=== PATIENT | female | born 1960 | race African-American/Black ===

== ENCOUNTER → 2018-01-29 | Day surgery (SDC) | payer BC ==
[~2018-01-29] MED LIST: ATORVASTATIN CA40 MG PO; CELEBREX100 MG PO; CYCLOBENZAPRINE10 MG PO; FENTANYL CITRATE/PF 100MCG/2 ML INJ ONE; HYDROCHLOROTHIA25 MG PO; LIDOCAINE HCL 2% LOCAL INJ 5 ML SDV VIAL INJ ONE; LIDOCAINE TD; LORAZEPAM1 MG PO; MIDAZOLAM HCL 2 MG/2 ML VIAL ONE; NEXIUM40 MG PO; NORTRIPTYLINE H50 MG PO; PREMARIN0.625 MG PO; PROPOFOL IV EMULSION 10 MG/ML 50 ML VIAL ONE; SYNTHROID100 MCG PO; ULTRAM 50MG50 MG PO
== END | disposition home or self-care (01) ==
LOC: OR 12:26
PROVIDERS: ATTEND Internal Medicine Gastroenterology
DX: R93.3 Abnormal findings on diagnostic imaging of other parts of digestive tract (principal); K31.7 Polyp of stomach and duodenum; K29.70 Gastritis, unspecified, without bleeding; K31.9 Disease of stomach and duodenum, unspecified; K59.09 Other constipation; K60.2 Anal fissure, unspecified; K62.89 Other specified diseases of anus and rectum; K76.89 Other specified diseases of liver; E03.9 Hypothyroidism, unspecified; I10 Essential (primary) hypertension; E78.00 Pure hypercholesterolemia, unspecified; F41.9 Anxiety disorder, unspecified; Z01.810 Encounter for preprocedural cardiovascular examination
CPT/HCPCS: 43239; 43251; 93005; J2001; J2250

== ENCOUNTER 2018-04-15 06:48 | Inpatient (IN) | payer BC ==
[2018-04-12 10:38] LABS: BASOPHILS # (AUTO) 0.1 (0.0-0.1); BASOPHILS % 0.9 % (0.0-1.0); EOSINOPHILS # (AUTO) 0.1 (0.0-0.4); EOSINOPHILS % 1.4 % (0.0-6.0); HEMOGLOBIN 13.9 g/dL (12.0-16.0); LYMPHOCYTES # (AUTO) 2.2 (1.0-3.2); LYMPHOCYTES % 31.3 % (18.0-39.1); MEAN CORPUSCULAR HEMOGLOBIN 29.6 pg (28-32); MEAN CORPUSCULAR HGB CONC 33.9 g/dL (31-35); MEAN CORPUSCULAR VOLUME 87.2 fL (81-99); MONOCYTES # (AUTO) 0.5 (0.2-0.8); MONOCYTES % 6.4 % (4.4-11.3); NEUTROPHILS # (AUTO) 4.2 (2.1-6.9); NEUTROPHILS % 59.7 % (38.7-80.0); PLATELET COUNT 280 x10e3/uL (140-360)
[2018-04-12 10:53] LABS: ANION GAP 17.6 mmol/L (8-16); BLOOD UREA NITROGEN 11 mg/dL (7-26); BUN/CREATININE RATIO 13 (6-25); CALCIUM 9.9 mg/dL (8.4-10.2); CARBON DIOXIDE 26 mmol/L (22-29); CHLORIDE 103 mmol/L (98-107); CREATININE, SERUM 0.83 mg/dL (0.57-1.11); EST GLOMERULAR FILTRATION RATE > 60 ML/MIN (60-); GLUCOSE 116 mg/dL (74-118); POTASSIUM 3.6 mmol/L (3.5-5.1); SODIUM 143 mmol/L (136-145)
--- NOTE | 2018-04-12 11:34 | Diagnostic Imaging Report ---
EXAMINATION: PA and lateral views of the chest. COMPARISON: None CLINICAL HISTORY: Preoperative study for GI surgery DISCUSSION: Lung volumes are low with linear subsegmental atelectasis in the right lung base. No consolidation, pleural effusion, or pneumothorax. Cardiomediastinal contour and pulmonary vasculature are within normal limits when accounting for degree of inspiratory effort. No acute osseous abnormality. IMPRESSION: Low lung volumes without acute cardiopulmonary abnormality. Signed by: Dr. Shaka Majano M.D. on 04/12/2018 11:30 AM
[~2018-04-15] VITALS: Ht 154.2 cm; Wt 81.6 kg
[~2018-04-15 06:48] MED LIST changes: -FENTANYL CITRATE/PF 100MCG/2 ML INJ ONE; -LIDOCAINE HCL 2% LOCAL INJ 5 ML SDV VIAL INJ ONE; -MIDAZOLAM HCL 2 MG/2 ML VIAL ONE; -PROPOFOL IV EMULSION 10 MG/ML 50 ML VIAL ONE
--- OUTSIDE RECORDS SUMMARY | 2018-04-15 06:51 | XMS REPORT ---
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.49 Active Cecille Atkins MD Other specified disorders of rectum and anus levator spasm Chronic pain 338.29 Active Cecille Atkins MD Other chronic pain Hypertension 401.9 Active Cecille Atkins MD Unspecified essential hypertension Allergic rhinitis 477.9 Active Cecille Atkins MD Allergic rhinitis, cause unspecified Acute frontal sinusitis 461.1 Active Cecille Atkins MD Acute frontal sinusitis BMI 25.0-25.9 Active Jerel Dietrich MD Body Mass Index 25.0-25.9, adult Flu shot V04.8 Active Jerel Dietrich MD Need for prophylactic vaccination and inoculation against other viral diseases Overweight Active Jerel Dietrich MD Overweight Screening exam for breast cancer V76.10 Active Jerel Dietrich MD Breast screening, unspecified Screening for malignant neoplasm, colon V76.51 Active Jerel Dietrich MD Screening for malignant neoplasms of colon HEALTH MAINTENANCE EXAM V70.0 Active Jerel Dietrich MD Routine general medical examination at a health care facility OSTEOARTHRITIS 715.90 Active Jerel Dietrich MD Osteoarthrosis, unspecified whether generalized or localized, involving unspecified site CHEST PAIN 786.50 Active Elisabeth Bourne MD Unspecified chest pain HEADACHE 784.0 Active Elisabeth Bourne MD Headache HYPERLIPIDEMIA 272.4 Active Elisabeth Bourne MD Other and unspecified hyperlipidemia ANXIETY 300.00 Active Jerel Dietrich MD Anxiety state, unspecified ARTHRALGIA 719.40 Active Jerel Dietrich MD Pain in joint, site unspecified HYPOTHYROIDISM 244.9 Active Jerel Dietrich MD Unspecified hypothyroidism Medication List Medication Instructions Start Date Stop Date Generic Name NDC Status Provider Patient Instruction CYCLOBENZAPRINE HCL 10 MG ORAL TABLET 1 By Mouth three times a day as needed for muscle spasm CYCLOBENZAPRINE HCL 44367771438 Active Cecille Atkins MD Active HYDROCHLOROTHIAZIDE 25 MG ORAL TABLET 1 by mouth every day HYDROCHLOROTHIAZIDE 59048235742 Active Cecille Atkins MD Active ATORVASTATIN CALCIUM 40 MG ORAL TABLET 1 tab By Mouth qd ATORVASTATIN CALCIUM 34356424810 Active Ceclile Atkins MD Active LEVOTHYROXINE SODIUM 100 MCG ORAL TABLET 1 by mouth daily LEVOTHYROXINE SODIUM 68117607274 Active Cecille Atkins MD Active FLONASE ALLERGY RELIEF 50 MCG/ACT NASAL SUSPENSION 2 sprays each nostril every day FLUTICASONE PROPIONATE 17322331935 Active Angelita Callahan [employer]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 TRAMADOL HCL 50 MG ORAL TABLET 1-2 tablets by mouth 3 times a day as needed for pain TRAMADOL HCL 27910359559 Active Cecille Atkins MD Active NORTRIPTYLINE HCL 75 MG ORAL CAPSULE 1 tab By Mouth qd NORTRIPTYLINE HCL 45432281512 Active Cecille Atkins MD Active LIDODERM 5 % EXTERNAL PATCH LIDOCAINE 96234199902 Active Jerel Dietrich MD Active TRAMADOL-ACETAMINOPHEN 37.5-325 MG ORAL TABLET take two tabs every 4-6 hours as needed for pain TRAMADOL-ACETAMINOPHEN 45017913475 Active Jerel Dietrich MD Active ATORVASTATIN CALCIUM 20 MG ORAL TABLET take one daily for cholesterol control ATORVASTATIN CALCIUM 24947923662 Active Bing Ferreira LVN Active CELEBREX 100 MG ORAL CAPSULE 1 by mouth Twice a Day CELECOXIB 64689386465 Active Cecille Atkins MD Active CRESTOR 20 MG ORAL TABLET 1 tab by mouth daily ROSUVASTATIN CALCIUM 43704857591 Active Jerel Dietrich MD Active HYDROCODONE-ACETAMINOPHEN 10-325 MG ORAL TABLET takde one daily as needed for chronic hip pain HYDROCODONE-ACETAMINOPHEN 99654318086 Active Jerel Dietrich MD Active LORAZEPAM 2 MG ORAL TABLET take one tab daily as needed for anxiety LORAZEPAM 66346857946 Active Cecille Atkins MD Active HYOSCYAMINE SULFATE 0.125 MG SUBLINGUAL TABLET SUBLINGUAL Take 1 tablet under the tongue before meals. HYOSCYAMINE SULFATE 30445317449 Active Bing Ferreira LVN Active NEXIUM 40 MG ORAL CAPSULE DELAYED RELEASE 1 by mouth daily ESOMEPRAZOLE MAGNESIUM 50189318222 Active Angelita Callahan CPHT Active PREMARIN 0.9 MG ORAL TABLET 1 by mouth every other day ESTROGENS CONJUGATED 85939193482 Active Cecille Atkins MD Active HYDROCODONE-ACETAMINOPHEN 10-650 MG ORAL TABLET take one daily for pain HYDROCODONE-ACETAMINOPHEN 37193137834 Active Jerel Dietrich MD Active LORAZEPAM 2 MG ORAL TABLET take one daily LORAZEPAM 28638373193 Active Cecille Atkins MD Active LEVOTHYROXINE SODIUM 125 MCG ORAL TABLET take 1 tablet By Mouth Every Day LEVOTHYROXINE SODIUM 03737536041 Active Bing Ferreira LVN Active TRAMADOL HCL 50 MG ORAL TABLET Take 1 Tablet By Mouth Every 6 To 8 Hours As Needed For Pain TRAMADOL HCL 04504713920 Active Jerel Dietrich MD Active AUGMENTIN 875-125 MG ORAL TABLET 1 by mouth twice a day AUGMENTIN 875-125 MG ORAL TABLET 843897 AMOXICILLIN-POT CLAVULANATE Inactive NORTRIPTYLINE HCL 50 MG ORAL CAPSULE 2 tab By Mouth take at bedtime NORTRIPTYLINE HCL 50 MG ORAL CAPSULE 19790929 NORTRIPTYLINE HCL Inactive NORTRIPTYLINE HCL 50 MG ORAL CAPSULE take one every night NORTRIPTYLINE HCL 50 MG ORAL CAPSULE 19790929 NORTRIPTYLINE HCL Inactive LEVOTHYROXINE SODIUM 125 MCG ORAL TABLET One tab by mouth daily LEVOTHYROXINE SODIUM 125 MCG ORAL TABLET 006153 LEVOTHYROXINE SODIUM Inactive AMITRIPTYLINE HCL 50 MG ORAL TABLET take 1 tablet By Mouth Every Day at bedtime AMITRIPTYLINE HCL 50 MG ORAL TABLET 081033 AMITRIPTYLINE HCL Inactive AUGMENTIN 875-125 MG ORAL TABLET 1 by mouth twice a day AMOXICILLIN-POT CLAVULANATE 26565313198 No Longer Active Cecille Atkins MD Active NORTRIPTYLINE HCL 50 MG ORAL CAPSULE 2 tab By Mouth take at bedtime NORTRIPTYLINE HCL 23048981881 No Longer Active Cecille Atkins MD Active NORTRIPTYLINE HCL 50 MG ORAL CAPSULE take one every night NORTRIPTYLINE HCL 70481314767 No Longer Active Cecille Atkins MD Active LEVOTHYROXINE SODIUM 125 MCG ORAL TABLET One tab by mouth daily LEVOTHYROXINE SODIUM 37071362680 No Longer Active Bing Ferreira ROCK Active AMITRIPTYLINE HCL 50 MG ORAL TABLET take 1 tablet By Mouth Every Day at bedtime AMITRIPTYLINE HCL 01102322975 No Longer Active Cecille Atkins MD Active Immunizations Vaccine Administration Date Value Standard Description influenza immunization (Flu Vax) has been administered given influenza virus vaccine, unspecified formulation influenza immunization (Flu Vax) has been administered given influenza virus vaccine, unspecified formulation Vital Signs Date Name Value Unit Range Description blood pressure, diastolic 79 mm[Hg] BP mcdowell blood pressure, systolic 113 mm[Hg] BP sys height E&M 67 [in_us] Bdy height pulse rate E&M 92 /min Heart rate respiratory rate E&M 18 /min Resp rate temperature E&M 98.7 [degF] Body temperature weight E&M 168.60 [lb_av] Weight Measured blood pressure, diastolic 86 mm[Hg] BP mcdowell blood pressure, systolic 119 mm[Hg] BP sys height E&M 67 [in_us] Bdy height pulse rate E&M 90 /min Heart rate respiratory rate E&M 18 /min Resp rate temperature E&M 98.7 [degF] Body temperature weight E&M 171.80 [lb_av] Weight Measured blood pressure, diastolic 107 mm[Hg] BP mcdowell blood pressure, systolic 161 mm[Hg] BP sys height E&M 67 [in_us] Bdy height pulse rate E&M 85 /min Heart rate respiratory rate E&M 22 /min Resp rate temperature E&M 98.4 [degF] Body temperature weight E&M 173 [lb_av] Weight Measured blood pressure, diastolic 101 mm[Hg] BP mcdowell blood pressure, systolic 146 mm[Hg] BP sys height E&M 67 [in_us] Bdy height pulse rate E&M 89 /min Heart rate respiratory rate E&M 21 /min Resp rate temperature E&M 98.3 [degF] Body temperature weight E&M 165 [lb_av] Weight Measured blood pressure, diastolic 87 mm[Hg] BP mcdowell blood pressure, systolic 146 mm[Hg] BP sys height E&M 67 [in_us] Bdy height pulse rate E&M 93 /min Heart rate respiratory rate E&M 22 /min Resp rate temperature E&M 98.6 [degF] Body temperature weight E&M 169.80 [lb_av] Weight Measured blood pressure, diastolic 84 mm[Hg] BP mcdowell blood pressure, systolic 125 mm[Hg] BP sys height E&M 67 [in_us] Bdy height pulse rate E&M 98 /min Heart rate respiratory rate E&M 17 /min Resp rate temperature E&M 98.3 [degF] Body temperature weight E&M 168 [lb_av] Weight Measured blood pressure, diastolic, second observation 94 mm[Hg] BP mcdowell blood pressure, diastolic 93 mm[Hg] BP mcdowell blood pressure, systolic, second observation 149 mm[Hg] BP sys blood pressure, systolic 147 mm[Hg] BP sys height E&M 67 [in_us] Bdy height pulse rate E&M 92 /min Heart rate respiratory rate E&M 16 /min Resp rate temperature E&M 98.3 [degF] Body temperature weight E&M 166.40 [lb_av] Weight Measured blood pressure, diastolic, second observation 81 mm[Hg] BP mcdowell blood pressure, diastolic 81 mm[Hg] BP mcdowell blood pressure, systolic, second observation 145 mm[Hg] BP sys blood pressure, systolic 145 mm[Hg] BP sys height E&M 67 [in_us] Bdy height pulse rate E&M 95 /min Heart rate respiratory rate E&M 18 /min Resp rate temperature E&M 98.5 [degF] Body temperature weight E&M 163.40 [lb_av] Weight Measured Diagnostic Results Date Name Value Unit Range Description Lab Report: TSH+Free T4, CBC With Differential/Platelet, Comp. Metabolic ... - Hematology lymphocyte count, blood, automated 2.5 X10E3/UL 10*3/mm3 0.7-3.1 Lab Report: TSH+Free T4, CBC With Differential/Platelet, Comp. Metabolic ... - Chemistry urea nitrogen, blood 14 mg/dL 6-24 creatinine, serum 0.81 mg/dL 0.57-1.00 chloride, serum 103 mmol/L 96-106 Lab Report: TSH+Free T4, CBC With Differential/Platelet, Comp. Metabolic ... - Hematology mean corpuscular volume, RBC 88 fL 79-97 Lab Report: TSH+Free T4, CBC With Differential/Platelet, Comp. Metabolic ... - Chemistry triglyceride, serum, fasting 171 mg/dL 0-149 Lab Report: TSH+Free T4, CBC With Differential/Platelet, Comp. Metabolic ... - Hematology erythrocyte (RBC) count 4.98 X10E6/UL 10*6/mm3 3.77-5.28 Lab Report: TSH+Free T4, CBC With Differential/Platelet, Comp. Metabolic ... - Chemistry Estimated Glomerular Filtration Rate (calc) 80 mL/min/1.73m2 >59 Lab Report: TSH+Free T4, CBC With Differential/Platelet, Comp. Metabolic ... - Hematology platelet count 265 X10E3/UL 10*3/mm3 974-730 4735/05/10 red blood cell distribution width 14.0 % 12.3-15.4 Lab Report: TSH+Free T4, CBC With Differential/Platelet, Comp. Metabolic ... - Chemistry protein, total, serum 7.2 g/dL 6.0-8.5 HDL cholesterol, serum 64 mg/dL >39 albumin/globulin ratio, serum 2.0 1.2-2.2 Lab Report: TSH+Free T4, CBC With Differential/Platelet, Comp. Metabolic ... - Hematology eosinophils as percent of blood leukocytes 1 % Not Estab. Lab Report: TSH+Free T4, CBC With Differential/Platelet, Comp. Metabolic ... - Chemistry Absolute Neutrophils 2.9 X10E3/UL 10*3/uL 1.4-7.0 Lab Report: TSH+Free T4, CBC With Differential/Platelet, Comp. Metabolic ... - Hematology basophil count, absolute 0.0 x10E3/uL 0.0-0.2 Lab Report: TSH+Free T4, CBC With Differential/Platelet, Comp. Metabolic ... - Chemistry alanine aminotransferase (SGPT), serum 21 U/L 0-32 LDL cholesterol, serum 183 mg/dL 0-99 Lab Report: TSH+Free T4, CBC With Differential/Platelet, Comp. Metabolic ... - Hematology monocytes as percent of blood leukocytes 6 % Not Estab. Lab Report: TSH+Free T4, CBC With Differential/Platelet, Comp. Metabolic ... - Chemistry cholesterol, serum 281 mg/dL 100-199 Lab Report: TSH+Free T4, CBC With Differential/Platelet, Comp. Metabolic ... - Hematology mean corpuscular hemoglobin concentration, RBC 33.0 G/DL % 31.5-35.7 hemoglobin, blood 14.5 g/dL 11.1-15.9 leukocyte count, blood 5.9 X10E3/UL 10*3/mm3 3.4-10.8 hematocrit, blood 44.0 % 34.0-46.6 Lab Report: TSH+Free T4, CBC With Differential/Platelet, Comp. Metabolic ... - Chemistry globulin, serum 2.4 1.5-4.5 Lab Report: TSH+Free T4 - Chemistry thyroid stimulating hormone, serum 1.010 u[iU]/mL 0.450-4.500 Lab Report: TSH+Free T4, CBC With Differential/Platelet, Comp. Metabolic ... - Chemistry albumin, serum 4.8 g/dL 3.5-5.5 very low density lipoproteins 34 mg/dL 5-40 calcium, serum 9.9 mg/dL 8.7-10.2 Lab Report: TSH+Free T4, CBC With Differential/Platelet, Comp. Metabolic ... - Hematology basophils as percent of blood leukocytes 1 % Not Estab. Nurse Visit: Nurse Visit stool results - Chemistry occult blood stool sample #3 negative Lab Report: TSH+Free T4 - Chemistry thyroxine, serum, free 1.29 ng/dL 0.82-1.77 Lab Report: TSH+Free T4, CBC With Differential/Platelet, Comp. Metabolic ... - Hematology monocyte count, blood, automated 0.4 X10E3/UL 10*3/uL 0.1-0.9 Lab Report: TSH+Free T4, CBC With Differential/Platelet, Comp. Metabolic ... - Chemistry immature granulocytes, percentage of total cells, blood 0 % Not Estab. urea nitrogen/creatinine ratio, serum 17 9-23 Lab Report: TSH+Free T4, CBC With Differential/Platelet, Comp. Metabolic ... - Genetics/fertility eGFR if 92 mL/min/1.73m2 >59 Lab Report: TSH+Free T4, CBC With Differential/Platelet, Comp. Metabolic ... - Hematology lymphocytes as percent of blood leukocytes 42 % Not Estab. Lab Report: TSH+Free T4, CBC With Differential/Platelet, Comp. Metabolic ... - Chemistry carbon dioxide, venous blood 24 mmol/L 18-29 sodium, serum 145 mmol/L 114-782 3572/05/10 alkaline phosphatase, serum 68 U/L 39-117 Lab Report: TSH+Free T4, CBC With Differential/Platelet, Comp. Metabolic ... - Hematology Eosinophil Absolute Count 0.1 X10E3/UL 10*3/uL 0.0-0.4 Nurse Visit: Nurse Visit stool results - Chemistry occult blood stool sample #2 negative Lab Report: TSH+Free T4, CBC With Differential/Platelet, Comp. Metabolic ... - Hematology mean corpuscular hemoglobin, RBC 29.1 pg 26.6-33.0 Lab Report: TSH+Free T4, CBC With Differential/Platelet, Comp. Metabolic ... - Chemistry bilirubin, serum, total 0.4 mg/dL 0.0-1.2 Lab Report: TSH+Free T4, CBC With Differential/Platelet, Comp. Metabolic ... - Hematology neutrophils as percent of blood leukocytes 50 % Not Estab. Lab Report: TSH+Free T4, CBC With Differential/Platelet, Comp. Metabolic ... - Chemistry blood glucose, random 120 mg/dL 65-99 potassium, serum 4.5 mmol/L 3.5-5.2 Nurse Visit: Nurse Visit stool results - Chemistry occult blood, stool (E&M) negative Lab Report: TSH+Free T4, CBC With Differential/Platelet, Comp. Metabolic ... - Chemistry aspartate aminotransferase (SGOT), serum 21 U/L 0-40 Office Visit: Acute Visit Rm1 - Lab Microbial identification kit, rapid strep method negative Encounters Date Encounter Provider Code Facility 17:04:01 CDT Est Patient Detailed - [id number] Cecille Atkins MD CPT-55504 [facility] 11:55:13 CDT Est Patient Detailed - [id number] Cecille Atkins MD CPT-05230 [facility] 11:50:51 CDT Est Patient Detailed - 25805 Cecille Atkins MD CPT-73474 [facility] 22:02:22 CREDIT AND COLLECTIONS ANALYST Est Patient Exp Problem - 47570 Cecille Atkins MD CPT-20480 [facility] 14:48:02 CREDIT AND COLLECTIONS ANALYST Est Patient Detailed - 74328 Cecille Atkins MD CPT-25279 [facility] 17:04:59 CREDIT AND COLLECTIONS ANALYST Est Patient Exp Problem - 60818 Cecille Atkins MD CPT-83371 [facility] 17:57:53 CDT Est Patient Detailed - 19318 Cecille Atkins MD CPT-08293 [facility] 15:59:51 CDT Est Patient Exp Problem - 76237 Jerel Dietrich MD CPT-84304 [facility] 17:22:37 CDT Est Patient Exp Problem - 72085 Jerel Dietrich MD CPT-60877 [facility] 09:06:12 CDT Est Patient Detailed - 09978 Jerel Dietrich MD CPT-74703 [facility] 16:19:41 CDT Est Patient Exp Problem - 73959 Jerel Dietrich MD CPT-03070 [facility] 10:52:44 CDT Est Patient Exp Problem - 89877 Elisabeth Bourne MD CPT-18647 [facility] 16:40:30 CDT Est Patient Exp Problem - 19626 Jerel Dietrich MD CPT-88934 [facility] Procedures Code Procedure Name Date Entry Date Standard Description CPT-07024 IM or SQ Injection 22:02:22 CREDIT AND COLLECTIONS ANALYST CPT-J1100 Injection, dexamethasone sodium phosphate, 1mg 22:02:21 CREDIT AND COLLECTIONS ANALYST CPT-59302 INFLUENZA VACCINE QUADRIVALENT 3 YRS PLUS IM 17:57:53 CDT CPT-08266 Est Patient Well Exam (40 - 64 Yrs) - [id number] 12:18:23 CDT CPT-12293 INFLUENZA VACCINE QUADRIVALENT 3 YRS PLUS IM 15:59:52 CDT CPT-14641 Est Patient Well Exam (40 - 64 Yrs) - 89847 12:13:05 CDT CPT-57212 EKG - Tracing Only 15:38:38 CDT CPT-03099 EKG - Interpretation & Report Only 15:38:38 CDT CPT-32616 Est Patient Well Exam (40 - 64 Yrs) - 75801 10:06:13 CDT
--- OUTSIDE RECORDS SUMMARY | 2018-04-15 06:51 | XMS REPORT | Continuity of Care Document ---
Author Author [facility] Interface Address Unknown Phone Unavailable Problems Problem Status Onset Date Classification Date Reported Comments Source Trochanteric bursitis, right hip Active Diagnosis 11/26/2015 Shalini Najam Pain, joint, multiple sites Active Diagnosis 11/26/2015 Shalini Najam Pain in right hip Active Diagnosis 11/26/2015 Shalini Najam Counseling NOS Active Diagnosis 11/26/2015 Shalini Najam Medications Medication Details Route Status Patient Instructions Ordering Provider Order Date Source Arthrotec 1 tablet Orally Active 50-0.2 MG Orally bid prn with food Najam 11/08/2015 Shalini Najam Synthroid 1 tablet Orally Active 125 [facility]CG [facility] Lidocaine 1 application to affected area as needed Externally Active 5 % Externally Three times a day PRN Naja Shalini [facility] Esomeprazole Magnesium 1 capsule Orally Active 40 MG Orally [facility] Premarin 1 tablet Orally Active 0.9 MG Orally Once a [facility] Lorazepam 1 tablet at bedtime as needed Orally Active 2 MG Orally [facility] Tramadol HCl 1 tablet as needed Orally Active 50 MG [facility] Ator[facility] Calcium 1 tablet Orally Active 20 MG Orally [facility] Arthrotec 1 tablet Orally Active 50-0.2 MG Orally bid prn with food [facility] Nortriptyline HCl 1 capsule at bedtime Orally Active 50 MG Orally [facility] Lidocaine 1 application to affected area as needed Externally Active 5 % Externally Three [facility] a [facility] Celecoxib 1 capsule Orally No Longer Active 100 MG Orally Twice a [facility] Allergies, Adverse Reactions, Alerts Substance Category Reaction Severity Reaction type Status Date Reported Comments Source N.K.D.A. Adverse Reaction Info Not Available Adverse Reaction Active 11/25/2015 Shalini Guzman Immunizations Immunization Date Given Site Status Last Updated Comments Source Results Order Name Results Value Reference Range Date Interpretation Comments Source Vital Signs Vital Sign Value Date Comments Source Height 67 11/25/2015 Shalini Guzman Diastolic (mm Hg) 97 11/25/2015 Shalini Guzman Systolic (mm Hg) 136 11/25/2015 Shalini Guzman Weight 166.8 11/25/2015 Shalini Guzman Height 67 11/08/2015 Shalini Guzman Diastolic (mm Hg) 97 11/08/2015 Shalini Guzman Systolic (mm Hg) 138 11/08/2015 Shalini Guzman Weight 164.8 11/08/2015 Shalini Guzman Encounters Location Location Details Encounter Type Encounter Number Reason For Visit Attending Provider ADM Date DC Date Status Source [facility] Arthritis [id number] 11/08/2015 11/08/2015 Shalini Guzman [facility] Arthritis [id number] 11/08/2015 11/08/2015 Shalini Guzman [facility] Follow Up Lab & MRI Results [id number] 11/25/2015 11/25/2015 Shalini Guzman Procedures Procedure Code Date Perfomer Comments Source
--- OUTSIDE RECORDS SUMMARY | 2018-04-15 06:51 | XMS REPORT ---
Author Author Admin, [facility] [place] Address Unknown Phone Unavailable Allergies, Adverse Reactions, Alerts Allergy Name Reaction Description Start Date Severity Status Provider No Known Allergies Krystin Thomas CANDY VENDOR Conditions or Problems Problem Name Problem Code [...] as needed for muscle spasm CYCLOBENZAPRINE HCL 99121661046 Active Cecille Atkins MD Active HYDROCHLOROTHIAZIDE 25 MG ORAL TABLET 1 by mouth every day HYDROCHLOROTHIAZIDE 29107514942 Active Cecille Atkins MD Active ATORVASTATIN CALCIUM 40 MG ORAL TABLET 1 tab By Mouth qd ATORVASTATIN CALCIUM 10456395057 Active Cecille Atkins MD Active LEVOTHYROXINE SODIUM 100 MCG ORAL TABLET 1 by mouth daily LEVOTHYROXINE SODIUM 90083550083 Active Cecille Atkins MD Active FLONASE ALLERGY RELIEF 50 MCG/ACT NASAL SUSPENSION 2 sprays each nostril every day FLUTICASONE PROPIONATE 93167364595 Active Angelita Callahan COIL WINDER Active TRAMADOL HCL 50 MG ORAL TABLET 1-2 tablets by mouth 3 times a day as needed for pain TRAMADOL HCL 67389881258 Active Cecille Atkins MD Active NORTRIPTYLINE HCL 75 MG ORAL CAPSULE 1 tab By Mouth qd NORTRIPTYLINE HCL 64639283733 Active Cecille Atkins MD Active LIDODERM 5 % EXTERNAL PATCH LIDOCAINE 68882777728 Active Jerel Dietrich MD Active TRAMADOL-ACETAMINOPHEN 37.5-325 MG ORAL TABLET take two tabs every 4-6 hours as needed for pain TRAMADOL-ACETAMINOPHEN 85739455592 Active Jerel Dietrich MD Active ATORVASTATIN CALCIUM 20 MG ORAL TABLET take one daily for cholesterol control ATORVASTATIN CALCIUM 99213016500 Active Bing Ferreira LVN Active CELEBREX 100 MG ORAL CAPSULE 1 by mouth Twice a Day CELECOXIB 12673319981 Active Cecille Atkins MD Active CRESTOR 20 MG ORAL TABLET 1 tab by mouth daily ROSUVASTATIN CALCIUM 08815021701 Active Jerel Dietrich MD Active HYDROCODONE-ACETAMINOPHEN 10-325 MG ORAL TABLET takde one daily as needed for chronic hip pain HYDROCODONE-ACETAMINOPHEN 71799223250 Active Jerel Dietrich MD Active LORAZEPAM 2 MG ORAL TABLET take one tab daily as needed for anxiety LORAZEPAM 39624151457 Active Cecille Atkins MD Active HYOSCYAMINE SULFATE 0.125 MG SUBLINGUAL TABLET SUBLINGUAL Take 1 tablet under the tongue before meals. HYOSCYAMINE SULFATE 30405486665 Active Bing Ferreira LVN Active NEXIUM 40 MG ORAL CAPSULE DELAYED RELEASE 1 by mouth daily ESOMEPRAZOLE MAGNESIUM 49888915539 Active Angelita Callahan CPHT Active PREMARIN 0.9 MG ORAL TABLET 1 by mouth every other day ESTROGENS CONJUGATED 15267527641 Active Cecille Atkins MD Active HYDROCODONE-ACETAMINOPHEN 10-650 MG ORAL TABLET take one daily for pain HYDROCODONE-ACETAMINOPHEN 80644195713 Active Jerel Dietrich MD Active LORAZEPAM 2 MG ORAL TABLET take one daily LORAZEPAM 89187296806 Active Cecille Atkins MD Active LEVOTHYROXINE SODIUM 125 MCG ORAL TABLET take 1 tablet By Mouth Every Day LEVOTHYROXINE SODIUM 40235107182 Active Bing Ferreira LVN Active TRAMADOL HCL 50 MG ORAL TABLET Take 1 Tablet By Mouth Every 6 To 8 Hours As Needed For Pain TRAMADOL HCL 43252161544 Active Jerel Dietrich MD Active AUGMENTIN 875-125 MG ORAL TABLET 1 by mouth twice a day AUGMENTIN 875-125 MG ORAL TABLET 543325 AMOXICILLIN-POT CLAVULANATE Inactive NORTRIPTYLINE HCL 50 MG ORAL CAPSULE 2 tab By Mouth take at bedtime NORTRIPTYLINE HCL 50 MG ORAL CAPSULE 19790929 NORTRIPTYLINE HCL Inactive NORTRIPTYLINE HCL 50 MG ORAL CAPSULE take one every night NORTRIPTYLINE HCL 50 MG ORAL CAPSULE 19790929 NORTRIPTYLINE HCL Inactive LEVOTHYROXINE SODIUM 125 MCG ORAL TABLET One tab by mouth daily LEVOTHYROXINE SODIUM 125 MCG ORAL TABLET 165579 LEVOTHYROXINE SODIUM Inactive AMITRIPTYLINE HCL 50 MG ORAL TABLET take 1 tablet By Mouth Every Day at bedtime AMITRIPTYLINE HCL 50 MG ORAL TABLET 512991 AMITRIPTYLINE HCL Inactive AUGMENTIN 875-125 MG ORAL TABLET 1 by mouth twice a day AMOXICILLIN-POT CLAVULANATE 85428606951 No Longer Active Cecille Atkins MD Active NORTRIPTYLINE HCL 50 MG ORAL CAPSULE 2 tab By Mouth take at bedtime NORTRIPTYLINE HCL 07304069405 No Longer Active Cecille Atkins MD Active NORTRIPTYLINE HCL 50 MG ORAL CAPSULE take one every night NORTRIPTYLINE HCL 59095659559 No Longer Active Cecille Atkins MD Active LEVOTHYROXINE SODIUM 125 MCG ORAL TABLET One tab by mouth daily LEVOTHYROXINE SODIUM 62289464478 No Longer Active Bing Ferreira ROCK Active AMITRIPTYLINE HCL 50 MG ORAL TABLET take 1 tablet By Mouth Every Day at bedtime AMITRIPTYLINE HCL 41538723999 No Longer Active Cecille Atkins MD Active Immunizations Vaccine Administration Date Value Standard Description influenza immunization (Flu Vax) has been administered given influenza virus vaccine, unspecified formulation influenza immunization (Flu Vax) has been administered given influenza virus vaccine, unspecified formulation Vital Signs Date Name Value Unit Range Description blood pressure, diastolic 78 mm[Hg] BP mcdowell blood pressure, systolic 112 mm[Hg] BP sys height E&M 67 [in_us] Bdy height pulse rate E&M 99 /min Heart rate respiratory rate E&M 17 /min Resp rate temperature E&M 98.6 [degF] Body temperature weight E&M 170 [lb_av] Weight Measured blood pressure, diastolic 79 mm[Hg] BP mcdowell [...] Measured blood pressure, diastolic 101 mm[Hg] BP cmdowell blood pressure, systolic 146 mm[Hg] BP sys [...] - Hematology platelet count 265 X10E3/UL 10*3/mm3 939-520 2412/05/10 red blood cell distribution width 14.0 % [...] Differential/Platelet, Comp. Metabolic ... - Chemistry urea nitrogen/creatinine ratio, serum 17 9-23 immature granulocytes, percentage of total cells, blood 0 % Not Estab. Lab Report: TSH+Free T4, [...] 24 mmol/L 18-29 sodium, serum 145 mmol/L 377-134 7676/05/10 alkaline phosphatase, serum 68 U/L 39-117 Lab [...] With Differential/Platelet, Comp. Metabolic ... - Chemistry potassium, serum 4.5 mmol/L 3.5-5.2 blood glucose, random 120 mg/dL 65-99 Nurse Visit: Nurse Visit stool results - Chemistry occult blood, stool (E&M) negative Lab Report: TSH+Free T4, CBC With Differential/Platelet, Comp. Metabolic ... - Chemistry aspartate aminotransferase (SGOT), serum 21 U/L 0-40 Office Visit: Acute Visit Rm1 - Lab Microbial identification kit, rapid strep method negative Encounters Date Encounter Provider Code Facility 13:19:53 CDT Est Patient Detailed - 20465 Cecille Atkins MD CPT-59909 [facility] 17:04:01 CDT Est Patient Detailed - 60040 Cecille Atkins MD CPT-09587 [facility] 11:55:13 CDT Est Patient Detailed - 49873 Cecille Atkins MD CPT-51631 [facility] 11:50:51 CDT Est Patient Detailed - 06138 Cecille Atkins MD CPT-43422 [facility] 22:02:22 GEOSCIENCE SPECIALIST Est Patient Exp Problem - 28263 Cecille Atkins MD CPT-95052 [facility] 14:48:02 GEOSCIENCE SPECIALIST Est Patient Detailed - 76340 Cecille Atkins MD CPT-06421 [facility] 17:04:59 GEOSCIENCE SPECIALIST Est Patient Exp Problem - 46255 Cecille Atkins MD CPT-29389 [facility] 17:57:53 CDT Est Patient Detailed - 83708 Cecille Atkins MD CPT-95224 [facility] 15:59:51 CDT Est Patient Exp Problem - 47412 Jerel Dietrich MD CPT-19758 [facility] 17:22:37 CDT Est Patient Exp Problem - 71440 Jerel Dietrich MD CPT-88233 [facility] 09:06:12 CDT Est Patient Detailed - 84557 Jerel Dietrich MD CPT-96432 [facility] 16:19:41 CDT Est Patient Exp Problem - 24198 Jerel Dietrich MD CPT-48865 [facility] 10:52:44 CDT Est Patient Exp Problem - 11629 Elisabeth Bourne MD CPT-52607 [facility] 16:40:30 CDT Est Patient Exp Problem - 00623 Jerel Dietrich MD CPT-43401 [facility] Procedures Code Procedure Name Date Entry Date Standard Description CPT-57387 IM or SQ Injection 22:02:22 GEOSCIENCE SPECIALIST CPT-J1100 Injection, dexamethasone sodium phosphate, 1mg 22:02:21 GEOSCIENCE SPECIALIST CPT-61296 INFLUENZA VACCINE QUADRIVALENT 3 YRS PLUS IM 17:57:53 CDT CPT-95992 Est Patient Well Exam (40 - 64 Yrs) - 81608 12:18:23 CDT CPT-06828 INFLUENZA VACCINE QUADRIVALENT 3 YRS PLUS IM 15:59:52 CDT CPT-18809 Est Patient Well Exam (40 - 64 Yrs) - 63734 12:13:05 CDT CPT-84723 EKG - Tracing Only 15:38:38 CDT CPT-32037 EKG - Interpretation & Report Only 15:38:38 CDT CPT-99116 Est Patient Well Exam (40 - 64 Yrs) - 02684 10:06:13 CDT
--- OUTSIDE RECORDS SUMMARY | 2018-04-15 06:51 | XMS REPORT ---
Author Author [facility] Address Unknown Phone Unavailable Care Team Providers Care Reamer Hand Name Role Phone Yfn REILLY Unavailable Unavailable Problems This patient has no known problems. Allergies, Adverse Reactions, Alerts This patient has no known allergies or adverse reactions. Medications This patient has no known medications. Results Test Description Test Time Test Comments Text Results Atomic Results Result Comments CHEST 2 VIEWS 2018-04-12 11:29:00 [place] [address] Patient Name: DARRYL PIZARRO MR #: [id number] : 1960 Age/Sex: 58/F Req #: [id number] Adm Physician: Ordered by: LAWRENCE REILLY MD Report #: [id number] Location: OR Room/Bed: Procedure: [id number] DX/CHEST 2 VIEWS Exam Date: Exam Time: REPORT STATUS: Signed EXAMINATION: PA and lateral views of the chest. COMPARISON: None CLINICAL HISTORY: Preoperative study for GI surgery DISCUSSION: Lung volumes are low with linear subsegmental atelectasis in the right lung base. No consolidation, pleural effusion, or pneumothorax. Cardiomediastinal contour and pulmonary vasculature are within normal limits when accounting for degree of inspiratory effort. No acute osseous abnormality. IMPR ESSION: Low lung volumes without acute cardiopulmonary abnormality. Signed by: Dr. Cuco Lucas M.D. on 04/12/2018 11:30 AM Dictated By: CUCO LUCAS MD 1130 Transcribed By: ABRAHAM on 04/12/18 1130 COPY TO: LAWRENCE REILLY MD
--- OUTSIDE RECORDS SUMMARY | 2018-04-15 06:51 | XMS REPORT | Clinical Summary ---
Author Author [facility] Address Unknown Phone Unavailable Care Team Providers Care Product Mgmt Dev Manager Name Role Phone Cecille Atkins MD PCP Allergies No Known Allergies Current Medications Prescription Sig. Disp. Refills Start End Date Status Date rosuvastatin (CRESTOR) 20 Take 20 mg by mouth Active MG tablet daily. levothyroxine (SYNTHROID, Take 125 mcg by mouth Active LEVOXYL) 125 mcg tablet every morning. esomeprazole (NexIUM) 40 Take 40 mg by mouth daily Active MG capsule before breakfast. celecoxib (CeleBREX) 100 Take 100 mg by mouth 2 Active MG capsule (two) times a day. LORAZepam (ATIVAN) 2 MG TAKE 1 T PO DAILY 5 01/31/20 Active tablet 17 lidocaine (LIDODERM) 5 % GUMARO 1 PA LEAVE ON 12 H 3 03/21/20 Active THEN REMOVE LEAVE OFF 12 17 H traMADol-acetaminophen TAKE 2 TS PO EVERY 4 TO 6 3 03/21/20 Active (ULTRACET) 37.5-325 mg HOURS NEEDED FOR PAIN 17 per tablet nortriptyline (PAMELOR) 1 tab By Mouth qd 04/16/20 Active 75 MG capsule 17 hyoscyamine (LEVSIN) Take 1 tablet under the 05/30/20 Active 0.125 mg SL tablet tongue before meals. 13 calcium carbonate-vitamin Take 1 tablet by mouth Active D3 500 mg-200 unit per daily. tablet multivitamin with Take 1 tablet by mouth Active minerals tablet daily. cyanocobalamin (VITAMIN Take 1,000 mcg by mouth Active B-12) 1000 MCG tablet daily. nortriptyline (PAMELOR) TK ONE C PO QHS 3 02/01/20 09/11/19 Discontin 50 MG capsule 17 18 ued methocarbamol Take 1 tablet (750 mg 120 tablet 0 04/12/20 05/12/20 (ROBAXIN-750) 750 MG total) by mouth 4 (four) 17 17 tablet times a day for 30 days. methocarbamol (ROBAXIN) Take 1 tablet (750 mg 120 tablet 0 06/13/20 07/13/19 750 MG tabletIndications: total) by mouth 4 (four) 17 18 Impingement syndrome of times a day for 30 days. left shoulder sodium,potassium,mag Used As directed 2 Bottle 0 09/11/19 09/21/19 Discontin sulfates (SUPREP BOWEL 18 18 ued PREP KIT) 17.5-3.13-1.6 gram recon soln hydrocortisone Insert 1 suppository (25 12 0 09/29/19 10/11/19 (ANUSOL-HC) 25 mg mg total) into the rectum suppository 18 18 suppository nightly as needed for hemorrhoids for up to 12 days. Active Problems Problem Noted Date Hx of adenomatous colonic polyps 09/10/2017 FH: colonic polyps 09/10/2017 Encounters Date Type Specialty Care Team Description 11/06/2017 Office Visit General Surgery Emilia Lynne MD Levator spasm (Primary Dx) 11/02/2017 [facility] Radiology Cecille Atkins MD Screening breast Encounter examination 11/01/2017 Transcribe Access Cecille Atkins MD Screening breast Orders examination (Primary Dx) 10/29/2017 Orders Only Gastroenterology Karis Wilder LPN Grade I internal hemorrhoids (Primary Dx) 10/29/2017 Telephone GastroenterKaris Kam LPN 10/12/2017 Refill Orthopedic Surgery Eladia Verma MD Impingement syndrome of left shoulder 09/28/2017 Telephone GastroenterKaris Kam LPN 09/20/2017 Hospital Gastroenterology Alejandro Yepez MD Encounter 09/20/2017 Telephone Gastroenterology Rosaura Rojas MD 09/20/2017 Anesthesia Gastroenterology Marsha Montilla Event MD 09/20/2017 Procedure Pass Gastroenterology 09/20/2017 Surgery Gastroenterology Alejandro Yepez MD COLONOSCOPY 09/10/2017 Office Visit Gastroenterology Rosaura Rojas MD Hx of adenomatous colonic polyps (Primary Dx); FH: colonic polyps; Gastroesophageal reflux disease without esophagitis 08/29/2017 Telephone GastroenterKaris Kam LPN 06/13/2017 Refill Orthopedic Surgery Carlee Wilder, [place] Impingement syndrome of left shoulder (Primary Dx) 05/07/2017 Orders Only Orthopedic Surgery Eladia Verma MD Impingement syndrome of left shoulder (Primary Dx); Cervical radicular pain after 04/14/2017 Family History Medical History Relation Name Comments Heart disease Father Arthritis Mother Breast cancer Mother Relation Name Status Comments Father Mother Alive Social History Tobacco Use Types Packs/Day Years Used Date Never Smoker Smokeless Tobacco: Never Used Alcohol Use Drinks/Week oz/Week Comments Yes occasional Sex Assigned at Date Recorded Not on file Last Filed Vital Signs Vital Sign Reading Time Taken Blood Pressure 118/89 11/06/2017 2:47 PM CDT Pulse 106 11/06/2017 2:47 PM CDT Temperature 36.7 C (98 F) 09/20/2017 7:51 AM CDT Respiratory Rate 17 09/20/2017 8:21 AM CDT Oxygen Saturation 100% 09/20/2017 8:21 AM CDT Inhaled Oxygen - - Concentration Weight 73.9 kg (163 lb) 09/20/2017 6:49 AM CDT Height 170.2 cm (5' 7") 09/20/2017 6:49 AM CDT Body Mass Index 25.53 09/20/2017 6:49 AM CDT Plan of Treatment Health Maintenance Due Date Last Done Comments CERVICAL CANCER SCREENING 1979 COLON CANCER SCREENING 01/22/2008 SHINGRIX VACCINE (#1) 01/22/2008 ZOSTER VACCINE 2018 INFLUENZA VACCINE 01/23/2018 BREAST CANCER SCREENING 11/03/2019 11/02/2017, 11/15/2015, 11/05/2015, Additional history exists Procedures Procedure Name Priority Date/Time Associated Diagnosis Comments MAMMO BREAST SCREEN Routine 11/02/2017 Screening breast Results for this TOMOSYNTHESIS BILATERAL 9:39 AM CDT examination procedure are in the results section. COLONOSCOPY 09/20/2017 Encounter for colonoscopy 7:30 AM CDT due to history of adenomatous colonic polyps after 04/14/2017 Results * Mammo Breast Screen Tomosynthesis Bilateral (11/02/2017 9:39 AM) Narrative Performed At PROCEDURE:MAMMO BREAST SCREEN TOMOSYNTHESIS BILATERAL11/02/2017 9:21 AM [facility]ANT This patient's mammogram was interpreted with the assistance of computer-aided detection (CAD). Digital breast tomosynthesis (3D) imaging was performed. CLINICAL HISTORY:57-year-old female referred for screening mammogram.She reports no new or current breast complaints. FAMILY HISTORY:Family history of breast carcinoma diagnosed in patient's mother at age 78 and 2 aunts, both diagnosed in her 70s. COMPARISON:11/15/2015, 11/05/2015, 12/16/2014, 10/23/2014, 10/17/2013. BREAST DENSITY:The breasts are heterogeneously dense, which may obscure small masses. DIGITAL SCREENING MAMMOGRAPHY FINDINGS: There are no dominant masses, suspicious microcalcifications or unexplained architectural distortion to suggest malignancy. No interval suspicious mammographic change. IMPRESSION: BI-RADS Category 1-Negative. RECOMMENDATION: Annual mammography. This facility is accredited by The [employer] for Mammography. A negative x-ray report should not delay biopsy if a dominant or clinically suspicious mass is present. Not all cancers are identified by x-ray. [id number] The results of this exam have been sent to the patient. Performing Organization Address City[facility]State[facility] [address] [place] [address] after 04/14/2017 Insurance Payer Benefit Subscriber ID Type Phone Address Plan / Group BCBS BCBS xxxxxxxxxxxx PPO CHOICE PPO/FEDERICA VALDEZ Work: [facility] [address] [facility] [place] [address] Home:
[2018-04-15] MEDS ORDERED: MINERAL OIL STERILE 10ML VIAL ONE (11:08)
[2018-04-15] MEDS ORDERED: BUPIVACAINE 0.25%/EPI 30ML SDV INJ ONE (11:08)
[2018-04-15] MEDS ORDERED: ACETAMINOPHEN 1000 MG/100 ML 100 ML IV ONE (12:18)
[2018-04-15] MEDS: DEXTROSE 5%/LACTATED RINGERS 1,000 ML IV SCH ×2 (12:55→21:13)
[2018-04-15] MEDS: SODIUM CHLORIDE 0.9% 250ML IRRIG IR SCH ×3 (13:00→20:31)
[2018-04-15] MEDS ORDERED: ACETAMINOPHEN 1000 MG/100 ML IV PRN (13:00)
[2018-04-15] MEDS ORDERED: HYDROMORPHONE 1MG/1ML INJ IV PRN (13:00)
--- OUTSIDE RECORDS SUMMARY | 2018-04-15 13:40 | XMS REPORT | Clinical Summary ---
Author Author [facility] Address Unknown Phone Unavailable Care Team Providers Care Billing Department Supervisor Name Role Phone Cecille Atkins MD PCP [...] Lynne MD Levator spasm (Primary Dx) 11/02/2017 [facility] Radiology Cecille Atkins MD Screening breast [...] mammography. This facility is accredited by The [employer] for Mammography. A negative x-ray report should not delay biopsy if a dominant or clinically suspicious mass is present. Not all cancers are identified by x-ray. [id number] The results of this exam have been sent to the patient. Performing Organization Address City/State/[facility] Phone Number [facility] [address] [place] [address] after 04/14/2017 Insurance Payer Benefit Subscriber ID Type Phone Address Plan / Group BCBS BCBS xxxxxxxxxxxx PPO CHOICE PPO/FEDERICA VALDEZ Work: [facility] [id number] [facility] [place] [address] Home:
[2018-04-15] MEDS ORDERED: FENTANYL CITRATE/PF 100MCG/2 ML INJ ONE ×2 (13:58→18:39)
[2018-04-15 17:00] VITALS: BP 136/83
[2018-04-15 17:04] VITALS: BP 136/83
--- NOTE | 2018-04-15 17:21 | Operative Report ---
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 POSTOPERATIVE DIAGNOSIS: Gastrointestinal stromal tumor of the stomach. OPERATION PERFORMED: Laparoscopic partial gastrectomy. WHOLESALE REPRESENTATIVE: Dr. Fidel Bowles. ANESTHESIA: General endotracheal. COMPLICATIONS: None. ESTIMATED BLOOD LOSS: Minimal. DESCRIPTION OF PROCEDURE: With the patient lying in bed in the supine position under good general endotracheal anesthesia, the abdomen was prepped with Betadine solution and draped in the usual manner. A Veress needle was introduced into the left upper abdomen and pneumoperitoneum was established without any difficulty. An 11 mm trocar was placed in the left upper abdomen and a 10 mm video laparoscope was placed into the intraabdominal cavity. Under direct vision, two 5 mm trocars were placed in the epigastric area. A 12 mm trocar was placed in the left anterior axillary line. Video laparoscopy at this point revealed that the GIST tumor was not visible. The rest of the abdominal exploration was otherwise within normal limits. The short gastric vessels were then divided with the harmonic scalpel, and the greater curvature of the stomach was mobilized. Upon doing so, in the posterior aspect of the greater curvature of the stomach a mass could be seen protruding from the gastric wall consistent with GIST tumor which appeared to be The lesion was probably about 2 to 3 cm in size. Using the [place] stapler, the stomach was stapled above and below the lesion totally removing the lesion and the lesion was then placed in a pouch and removed through the 12 mm trocar and sent for pathological examination. Video laparoscopy was then again carried out. The left staple lines were perfectly intact. Hemostasis was ascertained. The nasogastric tube was then placed in the proper position and he pneumoperitoneum was evacuated and all the trocars were removed under direct vision. The fascia over the 11 and 12 mm trocars was closed with [id number] 00 Vicryl. All layers were infiltrated on the way out with solution of 1/4 percent Marcaine. Subcutaneous tissue was approximated with 3-0 Vicryl and the skin was closed with subcuticular 5 -0Vicryl. Benzoin, Steri-Strips and Band-Aids were applied. The sponge, lap and needle count was correct. The patient tolerated the procedure well and returned to the recovery room in stable condition. Job#: [id number] CHUY
[2018-04-15] MEDS: PANTOPRAZOLE 40 MG 10ML VIAL IV SCH (17:24)
[2018-04-15] MEDS: ONDANSETRON HCL INJ 2 MG/ML VIAL IV PRN (17:26)
[2018-04-15] MEDS: HYDROMORPHONE 2MG/ML 2 MG/ML ML IV PRN ×2 (17:26→20:37)
[2018-04-15] MEDS ORDERED: CEFOXITIN 1GM/ NS 50ML 50 ML IV SCH (18:00)
[2018-04-15] MEDS ORDERED: MIDAZOLAM HCL 2 MG/2 ML VIAL ONE (18:39)
[2018-04-15] MEDS ORDERED: GLYCOPYRROLATE INJ 1MG/ 5 ML SYR ONE (19:07)
[2018-04-15] MEDS ORDERED: EPHEDRINE SULFATE INJ 50 MG/10 ML SYR ONE (19:07)
[2018-04-15] MEDS ORDERED: SEVOFLURANE INHAL SOLN 250 ML PEN BTL ONE (19:07)
[2018-04-15] MEDS ORDERED: PROPOFOL IV EMULSION 10 MG/ML 20 ML VIAL ONE (19:07)
[2018-04-15] MEDS ORDERED: DEXAMETHASONE SOD PHOS INJ 4 MG/ML VIAL ONE (19:07)
[2018-04-15] MEDS ORDERED: LIDOCAINE HCL 2% LOCAL INJ 5 ML SDV VIAL INJ ONE (19:07)
[2018-04-15] MEDS ORDERED: ONDANSETRON HCL INJ 2 MG/ML VIAL ONE (19:07)
[2018-04-15] MEDS ORDERED: ROCURONIUM BROMIDE 10 MG/ML 5ML VIAL ONE (19:07)
[2018-04-15] MEDS ORDERED: CEFOXITIN SOD 1 GM VIAL ONE (19:07)
[2018-04-15] MEDS ORDERED: NEOSTIGMINE 5 MG/5ML SYR ONE (19:07)
[2018-04-15] MEDS: CEFOXITIN SOD 1 GM VIAL IV SCH (19:12)
[2018-04-15 19:29] VITALS: BP 123/78
[2018-04-15 21:55] VITALS: BP 123/78
[2018-04-16] MEDS: CEFOXITIN SOD 1 GM VIAL IV SCH (00:04)
[2018-04-16] MEDS: SODIUM CHLORIDE 0.9% 250ML IRRIG IR SCH ×4 (00:59→13:00)
[2018-04-16] MEDS: HYDROMORPHONE 2MG/ML 2 MG/ML ML IV PRN ×6 (00:59→21:29)
[2018-04-16 01:04] VITALS: BP 108/69
[2018-04-16 04:21] VITALS: BP 117/73
[2018-04-16 05:07] LABS: BASOPHILS % 0.3 % (0.0-1.0); EOSINOPHILS % 0.1 % (0.0-6.0); HEMATOCRIT 33.2 % (34.2-44.1); HEMOGLOBIN 11.5 g/dL (12.0-16.0); LYMPHOCYTES # (AUTO) 1.2 (1.0-3.2); LYMPHOCYTES % 16.1 % (18.0-39.1); MEAN CORPUSCULAR HEMOGLOBIN 30.2 pg (28-32); MEAN CORPUSCULAR HGB CONC 34.6 g/dL (31-35); MEAN CORPUSCULAR VOLUME 87.1 fL (81-99); MONOCYTES # (AUTO) 0.6 (0.2-0.8); MONOCYTES % 8.1 % (4.4-11.3); NEUTROPHILS # (AUTO) 5.4 (2.1-6.9); PLATELET COUNT 237 x10e3/uL (140-360); RED BLOOD COUNT 3.81 x10e6/uL (3.6-5.1); RED CELL DISTRIBUTION WIDTH 12.9 % (11.7-14.4)
[2018-04-16 05:21] LABS: ANION GAP 12.7 mmol/L (8-16); BLOOD UREA NITROGEN 9 mg/dL (7-26); BUN/CREATININE RATIO 12 (6-25); CALCIUM 8.9 mg/dL (8.4-10.2); CARBON DIOXIDE 26 mmol/L (22-29); CHLORIDE 103 mmol/L (98-107); CREATININE, SERUM 0.78 mg/dL (0.57-1.11); EST GLOMERULAR FILTRATION RATE > 60 ML/MIN (60-); GLUCOSE 153 mg/dL (74-118); POTASSIUM 3.7 mmol/L (3.5-5.1); SODIUM 138 mmol/L (136-145)
[2018-04-16 07:54] VITALS: BP 125/75
[2018-04-16] MEDS: DEXTROSE 5%/LACTATED RINGERS 1,000 ML IV SCH ×2 (08:55→18:46)
[2018-04-16 13:45] VITALS: BP 117/69
[2018-04-16] MEDS: PANTOPRAZOLE 40 MG 10ML VIAL IV SCH (14:33)
[2018-04-16] MEDS ORDERED: INFLUENZA VIRUS VAC SPLIT INJ 0.5 ML SYR IM NR ×2 (16:00→20:00)
[2018-04-16 16:37] VITALS: BP 121/62
[2018-04-16 20:00] VITALS: BP 126/68
[2018-04-17] VITALS (8 sets, daily range): BP systolic 105–130; BP diastolic 58–74
[2018-04-17] MEDS: HYDROMORPHONE 2MG/ML 2 MG/ML ML IV PRN ×6 (01:18→20:32)
[2018-04-17] MEDS: DEXTROSE 5%/LACTATED RINGERS 1,000 ML IV SCH ×2 (01:49→13:05)
[2018-04-17 06:21] LABS: BASOPHILS # (AUTO) 0.1 (0.0-0.1); BASOPHILS % 0.8 % (0.0-1.0); EOSINOPHILS # (AUTO) 0.1 (0.0-0.4); EOSINOPHILS % 1.2 % (0.0-6.0); HEMATOCRIT 33.2 % (34.2-44.1); HEMOGLOBIN 11.1 g/dL (12.0-16.0); LYMPHOCYTES # (AUTO) 2.8 (1.0-3.2); LYMPHOCYTES % 38.8 % (18.0-39.1); MEAN CORPUSCULAR HEMOGLOBIN 29.5 pg (28-32); MEAN CORPUSCULAR HGB CONC 33.4 g/dL (31-35); MEAN CORPUSCULAR VOLUME 88.3 fL (81-99); MONOCYTES # (AUTO) 0.6 (0.2-0.8); MONOCYTES % 8.8 % (4.4-11.3); NEUTROPHILS # (AUTO) 3.7 (2.1-6.9); NEUTROPHILS % 50.1 % (38.7-80.0); PLATELET COUNT 211 x10e3/uL (140-360); RED BLOOD COUNT 3.76 x10e6/uL (3.6-5.1); RED CELL DISTRIBUTION WIDTH 13.1 % (11.7-14.4)
[2018-04-17 06:48] LABS: ANION GAP 10.2 mmol/L (8-16); BLOOD UREA NITROGEN 6 mg/dL (7-26); BUN/CREATININE RATIO 9 (6-25); CALCIUM 8.5 mg/dL (8.4-10.2); CARBON DIOXIDE 28 mmol/L (22-29); CHLORIDE 105 mmol/L (98-107); CREATININE, SERUM 0.69 mg/dL (0.57-1.11); EST GLOMERULAR FILTRATION RATE > 60 ML/MIN (60-); GLUCOSE 131 mg/dL (74-118); POTASSIUM 3.2 mmol/L (3.5-5.1); SODIUM 140 mmol/L (136-145)
[2018-04-17] MEDS: POTASSIUM CHLORIDE 20 MEQ TAB CR PO SCH (10:01)
[2018-04-17] MEDS: PANTOPRAZOLE 40 MG 10ML VIAL IV SCH (13:57)
[2018-04-17] MEDS: ONDANSETRON HCL INJ 2 MG/ML VIAL IV PRN ×2 (15:44→20:23)
[2018-04-18] VITALS (7 sets, daily range): BP systolic 128–137; BP diastolic 72–82
[2018-04-18] MEDS: ONDANSETRON HCL INJ 2 MG/ML VIAL IV PRN ×2 (00:33→04:53)
[2018-04-18] MEDS: DEXTROSE 5%/LACTATED RINGERS 1,000 ML IV SCH ×2 (00:38→11:11)
[2018-04-18] MEDS: HYDROMORPHONE 2MG/ML 2 MG/ML ML IV PRN ×5 (00:38→18:29)
[2018-04-18 05:46] LABS: BASOPHILS # (AUTO) 0.1 (0.0-0.1); BASOPHILS % 0.9 % (0.0-1.0); EOSINOPHILS # (AUTO) 0.2 (0.0-0.4); EOSINOPHILS % 2.8 % (0.0-6.0); HEMATOCRIT 34.2 % (34.2-44.1); HEMOGLOBIN 11.5 g/dL (12.0-16.0); LYMPHOCYTES # (AUTO) 2.9 (1.0-3.2); LYMPHOCYTES % 42.5 % (18.0-39.1); MEAN CORPUSCULAR HGB CONC 33.6 g/dL (31-35); MEAN CORPUSCULAR VOLUME 89.3 fL (81-99); MONOCYTES # (AUTO) 0.6 (0.2-0.8); MONOCYTES % 8.4 % (4.4-11.3); PLATELET COUNT 231 x10e3/uL (140-360); RED BLOOD COUNT 3.83 x10e6/uL (3.6-5.1); RED CELL DISTRIBUTION WIDTH 12.6 % (11.7-14.4)
[2018-04-18 06:11] LABS: ANION GAP 10.1 mmol/L (8-16); BLOOD UREA NITROGEN < 5 mg/dL (7-26); CALCIUM 8.9 mg/dL (8.4-10.2); CARBON DIOXIDE 29 mmol/L (22-29); CHLORIDE 103 mmol/L (98-107); CREATININE, SERUM 0.74 mg/dL (0.57-1.11); EST GLOMERULAR FILTRATION RATE > 60 ML/MIN (60-); GLUCOSE 116 mg/dL (74-118); POTASSIUM 3.1 mmol/L (3.5-5.1); SODIUM 139 mmol/L (136-145)
[2018-04-18 06:12] LABS: BUN/CREATININE RATIO 7 (6-25)
[2018-04-18] MEDS: POTASSIUM CHLORIDE 20 MEQ TAB CR PO SCH (08:30)
[2018-04-18] MEDS ORDERED: POTASSIUM CHLORIDE 20 MEQ TAB CR PO STA (12:04)
[2018-04-18] MEDS: HYDROCODONE/APAP 7.5MG-325MG 1 EA TAB PO PRN (12:32)
[2018-04-18] MEDS: PANTOPRAZOLE 40 MG 10ML VIAL IV SCH (14:33)
[2018-04-18] MEDS: BISACODYL 10 MG SUPP PR SCH (21:00)
[2018-04-19] MEDS: HYDROCODONE/APAP 7.5MG-325MG 1 EA TAB PO PRN ×2 (00:25→11:04)
[2018-04-19 00:48] VITALS: BP 129/71
[2018-04-19] MEDS: ONDANSETRON HCL INJ 2 MG/ML VIAL IV PRN (04:51)
[2018-04-19] MEDS: HYDROMORPHONE 2MG/ML 2 MG/ML ML IV PRN (04:51)
[2018-04-19 05:23] VITALS: BP 130/78
[2018-04-19 09:00] VITALS: BP 137/86
[2018-04-19] MEDS: DEXTROSE 5%/LACTATED RINGERS 1,000 ML IV SCH (09:40)
[2018-04-19] MEDS: POTASSIUM CHLORIDE 20 MEQ TAB CR PO SCH (10:00)
[2018-04-19 10:27] VITALS: BP 137/86
[2018-04-19] MEDS: BISACODYL 10 MG SUPP PR SCH (11:07)
[2018-04-19] MEDS ORDERED: BISACODYL 10 MG SUPP PR ONE (11:08)
[2018-04-19] MEDS ORDERED: PROMETHAZINE HC25 M1 PO (13:26)
[2018-04-19] MEDS ORDERED: TYLENOL WITH C1 EACH PO (13:26)
[2018-04-19] MEDS: PANTOPRAZOLE 40 MG 10ML VIAL IV SCH (14:00)
--- NOTE | 2018-06-11 19:07 | Discharge Summary ---
ADMITTING DIAGNOSIS: Gastrointestinal stromal tumor of the stomach. DISCHARGE DIAGNOSIS: Gastrointestinal stromal tumor of the stomach. SECONDARY DIAGNOSES: Hypertension and hypothyroidism. OPERATIONS PERFORMED: Laparoscopic partial gastrectomy. COMPLICATIONS: None. HISTORY OF PRESENT ILLNESS: This 58-year-old female was admitted to the hospital with a history having had a mass of the stomach identified by ultrasound endoscopically and esophagogastroduodenoscopy and also by CT scan, suspicious of a GIST tumor and she was electively admitted to the hospital for resection of the gastric fundus tumor. Physical examination at time of admission was essentially negative. The laboratory data at time of admission was within normal limits. The patient was taken to surgery on the day of admission where she underwent an uneventful laparoscopic partial gastrectomy with resection of a GIST tumor of the fundus of the stomach. Postoperatively she did very well. Her NG tube was removed on the 2nd postoperative day and she was started on a clear liquid diet which was slowly and carefully advanced that she tolerated well and finally on with the patient being afebrile and vital signs being stable, tolerating her diet well and having normal bowel movements, she was discharged to go home to be followed at the office at a later date. LAWRENCE REILLY MD Job#: [id number]
== END 2018-04-19 14:03 | disposition home or self-care (01) | DRG 544 ==
LOC: OR 06:48 → PACU V 12:58 → IMCU 16:13 → MED/SURG 04-16 14:48
PROVIDERS: ADMIT Surgery; ATTEND Surgery
PROC: 0DB64ZZ Excision of Stomach, Percutaneous Endoscopic Approach (ICD-10-PCS; principal; 2018-04-15 11:30)
PROC: 3E02340 Introduction of Influenza Vaccine into Muscle, Percutaneous Approach (ICD-10-PCS; 2018-04-16)
DX: C49.A2 Gastrointestinal stromal tumor of stomach (principal); I10 Essential (primary) hypertension; E03.9 Hypothyroidism, unspecified; E78.00 Pure hypercholesterolemia, unspecified; K21.9 Gastro-esophageal reflux disease without esophagitis; F41.9 Anxiety disorder, unspecified; Z23 Encounter for immunization
CPT/HCPCS: 36415; 71046; 80048; 85025; 86850; 86900; 88304; 88307; 88342; 93005; 96361; C1766; J0694; J1100; J2001; J2250; J2405

== ENCOUNTER → 2019-08-12 | Day surgery (SDC) | payer BC ==
[~2019-08-12] MED LIST changes: +AMITIZA24 MCG PO; +BELBUCA300 MCG PO; +DICYCLOMINE HCL20 MG PO; +GABAPENTIN100 MG PO; +GLEEVEC400 MG PO; +LANSOPRAZOLE30 MG PO; +METOCLOPRAMIDE10 MG PO; +MIDAZOLAM HCL 2 MG/2 ML VIAL ONE; +PROMETHAZINE HC25 M1 PO; +PROPOFOL IV EMULSION 10 MG/ML 50 ML VIAL ONE; +SPIRONOLACTONE25 MG PO; +TIZANIDINE HCL4 M1 PO; +TYLENOL WITH C1 EACH PO
--- OUTSIDE RECORDS SUMMARY | 2019-08-12 11:39 | XMS REPORT ---
Author Author Admin, [place] Organization Unknown Address Unknown Phone Unavailable PROBLEMS Condition Status Date Provider Notes Impaired physical mobility active Cecille Wilbert Rash, nonspecific active Cecille Wilbert HYPOKALEMIA active Cecille Wilbert Multiple joint pain active Cecille Wilbert Ankle swelling active Cecille Wilbert Gastric benign tumor active Cecille Wilbert Pharyngitis, acute active Cecille Wilbert Anorectal disorder active Cecille Wilbert levator spasm Hypertension active Cecille Wilbert Chronic pain active Cecille Wilbert Allergic rhinitis active Cecille Wilbert Acute frontal sinusitis active Cecille Wilbert Flu shot active Jerel Dietrich BMI 25.0-25.9 active Jerel Dietrich Overweight active Jerel Dietrich Screening exam for breast cancer active Jerel Dietrich Screening for malignant neoplasm, colon active Jerel Dietrich HEALTH MAINTENANCE EXAM active Jerel Dietrich OSTEOARTHRITIS active Jerel Dietrich HYPERLIPIDEMIA active Elisabeth Bourne CHEST PAIN active Tram Mann HEADACHE active Tram Mann HYPOTHYROIDISM active Jerel Dietrich ARTHRALGIA active Jerel Dietrich ANXIETY active Jerel Dietrich ENCOUNTERS Date Type Provider Location Encounter Diagnosis - Ambulatory Encounter Cecille Atkins LinkLogic [facility] UNK - Ambulatory Encounter Cecille Callahan MedAdherence [facility] UNK - Ambulatory Encounter Cecille Atkins [facility] UNK - Ambulatory Encounter Cecille Mcclelland Thomas [facility] UNK - Ambulatory Encounter Cecille Wilbert Atkins [facility]Log[facility] UNK - Ambulatory Encounter Cecille Wilbert Atkins [facility] UNK - Ambulatory Encounter Cecille Wilbert Atkins [facility]Log[facility] UNK - Ambulatory Encounter Cecille Wilbert Atkins [facility] UNK - Ambulatory Encounter Cecille Wilbert Mcclelland Thomasrenea Martinezeca Encarnacion [facility] Impaired physical mobility - Ambulatory Encounter Cecille Wilbert Atkins LinkLogic [facility] UNK - Ambulatory Encounter Cecille Atkins Bing Ferreira MedAdherence [facility] UNK - Ambulatory Encounter Cecille Wilbert Callahan MedAdherence [facility] UNK - Ambulatory Encounter Cecille Callahan MedAdherence [facility] [place] UNK - Ambulatory Encounter Cecille Atkins LinkLogic [facility] UNK - Ambulatory Encounter Cecille Wilbert Atkins Bing Ferreira MedAdherence [facility] UNK - Ambulatory Encounter Cecille Wilbert Atkins LinkLogic [facility] UNK - Ambulatory Encounter Cecille Wilbert Atkins [facility] UNK - Ambulatory Encounter Cecille Wilbert Atkins [facility]Log[facility] UNK - Ambulatory Encounter Cecille Wilbert Atkins [facility] UNK - Ambulatory Encounter Cecille Wilbert Cecille Song [facility] Rash, nonspecific - Ambulatory Encounter Cecille Wilbert Sidhu Hiren Ramirez UNK - Ambulatory Encounter Cecille Wilbert Cecille Atkins LinkLogic [facility] UNK - Ambulatory Encounter Cecille Wilbert Cecille Schreiberrera [facility] UNK - Ambulatory Encounter Cecille Wilbert Cecille Atkins LinkLogic [facility] UNK - Ambulatory Encounter Cecille Wilbert Cecille Atkins Christianelisa Hendricks [facility] HYPOKALEMIA - Ambulatory Encounter Cecille Wilbert Atikns [facility] UNK - Ambulatory Encounter Cecille Wilbert Cecille Smart Hanna MedAdherence [facility] UNK - Ambulatory Encounter Cecille Wilbert Cecille Atkins LinkLogic [facility] UNK - Ambulatory Encounter Cecille Wilbert Cecille Atkins [facility] UNK - Ambulatory Encounter Cecille Wilbert Cecille Smart Hanna MedAdherence Krystin Dey [facility] Multiple joint pain - Ambulatory Encounter Cecille Wilbert Cecille Callahan MedAdherence [facility] UNK - Ambulatory Encounter Cecille Wilbert Cecille Callahan MedAdherence [facility] UNK - Ambulatory Encounter Cecille Wilbert Cecille Atkins LinkLogic [facility] UNK - Ambulatory Encounter Cecille Wilbert Cecille Atkins LinkLogic [facility] UNK - Ambulatory Encounter Cecille Wilbert Cecille Atkins [facility] UNK - Ambulatory Encounter Cecille Wilbert Atkins Suma Encarnacion [facility] UNK - Ambulatory Encounter Cecille Wilbert Callahan MedAdherence Perri Percy [facility] Contact Center UNK - Ambulatory Encounter Cecille Wilbert Atkins [facility] UNK - Ambulatory Encounter Cecille Wilbert Riojasnanci Cordonvincent Mehta [facility] Contact Center UNK - Ambulatory Encounter Cecille Wilbert Atkins LinkLogic [facility] UNK - Ambulatory Encounter Cecille Wilbert Atkins LinkLogic [facility] UNK - Ambulatory Encounter Cecille Wilbert Atkins LinkLogic [facility] UNK - Ambulatory Encounter Fax Status LinkLogic [facility] UNK - Ambulatory Encounter [facility] - [facility]ulatory Encounter Fax Status [facility] - Ambulatory Encounter Fax Status [facility] - Ambulatory Encounter Fax Status [facility] - Ambulatory Encounter Fax Status [facility] - Ambulatory Encounter Bing Ferreira MedAdherence [facility] UNK - Ambulatory Encounter Cecille Wilbert Atkins LinkLogic [facility] UNK - Ambulatory Encounter Cecille Wilbert Atkins [facility] UNK - Ambulatory Encounter Cecille Wilbert Oden Wilbert LinkLogic [facility] UNK - Ambulatory Encounter Cecille Oden Wilbert [facility] UNK - Ambulatory Encounter Cecille Coe [facility] Ankle swelling - Ambulatory Encounter Cecille Callahan MedAdherence [facility] UNK - Ambulatory Encounter Cecille Wilbert Kahn [facility] Contact Center UNK - Ambulatory Encounter Cecille Wilbert Atkins LinkLogic [facility] UNK - Ambulatory Encounter Bing Ferreira MedAdherence [facility] UNK - Ambulatory Encounter Cecille Atkins [facility] UNK - Ambulatory Encounter Cecille Headleyina Bharat [facility] UNK - Ambulatory Encounter Cecille Wilbert Atkins Alice Hennessy [facility] UNK - Ambulatory Encounter Cecille Atkins Bing Ferreira MedAdherence [facility] UNK - Ambulatory Encounter Bing Ferreira MedAdherence [facility] UNK - Ambulatory Encounter Angelita Becerra [facility] Contact Center UNK - Ambulatory Encounter Cecille Wilbert Atkins LinkLogic [facility] UNK - Ambulatory Encounter Cecille Wilbert Atkins [facility] UNK - Ambulatory Encounter Cecille Wilbert Atkins [facility]Log[facility] UNK - Ambulatory Encounter Cecille Wilbert Atkins [facility] UNK - Ambulatory Encounter Cecille Wilbert Cecille Wilbert Chavez [facility] benign tumor - Ambulatory Encounter Cecille Wilbert Cecille Wilbert Callahan [facility] UNK - Ambulatory Encounter Cecille Wilbertdaria Atkins LinkLogic [facility] UNK - Ambulatory Encounter Angelita Callahan [facility] UNK - Ambulatory Encounter Cecille Wilbert Cecille Wilbert [facility] UNK - Ambulatory Encounter Cecille Wilbert [facility] - Ambulatory Encounter Angelita Callahan [facility] UNK - Ambulatory Encounter Cecille Wilbert Cecille Wilbert [facility] UNK - Ambulatory Encounter Cecille Wilbert Cecille Wilbert [facility] Pharyngitis, acute - Ambulatory Encounter Cecille Wilbert Oden Wilbert LinkLogic [facility] UNK - Ambulatory Encounter Cecille Wilbert Oden Wilbert LinkLogic [facility] UNK - Ambulatory Encounter Cecille Wilbert Cecille Wilbert [facility] UNK - Ambulatory Encounter Cecille Wilbert Oden Wilbert Schreiberrera [facility] UNK - Ambulatory Encounter Cecille iWlbert Oden Wilbert LinkLogic [facility] UNK - Ambulatory Encounter Cecille Wilbert Cecille Wilbert LinkLogic [facility] UNK - Ambulatory Encounter Cecille Wilbert Oden Wilbert LinkLogic [facility] UNK - Ambulatory Encounter Cecille Wilbert Atkins LinkLog[facility] UNK - Ambulatory Encounter Cecille Wilbert Oden Wilbert LinkLogic [facility] UNK - Ambulatory Encounter Cecille Wilbert Atkins [facility]Logic [place] UNK - Ambulatory Encounter Cecille Wilbert Atkins [facility]Log[facility] [place] UNK - Ambulatory Encounter Cecille Wilbert Atkins [facility] UNK - Ambulatory Encounter Cecille Wilbert Mcnairgail Castillo [facility] UNK - Ambulatory Encounter Cecille Wilbert [facility] UNK - Ambulatory Encounter Cecille Wilbert Atkins LinkLogic [place] [facility] UNK - Ambulatory Encounter Cecille Wilbert Atkins [facility]Log[facility] [place] [facility] UNK - Ambulatory Encounter Angelita Callahan MedAdherence [place] [facility] UNK - Ambulatory Encounter Angelita Callahan MedAdherence [facility] UNK - Ambulatory Encounter Angelita Callahan MedAdherence [place] [facility] UNK - Ambulatory Encounter Angelita Callahan MedAdherence [facility] UNK - Ambulatory Encounter Angelita Callahan MedAdherence [facility] UNK - Ambulatory Encounter Angelita Callahan MedAdherence [facility] [place] [facility] UNK - Ambulatory Encounter Cecille Wilbert Atkins [place] [facility] UNK - Ambulatory Encounter Cecille Wilbert Atkins Claribel Castillo [facility] UNK - Ambulatory Encounter Fax Status LinkLogic [facility] UNK - Ambulatory Encounter Fax Status [facility] - Ambulatory Encounter Fax Status [facility] UNK - Ambulatory Encounter Cecille Wilbert Oden Wilbert [facility] UNK - Ambulatory Encounter Cecille Wilbert Brewster Hebert Jahaira Pool [facility] Chronic painHypertensionAnorectal disorder - Ambulatory Encounter [facility] - [facility]ulatory Encounter Cecille Wilbert Atkins LinkLogic [facility] UNK - Ambulatory Encounter Cecille Wilbert Oden Wilbert [place] UNK - Ambulatory Encounter Cecille Atkins LinkLogic [facility] UNK - Ambulatory Encounter Fax Status [facility] - Ambulatory Encounter Cecille Wilbert Oden Wilbert [facility] UNK - Ambulatory Encounter Cecille Wilbert Zunigamary Mccarty Jahaira Pool [facility] UNK - Ambulatory Encounter Cecille Wilbert Oden Wilbert LinkLogic [facility] UNK - Ambulatory Encounter Angelita Callhaan MedAdherence [facility] UNK - Ambulatory Encounter Angelita Callahan MedAdherence [facility] UNK - Ambulatory Encounter Bing Ferreira MedAdherence [facility] UNK - Ambulatory Encounter Angelita Callahan MedAdherence [facility] UNK - Ambulatory Encounter Angelita Callahan MedAdherence [facility] UNK - Ambulatory Encounter Cecille Wilbert Atkins [place] [facility] UNK - Ambulatory Encounter Cecille Atkins [place] [facility] UNK - Ambulatory Encounter Cecille Wilbert Atkins Perriashely Mccarty Cordeliadanuta Olea [facility] Allergic rhinitis - Ambulatory Encounter Cecille Wilbert Atkins [place] [facility] UNK - Ambulatory Encounter Cecille Wilbert Atkins Krystin Thomas [facility] Acute frontal sinusitis - Ambulatory En[facility] - [facility] Angelita Callahan MedAdherence [facility] UNK - Ambulatory Encounter Cecille Wilbert Atkins [facility] UNK - Ambulatory Encounter Cecille Wilbert Atkins [facility] UNK - Ambulatory Encounter Cecille Wilbert Atkins Yojana Ramírez [facility] UNK - Ambulatory Encounter Lizzette Szymanski [facility] UNK - Ambulatory Encounter Cecille Wilbert Cecille Wilbert Lizzette Szymanski [facility] UNK - Ambulatory Encounter Cecille Bensonome Cecille Wilbert [place] [facility] UNK - Ambulatory Encounter Cecille Bensondaria Atkins [place] [facility] UNK - Ambulatory Encounter Cecille Wilbert Cecille Wilbert Lizzette Wood [facility] UNK - Ambulatory Encounter Asmita Singh [facility] UNK - Ambulatory Encounter Asmita Garcia [facility] UNK - Ambulatory Encounter Elisabeth Bourne [facility] - Ambulatory Encounter Angelita Callahan MedAdherence Alice Singh [facility] Contact Center UNK - Ambulatory Encounter Jerel Dietrich [facility] UNK - Ambulatory Encounter Jerel Dietrich LinkLogic [facility] UNK - Ambulatory Encounter Jerel Dietrich [facility] UNK - Ambulatory Encounter Angelita Callahan MedAdherence [facility] UNK - Ambulatory Encounter Angelita Callahan MedAdherence [facility] UNK - Ambulatory Encounter Jerel Dietrich [facility] UNK - Ambulatory Encounter Jerel Dietrich [facility] - Ambulatory Encounter Bing Ferreira MedAdherence [facility] UNK - Ambulatory Encounter Jerel Dietrich [facility]K - Ambulatory Encounter Bing Ferreira MedAdherence Doreen Callahan MedAdherence [facility] Center UNK - Ambulatory Encounter Jerel Dietrich [facility] UNK - Ambulatory Encounter Jerel Thomas [facility] UNK - Ambulatory Encounter Bing Waldrono MedAdherence [facility] UNK - Ambulatory Encounter Bing Ferreira MedAdherence [facility] UNK - Ambulatory Encounter Jerel Dietrich [facility] UNK - Ambulatory Encounter Bing Ferreira MedAdherence [facility] UNK - Ambulatory Encounter Bing Ferreira MedAdherence [facility] UNK - Ambulatory Encounter Jerel Dietrich LinkLogic [facility] UNK - Ambulatory Encounter Bing Ferreira MedAdherence [facility] UNK - Ambulatory Encounter Bing Ferreira MedAdherence [facility] UNK - Ambulatory Encounter Angelita Callahan MedAdherence [facility] UNK - Ambulatory Encounter Angelita Callahan MedAdherence [facility] UNK - Ambulatory Encounter Bing Ferreira MedAdherence [facility] UNK - Ambulatory Encounter [facility]rich [facility] - Ambulatory Encounter Jerel Dietrich [facility] UNK - Ambulatory Encounter Jerel Dietrich [facility] UNK - Ambulatory Encounter [facility] OverweightBMI 25.0-25.9Flu shot - Ambulatory Encounter Carla Francisco [facility] UNK - Ambulatory Encounter Jerel Dietrich [facility] UNK - Ambulatory Encounter Jerel Dietrich [facility] UNK - Ambulatory Encounter Bing Ferreira MedAdherence [facility] UNK - Ambulatory Encounter Bing Ferreira MedAdherence [facility] UNK - Ambulatory Encounter Bing Ferreira MedAdherence [facility] UNK - Ambulatory Encounter Bing Ferreira MedAdherence [facility] UNK - Ambulatory Encounter Bing Ferreira MedAdherence [facility] UNK - Ambulatory Encounter Bing Ferreira MedAdherence [facility] UNK - Ambulatory Encounter Angelita Callahan MedAdherence [facility] UNK - Ambulatory Encounter Angelita London MedAdherence [facility] UNK - Ambulatory Encounter Jerel Dietrich LinkLog[facility] UNK - Ambulatory Encounter Jerel KahnLogic [facility] UNK - Ambulatory Encounter Jerel KahnLogic [facility] UNK - Ambulatory Encounter Jerel Dietrich [facility] UNK - Ambulatory Encounter Jerel KahnLogic [facility] UNK - Ambulatory Encounter Jerel Dietrich LinkLog[facility] UNK - Ambulatory Encounter Jerel Dietrich [facility] UNK - Ambulatory Encounter Jerel Dietrich LinkLog[facility] UNK - Ambulatory Encounter Jerel Dietrich [facility] UNK - Ambulatory Encounter Jerel Dietrich [facility]Log[facility] UNK - Ambulatory Encounter Bing Ferreira MedAdherence [place] [facility] UNK - Ambulatory Encounter Katie Chavez [facility] UNK - Ambulatory Encounter Bing Ferreira MedAdherence [place] [facility] UNK - Ambulatory Encounter Jerel Dietrich [place] [facility] UNK - Ambulatory Encounter [facility]rel [facility] - Ambulatory Encounter Jerel Dietrich [facility] UNK - Ambulatory Encounter Jerel Rubalcava [facility] Screening for malignant neoplasm, colonScreening exam for breast cancer - Ambulatory Encounter Bing Ferreira MedAdherence [place] [facility] UNK - Ambulatory Encounter Bing Ferreira MedAdherence [place] [facility] UNK - Ambulatory Encounter Bing Ferreira MedAdherence [facility] [place] [facility] UNK - Ambulatory Encounter Bing Ferreira MedAdherence [place] [facility] UNK - Ambulatory Encounter Bing Ferreira MedAdherence [facility] [place] [facility] UNK - Ambulatory Encounter Bing Ferreira MedAdherence [place] [facility] UNK - Ambulatory Encounter Bing Ferreira MedAdherence [facility] [place] [facility] UNK - Ambulatory Encounter Gisselle Wilder [facility] UNK - Ambulatory Encounter Gissellejude [facility] - [facility]ulatory Encounter Jerel Dietrich Bing Ferreira MedAdherence [place] [facility] UNK - Ambulatory Encounter Jerel Karlo Dietrich [facility] UNK - Ambulatory Encounter Jerel Dietrich Perri Mccarty [facility] UNK - Ambulatory Encounter Jerel Dietrich [facility]Log[facility] UNK - Ambulatory Encounter Jerel Dietrich Jerel Karlo LinkLogic [facility] UNK - Ambulatory Encounter Jerel Dietrich [facility] UNK - Ambulatory Encounter Jerel Dietrich Jerel Karlo [facility] UNK - Ambulatory Encounter Fax [facility] - Ambulatory Encounter Fax Status [facility] UNK - Ambulatory Encounter Jerel Moses [facility] UNK - Ambulatory Encounter Jerel Dietrich Jerel RamsayFormerly [facility] Services Contact Center UNK - Ambulatory Encounter Bing Waldrono MedAdherence [facility] UNK - Ambulatory Encounter Bing Ferreira MedAdherence [facility] UNK - Ambulatory Encounter Jerel Dietrich Jerel Karlo [facility] UNK - Ambulatory Encounter Jerel Karlo Jerel Dietrich [facility]Log[facility] UNK - Ambulatory Encounter Bing Ferreira MedAdherence [facility] UNK - Ambulatory Encounter Bing Ferreira MedAdherence [facility] UNK - Ambulatory Encounter Fax Status [facility] UNK - Ambulatory Encounter Bing Ferreira MedAdherence [facility] UNK - Ambulatory Encounter Bing Ferreira MedAdherence [facility] UNK - Ambulatory Encounter Jerel Mccarty [facility] HEALTH MAINTENANCE EXAM - Ambulatory Encounter Jerel Dietrich [facility] UNK - Ambulatory Encounter Jerel Dietrich LinkLogic [facility] UNK - Ambulatory Encounter Jerel Dietrich [facility]Log[facility] UNK - Ambulatory Encounter Bing Hanna MedAdherence [facility] UNK - Ambulatory Encounter Bing Ferreira MedAdherence [facility] UNK - Ambulatory Encounter Bing Ferreira MedAdherence [facility] UNK - Ambulatory Encounter Bing Ferreira MedAdherence [facility] UNK - Ambulatory Encounter Bing Hanna MedAdherence [facility] UNK - Ambulatory Encounter Bing Ferreira MedAdherence [facility] UNK - Ambulatory Encounter Bing Ferreira MedAdherence [facility] UNK - Ambulatory Encounter Bing Ferreira MedAdherence [facility] UNK - Ambulatory Encounter Bing Ferreira MedAdherence [facility] UNK - Ambulatory Encounter Bing Ferreira MedAdherence [facility] UNK - Ambulatory Encounter Bing Ferreira MedAdherence [facility] UNK - Ambulatory Encounter Bing Ferreira MedAdherence [facility] UNK - Ambulatory Encounter Bing Ferreira MedAdherence [place] [facility] UNK - Ambulatory Encounter Bing Ferreira MedAdherence LinkLog[facility] UNK - Ambulatory Encounter Jerel Dietrich [facility] UNK - Ambulatory Encounter Jerel Dietrich [facility] UNK - Ambulatory Encounter Bing Ferreira MedAdherence [facility] UNK - Ambulatory Encounter Bing Ferreira MedAdherence [facility] [place] [facility] UNK - Ambulatory Encounter Jerel Dietrich [facility] UNK - Ambulatory Encounter Lyla Sanchez [facility] UNK - [facility] Ambulatory Encounter Bing Thurstonence [facility] Contact Center UNK - Ambulatory Encounter Tram Mann Tram Mann [facility] UNK - Ambulatory Encounter Tram Mann Tram Mann [facility] UNK - Ambulatory Encounter Elisabeth Bourne Tram Mann Tram Mann Thea Moses [facility] HEADACHECHEST PAINHYPERLIPIDEMIA - Ambulatory Encounter [facility] - [facility] Jerel Dietrich [facility] UNK - Ambulatory Encounter Jerel Dietrich [facility] UNK - Ambulatory Encounter Jerel Chavez [facility] UNK - Ambulatory Encounter Jerel Dietrich [facility] Practice UNK - Ambulatory Encounter Fax Status LinkLogic [facility] UNK - Ambulatory Encounter Arlen Nicholson [facility] UNK - Ambulatory Encounter Fax Status [facility] UNK - Ambulatory Encounter Jerel Dietrich Yojana [facility] Practice UNK - Ambulatory Encounter Bing Ferreira MedAdherence [facility] UNK - Ambulatory Encounter Jerel Smith Bing Ferreira MedAdherence [facility]K - Ambulatory Encounter [facility] UNK - Ambulatory Encounter Yazdanism Preload [facility] UNK - Ambulatory Encounter Yazdanism Preload [facility] UNK - Ambulatory Encounter Yazdanism Preload [facility] UNK - Ambulatory Encounter Yazdanism Preload [facility] UNK - Ambulatory Encounter Yazdanism Preload [facility] UNK - Ambulatory Encounter Yazdanism Preload [facility] Practice UNK - Ambulatory Encounter Yazdanism Preload [facility] UNK - Ambulatory Encounter Yazdanism Preload [facility] UNK - Ambulatory Encounter Yazdanism Preload [facility] UNK - Ambulatory Encounter Yazdanism Preload [facility] UNK - Ambulatory Encounter Yazdanism Preload [facility] Practice UNK - Ambulatory Encounter Yazdanism Preload [facility] UNK - Ambulatory Encounter Yazdanism Preload [facility] UNK - Ambulatory Encounter Yazdanism Preload [facility] UNK - Ambulatory Encounter Yazdanism Preload [facility] UNK - Ambulatory Encounter Yazdanism Preload [facility] UNK - Ambulatory Encounter Yazdanism Preload [facility] UNK - Ambulatory Encounter Yazdanism Preload [facility] [place] [facility] UNK - Ambulatory Encounter Yazdanism Preload [facility] UNK - Ambulatory Encounter Yazdanism Preload [facility] UNK - Ambulatory Encounter Yazdanism Preload [facility] UNK - Ambulatory Encounter Yazdanism Preload [facility] UNK - Ambulatory Encounter Yazdanism Preload [facility] UNK - Ambulatory Encounter Yazdanism Preload [facility] UNK - Ambulatory Encounter Yazdanism Preload [facility] UNK - Ambulatory Encounter Yazdanism Preload [facility] UNK - Ambulatory Encounter Yazdanism Preload [facility] UNK - Ambulatory Encounter Yazdanism Preload [facility] UNK - Ambulatory Encounter Yazdanism Preload [facility] UNK - Ambulatory Encounter Yazdanism Preload [facility] UNK - Ambulatory Encounter Yazdanism Preload [facility] UNK - Ambulatory Encounter Yazdanism Preload [facility] UNK - Ambulatory Encounter Yazdanism Preload [facility] UNK - Ambulatory Encounter Jerel Dietrich [facility] UNK - Ambulatory Encounter Yazdanism Preload [facility] UNK - Ambulatory Encounter Yazdanism Preload [facility] UNK - Ambulatory Encounter Yazdanism Preload [facility] UNK - Ambulatory Encounter Yazdanism Preload [facility] UNK - Ambulatory Encounter Yazdanism Preload [facility] UNK - Ambulatory Encounter Yazdanism Preload [facility] UNK - Ambulatory Encounter Yazdanism Preload [facility] UNK - Ambulatory Encounter Yazdanism Preload [facility] UNK - Ambulatory Encounter Yazdanism Preload [facility] UNK - Ambulatory Encounter Yazdanism Preload [facility] UNK - Ambulatory Encounter Yazdanism Preload [facility] UNK - Ambulatory Encounter Yazdanism Preload [facility] UNK - Ambulatory Encounter Yazdanism Preload [facility] UNK - Ambulatory Encounter Yazdanism Preload [facility] UNK - Ambulatory Encounter Yazdanism Preload [facility] UNK - Ambulatory Encounter Yazdanism Preload [facility] UNK - Ambulatory Encounter Yazdanism Preload [facility] UNK - Ambulatory Encounter Yazdanism Preload [facility] UNK - Ambulatory Encounter Yazdanism Preload [facility] UNK - Ambulatory Encounter Yazdanism Preload [facility] UNK - Ambulatory Encounter Yazdanism Preload [facility] [place] [facility] UNK - Ambulatory Encounter Yazdanism Preload [facility] UNK - Ambulatory Encounter Yazdanism Preload [facility] UNK - Ambulatory Encounter Yazdanism Preload [facility] UNK - Ambulatory Encounter Yazdanism Preload [facility] UNK - Ambulatory Encounter Yazdanism Preload [facility] UNK - Ambulatory Encounter Yazdanism Preload [facility] UNK - Ambulatory Encounter Yazdanism Preload [facility] UNK - Ambulatory Encounter Yazdanism Preload [facility] UNK - Ambulatory Encounter Yazdanism Preload [facility] UNK - Ambulatory Encounter Yazdanism Preload [facility] UNK - Ambulatory Encounter Yazdanism Preload [facility] UNK - Ambulatory Encounter Yazdanism [facility]reload [facility] - [facility]ulatory Encounter Yazdanism Preload [facility] UNK - Ambulatory Encounter Yazdanism Preload [facility] UNK - Ambulatory Encounter Yazdanism Preload [facility] - Ambulatory Encounter Yazdanism Preload [facility] - Ambulatory Encounter Yazdanism Preload [facility] UNK - Ambulatory Encounter Yazdanism Preload [facility] UNK - Ambulatory Encounter Jerel Smart [facility] [place]K - Ambulatory Encounter Jerel Mikeerman [facility] UNK - Ambulatory Encounter Jerel Sanchez [facility] ANXIETYARTHRALGIAHYPOTHYROIDISM - Ambulatory Encounter Jerel Dietrich [facility] UNK - Ambulatory Encounter Jerel Smart [facility] UN[place] VITAL SIGNS No Information Available Allergies No Known Allergy Information REASON FOR REFERRAL Start Date - End Date Service - Mammogram - Screening - Pain Management - External RESULTS Date Observation Value Provider Reference Range Interpretation Location potassium, serum 3.6 mmol/L Link[facility] 3.5-5.2 calcium, serum 9.0 mg/dL [facility] 8.7-10.3 " carbon dioxide, venous blood 31 mmol/L [facility] 20-29 High " chloride, serum 96 mmol/L [facility] 96-106 " potassium, serum 3.0 mmol/L [facility] 3.5-5.2 Low " sodium, serum 142 mmol/L [facility] 134-144 " urea nitrogen/creatinine ratio, serum 11 [facility] 12-28 Low " eGFR if 69 mL/min/((173/100).m2) [facility] >59 " Estimated Glomerular Filtration Rate (calc) 60 mL/min/((173/100).m2) [facility] >59 " creatinine, serum 1.01 mg/dL [facility] 0.57-1.00 High " urea nitrogen, blood 11 mg/dL [facility] 8-27 " blood glucose, random 109 mg/dL [facility] 65-99 High calcium, serum 9.2 mg/dL [facility] 8.7-10.3 " carbon dioxide, venous blood 34 mmol/L [facility] 20-29 High " chloride, serum 93 mmol/L [facility] 96-106 Low " potassium, serum 2.6 mmol/L [facility] 3.5-5.2 Low " sodium, serum 143 mmol/L [facility] 134-144 " urea nitrogen/creatinine ratio, serum 10 [facility] 12-28 Low " eGFR if 84 mL/min/((173/100).m2) [facility] >59 " Estimated Glomerular Filtration Rate (calc) 73 mL/min/((173/100).m2) [facility] >59 " creatinine, serum 0.86 mg/dL [facility] 0.57-1.00 " urea nitrogen, blood 9 mg/dL [facility] 8-27 " blood glucose, random 112 mg/dL [facility] 65-99 High phosphate, serum 2.7 mg/dL [facility] 2.5-4.5 " calcium, serum 9.1 mg/dL [facility] 8.7-10.3 " carbon dioxide, venous blood 23 mmol/L [facility] 20-29 " chloride, serum 100 mmol/L [facility] 96-106 " potassium, serum 3.8 mmol/L [facility] 3.5-5.2 " sodium, serum 142 mmol/L [facility] 134-144 " urea nitrogen/creatinine ratio, serum 13 [facility] 12-28 " eGFR if 80 mL/min/((173/100).m2) [facility] >59 " Estimated Glomerular Filtration Rate (calc) 69 mL/min/((173/100).m2) [facility] >59 " creatinine, serum 0.90 mg/dL [facility] 0.57-1.00 " urea nitrogen, blood 12 mg/dL [facility] 8-27 " blood glucose, random 102 mg/dL [facility] 65-99 High magnesium, serum 2.0 mg/dL [facility] 1.6-2.3 " phosphate, serum 2.4 mg/dL [facility] 2.5-4.5 Low " alanine aminotransferase (SGPT), serum 23 1/L [facility] 0-32 " aspartate aminotransferase (SGOT), serum 19 1/L [facility] 0-40 " alkaline phosphatase, serum 79 1/L [facility] 39-117 " bilirubin, serum, total 0.3 mg/dL [facility] 0.0-1.2 " albumin/globulin ratio, serum 1.9 [facility] 1.2-2.2 " globulin, serum 2.2 [facility] 1.5-4.5 " albumin, serum 4.2 g/dL [facility] 3.6-4.8 " protein, total, serum 6.4 g/dL [facility] 6.0-8.5 " calcium, serum 9.4 mg/dL [facility] 8.7-10.3 " carbon dioxide, venous blood 30 mmol/L [facility] 20-29 High " chloride, serum 96 mmol/L [facility] 96-106 " potassium, serum 3.2 mmol/L [facility] 3.5-5.2 Low " sodium, serum 143 mmol/L [facility] 134-144 " urea nitrogen/creatinine ratio, serum 12 [facility] 12-28 " eGFR if 76 mL/min/((173/100).m2) [facility] >59 " Estimated Glomerular Filtration Rate (calc) 66 mL/min/((173/100).m2) [facility] >59 " creatinine, serum 0.94 mg/dL [facility] 0.57-1.00 " urea nitrogen, blood 11 mg/dL [facility] 8-27 " blood glucose, random 113 mg/dL [facility] 65-99 High antinuclear antibody Negative [facility] Negative " vitamin D 25-hydroxy, serum 31.3 ng/mL [facility] 30.0-100.0 " alanine aminotransferase (SGPT), serum 32 1/L [facility] 0-32 " aspartate aminotransferase (SGOT), serum 30 1/L [facility] 0-40 " alkaline phosphatase, serum 88 1/L [facility] 39-117 " bilirubin, serum, total 0.4 mg/dL [facility] 0.0-1.2 " albumin/globulin ratio, serum 2.2 [facility] 1.2-2.2 " globulin, serum 2.1 [facility] 1.5-4.5 " albumin, serum 4.6 g/dL [facility] 3.6-4.8 " protein, total, serum 6.7 g/dL [facility] 6.0-8.5 " calcium, serum 9.4 mg/dL [facility] 8.7-10.3 " carbon dioxide, venous blood 30 mmol/L [facility] 20-29 High " chloride, serum 92 mmol/L [facility] 96-106 Low " potassium, serum 2.6 mmol/L [facility] 3.5-5.2 Low " sodium, serum 141 mmol/L [facility] 134-144 " urea nitrogen/creatinine ratio, serum 12 [facility] 12-28 " eGFR if 76 mL/min/((173/100).m2) [facility] >59 " Estimated Glomerular Filtration Rate (calc) 66 mL/min/((173/100).m2) [facility] >59 " creatinine, serum 0.94 mg/dL [facility] 0.57-1.00 " urea nitrogen, blood 11 mg/dL [facility] 8-27 " blood glucose, random 108 mg/dL [facility] 65-99 High " immature granulocytes, percentage of total cells, blood 0 % [facility] Not Estab. " basophil count, absolute 0.0 x10E3/uL [facility] 0.0-0.2 " Eosinophil Absolute Count 0.1 X10E3/UL [facility]ic 0.0-0.4 " monocyte count, blood, automated 0.3 X10E3/UL [facility] 0.1-0.9 " lymphocyte count, blood, automated 1.7 X10E3/UL [facility] 0.7-3.1 " Absolute Neutrophils 2.8 X10E3/UL [facility] 1.4-7.0 " basophils as percent of blood leukocytes 1 % [facility] Not Estab. " eosinophils as percent of blood leukocytes 2 % [facility] Not Estab. " monocytes as percent of blood leukocytes 7 % [facility] Not Estab. " lymphocytes as percent of blood leukocytes 34 % [facility] Not Estab. " neutrophils as percent of blood leukocytes 56 % [facility] Not Estab. " platelet count 288 X10E3/UL [facility] 150-450 " red blood cell distribution width 13.8 % [facility] 12.3-15.4 " mean corpuscular hemoglobin concentration, RBC 32.1 G/DL [facility] 31.5-35.7 " mean corpuscular hemoglobin, RBC 30.0 pg [facility] 26.6-33.0 " mean corpuscular volume, RBC 93 fL [facility] 79-97 " hematocrit, blood 35.2 % [facility] 34.0-46.6 " hemoglobin, blood 11.3 g/dL [facility] 11.1-15.9 " erythrocyte (RBC) count 3.77 X10E6/UL [facility] 3.77-5.28 " leukocyte count, blood 5.0 X10E3/UL [facility] 3.4-10.8 erythrocyte sedimentation rate 7 mm/h [facility] 0-40 " antinuclear antibody Negative [facility] Negative " alanine aminotransferase (SGPT), serum 29 1/L [facility] 0-32 " aspartate aminotransferase (SGOT), serum 34 1/L [facility] 0-40 " alkaline phosphatase, serum 95 1/L [facility] 39-117 " bilirubin, serum, total 0.3 mg/dL [facility] 0.0-1.2 " albumin/globulin ratio, serum 2.0 [facility] 1.2-2.2 " globulin, serum 2.3 [facility] 1.5-4.5 " albumin, serum 4.5 g/dL [facility] 3.6-4.8 " protein, total, serum 6.8 g/dL [facility] 6.0-8.5 " calcium, serum 9.6 mg/dL [facility] 8.7-10.3 " carbon dioxide, venous blood 25 mmol/L [facility] 20-29 " chloride, serum 100 mmol/L [facility] 96-106 " potassium, serum 3.2 mmol/L [facility] 3.5-5.2 Low " sodium, serum 141 mmol/L [facility] 134-144 " urea nitrogen/creatinine ratio, serum 13 [facility] 12-28 " eGFR if 85 mL/min/((173/100).m2) [facility] >59 " Estimated Glomerular Filtration Rate (calc) 74 mL/min/((173/100).m2) [facility] >59 " creatinine, serum 0.86 mg/dL [facility] 0.57-1.00 " urea nitrogen, blood 11 mg/dL [facility] 8-27 " blood glucose, random 108 mg/dL [facility] 65-99 High " immature granulocytes, percentage of total cells, blood 0 % [facility] Not Estab. " basophil count, absolute 0.1 x10E3/uL [facility] 0.0-0.2 " Eosinophil Absolute Count 0.1 X10E3/UL [facility] 0.0-0.4 " monocyte count, blood, automated 0.5 X10E3/UL [facility] 0.1-0.9 " lymphocyte count, blood, automated 1.7 X10E3/UL [facility] 0.7-3.1 " Absolute Neutrophils 4.3 X10E3/UL [facility] 1.4-7.0 " basophils as percent of blood leukocytes 1 % [facility] Not Estab. " eosinophils as percent of blood leukocytes 2 % [facility] Not Estab. " monocytes as percent of blood leukocytes 7 % [facility] Not Estab. " lymphocytes as percent of blood leukocytes 25 % [facility] Not Estab. " neutrophils as percent of blood leukocytes 65 % [facility] Not Estab. " platelet count 376 X10E3/UL [facility] 150-379 " red blood cell distribution width 16.0 % [facility] 12.3-15.4 High " mean corpuscular hemoglobin concentration, RBC 33.7 G/DL [facility] 31.5-35.7 " mean corpuscular hemoglobin, RBC 31.1 pg [facility] 26.6-33.0 " mean corpuscular volume, RBC 92 fL [facility] 79-97 " hematocrit, blood 32.6 % [facility] 34.0-46.6 Low " hemoglobin, blood 11.0 g/dL [facility] 11.1-15.9 Low " erythrocyte (RBC) count 3.54 X10E6/UL [facility] 3.77-5.28 Low " leukocyte count, blood 6.6 X10E3/UL [facility] 3.4-10.8 " thyroxine, serum, free 1.78 ng/dL [facility] 0.82-1.77 High " thyroid stimulating hormone, serum 0.941 u[iU]/mL [facility] 0.450-4.500 alanine aminotransferase (SGPT), serum 25 1/L [facility] 0-32 " aspartate aminotransferase (SGOT), serum 25 1/L [facility] 0-40 " alkaline phosphatase, serum 76 1/L [facility] 39-117 " bilirubin, serum, total 0.3 mg/dL [facility] 0.0-1.2 " albumin/globulin ratio, serum 2.3 [facility] 1.2-2.2 High " globulin, serum 2.0 [facility] 1.5-4.5 " albumin, serum 4.6 g/dL [facility] 3.6-4.8 " protein, total, serum 6.6 g/dL [facility] 6.0-8.5 " calcium, serum 9.0 mg/dL [facility] 8.7-10.3 " carbon dioxide, venous blood 24 mmol/L [facility] 20-29 " chloride, serum 102 mmol/L [facility] 96-106 " potassium, serum 4.1 mmol/L [facility] 3.5-5.2 " sodium, serum 142 mmol/L [facility] 134-144 " urea nitrogen/creatinine ratio, serum 13 [facility] 12-28 " eGFR if 78 mL/min/((173/100).m2) [facility] >59 " Estimated Glomerular Filtration Rate (calc) 68 mL/min/((173/100).m2) [facility] >59 " creatinine, serum 0.92 mg/dL [facility] 0.57-1.00 " urea nitrogen, blood 12 mg/dL [facility] 8-27 " blood glucose, random 122 mg/dL [facility] 65-99 High " immature granulocytes, percentage of total cells, blood 0 % [facility] Not Estab. " basophil count, absolute 0.1 x10E3/uL [facility] 0.0-0.2 " Eosinophil Absolute Count 0.1 X10E3/UL [facility] 0.0-0.4 " monocyte count, blood, automated 0.2 X10E3/UL [facility] 0.1-0.9 " lymphocyte count, blood, automated 2.2 X10E3/UL [facility] 0.7-3.1 " Absolute Neutrophils 3.2 X10E3/UL [facility] 1.4-7.0 " basophils as percent of blood leukocytes 1 % [facility] Not Estab. " eosinophils as percent of blood leukocytes 2 % [facility] Not Estab. " monocytes as percent of blood leukocytes 4 % [facility] Not Estab. " lymphocytes as percent of blood leukocytes 39 % [facility] Not Estab. " neutrophils as percent of blood leukocytes 54 % [facility] Not Estab. " platelet count 281 X10E3/UL [facility] 150-379 " red blood cell distribution width 14.3 % [facility] 12.3-15.4 " mean corpuscular hemoglobin concentration, RBC 34.0 G/DL [facility] 31.5-35.7 " mean corpuscular hemoglobin, RBC 30.2 pg [facility] 26.6-33.0 " mean corpuscular volume, RBC 89 fL [facility] 79-97 " hematocrit, blood 40.9 % [facility] 34.0-46.6 " hemoglobin, blood 13.9 g/dL [facility] 11.1-15.9 " erythrocyte (RBC) count 4.60 X10E6/UL [facility] 3.77-5.28 " leukocyte count, blood 5.8 X10E3/UL [facility] 3.4-10.8 " thyroxine, serum, free 1.28 ng/dL [facility] 0.82-1.77 " thyroid stimulating hormone, serum 4.080 u[iU]/mL [facility] 0.450-4.500 thyroxine, serum, free 1.29 ng/dL [facility] 0.82-1.77 " thyroid stimulating hormone, serum 1.010 u[iU]/mL [facility] 0.450-4.500 LDL cholesterol, serum 183 mg/dL [facility] 0-99 High " very low density lipoproteins 34 mg/dL [facility] 5-40 " HDL cholesterol, serum 64 mg/dL [facility] >39 " triglyceride, serum, fasting 171 mg/dL [facility] 0-149 High " cholesterol, serum 281 mg/dL [facility] 100-199 High " alanine aminotransferase (SGPT), serum 21 1/L [facility] 0-32 " aspartate aminotransferase (SGOT), serum 21 1/L [facility] 0-40 " alkaline phosphatase, serum 68 1/L [facility] 39-117 " bilirubin, serum, total 0.4 mg/dL [facility] 0.0-1.2 " albumin/globulin ratio, serum 2.0 [facility] 1.2-2.2 " globulin, serum 2.4 [facility] 1.5-4.5 " albumin, serum 4.8 g/dL [facility] 3.5-5.5 " protein, total, serum 7.2 g/dL [facility] 6.0-8.5 " calcium, serum 9.9 mg/dL [facility] 8.7-10.2 " carbon dioxide, venous blood 24 mmol/L [facility] 18-29 " chloride, serum 103 mmol/L [facility] 96-106 " potassium, serum 4.5 mmol/L [facility] 3.5-5.2 " sodium, serum 145 mmol/L [facility] 134-144 High " urea nitrogen/creatinine ratio, serum 17 [facility] 9-23 " eGFR if 92 mL/min/((173/100).m2) [facility] >59 " Estimated Glomerular Filtration Rate (calc) 80 mL/min/((173/100).m2) [facility] >59 " creatinine, serum 0.81 mg/dL [facility] 0.57-1.00 " urea nitrogen, blood 14 mg/dL [facility] 6-24 " blood glucose, random 120 mg/dL [facility] 65-99 High " immature granulocytes, percentage of total cells, blood 0 % [facility] Not Estab. " basophil count, absolute 0.0 x10E3/uL [facility] 0.0-0.2 " Eosinophil Absolute Count 0.1 X10E3/UL [facility] 0.0-0.4 " monocyte count, blood, automated 0.4 X10E3/UL [facility] 0.1-0.9 " lymphocyte count, blood, automated 2.5 X10E3/UL [facility] 0.7-3.1 " Absolute Neutrophils 2.9 X10E3/UL [facility] 1.4-7.0 " basophils as percent of blood leukocytes 1 % [facility] Not Estab. " eosinophils as percent of blood leukocytes 1 % [facility] Not Estab. " monocytes as percent of blood leukocytes 6 % [facility] Not Estab. " lymphocytes as percent of blood leukocytes 42 % [facility] Not Estab. " neutrophils as percent of blood leukocytes 50 % [facility] Not Estab. " platelet count 265 X10E3/UL [facility] 150-379 " red blood cell distribution width 14.0 % [facility] 12.3-15.4 " mean corpuscular hemoglobin concentration, RBC 33.0 G/DL [facility] 31.5-35.7 " mean corpuscular hemoglobin, RBC 29.1 pg [facility] 26.6-33.0 " mean corpuscular volume, RBC 88 fL [facility] 79-97 " hematocrit, blood 44.0 % [facility] 34.0-46.6 " hemoglobin, blood 14.5 g/dL [facility] 11.1-15.9 " erythrocyte (RBC) count 4.98 X10E6/UL [facility] 3.77-5.28 " leukocyte count, blood 5.9 X10E3/UL [facility] 3.4-10.8 " thyroxine, serum, free 1.62 ng/dL [facility] 0.82-1.77 " thyroid stimulating hormone, serum 0.020 u[iU]/mL [facility] 0.450-4.500 Low Microbial identification kit, rapid strep method negative Krystin Thomas LDL cholesterol, serum 184 mg/dL [facility] 0-99 High " very low density lipoproteins 39 mg/dL [facility] 5-40 " HDL cholesterol, serum 49 mg/dL [facility] >39 " triglyceride, serum, fasting 195 mg/dL [facility] 0-149 High " cholesterol, serum 272 mg/dL [facility] 100-199 High " alanine aminotransferase (SGPT), serum 16 1/L [facility] 0-32 " aspartate aminotransferase (SGOT), serum 17 1/L [facility] 0-40 " alkaline phosphatase, serum 64 1/L [facility] 39-117 " bilirubin, serum, total 0.3 mg/dL [facility] 0.0-1.2 " albumin/globulin ratio, serum 1.7 [facility] 1.2-2.2 " globulin, serum 2.5 [facility] 1.5-4.5 " albumin, serum 4.3 g/dL [facility] 3.5-5.5 " protein, total, serum 6.8 g/dL [facility] 6.0-8.5 " calcium, serum 9.5 mg/dL [facility] 8.7-10.2 " carbon dioxide, venous blood 23 mmol/L [facility] 18-29 " chloride, serum 102 mmol/L [facility] 96-106 " potassium, serum 4.6 mmol/L [facility] 3.5-5.2 " sodium, serum 142 mmol/L [facility] 134-144 " urea nitrogen/creatinine ratio, serum 17 [facility] 9-23 " eGFR if 98 mL/min/((173/100).m2) [facility] >59 " Estimated Glomerular Filtration Rate (calc) 85 mL/min/((173/100).m2) [facility] >59 " creatinine, serum 0.77 mg/dL [facility] 0.57-1.00 " urea nitrogen, blood 13 mg/dL [facility] 6-24 " blood glucose, random 105 mg/dL [facility] 65-99 High " immature granulocytes, percentage of total cells, blood 0 % [facility] " basophil count, absolute 0.0 x10E3/uL [facility] 0.0-0.2 " Eosinophil Absolute Count 0.1 X10E3/UL [facility] 0.0-0.4 " monocyte count, blood, automated 0.4 X10E3/UL [facility] 0.1-0.9 " lymphocyte count, blood, automated 2.2 X10E3/UL [facility] 0.7-3.1 " Absolute Neutrophils 5.4 X10E3/UL [facility] 1.4-7.0 " basophils as percent of blood leukocytes 1 % [facility] " eosinophils as percent of blood leukocytes 1 % [facility] " monocytes as percent of blood leukocytes 5 % [facility] " lymphocytes as percent of blood leukocytes 27 % [facility] " neutrophils as percent of blood leukocytes 66 % [facility] " platelet count 301 X10E3/UL [facility] 150-379 " red blood cell distribution width 13.8 % [facility] 12.3-15.4 " mean corpuscular hemoglobin concentration, RBC 33.9 G/DL [facility] 31.5-35.7 " mean corpuscular hemoglobin, RBC 29.4 pg [facility] 26.6-33.0 " mean corpuscular volume, RBC 87 fL [facility] 79-97 " hematocrit, blood 40.7 % [facility] 34.0-46.6 " hemoglobin, blood 13.8 g/dL [facility] 11.1-15.9 " erythrocyte (RBC) count 4.70 X10E6/UL [facility] 3.77-5.28 " leukocyte count, blood 8.2 X10E3/UL [facility] 3.4-10.8 " thyroxine, serum, free 1.09 ng/dL [facility] 0.82-1.77 " thyroid stimulating hormone, serum 0.697 u[iU]/mL [facility] 0.450-4.500 LDL cholesterol, serum 153 mg/dL [facility] 0-99 High " very low density lipoproteins 25 mg/dL [facility] 5-40 " HDL cholesterol, serum 70 mg/dL [facility] >39 " triglyceride, serum, fasting 124 mg/dL [facility] 0-149 " cholesterol, serum 248 mg/dL [facility] 100-199 High " calcium, serum 9.4 mg/dL [facility] 8.7-10.2 " carbon dioxide, venous blood 27 mmol/L [facility] 18-29 " chloride, serum 101 mmol/L [facility] 97-108 " potassium, serum 4.4 mmol/L [facility] 3.5-5.2 " sodium, serum 141 mmol/L [facility] 134-144 " urea nitrogen/creatinine ratio, serum 21 [facility] 9-23 " eGFR if 113 mL/min/((173/100).m2) [facility] >59 " Estimated Glomerular Filtration Rate (calc) 98 mL/min/((173/100).m2) [facility] >59 " creatinine, serum 0.66 mg/dL [facility] 0.57-1.00 " urea nitrogen, blood 14 mg/dL [facility] 6-24 " blood glucose, random 97 mg/dL [facility] 65-99 " immature granulocytes, percentage of total cells, blood 0 % [facility] " basophil count, absolute 0.1 x10E3/uL [facility] 0.0-0.2 " Eosinophil Absolute Count 0.1 X10E3/UL [facility] 0.0-0.4 " monocyte count, blood, automated 0.5 X10E3/UL [facility] 0.1-0.9 " lymphocyte count, blood, automated 2.9 X10E3/UL [facility] 0.7-3.1 " Absolute Neutrophils 3.9 X10E3/UL [facility] 1.4-7.0 " basophils as percent of blood leukocytes 1 % [facility] " eosinophils as percent of blood leukocytes 1 % [facility] " monocytes as percent of blood leukocytes 6 % [facility] " lymphocytes as percent of blood leukocytes 39 % [facility] " neutrophils as percent of blood leukocytes 53 % [facility] " platelet count 305 X10E3/UL [facility] 150-379 " red blood cell distribution width 14.4 % [facility] 12.3-15.4 " mean corpuscular hemoglobin concentration, RBC 34.1 G/DL [facility] 31.5-35.7 " mean corpuscular hemoglobin, RBC 29.4 pg [facility] 26.6-33.0 " mean corpuscular volume, RBC 86 fL [facility] 79-97 " hematocrit, blood 40.5 % [facility] 34.0-46.6 " hemoglobin, blood 13.8 g/dL [facility] 11.1-15.9 " erythrocyte (RBC) count 4.69 X10E6/UL [facility] 3.77-5.28 " leukocyte count, blood 7.3 X10E3/UL [facility] 3.4-10.8 occult blood stool sample #3 negative Katie Chavez " occult blood stool sample #2 negative Katie Chavez " occult blood, stool (E&M) negative Katie Chavez HISTORY OF IMMUNIZATIONS No Information Available HISTORY OF MEDICATION USE Medication Instructions Dates Provider Comments CLARITIN 10 MG ORAL TABLET 1 by mouth every day Cecille Atkins TRIAMCINOLONE ACETONIDE 0.1 % EXTERNAL OINTMENT apply to affected area twice a day for a week Cecille Atkins K-PHOS 500 MG ORAL TABLET 1 tab By Mouth Every Day Cecille Wilbert FUROSEMIDE 20 MG ORAL TABLET 1 tab By Mouth Every Day Cecille Wilbert NORCO 5-325 MG ORAL TABLET Cecille Wilbert LASIX 20 MG ORAL TABLET 1 by mouth every am - Cecille Wilbert POTASSIUM CHLORIDE RAJESH ER 20 MEQ ORAL TABLET EXTENDED RELEASE 1 by mouth every day Cecille Wilbert NORTRIPTYLINE CAPS 50MG TAKE 2 CAPSULES DAILY Cecille Wilbert AUGMENTIN 875-125 MG ORAL TABLET 1 by mouth twice a day Cecille Wilbert HYDROCHLOROTHIAZIDE TAB 25MG TAKE 1 TABLET DAILY [facility] CYCLOBENZAPRINE HCL 10 MG ORAL TABLET 1 By Mouth three times a day as needed for muscle spasm Cecille Wilbert ATORVASTATIN CALCIUM 40 MG ORAL TABLET 1 tab By Mouth qd Cecille Wilbert L-THYROXINE (SYNTHROID) TABS 100MCG TAKE 1 TABLET DAILY Angelita Call[facility] FLONASE ALLERGY RELIEF 50 MCG/ACT NASAL SUSPENSION 2 sprays each nostril every day Cecille Wilbert AUGMENTIN 875-125 MG ORAL TABLET 1 by mouth twice a day - Cecille Wilbert TRAMADOL HCL 50 MG ORAL TABLET 1-2 tablets by mouth Every 8-12 hrs As Needed pain Cecille Wilbert NORTRIPTYLINE HCL CAPS 75MG TAKE 1 CAPSULE DAILY Cecille Wilbert NORTRIPTYLINE HCL 50 MG ORAL CAPSULE 2 tab By Mouth take at bedtime - Cecille Wilbert TRAMADOL-ACETAMINOPHEN 37.5-325 MG ORAL TABLET take two tabs every 4-6 hours as needed for pain Jerel Dietrich LIDODERM 5 % EXTERNAL PATCH Apply to intact skin to cover the most painful area up to 12 hours in a 24 hour period (12 hours on, 12 hours off) [facility] ATORVASTATIN CALCIUM 20 MG ORAL TABLET take one daily for cholesterol control Jerel Dietrich NORTRIPTYLINE HCL 50 MG ORAL CAPSULE take one every night - Cecille Wilbert CRESTOR 20 MG ORAL TABLET 1 tab by mouth daily Jerel Dietrich LEVOTHYROXINE SODIUM 125 MCG ORAL TABLET One tab by mouth daily - Bing Ferreira [facility] HYDROCODONE-ACETAMINOPHEN 10-325 MG ORAL TABLET takde one daily as needed for chronic hip pain Jerel Karlo LORAZEPAM 2 MG ORAL TABLET take one tab daily as needed for anxiety Cecille Atkins HYOSCYAMINE SULFATE 0.125 MG SUBLINGUAL TABLET SUBLINGUAL Take 1 tablet under the tongue before meals. Bing Hanna [facility] PREMARIN 0.9 MG ORAL TABLET 1 by mouth every other day Bing Hanna [facility] CELEBREX 100 MG ORAL CAPSULE 1 by mouth Twice a Day Bing Ferreira [facility] NEXIUM 40 MG ORAL CAPSULE DELAYED RELEASE 1 by mouth daily Jerel Dietrich TRAMADOL HCL 50 MG TABS TAKE 1 TABLET BY MOUTH 2 TO 3 TIMES A DAY NEEDED FOR PAIN Cecille Atkins HYDROCODONE-ACETAMINOPHEN 10-650 MG ORAL TABLET take one daily for pain Jerel Dietrich LORAZEPAM 2 MG ORAL TABLET take one daily Jerel Dietrich LEVOTHYROXINE SODIUM 125 MCG ORAL TABLET take 1 tablet By Mouth Every Day Bing Ferreira [facility] AMITRIPTYLINE HCL 50 MG ORAL TABLET take 1 tablet By Mouth Every Day at bedtime - Cecille Atkins SOCIAL HISTORY Date Observation Value Provider drug use, illicit Never Suma Encarnacion " alcohol use Currently Suma Encarnacion " social history E&M . Not homeless. City: [place]. State: [place]. 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 [employer]. 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 Suma Encarnacion " social history reviewed E&M reviewed today Suma Encarnacion " passive cigarette smoke exposure No Suma Encarnacion " smoking status never smoker Suma Encarnacion " Exercise Program Referral T Suma Encarnacion " Weight Management Counseling Provided T Suma Encarnacion " Nutrition intervention T Suma Encarnacion time of call 03/11/2019 9:11 AM Jen Navarro Exercise Program Referral T Cecille Wilbert " Weight Management Counseling Provided T Cecille Wilbert " Nutrition intervention T Cecille Wilbert " is there any chance that you could be ? No Thea Blakelyales " assessment of health literacy ([facility] 2014 Standards, 3C10) Adequate Thea Song " drug use, illicit Never Thea Song " alcohol use Currently Theabrian Song " smoking status never smoker Thea Song " social history E&M . Not homeless. City: [place]. State: [place]. 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 [employer]. 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 Thea Song " social history reviewed E&M reviewed today Theabrian Song time of call 01/13/2019 8:19 AM Elizabeth Chavez Exercise Program Referral T Cecille Wilbert " Weight Management Counseling Provided T Cecille Wilbert " Nutrition intervention T Cecille Wilbert " social history E&M . Not homeless. City: [place]. State: [place]. 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 [employer]. 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 Thea Song " social history reviewed E&M reviewed today Thea Blakelyales " drug use, illicit Never Thea Song " alcohol use Currently Theabrian Song " assessment of health literacy ([facility] 2014 Standards, 3C10) Adequate Thea Song " is there any chance that you could be ? No Thea Song " passive cigarette smoke exposure No Thea Song " smoking status never smoker Thea Song drug use, illicit Never Suma Encarnacion " alcohol use Currently Suma Encarnacion " social history E&M . Not homeless. City: [place]. State: [place]. 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 [employer]. 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 Suma Encarnacion " social history reviewed E&M reviewed today Suma Encarnacion " assessment of health literacy ([facility] 2014 Standards, 3C10) Adequate Suma Encarnacion " passive cigarette smoke exposure No Suma Encarnacion " smoking status never smoker Suma Encarnacion " Exercise Program Referral T Suma Encarnacion " Weight Management Counseling Provided T Suma Encarnacion " Nutrition intervention T Suma Encarnacion time of call 10/17/2018 3:37 PM Janine Ashby drug use, illicit Never Suma Encarnacion " alcohol use Currently Suma Encarnacion " social history E&M . Not homeless. City: [place]. State: [place]. 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 [employer]. 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 Suma Encarnacion " social history reviewed E&M reviewed today Suma Encarnacion " assessment of health literacy ([facility] 2014 Standards, 3C10) Adequate Suma Encarnacion " passive cigarette smoke exposure No Suma Encarnacion " smoking status never smoker Suma Encarnacion " Exercise Program Referral T Suma Encarnacion " Weight Management Counseling Provided T Suma Encarnacion " Nutrition intervention T Suma Encarnacion time of call 09/11/2018 3:28 PM Thao Kahn Exercise Program Referral T Cecille Wilbert " Weight Management Counseling Provided T Cecille Wilbert " Nutrition intervention T Cecille Wilbert " drug use, illicit Never Alice Hennessy " alcohol use Currently Alice Hennessy " social history E&M . Not homeless. City: [place]. State: [place]. 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 [employer]. 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 Alice Hennessy " social history reviewed E&M reviewed today Alice Hennessy " assessment of health literacy ([facility] 2014 Standards, 3C10) Adequate Alice Hennessy " passive cigarette smoke exposure No Alice Hennessy " smoking status never smoker Alice Hennessy time of call 07/19/2018 3:26 PM Meir Becerra Exercise Program Referral T Cecille Wilbert " Weight Management Counseling Provided T Cecille Wilbert " Nutrition intervention T Cecille Wilbert drug use, illicit Never Krystin Thomas " alcohol use Currently Krystin Thomas " social history E&M . Not homeless. City: [place]. State: [place]. 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 [employer]. 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 Krystin Thomas " social history reviewed E&M reviewed today Krystin Thomas " assessment of health literacy ([facility] 2014 Standards, 3C10) Adequate Krystin Thomas " passive cigarette smoke exposure No Krystin Thomas " smoking status never smoker Krystin Thomas assessment of health literacy ([facility] 2014 Standards, 3C10) Adequate Perri Mccarty " Exercise Program Referral T Perri Valenzuelarez " Weight Management Counseling Provided T Perri Valenzuelarez " Nutrition intervention T Perri Valenzuelarez " drug use, illicit Never Perri Valenzuelarez " alcohol use Currently Perri Valenzuelarez " social history E&M . Not homeless. City: [place]. State: [place]. 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 [employer]. 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 Perri Quinnierrez " social history reviewed E&M reviewed today Perri Valenzuelarez " passive cigarette smoke exposure No Perri Quinnierrez " smoking status never smoker Perri Valenzuelarez assessment of health literacy ([facility] 2014 Standards, 3C10) Adequate Krystin Thomas " passive cigarette smoke exposure No Krystin Thomas " smoking status never smoker Krystin Thomas Exercise Program Referral T Cecille Wilbert " Weight Management Counseling Provided T Cecille Wilbert " Nutrition intervention T Cecille Wilbert Exercise Program Referral T Cecille Wilbert " Weight Management Counseling Provided T Cecille Wilbert " Nutrition intervention T Cecille Wilbert assessment of health literacy ([facility] 2014 Standards, 3C10) Adequate Claribel Castillo " is there any chance that you could be ? No Claribel Castillo " passive cigarette smoke exposure No Claribel Castillo " smoking status never smoker Claribel Castillo assessment of health literacy ([facility] 2014 Standards, 3C10) Adequate Claribel Castillo " passive cigarette smoke exposure No Claribel Castillo " smoking status never smoker Claribel Castillo drug use, illicit Never Jahaira Pool " alcohol use Currently Jahaira Pool " social history E&M . Not homeless. City: [place]. State: [place]. 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 [employer]. 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 Jahaira Pool " social history reviewed E&M reviewed today Jahaira Pool " assessment of health literacy ([facility] 2014 Standards, 3C10) Adequate Jahaira Pool " passive cigarette smoke exposure No Jahaira Pool " smoking status never smoker Jahaira Pool Exercise Program Referral T Cecille Wilbert " Weight Management Counseling Provided T Cecille Wilbert " Nutrition intervention T Cecille Wilbert " drug use, illicit Never Jahaira Pool " alcohol use Currently Jahaira Pool " social history E&M . Not homeless. City: [place]. State: [place]. 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 [employer]. 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 Jahaira Pool " social history reviewed E&M reviewed today Jahaira Pool " assessment of health literacy ([facility] 2014 Standards, 3C10) Adequate Jahaira Pool " passive cigarette smoke exposure No Jahaira Pool " smoking status never smoker Jahaira Pool drug use, illicit Never Cordelia Olea " alcohol use Currently Cordelia Olea " passive cigarette smoke exposure Yes Cordelia Olea " smoking status never smoker Cordelia Olea drug use, illicit Never Krystin Thomas " alcohol use Currently Krystin Thomas " social history E&M . Not homeless. City: [place]. State: [place]. 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 [employer]. 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 Krystin Thomas " social history reviewed E&M reviewed today Krystin Thomas " passive cigarette smoke exposure Yes Krystin Thomas " smoking status never smoker Krystin Thomas " assessment of health literacy ([facility] 2014 Standards, 3C10) Adequate Krystin Thomas Exercise Program Referral T Yojana Garciavez " Weight Management Counseling Provided T Yojana Garciavez " Nutrition intervention T Yojana Ramírez " social history E&M . Not homeless. City: [place]. State: [place]. 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 [employer]. 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 Yojana Ramírez " social history reviewed E&M reviewed today Yojana Ramírez " passive cigarette smoke exposure Yes Yojana Ramírez " smoking status never smoker Yojana Ramírez " assessment of health literacy ([facility] 2014 Standards, 3C10) Adequate Yojana Ramírez Exercise Program Referral T Cecille Wilbert " Weight Management Counseling Provided T Cecille Wilbert " Nutrition intervention T Cecille Wilbert " social history E&M . Not homeless. City: [place]. State: [place]. 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 [employer]. 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 Terri Wood " social history reviewed E&M reviewed today Terri Wodo " passive cigarette smoke exposure Yes Terri Wood " smoking status never smoker Terri Wood " assessment of health literacy ([facility] 2014 Standards, 3C10) Adequate Terri Wood time of call 03/14/2017 12:51 PM Alice Singh time of call 09/27/2016 3:56 PM Doreen Angulo Exercise Program Referral Fe Dietrich " Weight Management Counseling Provided Fe Dietrich " Nutrition intervention Fe Dietrich " drug use, illicit Never Krystin Thomas " alcohol use Currently Krystin Thomas " social history E&M . Not homeless. City: [place]. State: [place]. 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 [employer]. 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 Krystin Thomas " social history reviewed E&M reviewed today Krystin Thomas " passive cigarette smoke exposure Yes Krystin Thomas " smoking status never smoker Krystin Thomas " assessment of health literacy ([facility] 2014 Standards, 3C10) Adequate Krystin Thomas time of call 07/28/2016 2:59 PM Yojana Minaya drug use, illicit Never Krystin Thomas " alcohol use Currently Krystin Thomas " social history E&M . Not homeless. City: [place]. State: [place] 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 [employer]. 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 Krystin Thomas " social history reviewed E&M reviewed today Krystin Thomas " passive cigarette smoke exposure Yes Krystin Thomas " smoking status never smoker Krystin Thomas time of call 09/23/2015 3:50 PM Katie Chavez Exercise Program Referral Fe Dietrich " Weight Management Counseling Provided Fe Dietrich " Nutrition intervention Fe Dietrich " passive cigarette smoke exposure Yes Terri Wood " smoking status never smoker Terri Wood time of call 02/05/2015 4:13 PM Bing Mcbride Exercise Program Referral Fe Dietrich " Weight Management Counseling Provided Fe Dietrich " Nutrition intervention Fe Dietrich " drug use, illicit Never Perri Valenzuelarez " alcohol use Currently Perri Valenzuelarez " passive cigarette smoke exposure Yes Perri Valenzuelarez " smoking status never smoker Perri Valenzuelarez time of call 12/09/2014 10:02 AM Larissa Buckley drug use, illicit Never Perri Mccarty " alcohol use Currently Perri Valenzuelarez " passive cigarette smoke exposure No Perri Mccarty " smoking status never smoker Perri Valenzuelarez drug use, illicit Never Ashleigh Ellsworth " alcohol use Currently Ashleigh Ellsworth " passive cigarette smoke exposure No Ashleigh Ellsworth " smoking status never smoker Ashleigh Ellsworth time of call 01/07/2014 8:04 AM Kirk Viramontes drug use, illicit Never Thea Maradiaga " alcohol use Currently Thea Maradiaga " social history E&M . Not homeless. City: [place]. State: [place] 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 [employer]. 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 Thea Maradiaga " social history reviewed E&M reviewed today Thea Maradiaga " passive cigarette smoke exposure No Thea Maradiaga " smoking status never smoker Thea Maradiaga drug use, illicit Never Yojana Coker " alcohol use, frequency holidays/special occasions only Yojana Coker " alcohol use Currently Yojana Coker " passive cigarette smoke exposure No Yojana Coker " smoking status never smoker Yojana Coker " Exercise Program Referral Fe Coker " Weight Management Counseling Provided Fe Coker " Nutrition intervention Fe Coker smoking status never [facility] smoking status Never smoker [facility] smoking status Never smoker [facility] smoking status never [facility] smoking status Never smoker [facility] smoking status never [facility] time of call 05/30/2013 10:38 AM Bing Mcbride time of call 02/19/2013 10:04 AM Dacia Hurd drug use, illicit Never Lyla Sanchez " alcohol use, frequency holidays/special occasions only Lyla Minor " alcohol use Currently Lyla Sanchez " social history reviewed E&M reviewed today Lyla Sanchez " social history E&M . Not homeless. City: [place]. State: [place]. 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 [employer]. 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 Lyla Minor " Occupation #1 [employer] Lyla Minor " patient considered to be homeless No Lyla Minor " passive cigarette smoke exposure Yes Lyla Minor " smoking status never smoker Lyla Minor FUNCTIONAL STATUS No Information Available MENTAL STATUS Date Observation Value Provider assessment of judgment and insight E&M intact Cecille Wilbert " assessment of mood and affect E&M no depression, anxiety, or agitation Cecille Wilbert assessment of judgment and insight E&M intact Cecille Wilbert " mental status examination: orientation E&M oriented to time, place, and person Cecille Wilbert " assessment of mood and affect E&M no depression, anxiety, or agitation Cecille Wilbert " Generalized Anxiety Disorder Questionnaire - Question 2 0 Thea Song " Generalized Anxiety Disorder Questionnaire - Question 1 0 Thea Song assessment of judgment and insight E&M intact Cecille Wilbert " assessment of mood and affect E&M no depression, anxiety, or agitation Cecille Wilbert " Generalized Anxiety Disorder Questionnaire - Question 2 0 Thea Song " Generalized Anxiety Disorder Questionnaire - Question 1 0 Thea Song assessment of judgment and insight E&M intact Cecille Wilbert " mental status examination: orientation E&M oriented to time, place, and person Cecille Wilbert " assessment of mood and affect E&M no depression, anxiety, or agitation Cecille Wilbert " Generalized Anxiety Disorder Questionnaire - Question 2 0 Suma Encarnacion " Generalized Anxiety Disorder Questionnaire - Question 1 0 Suma Encarnacion assessment of judgment and insight E&M intact Cecille Wilbert " mental status examination: orientation E&M oriented to time, place, and person Cecille Wilbert " assessment of mood and affect E&M no depression, anxiety, or agitation Cecille Wilbert " Generalized Anxiety Disorder Questionnaire - Question 2 0 Alice Hennessy " Generalized Anxiety Disorder Questionnaire - Question 1 0 Alice Hennessy assessment of judgment and insight E&M intact Cecille Wilbert " mental status examination: orientation E&M oriented to time, place, and person Cecille Wilbert " assessment of mood and affect E&M no depression, anxiety, or agitation Ceclile Wilbert " Generalized Anxiety Disorder Questionnaire - Question 2 0 Krystin Thomas " Generalized Anxiety Disorder Questionnaire - Question 1 0 Krystin Thomas assessment of judgment and insight E&M intact Cecille Wilbert " mental status examination: orientation E&M oriented to time, place, and person Cecille Wilbert " assessment of mood and affect E&M no depression, anxiety, or agitation Cecille Wilbert " Generalized Anxiety Disorder Questionnaire - Question 2 0 Perri Mccarty " Generalized Anxiety Disorder Questionnaire - Question 1 0 Perri Mccarty assessment of judgment and insight E&M intact Cecille Wilbert " assessment of mood and affect E&M no depression, anxiety, or agitation Cecille Wilbert " Generalized Anxiety Disorder Questionnaire - Question 2 0 Krystin Thomas " Generalized Anxiety Disorder Questionnaire - Question 1 0 Krystin Thomas assessment of judgment and insight E&M intact Cecille Wilbert " mental status examination: orientation E&M oriented to time, place, and person Cecille Wilbert " assessment of mood and affect E&M no depression, anxiety, or agitation Cecille Wilbert assessment of judgment and insight E&M intact Cecille Wilbert " mental status examination: orientation E&M oriented to time, place, and person Cecille Wilbert " assessment of mood and affect E&M no depression, anxiety, or agitation Cecille Wilbert Generalized Anxiety Disorder Questionnaire - Question 2 0 Claribel Castillo " Generalized Anxiety Disorder Questionnaire - Question 1 0 Claribel Castillo Generalized Anxiety Disorder Questionnaire - Question 2 0 Claribel Castillo " Generalized Anxiety Disorder Questionnaire - Question 1 0 Claribel Castillo assessment of mood and affect E&M no depression, anxiety, or agitation Cecille Wilbert " assessment of judgment and insight E&M intact Cecille Wilbert " Generalized Anxiety Disorder Questionnaire - Question 2 0 Jahaira Pool " Generalized Anxiety Disorder Questionnaire - Question 1 0 Jahaira Pool assessment of mood and affect E&M no depression, anxiety, or agitation Cecille Wilbert " assessment of judgment and insight E&M intact Cecille Wilbert " Generalized Anxiety Disorder Questionnaire - Question 2 0 Jahaira Pool " Generalized Anxiety Disorder Questionnaire - Question 1 0 Jahaira Pool assessment of judgment and insight E&M intact Cecille Wilbert Generalized Anxiety Disorder Questionnaire - Question 2 0 Cordelia Olea " Generalized Anxiety Disorder Questionnaire - Question 1 0 Cordelia Olea Generalized Anxiety Disorder Questionnaire - Question 2 0 Krystin Thomas " Generalized Anxiety Disorder Questionnaire - Question 1 0 Krystin Thomas assessment of judgment and insight E&M intact Cecille Wilbert " assessment of mood and affect E&M no depression, anxiety, or agitation Cecille Wilbert " Generalized Anxiety Disorder Questionnaire - Question 2 0 Yojana Ramírez " Generalized Anxiety Disorder Questionnaire - Question 1 0 Yojana Ramírez assessment of judgment and insight E&M intact Cecille Wilbert " assessment of mood and affect E&M no apparent depression, anxiety, or agitation Cecille Wilbert " Generalized Anxiety Disorder Questionnaire - Question 2 0 Terri Wood " Generalized Anxiety Disorder Questionnaire - Question 1 0 Terri Wood assessment of judgment and insight E&M intact Jerel Dietrich " mental status examination: orientation E&M oriented to time, place, and person Jerel Dietrich " assessment of mood and affect E&M no depression, anxiety, or agitation [facility] " Generalized Anxiety Disorder Questionnaire - Question 2 0 Krystin Thomas " Generalized Anxiety Disorder Questionnaire - Question 1 0 Krystin Thomas assessment of judgment and insight E&M intact [facility] " assessment of mood and affect E&M no depression, anxiety, or agitation [facility] " Generalized Anxiety Disorder Questionnaire - Question 2 0 Krystin Thomas " Generalized Anxiety Disorder Questionnaire - Question 1 0 Krystin Thomas assessment of judgment and insight E&M intact [facility] " assessment of mood and affect E&M no depression, anxiety, or agitation [facility] " Generalized Anxiety Disorder Questionnaire - Question 2 0 Terri Wood " Generalized Anxiety Disorder Questionnaire - Question 1 0 Terri Wood assessment of judgment and insight E&M intact [facility] " assessment of mood and affect E&M no depression, anxiety, or agitation [facility] " Generalized Anxiety Disorder Questionnaire - Question 2 0 Perri Mccarty " Generalized Anxiety Disorder Questionnaire - Question 1 0 Perri Mccarty assessment of judgment and insight E&M intact [facility] " assessment of mood and affect E&M no depression, anxiety, or agitation Jerel Dietrich " Generalized Anxiety Disorder Questionnaire - Question 2 0 Perri Mccarty " Generalized Anxiety Disorder Questionnaire - Question 1 0 Perri Mccarty assessment of judgment and insight E&M intact Jerel Dietrich " assessment of mood and affect E&M no depression, anxiety, or agitation Jerel Dietrich " Generalized Anxiety Disorder Questionnaire - Question 2 0 Ashleigh Ellsworth " Generalized Anxiety Disorder Questionnaire - Question 1 0 Ashleigh Ellsworth assessment of judgment and insight E&M intact Tram Mann " assessment of mood and affect E&M no depression, anxiety, or agitation Tram Mann " Generalized Anxiety Disorder Questionnaire - Question 2 1 Thea Maradiaga " Generalized Anxiety Disorder Questionnaire - Question 1 1 Thea Maradiaga assessment of judgment and insight E&M intact Jerel Dietrich " assessment of mood and affect E&M no depression, anxiety, or agitation Jerel Karlo " mental status examination: orientation E&M oriented to person, place, and time Jerel Dietrich " Generalized Anxiety Disorder Questionnaire - Question 2 0 Yojana Coker " Generalized Anxiety Disorder Questionnaire - Question 1 0 Yojana Coker MEDICAL EQUIPMENT No Information Available FAMILY HISTORY No Information Available INSURANCE PROVIDERS No Information Available ADVANCE DIRECTIVES No Information Available TREATMENT PLAN Date Name Potassium, Serum Basic Metabolic Panel (8) Phosphorus, Serum Basic Metabolic Panel (8) Basic Metabolic Panel (8) Phosphorus, Serum Magnesium, Serum Comp. Metabolic Panel (14) ELIZABETH w/Reflex Vitamin D, 25-Hydroxy Comp. Metabolic Panel (14) CBC With Differential/Platelet ELIZABETH w/Reflex Sedimentation Rate-Westergren TSH+Free T4 Comp. Metabolic Panel (14) CBC With Differential/Platelet TSH+Free T4 Comp. Metabolic Panel (14) CBC With Differential/Platelet TSH+Free T4 TSH+Free T4 Lipid Panel Comp. Metabolic Panel (14) CBC With Differential/Platelet FIT- Fecal immunoassay test TSH+Free T4 Lipid Panel Comp. Metabolic Panel (14) CBC With Differential/Platelet FIT- Fecal immunoassay test Lipid Panel Basic Metabolic Panel (8) CBC With Differential/Platelet Comp. Metabolic Panel (14) Lipid Panel TSH - - - - - - - - - Est Patient Exp Problem - 61637 Est Patient Exp Problem - 13119 Est Patient Detailed - 82945 Est Patient Exp Problem - 93088 Est Patient Detailed - 13728 Injection, ketorolac tromethamine (toradol), per 15 mg Est Patient Detailed - 30200 Est Patient Detailed - 15685 Est Patient Detailed - 19897 IM or SQ Injection Injection, dexamethasone sodium phosphate, 1mg Est Patient Detailed - 42126 Est Patient Detailed - 05138 Est Patient Detailed - 38924 Est Patient Detailed - 14630 Est Patient Exp Problem - 40474 IM or SQ Injection Injection, dexamethasone sodium phosphate, 1mg Est Patient Detailed - 28387 Est Patient Exp Problem - 68687 Est Patient Detailed - 09776 INFLUENZA VACCINE QUADRIVALENT 3 YRS PLUS IM Est Patient Well Exam (40 - 64 Yrs) - 96502 INFLUENZA VACCINE QUADRIVALENT 3 YRS PLUS IM Est Patient Exp Problem - 84199 Est Patient Well Exam (40 - 64 Yrs) - 75634 Est Patient Exp Problem - 96233 Est Patient Detailed - 95381 Est Patient Exp Problem - 13629 EKG - Tracing Only EKG - Interpretation & Report Only Est Patient Exp Problem - 06731 Est Patient Well Exam (40 - 64 Yrs) - 75450 Est Patient Exp Problem - 95543 HISTORY OF PROCEDURES Procedure Date Procedure Name Provider Procedure Notes Status Injection, ketorolac tromethamine (toradol), per 15 mg Cecille Wilbert completed IM or SQ Injection Cecille Wilbert 4mg left deltoid IM completed Injection, dexamethasone sodium phosphate, 1mg Cecille Wilbert completed IM or SQ Injection Cecille Wilbert 4mg/ml dexamethasone IM right gluteus medius completed Injection, dexamethasone sodium phosphate, 1mg Cecille Wilbert [facility]: [id number]. completed EKG - Tracing Only Elisabeth Bourne completed EKG - Interpretation & Report Only Elisabeth Bourne completed GOALS No Information Available HEALTH CONCERNS No Information Available
--- OUTSIDE RECORDS SUMMARY | 2019-08-12 11:40 | XMS REPORT ---
Author Author Admin, Bee Organization Unknown Address Unknown Phone Unavailable PROBLEMS [...] Location Encounter Diagnosis - Ambulatory Encounter Cecille Rodriguez [facility] [place] UN[place] - Ambulatory Encounter Cecille Atkins LinkLogic [facility] UNK - Ambulatory Encounter Cecille Callahan MedAdherence [facility] UNK - Ambulatory Encounter Cecille Wilbert [facility] UNK - Ambulatory Encounter Cecille Wilbert Atkins Krystin Thomas [facility] UNK - Ambulatory Encounter Cecille Wilbert Atkins [facility] UNK - Ambulatory Encounter Cecille Wilbert Atkins [facility] UNK - Ambulatory Encounter Cecille Wilbert Atkins [facility] UNK - Ambulatory Encounter Cecille Wilbert Atkins [facility] UNK - Ambulatory Encounter Cecille Wilbert Mcclelland William Carrilloendez [facility] Impaired physical mobility - Ambulatory Encounter Cecille Wilbert Atkins LinkLogic [facility] UNK - Ambulatory Encounter Cecille Wilbert Atkins Bing Ferreira MedAdherence [facility] UNK - Ambulatory Encounter Cecille Callahan MedAdherence [facility] UNK - Ambulatory Encounter Cecille Wilbert Callahan MedAdherence [facility] UNK - Ambulatory Encounter Cecille Wilbert Atkins LinkLogic [facility] UNK - Ambulatory Encounter Cecille Wilbert Atkins Bing Ferreira MedAdherence [facility] UNK - Ambulatory Encounter Cecille Wilbert Atkins [facility]Log[facility] UNK - Ambulatory Encounter Cecille Wilbert [facility] UNK - Ambulatory Encounter Cecille Wilbert Atkins [facility] UNK - Ambulatory Encounter Cecille Wilbert Cecille Atkins [facility] UNK - Ambulatory Encounter Cecille Wilbert Song [facility] Rash, nonspecific - Ambulatory Encounter Cecille Wilbert Cecille Sidhu Hiren Ramirez UNK - Ambulatory Encounter Cecille Wilbert [facility]ille Atkins [facility] - [facility]ulatory Encounter Cecille Wilbert Cecille Thomas [facility] UNK - Ambulatory Encounter Cecille Wilbert Cecille KahnLogic [facility] UNK - Ambulatory Encounter Cecille Wilbert Hendricks [facility] Practice HYPOKALEMIA - Ambulatory Encounter Cecille Wilbert Cecille Atkins [facility] UNK - Ambulatory Encounter Cecille Wilbert Cecille Atkins Bing Ferreira MedAdherence [facility] UNK - Ambulatory Encounter Cecille Wilbert Cecille Atkins [facility] UNK - Ambulatory Encounter Cecille Wilbert Atkins [facility] UNK - Ambulatory Encounter Cecille Wilbert Cecille Atkins Bing Ferreira MedAdherence Krystin Dey [facility] Multiple joint pain - Ambulatory Encounter Cecille Wilbert Cecille Callahan MedAdherence [facility] UNK - Ambulatory Encounter Cecille Wilbert Cecille Callahan MedAdherence [facility] UNK - Ambulatory Encounter Cecille Wilbert Cecille Atkins [facility] UNK - Ambulatory Encounter Cecille Wilbert Cecille Atkins [facility] UNK - Ambulatory Encounter Cecille Wilbertdaria [facility] UNK - Ambulatory Encounter Cecille Wilbert Cecille Wilbert Encarnacion [facility] UNK - Ambulatory Encounter Cecille Wilbert Cecille Bensonome Angelita Callahan [facility] Perri Greer [facility] Contact Center UNK - Ambulatory Encounter Cecille Wilbert Cecille Wilbert [facility] UNK - Ambulatory Encounter Cecille Wilbert Cecille Bensonome Marie Ashby [facility] Contact Center UNK - Ambulatory Encounter Cecille Wilbert Cecille Wilbert LinkLogic [facility] Practice UNK - Ambulatory Encounter Cecille Bensonome Cecille Wilbert Link[facility]ic [facility] UNK - Ambulatory Encounter Cecille Wilbert Cecille Wilbert Link[facility]ic [facility] UNK - Ambulatory Encounter Fax Status [facility] UNK - Ambulatory Encounter Fax Status [facility] UNK - Ambulatory Encounter Fax Status [facility] UNK - Ambulatory Encounter Fax Status [facility] UNK - Ambulatory Encounter Fax Status [facility] UNK - Ambulatory Encounter Fax Status [facility] UNK - Ambulatory Encounter Bing Ferreira MedAdherence [facility] UNK - Ambulatory Encounter Cecille Wilbert Oden Wilbert LinkLogic [facility] UNK - Ambulatory Encounter Cecille Wilbert Cecille Wilbert [facility] UNK - Ambulatory Encounter Cecille Wilbert Oden Wilbert LinkLogic [facility] UNK - Ambulatory Encounter Cecille Wilbert Cecille Wilbert [facility] UNK - Ambulatory Encounter Cecille Wilbert Atkins Krystin Ariasvirgilio Bonillana Sumajannie CarrilloEncarnacionchris Sevillagiselle Saravanan [facility] Ankle swelling - Ambulatory Encounter Cecille Wilbert Cecille Callahan MedAdherence [facility] UNK - Ambulatory Encounter Cecille Wilbert Cecille Kahn [facility] Services Contact Center UNK - Ambulatory Encounter Cecille Wilbert Cecille Atkins [facility] UNK - Ambulatory Encounter Bing Ferreira MedAdherence [facility] UNK - Ambulatory Encounter Cecille Wilbert Oden Wilbert [facility] UNK - Ambulatory Encounter Cecille Wilbert Atkins Tiarra Nicholson [facility] UNK - Ambulatory Encounter Cecille Wilbert Atkins Alice Hennessy [facility] UNK - Ambulatory Encounter Cecille Wilbert Atkins Bing Ferreira MedAdherence [facility] UNK - Ambulatory Encounter Bing Ferreira MedAdherence [facility] UNK - Ambulatory Encounter Angelita Becerra [facility] Services Contact Center UNK - Ambulatory Encounter Cecille Wilbert Atkins [facility] UNK - Ambulatory Encounter Cecille Wilbert Cecille Atkins [facility] UNK - Ambulatory Encounter Cecille Wilbert Cecille Atkins [facility] UNK - Ambulatory Encounter Cecille Wilbert Cecille Wilbert [facility] UNK - Ambulatory Encounter Cecille Wilbert Oden Wilbert Chavez [facility] G[facility] benign tumor - Ambulatory Encounter Cecille Wilbert Bensondaria Oconnorhrterra Callahan [facility] UN[facility] - Ambulatory Encounter Cecille Wilbert Oden Wilbert LinkLogic [facility] UNK - Ambulatory Encounter Angelita London [facility] Practice UNK - Ambulatory Encounter Cecille Wilbert Oden Wilbert Green [facility] Practice UNK - Ambulatory Encounter Cecille Wilbert Oden Wilbert LinkLogic [facility] Practice UNK - Ambulatory Encounter Angelita Callahan [facility] Practice UNK - Ambulatory Encounter Cecille Wilbert Cecille Wilbert Green [facility] Practice UNK - Ambulatory Encounter Cecille Wilbert Bensonome [facility] Pharyngitis, acute - Ambulatory Encounter Cecille Wilbert Oden Wilbert Link[facility] UNK - Ambulatory Encounter Cecille Wilbert Oden Wilbert Link[facility]ic [facility] UNK - Ambulatory Encounter Cecille Wilbert Oden Wilbert [facility] UNK - Ambulatory Encounter Cecille Wilbert Oden Wilbert Nguyenra [facility] UNK - Ambulatory Encounter Cecille Wilbert Oden Wilbert LinkLogic [facility] UNK - Ambulatory Encounter Cecille Wilbert Oden Wilbert [facility] UNK - Ambulatory Encounter Cecille Wilbert Atkins LinkLog[facility] UNK - Ambulatory Encounter Cecille Wilbert Oden Wilbert LinkLogic [facility] UNK - Ambulatory Encounter Cecille Wilbert Atkins [facility] UNK - Ambulatory Encounter Cecille Wilbert Atkins [facility] UNK - Ambulatory Encounter Cecille Wilbert Atkins [facility] UNK - Ambulatory Encounter Cecille Wilbert Atkins [facility] UNK - Ambulatory Encounter Eccille Wilbert Atkins [facility] UNK - Ambulatory Encounter Cecille Wilbert Atkins LinkLogic [facility] UNK - Ambulatory Encounter Cecille Wilbert Atkins [facility] UNK - Ambulatory Encounter Cecille Wilbert Atkins LinkLogic [facility] UNK - Ambulatory Encounter Angelita Callahan MedAdherence [facility] UNK - Ambulatory Encounter Angelita Callahan MedAdherence [facility] UNK - Ambulatory Encounter Angelita Callahan MedAdherence [facility] UNK - Ambulatory Encounter Angelita Callahan MedAdherence [facility] UNK - Ambulatory Encounter Angelita Callahan MedAdherence [facility] UNK - Ambulatory Encounter Angelita Callahan MedAdherence [facility] UNK - Ambulatory Encounter Cecille Wilbertdaria Atkins [facility] UNK - Ambulatory Encounter Cecille Wilbert Castillo [facility] Practice UNK - Ambulatory Encounter Fax Status [facility] UNK - Ambulatory Encounter Fax Status [facility]Logic [facility] UNK - Ambulatory Encounter Fax Status [facility]Logic [facility] UNK - Ambulatory Encounter Cecille Wilbert Atkins [facility] Practice UNK - Ambulatory Encounter Cecille Wilbert Atkins Narcisa Ambrosio Jahaira Pool [facility] Chronic painHypertensionAnorectal disorder - Ambulatory Encounter Bing Waldrono [facility] UNK - Ambulatory Encounter Cecille Wilbert Atkins LinkLogic [facility] Practice UNK - Ambulatory Encounter Cecille Wilbert Atkins [facility] Practice UNK - Ambulatory Encounter Cecille Wilbert Atkins LinkLogic [facility] Practice UNK - Ambulatory Encounter Fax Status [facility] UNK - Ambulatory Encounter Cecille Wilbert Atkins [facility] Practice UNK - Ambulatory Encounter Cecille Wilbert Atkins Perri Mccarty Jahaira Pool [facility] Practice UNK - Ambulatory Encounter Cecille Wilbert Atkins LinkLogic [facility] Practice UNK - Ambulatory Encounter [facility]ita [facility] - Ambulatory Encounter Angelita Callahan MedAdherence LinkLogic [facility] UNK - Ambulatory Encounter [facility] - Ambulatory Encounter Angelita Callahan MedAdherence [facility] UNK - Ambulatory Encounter Angelita Callahan MedAdherence [facility] UNK - Ambulatory Encounter Cecille Wilbert Atkins [facility] UNK - Ambulatory Encounter Cecille Wilbert Atkins Green [facility] Practice UNK - Ambulatory Encounter Cecille Bensondaria Atkins Perriashely Mccarty Cordeliadanuta Olea [facility] Allergic rhinitis - Ambulatory Encounter Cecille Wilbertdaria Atkins [facility] Practice UNK - Ambulatory Encounter Cecille Bensonome Cecille Wilbert Krystin Thomas [facility] Acute frontal sinusitis - Ambulatory Encounter Angelita Callahan MedAdherence [facility] UNK - Ambulatory Encounter Angelita Callahan [facility]Adherence [facility] UNK - Ambulatory Encounter Cecille Wilbert Atkins LinkLogic [facility] UNK - Ambulatory Encounter Cecille Bensonome Cecille Wilbert [facility] UNK - Ambulatory Encounter Cecille Bensonome Cecille Wilbert Yojana Ramírez [facility] Practice UNK - Ambulatory Encounter Lizzette Szymanski [facility] UNK - Ambulatory Encounter Cecille Bensonome Cecille Wilbertdaria Szymanski [facility] UNK - Ambulatory Encounter Cecille Bensonome Cecille Wilbert [facility] UNK - Ambulatory Encounter Cecille Bensonome Cecille Wilbert [facility] UNK - Ambulatory Encounter Cecille Wilbert Cecille Wilbert Caputoyssa Israel [facility] UNK - Ambulatory Encounter Asmitadavid Singh [facility] UNK - Ambulatory Encounter Asmita Francisco [facility] UNK - Ambulatory Encounter Elisabeth Bourne [facility] UNK - Ambulatory Encounter Angelita Callahan MedAdherence Alice Singh [facility] Services Contact Center UNK - Ambulatory Encounter Jerel Dietrich [facility] UNK - Ambulatory Encounter Jerel [facility]rich [facility] UNK - Ambulatory Encounter Jerel Dietrich [facility] UNK - Ambulatory Encounter Angelita Callahan MedAdherence [facility] UNK - Ambulatory Encounter Angelita ZhangAdherence LinkLogic [facility] UNK - Ambulatory Encounter Jerel Dietrich [facility] UNK - Ambulatory Encounter Jerel [facility]LogChrist[facility] UNK - Ambulatory Encounter Bing Hanna MedAdherence [facility] UNK - Ambulatory Encounter Jerel KahnLog [facility] UNK - Ambulatory Encounter Bing Ferreira MedAdherence Doreen Callahan MedAdherence [facility] Services Contact Center UNK - Ambulatory Encounter Jerel Dietrich [facility] UNK - Ambulatory Encounter Jerel Thomas [facility] UNK - Ambulatory Encounter Bing Ferreira MedAdherence [facility] UNK - Ambulatory Encounter Bing Ferreira MedAdherence [facility] UNK - Ambulatory Encounter Jerel Dietrich [facility] UNK - Ambulatory Encounter Bing Ferreira MedAdherence [facility] UNK - Ambulatory Encounter Bing Ferreira MedAdherence [facility] UNK - Ambulatory Encounter Jerel Dietrich [facility]St[facility] UNK - Ambulatory Encounter Bing Ferreira MedAdherence [facility] UNK - Ambulatory Encounter Bing Ferreira MedAdherence Link[facility] UNK - Ambulatory Encounter Angelita Callahan MedAdherence [facility] UNK - Ambulatory Encounter Angelita Callahan MedAdherence [facility] UNK - Ambulatory Encounter Bing Ferreira MedAdherence Yojana [facility] UNK - Ambulatory Encounter Jerel KahnLogdestiney [facility] UNK - Ambulatory Encounter Jerel KahnLogSt. Louis Children[facility] HospitalGreen [facility] UNK - Ambulatory Encounter Jerel Dietrich [facility] UNK - Ambulatory En[facility] OverweightBMI 25.0-25.9Flu shot - Ambulatory Encounter Carla Francisco [facility] UNK - Ambulatory Encounter Jerel Dietrich [facility] UNK - Ambulatory Encounter Jerel KahnLogic [facility] UNK - Ambulatory Encounter Bing Ferreira MedAdherence [facility] UNK - Ambulatory Encounter Bing Ferreira MedAdherence Link[facility] UNK - Ambulatory Encounter Bing Ferreira MedAdherence [facility] UNK - Ambulatory Encounter Bing Ferreira MedAdherence [facility] UNK - Ambulatory Encounter Bing Ferreira MedAdherence [facility] UNK - Ambulatory Encounter Bing Ferreira MedAdherence [facility] UNK - Ambulatory Encounter Angelita London MedAdherence [facility] UNK - Ambulatory Encounter Angelita Callahan MedAdherence [facility] UNK - Ambulatory Encounter Jerel KahnLogic [facility] UNK - Ambulatory Encounter Jerel KahnLogic [facility] UNK - Ambulatory Encounter Jerel KahnLogdestiney [facility] UNK - Ambulatory Encounter Jeerl Dietrich [facility] UNK - Ambulatory Encounter Jerel Dietrich Link[facility] UNK - Ambulatory Encounter Jerel Dietrich Link[facility] UNK - Ambulatory Encounter Jerel Dietrich [facility] UNK - Ambulatory Encounter Jerel KahnLogic [facility] UNK - Ambulatory Encounter Jerel Dietrich [facility] UNK - Ambulatory Encounter Jerel Dietrich Jerel Dietrich Link[facility] UNK - Ambulatory Encounter Bing Ferreira MedAdherence [facility] UNK - Ambulatory Encounter Katie Chavez [facility] Practice UNK - Ambulatory Encounter Bing Ferreira MedAdherence [facility] UNK - Ambulatory Encounter Jerel Dietrich [facility] UNK - Ambulatory Encounter Jerel Dietrich LinkLogic [facility] UNK - Ambulatory Encounter Jerel Dietrich [facility] UNK - Ambulatory Encounter Jerel Rubalcava [facility] Screening for malignant neoplasm, colonScreening exam for breast cancer - Ambulatory Encounter Bing Ferreira MedAdherence [facility] UNK - Ambulatory Encounter Bing Hanna MedAdherence [facility] UNK - Ambulatory Encounter Bing Ferreira MedAdherence LinkLogic [facility] UNK - Ambulatory Encounter Bing Ferreira MedAdherence [facility] UNK - Ambulatory Encounter Bing Ferreira MedAdherence LinkLogic [facility] UNK - Ambulatory Encounter Bing Ferreira MedAdherence [facility] UNK - Ambulatory Encounter Bing Ferreira MedAdherence LinkLogic [facility] UNK - Ambulatory Encounter Gisselle Wilder [facility] UNK - Ambulatory Encounter Gisselle Wilder [facility]Log[facility] UNK - Ambulatory Encounter Jerel Dietrich Bing Ferreira MedAdherence [facility] UNK - Ambulatory Encounter Jerel Beltrán Dietrich [facility] UNK - Ambulatory Encounter Jerel Dietrich Perri Mccarty [facility] UNK - Ambulatory Encounter Jerel Dietrich Link[facility] UNK - Ambulatory Encounter Jeerl Dietrich Jerel Dietrich [facility] UNK - Ambulatory Encounter Jerel Dietrich [facility] UNK - Ambulatory Encounter Jerel Dietrich Link[facility] UNK - Ambulatory Encounter Fax Status LinkLogic [facility] UNK - Ambulatory Encounter Fax Status LinkLogic [facility] UNK - Ambulatory Encounter Jerel Alfordabdulkadir Moses [facility] UNK - Ambulatory Encounter Jerel Christensen [facility] Contact Center UNK - Ambulatory Encounter Bing Ferreira MedAdherence [facility] UNK - Ambulatory Encounter Bing Ferreira MedAdherence [facility] UNK - Ambulatory Encounter Jerel Dietrich [facility] UNK - Ambulatory Encounter Jerel Dietrich [facility] UNK - Ambulatory Encounter Bing Ferreira MedAdherence [facility] UNK - Ambulatory Encounter Bing Ferreira MedAdherence [facility] UNK - Ambulatory Encounter Fax Status [facility]ic [facility] UNK - Ambulatory Encounter Bing Ferreira MedAdherence [facility] UNK - Ambulatory Encounter Bing Ferreira MedAdherence [facility] UNK - Ambulatory Encounter Jerel Dietrich Perri Quinnierrez [facility] HEALTH MAINTENANCE EXAM - Ambulatory Encounter Jerel Dietrich [facility] UNK - Ambulatory Encounter Jerel Dietrich Link[facility] UNK - Ambulatory Encounter Jerel Dietrich Link[facility] UNK - Ambulatory Encounter Bing Ferreira MedAdherence [facility] UNK - Ambulatory Encounter Bing Ferreira MedAdherence [facility] UNK - Ambulatory Encounter Bing Ferreira MedAdherence [facility] UNK - Ambulatory Encounter Bing Ferreira MedAdherence [facility] UNK - Ambulatory Encounter Bing Ferreira MedAdherence [facility] UNK - Ambulatory Encounter Bing Ferreira MedAdherence [facility] UNK - Ambulatory Encounter Bing Ferreira MedAdherence [facility] UNK - Ambulatory Encounter Bing Ferreira MedAdherence [facility] UNK - Ambulatory Encounter Bing Ferreira MedAdherence [facility] UNK - Ambulatory Encounter Bing Ferreira MedAdherence [facility] UNK - Ambulatory Encounter Bing Ferreira MedAdherence [facility] UNK - Ambulatory Encounter Bing Ferreira MedAdherence [facility] UNK - Ambulatory Encounter Bing Ferreira MedAdherence [facility] Practice UNK - Ambulatory Encounter Bing Ferreira MedAdherence LinkLogic [facility] UNK - Ambulatory Encounter Jerel Dietrich [facility]LogUnity[facility] Hospital[facility] UNK - Ambulatory Encounter Jerel Dietrich [facility] UNK - Ambulatory Encounter Bing Ferreira MedAdherence [facility] UNK - Ambulatory Encounter Bing Ferreira MedAdherence LinkLogic [facility] UNK - Ambulatory Encounter Jerel Dietrich [facility] UNK - Ambulatory Encounter Lyla Sanchez [facility] Practice UNK - Ambulatory Encounter [facility]otelo [facility] OSTEO[facility] - Ambulatory Encounter Bing Thurstonence Kirk Viramontes [facility] Services Contact Center UNK - Ambulatory Encounter Tram Mann Tram Mann [facility] UNK - Ambulatory Encounter Tram Mann Tram Mann [facility] UNK - Ambulatory Encounter Elisabeth Bourne Tram Mann Tram Mann Thea Moses [facility] HEADACHECHEST PAINHYPERLIPIDEMIA - Ambulatory Encounter Jerel Dietrich [facility] UNK - Ambulatory Encounter Jerel Dietrich [facility] UNK - Ambulatory Encounter Jerel Dietrich [facility] UNK - Ambulatory Encounter Jerel Dietrich Katie Chavez [facility] Practice UNK - Ambulatory Encounter Jerel Deitrich LinkLogic [facility] Practice UNK - Ambulatory Encounter Fax Status LinkLogic [facility] Services UNK - Ambulatory Encounter Arlen Nicholson [facility] Services UNK - Ambulatory Encounter Fax Status LinkLogic [facility] Services UNK - Ambulatory Encounter Jerel Dietrich Yojana Coker [facility] Practice UNK - Ambulatory Encounter Bing Ferreira MedAdherence [facility] UNK - Ambulatory Encounter Jerel Smith Bing Ferreira [facility]K - Ambulatory Encounter [facility] UNK - Ambulatory Encounter Mandaeism Preload [facility] Practice UNK - Ambulatory Encounter Mandaeism Preload [facility] Practice UNK - Ambulatory Encounter Mandaeism Preload [facility] Practice UNK - Ambulatory Encounter Mandaeism Preload [facility] Practice UNK - Ambulatory Encounter Mandaeism Preload [facility] Practice UNK - Ambulatory Encounter Mandaeism Preload [facility] Practice UNK - Ambulatory Encounter Mandaeism Preload [facility] Practice UNK - Ambulatory Encounter Mandaeism Preload [facility] Practice UNK - Ambulatory Encounter Mandaeism Preload [facility] Practice UNK - Ambulatory Encounter Mandaeism Preload [facility] Practice UNK - Ambulatory Encounter Mandaeism Preload [facility] Practice UNK - Ambulatory Encounter Mandaeism Preload [facility] Practice UNK - Ambulatory Encounter Mandaeism Preload [facility] Practice UNK - Ambulatory Encounter Mandaeism Preload [facility] Practice UNK - Ambulatory Encounter Mandaeism Preload [facility] Practice UNK - Ambulatory Encounter Mandaeism Preload [facility] Practice UNK - Ambulatory Encounter Mandaeism Preload [facility] Practice UNK - Ambulatory Encounter Mandaeism Preload [facility] Practice UNK - Ambulatory Encounter Mandaeism Preload [facility] Practice UNK - Ambulatory Encounter Mandaeism Preload [facility] UNK - Ambulatory Encounter Mandaeism Preload [facility] UNK - Ambulatory Encounter Mandaeism Preload [facility] UNK - Ambulatory Encounter Mandaeism Preload [facility] UNK - Ambulatory Encounter Mandaeism Preload [facility] UNK - Ambulatory Encounter Mandaeism Preload [facility] UNK - Ambulatory Encounter Mandaeism Preload [facility] UNK - Ambulatory Encounter Mandaeism Preload [facility] UNK - Ambulatory Encounter Mandaeism Preload [facility] UNK - Ambulatory Encounter Mandaeism Preload [facility] UNK - Ambulatory Encounter Mandaeism Preload [facility] UNK - Ambulatory Encounter Mandaeism Preload [facility] UNK - Ambulatory Encounter Mandaeism Preload [facility] UNK - Ambulatory Encounter Mandaeism Preload [facility] UNK - Ambulatory Encounter [facility] UNK - Ambulatory Encounter Mandaeism Preload [facility] UNK - Ambulatory Encounter Mandaeism Preload [facility] UNK - Ambulatory Encounter Mandaeism Preload [facility] UNK - Ambulatory Encounter Mandaeism Preload [facility] UNK - Ambulatory Encounter Mandaeism Preload [facility] Practice UNK - Ambulatory Encounter Mandaeism Preload [facility] UNK - Ambulatory Encounter Mandaeism Preload [facility] UNK - Ambulatory Encounter Mandaeism Preload [facility] UNK - Ambulatory Encounter Mandaeism Preload [facility] UNK - Ambulatory Encounter Mandaeism Preload [facility] UNK - Ambulatory Encounter Mandaeism Preload [facility] UNK - Ambulatory Encounter Mandaeism Preload [facility] UNK - Ambulatory Encounter Mandaeism Preload [facility] UNK - Ambulatory Encounter Mandaeism Preload [facility] UNK - Ambulatory Encounter Mandaeism Preload [facility] UNK - Ambulatory Encounter Mandaeism Preload [facility] UNK - Ambulatory Encounter Mandaeism Preload [facility] UNK - Ambulatory Encounter Mandaeism Preload [facility] UNK - Ambulatory Encounter Mandaeism Preload [facility] UNK - Ambulatory Encounter Mandaeism Preload [facility] UNK - Ambulatory Encounter Mandaeism Preload [facility] UNK - Ambulatory Encounter Mandaeism Preload [facility] UNK - Ambulatory Encounter Mandaeism Preload [facility] UNK - Ambulatory Encounter Mandaeism Preload [facility] UNK - Ambulatory Encounter Mandaeism Preload [facility] UNK - Ambulatory Encounter Mandaeism Preload [facility] UNK - Ambulatory Encounter Mandaeism Preload [facility] UNK - Ambulatory Encounter Mandaeism Preload [facility] UNK - Ambulatory Encounter Mandaeism Preload [facility] UNK - Ambulatory Encounter Mandaeism Preload [facility] UNK - Ambulatory Encounter Mandaeism Preload [facility] UNK - Ambulatory Encounter Mandaeism [facility]reload [facility] - [facility] Encounter Mandaeism Preload [facility] - Ambulatory Encounter Mandaeism Preload [facility] - Ambulatory Encounter Mandaeism Preload [facility] UN[facility] - Ambulatory Encounter Mandaeism Preload [facility] - Ambulatory Encounter Mandaeism Preload [facility] UNK - Ambulatory Encounter Mandaeism Preload [facility] UNK - Ambulatory Encounter Mandaeism Preload [facility] UNK - Ambulatory Encounter Jerel Ferreira [facility] UNK - Ambulatory Encounter Jerel Hurd [facility] UNK - Ambulatory Encounter Jerel Sanchez [facility] ANXIETYARTHRALGIAHYPOTHYROIDISM - Ambulatory Encounter Jerel Dietrich [facility] UNK - Ambulatory Encounter Jerel Smart [facility] UNK VITAL SIGNS No Information Available Allergies [...] " urea nitrogen/creatinine ratio, serum 11 [facility] 06-21 Low " eGFR if 69 mL/min/((173/100).m2) [facility] [...] " urea nitrogen/creatinine ratio, serum 10 [facility] 06-21 Low " eGFR if 84 mL/min/((173/100).m2) [facility] [...] " urea nitrogen/creatinine ratio, serum 13 [facility] - " eGFR if 80 mL/min/((173/100).m2) [facility] >59 [...] [facility] 79-97 " hematocrit, blood 40.5 % LinkLog 34.0-46.6 " hemoglobin, blood 13.8 g/dL [facility] 11.1-15.9 " erythrocyte (RBC) count 4.69 X10E6/UL [facility] 3.77-5.28 " leukocyte count, blood 7.3 X10E3/UL [facility] 3.4-10.8 occult blood stool sample #3 negative Katie Rangel " occult blood stool sample #2 negative Katie Chavez " occult blood, stool (E&M) negative Katie Rangel HISTORY OF IMMUNIZATIONS No Information Available HISTORY OF MEDICATION USE Medication Instructions Dates Provider Comments CLARITIN 10 MG ORAL TABLET 1 by mouth every day [facility] TRIAMCINOLONE ACETONIDE 0.1 % EXTERNAL OINTMENT apply to affected area twice a day for a week Cecille Atkins K-PHOS 500 MG ORAL TABLET 1 tab By Mouth Every Day wf Cecille Wilbert FUROSEMIDE 20 MG ORAL TABLET 1 tab By Mouth Every Day Cecille Wilbert NORCO 5-325 MG ORAL TABLET Cecille Wilbert LASIX 20 MG ORAL TABLET 1 by mouth every am - Cecille Atkins POTASSIUM CHLORIDE RAJESH ER 20 MEQ ORAL TABLET EXTENDED RELEASE 1 by mouth every day Cecille Wilbert NORTRIPTYLINE CAPS 50MG TAKE 2 CAPSULES DAILY Cecille Wilbert AUGMENTIN 875-125 MG ORAL TABLET 1 by mouth twice a day Cecille Wilbert HYDROCHLOROTHIAZIDE TAB 25MG TAKE 1 TABLET DAILY Bing Ferreira [facility] CYCLOBENZAPRINE HCL 10 MG ORAL TABLET 1 By Mouth three times a day as needed for muscle spasm Cecille Wilbert ATORVASTATIN CALCIUM 40 MG ORAL TABLET 1 tab By Mouth qd Cecille Wilbert L-THYROXINE (SYNTHROID) TABS 100MCG TAKE 1 TABLET DAILY Angelita Callahan [facility] FLONASE ALLERGY RELIEF 50 MCG/ACT NASAL SUSPENSION [...] hours on, 12 hours off) Bing Ferreira [facility] ATORVASTATIN CALCIUM 20 MG ORAL TABLET take one daily for cholesterol control Jerel Dietrich NORTRIPTYLINE HCL 50 MG ORAL CAPSULE take one every night - Cecille Wilbert CRESTOR 20 MG ORAL TABLET 1 tab by mouth daily Jerel Dietrich LEVOTHYROXINE SODIUM 125 MCG ORAL TABLET One tab by mouth daily - Bing Ferreira [facility] HYDROCODONE-ACETAMINOPHEN 10-325 MG ORAL TABLET takde one daily as needed for chronic hip pain Jerel Karlo LORAZEPAM 2 MG ORAL TABLET take one tab daily as needed for anxiety Cecille Wilbert HYOSCYAMINE SULFATE 0.125 MG SUBLINGUAL TABLET SUBLINGUAL Take 1 tablet under the tongue before meals. Bing Hanna [facility] PREMARIN 0.9 MG ORAL TABLET 1 by mouth every other day Bing Ferreira [facility] CELEBREX 100 MG ORAL CAPSULE 1 by mouth Twice a Day Bing Ferreira Karenaence NEXIUM 40 MG ORAL CAPSULE DELAYED RELEASE 1 by mouth daily Jerel Dietrich TRAMADOL HCL 50 MG TABS TAKE 1 TABLET BY MOUTH 2 TO 3 TIMES A DAY NEEDED FOR PAIN Cecille Wilbert HYDROCODONE-ACETAMINOPHEN 10-650 MG ORAL TABLET take one daily for pain Jerel Dietrich LORAZEPAM 2 MG ORAL TABLET take one daily Jerel Dietrich LEVOTHYROXINE SODIUM 125 MCG ORAL TABLET take 1 tablet By Mouth Every Day Bing Ferreira [facility] AMITRIPTYLINE HCL 50 MG ORAL TABLET take 1 tablet By Mouth Every Day at bedtime - Cecille Wilbert SOCIAL HISTORY Date Observation Value Provider time of call 05/01/2019 10:15 AM Elizabeth Rodriguez drug use, illicit Never Suma Encarnacion " alcohol use Currently Suma Encarnacion " social history E&M . Not homeless. City: [place]. State: [place]. 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 Suma [...] could be ? No Thea Song " assessment of health literacy ([facility] 2014 Standards, 3C10) Adequate Thea Song " drug use, illicit Never Theabrian Song " alcohol use Currently Theabrian Song " smoking status never smoker Thea Song " social history E&M . Not homeless. City: [place]. State: [place]. 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 Thea Song " social history reviewed E&M reviewed today Thea Song time of call 01/13/2019 8:19 AM Elizabeth Chavez Exercise Program Referral T Cecille Wilbert " Weight Management Counseling Provided T Cecille Wilbert " Nutrition intervention T Cecille Wilbert " social history E&M . Not homeless. City: [place]. State: [place] 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 Thea Song " social history reviewed E&M reviewed today Thea Song " drug use, illicit Never Thea Song " alcohol use Currently Thea Song " assessment of health literacy ([facility] 2014 Standards, 3C10) Adequate Thea Song " is there any chance that you could be ? No Thea Song " passive cigarette smoke exposure No Thea Song " smoking status never smoker Thea Song drug use, illicit Never Suma Encarnacion " alcohol use Currently Suma Encarnacion " social history E&M . Not homeless. City: [place]. State: [place]. 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 Suma Encarnacion " social history reviewed E&M reviewed today Suma Encarnacion " assessment of health literacy ([facility] 2014 Standards, 3C10) Adequate Suma Encarnacion " passive cigarette smoke exposure No Suam Encarnacion " smoking status never smoker Suma Encarnacion " Exercise Program Referral T Suma Encarnacion " Weight Management Counseling Provided T Suma Encarnacion " Nutrition intervention T Suma Encarnacion time of call 10/17/2018 3:37 PM Janine Ashby drug use, illicit Never Suma Encarnacion " alcohol use Currently Suma Encarnacion " social history E&M . Not homeless. City: [place]. State: [place]. 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 Suma Encarnacion " social history reviewed E&M reviewed today Suma Encarnacion " assessment of health literacy ([facility] 2014 Standards, 3C10) Adequate Suma Encarnacion " [...] social history E&M . Not homeless. City: [place]. State: [place]. 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 Alice Hennessy " social history reviewed E&M reviewed today Alice Hennessy " assessment of health literacy ([facility] 2014 Standards, 3C10) Adequate Alice Hennessy " [...] social history E&M . Not homeless. City: [place]. State: [place]. 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 Krystin Thomas " social history reviewed E&M reviewed today Krystin Thomas " assessment of health literacy ([facility] 2014 Standards, 3C10) Adequate Krystin Thomas " passive cigarette smoke exposure No Krystin Thomas " smoking status never smoker Krystin Thomas assessment of health literacy ([facility] 2014 Standards, 3C10) Adequate Perri Mccarty " Exercise Program Referral T Perri Quinnierrez " Weight Management Counseling Provided T Perri Mccarty " Nutrition intervention T Perri Mccarty " drug use, illicit Never Perri Mccarty " alcohol use Currently Perri Mccarty " social history E&M . Not homeless. City: [place]. State: [place]. 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 Perrimary Quinnierrez " social history reviewed E&M reviewed today Perri Valenzuelarez " passive cigarette smoke exposure No Perri Mccarty " smoking status never smoker Perri Mccarty assessment of health literacy ([facility] 2014 Standards, 3C10) Adequate Krystin Thomas " [...] T Cecille Wilbert assessment of health literacy ([facility] 2014 Standards, 3C10) Adequate Claribel Castillo " is there any chance that you could be ? No Claribel Castillo " passive cigarette smoke exposure No Claribel Castillo " smoking status never smoker Claribel Castillo assessment of health literacy ([facility] 2014 Standards, 3C10) Adequate Claribel Castillo " passive cigarette smoke exposure No Claribel Castillo " smoking status never smoker Claribel Castillo drug use, illicit Never Jahaira Pool " alcohol use Currently Jahaira Pool " social history E&M . Not homeless. City: [place]. State: [place]. 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 Jahaira Pool " social history reviewed E&M reviewed today Jahaira Pool " assessment of health literacy ([facility] 2014 Standards, 3C10) Adequate Jahaira Pool " passive cigarette smoke exposure No Jahaira Pool " smoking status never smoker Jahaira Pool Exercise Program Referral T Cecille Wilbert " Weight Management Counseling Provided T Cecille Wilbert " Nutrition intervention T Cecille Wilbert " drug use, illicit Never Jahaira Pool " alcohol use Currently Jahaira Pool " social history E&M . Not homeless. City: [place]. State: [place]. 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 Jahaira Pool " social history reviewed E&M reviewed today Jahaira Pool " assessment of health literacy ([facility] 2014 Standards, 3C10) Adequate Jahaira Pool " [...] social history E&M . Not homeless. City: [place]. State: [place] 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 Krystin Thomas " social history reviewed E&M reviewed today Krystin Thomas " passive cigarette smoke exposure Yes Krystin Thomas " smoking status never smoker Krystin Thomas " assessment of health literacy ([facility] 2014 Standards, 3C10) Adequate Krystin Thomas Exercise Program Referral T Yojana Ramírez " Weight Management Counseling Provided T Yojana Ramírez " Nutrition intervention T Yojana Ramírez " social history E&M . Not homeless. City: [place]. State: [place]. 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 Yojana Ramírez " social history reviewed E&M reviewed today Yojana Ramírez " passive cigarette smoke exposure Yes Yojana Garciavez " smoking status never smoker Yojana Ramírez " assessment of health literacy ([facility] 2014 Standards, 3C10) Adequate Yojana Garciavez Exercise Program Referral T Cecille Wilbert " Weight Management Counseling Provided T Cecille Atkins " Nutrition intervention T Cecille Wilbert " social history E&M . Not homeless. City: [place]. State: [place] 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 Terri Wood " social history reviewed E&M reviewed today Terri Wood " passive cigarette smoke exposure Yes Terri Wood " smoking status never smoker Terri Wood " assessment of health literacy ([facility] 2014 Standards, 3C10) Adequate Terri Wood time of call 03/14/2017 12:51 PM Alice Singh time of call 09/27/2016 3:56 PM Doreen Angulo Exercise Program Referral Fe Dietrich " Weight Management Counseling Provided Fe Dietrich " Nutrition intervention Fe Dietrich " drug use, illicit Never Krystin Thomas " alcohol use Currently Krystin Thomas " social history E&M . Not homeless. City: [place]. State: [place] 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 Krystin Thomas " social history reviewed E&M reviewed today Krystin Thomas " passive cigarette smoke exposure Yes Krystin Thomas " smoking status never smoker Krystin Thomas " assessment of health literacy ([facility] 2014 Standards, 3C10) Adequate Krystin Thomas time of call 07/28/2016 2:59 PM Yojana Minaya drug use, illicit Never Krystin Thomas " alcohol use Currently Krystin Thomas " social history E&M . Not homeless. City: [place]. State: [place]. 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 Krystin [...] time of call 02/05/2015 4:13 PM [facility] Program Referral Fe Dietrich " Weight Management Counseling Provided Fe Dietrich " Nutrition intervention Fe Dietrich " drug use, illicit Never Perri Mccarty " alcohol use Currently Perri Mccarty " passive cigarette smoke exposure Yes Perri Mccarty " smoking status never smoker Perri Mccarty time of call 12/09/2014 10:02 AM Cicpipe Simien drug use, illicit Never Perri Mccarty " alcohol use Currently Perri Mccarty " passive cigarette smoke exposure No Perri Mccarty " smoking status never smoker Perri Mccarty drug use, illicit Never Ashleigh Ellsworth " alcohol use Currently Ashleigh Ellsworth " passive cigarette smoke exposure No Ashleigh Ellsworth " smoking status never smoker Ashleigh Ellsworth time of call 01/07/2014 8:04 AM Kirk Viramontes drug use, illicit Never Thea Maradiaga " alcohol use Currently Thea Maradiaga " social history E&M . Not homeless. City: [place]. State: [place] 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 Thea [...] time of call 05/30/2013 10:38 AM Bing Ferreira Reed time of call 02/19/2013 10:04 AM Dacia Hurd drug use, illicit Never Lyla Minor " alcohol use, frequency holidays/special occasions only Lyla Minor " alcohol use Currently Lyla Minor " social history reviewed E&M reviewed today Lyla Minor " social history E&M . Not homeless. City: [place]. State: [place] 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 Lyla Minor " patient considered to be [...] Disorder Questionnaire - Question 2 0 Jahaira Rg " Generalized Anxiety Disorder Questionnaire - Question 1 0 Jahaira Rg assessment of mood and affect E&M no [...] Anxiety Disorder Questionnaire - Question 2 0 Krystinus Thomas " Generalized Anxiety Disorder Questionnaire - Question 1 0 Krystinus Thomsa assessment of judgment and insight E&M intact [...] Anxiety Disorder Questionnaire - Question 2 0 Krystinus Thomas " Generalized Anxiety Disorder Questionnaire - Question 1 0 Krystin Thomas assessment of judgment and insight E&M intact Jerel [place] " assessment of mood and affect E&M no depression, anxiety, or agitation Jerel [place] " Generalized Anxiety Disorder Questionnaire - Question 2 0 Krystinus Thomas " Generalized Anxiety Disorder Questionnaire - Question 1 0 Krystin Thomas assessment of judgment and insight E&M intact Jerel [place] " assessment of mood and affect E&M [...] depression, anxiety, or agitation Jerel Dietrich " mental status examination: orientation [...] - - Est Patient Exp Problem - 27987 Est Patient Exp Problem - 17049 Est Patient Detailed - 56457 Est Patient Exp Problem - 26956 Est Patient Detailed - 86604 Injection, ketorolac tromethamine (toradol), per 15 mg Est Patient Detailed - 04438 Est Patient Detailed - 38508 Est Patient Detailed - 62156 IM or SQ Injection Injection, dexamethasone sodium phosphate, 1mg Est Patient Detailed - 95040 Est Patient Detailed - 11412 Est Patient Detailed - 64240 Est Patient Detailed - 65363 Est Patient Exp Problem - 29192 IM or SQ Injection Injection, dexamethasone sodium phosphate, 1mg Est Patient Detailed - 19908 Est Patient Exp Problem - 96423 Est Patient Detailed - 12865 INFLUENZA VACCINE QUADRIVALENT 3 YRS PLUS IM Est Patient Well Exam (40 - 64 Yrs) - 26690 INFLUENZA VACCINE QUADRIVALENT 3 YRS PLUS IM Est Patient Exp Problem - 15739 Est Patient Well Exam (40 - 64 Yrs) - 25478 Est Patient Exp Problem - 47670 Est Patient Detailed - 26436 Est Patient Exp Problem - 87437 EKG - Tracing Only EKG - Interpretation & Report Only Est Patient Exp Problem - 44606 Est Patient Well Exam (40 - 64 Yrs) - 14520 Est Patient Exp Problem - 54377 HISTORY OF PROCEDURES Procedure Date Procedure Name Provider Procedure Notes Status Injection, ketorolac tromethamine (toradol), per 15 mg Cecille Wilbert completed IM or SQ Injection Cecille Wilbert 4mg left deltoid IM completed Injection, dexamethasone sodium phosphate, 1mg Cecille Wilbert completed IM or SQ Injection Cecille Wilbert 4mg/ml dexamethasone IM right gluteus medius completed Injection, dexamethasone sodium phosphate, 1mg Cecille Wilbert [facility]: [id number]. completed EKG - Tracing Only Elisabeth Bourne completed EKG - Interpretation & Report Only Elisabeth Bourne completed GOALS No Information Available HEALTH CONCERNS No Information Available
--- OUTSIDE RECORDS SUMMARY | 2019-08-12 11:42 | XMS REPORT ---
Author Author Admin, [place] Organization Unknown Address Unknown Phone Unavailable PROBLEMS Condition Status Date Provider Notes Viral URI active - Cecille Wilbert Impaired physical mobility active Cecille Wilbert Rash, [...] Location Encounter Diagnosis - Ambulatory Encounter Cecille Sarah MedAdherence [facility] UNK - Ambulatory Encounter Cecille Atkins LinkLogic [facility] UNK - Ambulatory Encounter Cecille Atkins [facility] UNK - Ambulatory Encounter Cecille Wilbert Cecille Chaparro Carrizales [facility] Viral URI - Ambulatory Encounter Cecille Wilbert Atkins Maritza Rodriguez [facility] UNK - Ambulatory Encounter Cecille Wilbert Atkins LinkLog[facility] UNK - Ambulatory Encounter Cecille Wilbert Callahan MedAdherence [facility] UNK - Ambulatory Encounter Cecille Wilbert Atkins [facility] UNK - Ambulatory Encounter Cecille Wilbert Mcclelland Thomas [facility] UNK - Ambulatory Encounter Cecille Wilbert Atkins [facility]Log[facility] UNK - Ambulatory Encounter Cecille Wilbert Atkins [facility] UNK - Ambulatory Encounter Cecille Wilbert Atkins [facility]Log[facility] UNK - Ambulatory Encounter Cecille Wilbert Atkins [facility] UNK - Ambulatory Encounter Cecille Wilbert Carrilloendez [facility] Impaired physical mobility - Ambulatory Encounter Cecille Wilbert Atkins [facility] UNK - Ambulatory Encounter Cecille Wilbert Atkins Bing Ferreira MedAdherence [facility] UNK - Ambulatory Encounter Cecille Wilbert Callahan MedAdherence [facility] UNK - Ambulatory Encounter Cecille Wilbert Callahan MedAdherence Jen Navarro [facility] UNK - Ambulatory Encounter Cecille Wilbert Bensonome [facility] UNK - Ambulatory Encounter Cecille Wilbert Atkins Bing Ferreira MedAdherence [facility] UNK - Ambulatory Encounter Cecille Wilbert Cecille Atkins [facility] UNK - Ambulatory Encounter Cecille Wlibert Cecille Atkins [facility] UNK - Ambulatory Encounter Cecille Wilbert Cecille Atkins [facility] UNK - Ambulatory Encounter Cecille Wilbert Cecille Atkins [facility] UNK - Ambulatory Encounter Cecille Wilbert Song [facility] Rash, nonspecific - Ambulatory Encounter Cecille Wilbert [place] UNK - Ambulatory Encounter Cecille Wilbert Cecille Atkins [facility] UNK - Ambulatory Encounter Cecille Wilbert Mcclelland Thomas [facility] UNK - Ambulatory Encounter Cecille Wilbert Cecille Atkins [facility]Log[facility] UNK - Ambulatory Encounter Cecille Wilbert Hendricks [facility] HYPOKALEMIA - Ambulatory Encounter Cecille Wilbert Cecille Atkins [facility] UNK - Ambulatory Encounter Cecille Wilbert Atkins Bing Ferreira MedAdherence [facility] UNK - Ambulatory Encounter Cecille Wilbert Atkins [facility] UNK - Ambulatory Encounter Cecille Wilbert Atkins [facility] UNK - Ambulatory Encounter Cecille Wilbert Cecille Atkins Bing Ferreira MedAdherence Krystin Dey [facility] Multiple joint pain - Ambulatory Encounter Cecille Wilbert Callahan MedAdherence [facility] UNK - Ambulatory Encounter Cecille Wilbert Callahan MedAdherence [facility] UNK - Ambulatory Encounter Cecille Wilbert Atkins [facility] UNK - Ambulatory Encounter Cecille Wilbert Cecille Atkins [facility]Log[facility] UNK - Ambulatory Encounter Cecille Wilbert Atkins [facility] UNK - Ambulatory Encounter Cecille Wilbert Atkins [facility] - Ambulatory Encounter Cecille Wilbert Callahan MedAdherence Perri Greer [facility] Contact Center UNK - Ambulatory Encounter Cecille Wilbert Atkins [facility] UNK - Ambulatory Encounter Cecille Wilbert Ashby [facility] Contact Center UNK - Ambulatory Encounter Cecille Wilbert Atkins [facility] UNK - Ambulatory Encounter Cecille Wilbert Atkins [facility]Log[facility] UNK - Ambulatory Encounter Cecille Wilbert Cecille Bensonome [facility]Log[facility] UNK - Ambulatory Encounter Fax Status [facility] - Ambulatory Encounter Fax Status LinkLogic [facility] UNK - Ambulatory Encounter Fax Status LinkLogic [facility] UNK - Ambulatory Encounter Fax Status LinkLogic [facility] UNK - Ambulatory Encounter Fax Status LinkLogic [facility] UNK - Ambulatory Encounter Fax Status [facility] - Ambulatory Encounter Bing Ferreira MedAdherence [facility] UNK - Ambulatory Encounter Cecille Wilbert Cecille Atkins [facility] UNK - Ambulatory Encounter Cecille Wilbert Atkins [facility] UNK - Ambulatory Encounter Cecille Wilbert Atkins [facility] UNK - Ambulatory Encounter Cecille Wilbert Atkins [facility] UNK - Ambulatory Encounter Cecille Wilbert Coe [facility] Ankle swelling - Ambulatory Encounter Cecille Wilbert Callahan MedAdherence [facility] UNK - Ambulatory Encounter Cecille Wilbert Kahn [facility] Contact Center UNK - Ambulatory Encounter Cecille Wilbert Atkins [facility] UNK - Ambulatory Encounter Bing Ferreira MedAdherence [facility] UNK - Ambulatory Encounter Cecille Wilbert Atkins [facility] UNK - Ambulatory Encounter Cecille Wilbert Nicholson [facility] UNK - Ambulatory Encounter Cecille Wilbert Hennessy [facility] UNK - Ambulatory Encounter Cecille Wilbert Atkins Bing Ferreira MedAdherence [facility] UNK - Ambulatory Encounter Bing Ferreira MedAdherence [facility] UNK - Ambulatory Encounter Angelita Callahan MedAdherence Maritza Atkins Meir Becerra [facility] UNK - Ambulatory Encounter Cecille Wilbert Cecille Wilbert LinkLogic [facility] UNK - Ambulatory Encounter Cecille Wilbert Cecille Wilbert [facility] UNK - Ambulatory Encounter Cecille Wilbert Cecille Wilbert LinkLog[facility] UNK - Ambulatory Encounter Cecille Wilbert Oden Wilbert [facility] UNK - Ambulatory Encounter Cecille Wilbert Oden Wilbert [facility] Gastric benign tumor - Ambulatory Encounter Ceclile Wilbert Bensonome Angelita Callahan MedAdherence [facility] UNK - Ambulatory Encounter Cecille Wilbert Cecille Wilbert LinkLogic [facility] UNK - Ambulatory Encounter Angelita Callahan MedAdherence [facility] UNK - Ambulatory Encounter Cecille Oden Wilbert [facility] UNK - Ambulatory Encounter Cecille Wilbert Oden Wilbert [facility]Log[facility] UNK - Ambulatory Encounter Angelita Callahan MedAdherence [facility] UNK - Ambulatory Encounter Cecille Wilbert Oden Wilbert [facility] UNK - Ambulatory Encounter Cecille Wilbert Cecille Campo [facility] Pharyngitis, acute - Ambulatory Encounter Cecille Wilbert Cecille Wilbert LinkLogic [facility] UNK - Ambulatory Encounter Cecille Wilbert Atkins [facility]Log[facility] UNK - Ambulatory Encounter Cecille Wilbert Atkins [facility] UNK - Ambulatory Encounter Cecille Wilbert Thomas [facility] UNK - Ambulatory Encounter Cecille Wilbert Atkins [facility]Log[facility] UNK - Ambulatory Encounter Cecille Wilbert Atkins [facility]Log[facility] UNK - Ambulatory Encounter Cecille Wilbert Atkins [facility] UNK - Ambulatory Encounter Cecille Wilbert Atkins [facility]Log[facility] UNK - Ambulatory Encounter Cecille Wilbert Atkins [facility]Log[facility] UNK - Ambulatory Encounter Cecille Wilbert Atkins [facility]Log[facility] UNK - Ambulatory Encounter Cecille Wilbert Atkins [facility]Log[facility] UNK - Ambulatory Encounter Cecille Wilbert Atkins [facility] UNK - Ambulatory Encounter Cecille Wilbertdaria Atkins Claribel Castillo [facility] UNK - Ambulatory Encounter Cecille Wilbert Atkins [facility] UNK - Ambulatory Encounter Cecille Wilbert Atkins [facility]Log[facility] UNK - Ambulatory Encounter Cecille Wilbert Atkins [facility]Log[facility] UNK - Ambulatory Encounter Angelita Callahan MedAdherence [facility] UNK - Ambulatory Encounter Angelita Callahan MedAdherence [facility] UNK - Ambulatory Encounter Angelita Callahan MedAdherence [facility] UNK - Ambulatory Encounter Angelita Callahan MedAdherence LinkLogic [facility] UNK - Ambulatory Encounter Angelita Callahan [facility] - Ambulatory Encounter Angelita Callahan [facility]herence [facility] UNK - Ambulatory Encounter Cecille Atkins [facility] UNK - Ambulatory Encounter Cecille Wilbert Rosez [facility] UNK - Ambulatory Encounter Fax Status [facility] - Ambulatory Encounter Fax Status LinkLogic [facility] UNK - Ambulatory Encounter Fax Status LinkLogic [facility] UNK - Ambulatory Encounter Cecille Atkins [facility] UNK - Ambulatory Encounter Cecille Wilbert Jamesonliliana [facility]Co[facility] Chronic painHypertensionAnorectal disorder - Ambulatory Encounter [facility] - Ambulatory Encounter Cecille Wilbert Atkins LinkLogic [facility] UNK - Ambulatory Encounter Cecille Atkins [facility] UNK - Ambulatory Encounter Cecille Wilbert Atkins LinkLogic [facility] UNK - Ambulatory Encounter Fax Status [facility] UN[facility] - Ambulatory Encounter Cecille Wilbert Atkins [facility] UNK - Ambulatory Encounter Cecille Bensondaria Atkins Perri Mccarty [facility] UNK - Ambulatory Encounter Cecille Bensondaria Atkins [facility] UNK - Ambulatory Encounter Angelita Callahan [facility] UNK - Ambulatory Encounter Angelita Callahan [facility]herence [facility] UNK - Ambulatory Encounter Bing Ferreira MedAdherence [facility] UNK - Ambulatory Encounter Angelita Callahan MedAdherence [facility] UNK - Ambulatory Encounter Angelita Callahan MedAdherence [facility] UNK - Ambulatory Encounter Cecille Bensonome Cecille Wilbert [facility] UNK - Ambulatory Encounter Cecille Bensonome Cecille Wilbert [facility] UNK - Ambulatory Encounter Cecille Bensonome Cecille Wilbert Perri Mccarty Cordeliadanuta Olea [facility] Allergic rhinitis - Ambulatory Encounter Cecille Oden Wilbert [facility] UNK - Ambulatory Encounter Cecille Bensonome Cecille Wilbert Krystin Thomas [facility] Acute frontal sinusitis - Ambulatory Encounter Angelita Callahan [facility] UNK - Ambulatory Encounter Angelita Callahan [facility]herence [facility] UNK - Ambulatory Encounter Cecille Bensonome Cecille Wilbert LinkLogic [facility] UNK - Ambulatory Encounter Cecille Oden Wilbert [facility] UNK - Ambulatory Encounter Cecille Hooperz [facility] UNK - Ambulatory Encounter Lizzette Szymanski [facility]LogTr[facility] UNK - Ambulatory Encounter Cecille Szymanski [facility] UNK - Ambulatory Encounter Cecille Atkins [facility] UNK - Ambulatory Encounter Cecille Wilbert Atkins [facility] UNK - Ambulatory Encounter Cecille Wilbert Wood [facility] UNK - Ambulatory Encounter Asmitadavid Singh [facility] UNK - Ambulatory Encounter Asmita Garcia [facility] UNK - Ambulatory Encounter [facility] - Ambulatory Encounter Angelita Callahan MedAdherence Alice Singh [facility] Services Contact Center UNK - Ambulatory Encounter Jerel Dietrich [facility] UNK - Ambulatory Encounter [facility] - Ambulatory Encounter Jerel Dietrich [facility] UNK - Ambulatory Encounter Angelita Callahan MedAdherence [facility] UNK - Ambulatory Encounter Angelita Callahan [facility]Adherence [facility] UNK - Ambulatory Encounter Jerel Dietrich [facility] UNK - Ambulatory Encounter [facility] UNK - Ambulatory Encounter Bing Ferreira MedAdherence [facility] UNK - Ambulatory Encounter Jerel Dietrich [facility]Log[facility] UNK - Ambulatory Encounter Bing Waldrono MedAdherence Doreen Callahan MedAdherence [facility] Contact Center UNK - Ambulatory Encounter Jerel Dietrich [facility] UNK - Ambulatory Encounter Jerel Thomas [facility] UNK - Ambulatory Encounter Bing Ferreira MedAdherence [facility] UNK - Ambulatory Encounter Bing Ferreira MedAdherence [facility] UNK - Ambulatory Encounter Jerel Dietrich [facility] UNK - Ambulatory Encounter Bing Ferreira MedAdherence [facility] UNK - Ambulatory Encounter Bing Ferreira MedAdherence [facility] UNK - Ambulatory Encounter Jerel Dietrich [facility] UNK - Ambulatory Encounter Bing Ferreira MedAdherence [facility] UNK - Ambulatory Encounter Bing Ferreira MedAdherence [facility] UNK - Ambulatory Encounter Angelita Callahan MedAdherence [facility] UNK - Ambulatory Encounter Angelita Callahan MedAdherence [facility] UNK - Ambulatory Encounter Bing Ferreira MedAdherence Yojana Minaya [facility] Contact Center UNK - Ambulatory Encounter Jerel Dietrich [facility] UNK - Ambulatory Encounter Jerel Dietrich [facility] UNK - Ambulatory Encounter [facility] UNK - Ambulatory Encounter Jerel Wallace [facility] OverweightBMI 25.0-25.9Flu shot - Ambulatory Encounter Carla Singh [facility] UNK - Ambulatory Encounter [facility]rich [facility] UNK - Ambulatory Encounter Jerel Dietrich [facility] UNK - Ambulatory Encounter Bing Ferreira MedAdherence [facility] UNK - Ambulatory Encounter Bing Ferreira MedAdherence LinkLogic [facility] UNK - Ambulatory Encounter Bing Ferreira [facility] UNK - Ambulatory Encounter Bing Ferreira MedAdherence LinkLogic [facility] UNK - Ambulatory Encounter Bing Ferreira [facility] UNK - Ambulatory Encounter Bing Ferreira MedAdherence [facility] UNK - Ambulatory Encounter Angelita Callahan [facility] UNK - Ambulatory Encounter Angelita Callahan MedAdherence [facility] UNK - Ambulatory Encounter Jerel Dietrich [facility] UNK - Ambulatory Encounter Jerel Dietrich [facility] UNK - Ambulatory Encounter Jerel Dietrich [facility] UNK - Ambulatory Encounter Jerel Dietrich [facility] UNK - Ambulatory Encounter Jerel Dietrich [facility]Log[facility] UNK - Ambulatory Encounter Jerel Karlo [facility] UNK - Ambulatory Encounter Jerel Dietrich [facility] UNK - Ambulatory Encounter Jerel Dietrich Jerel Karlo LinkLogAsc[facility] UNK - Ambulatory Encounter Jerel Dietrich [facility] UNK - Ambulatory Encounter Jerel Dietrich Jerel Karlo [facility] UNK - Ambulatory Encounter Bing Ferreira MedAdherence [facility] UNK - Ambulatory Encounter Katie Chavez [facility] UNK - Ambulatory Encounter Bing Ferreira MedAdherence [facility] UNK - Ambulatory Encounter Jerel Dietrich [facility] UNK - Ambulatory Encounter Jerel Dietrich Jerel Karlo [facility] UNK - Ambulatory Encounter Jerel Dietrich [facility] UNK - Ambulatory Encounter Jerel Rubalcava [facility] Screening for malignant neoplasm, colonScreening exam for breast cancer - Ambulatory Encounter Bing Ferreira MedAdherence [facility] UNK - Ambulatory Encounter Bing Ferreira MedAdherence [facility] UNK - Ambulatory Encounter Bing Waldrono MedAdherence [facility] UNK - Ambulatory Encounter Bing Waldrono MedAdherence [facility] UNK - Ambulatory Encounter Bing Ferreira MedAdherence [facility] UNK - Ambulatory Encounter Bing Ferreira MedAdherence [facility] UNK - Ambulatory Encounter Bing Ferreira MedAdherence [facility] UNK - Ambulatory Encounter Gisselle Wilder [facility] UNK - Ambulatory Encounter Gisselle Wilder [facility] UNK - Ambulatory Encounter Jerel Dietrich Bing Waldrono MedAdherence [facility] UNK - Ambulatory Encounter Jerel Dietrich [facility] UNK - Ambulatory Encounter Jerel Mccarty [facility] UNK - Ambulatory Encounter Jerel Dietrich [facility] UNK - Ambulatory Encounter Jerel Dietrich [facility] UNK - Ambulatory Encounter Jerel Dietrich [facility] UNK - Ambulatory Encounter Jerel Dietrich [facility] UNK - Ambulatory Encounter Fax Status [facility]K - Ambulatory Encounter Fax Status [facility] UNK - Ambulatory Encounter Jerel Moses [facility] UNK - Ambulatory Encounter [facility]rel Ramires [facility] UNK - Ambulatory Encounter Bing Ferreira MedAdherence [facility] UNK - Ambulatory Encounter Bing Ferreira MedAdherence [facility] UNK - Ambulatory Encounter Jerel Dietrich [facility] UNK - Ambulatory Encounter Jerel Dietrich [facility] UNK - Ambulatory Encounter Bing Ferreira MedAdherence [facility] UNK - Ambulatory Encounter Bing Ferreira MedAdherence [facility] UNK - Ambulatory Encounter [facility] - [facility]ulatory Encounter Bing Ferreira MedAdherence [facility] UNK - Ambulatory Encounter Bing Ferreira MedAdherence [facility] UNK - Ambulatory Encounter Jerel Mccarty [facility] HEALTH MAINTENANCE EXAM - Ambulatory Encounter Jerel Dietrich [facility] UNK - Ambulatory Encounter Jerel Dietrich [facility] UNK - Ambulatory Encounter Jerel Dietrich [facility] UNK - Ambulatory Encounter Bing Ferreira MedAdherence [facility] UNK - Ambulatory Encounter Bing Ferreira MedAdherence [facility] UNK - Ambulatory Encounter Bing Ferreira MedAdherence [facility] UNK - Ambulatory Encounter Bing Ferreira MedAdherence [facility] UNK - Ambulatory Encounter Bing Ferreira MedAdherence [facility] UNK - Ambulatory Encounter Bing Ferreira MedAdherence [facility] UNK - Ambulatory Encounter Bing Ferreira MedAdherence [facility] UNK - Ambulatory Encounter Bing Ferreira MedAdherence [facility] UNK - Ambulatory Encounter Bing Ferreira MedAdherence [facility] UNK - Ambulatory Encounter Bing Ferreira MedAdherence [facility] UNK - Ambulatory Encounter Bing Ferreira MedAdherence [facility] UNK - Ambulatory Encounter Bing Ferreira MedAdherence [facility] UNK - Ambulatory Encounter Bing Ferreira MedAdherence [facility] UNK - Ambulatory Encounter Bing Ferreira MedAdherence [facility] UNK - Ambulatory Encounter Jerel Dietrich [facility] UNK - Ambulatory Encounter Jerel Dietrich [facility] UNK - Ambulatory Encounter Bing Ferreira MedAdherence [facility] UNK - Ambulatory Encounter Bing Ferreira MedAdherence [facility] UNK - Ambulatory Encounter Jerel Dietrich [facility] UNK - Ambulatory Encounter [facility] UNK - Ambulatory Encounter Jerel Sotelo [facility] OSTEOARTHRITIS - Ambulatory Encounter Bing Ferreira MedAdherence Kirk Viramontes [facility] UNK - Ambulatory Encounter Tram Mann Tram Mann [facility] UNK - Ambulatory Encounter Tram Mann Tram Mann [facility] UNK - Ambulatory Encounter Elisabeth Bourne Tram Mann Tram Mann Thea Wallace Aurelia [facility] HEADACHECHEST PAINHYPERLIPIDEMIA - Ambulatory Encounter Jerel iDetrich LinkLogic [facility] UNK - Ambulatory Encounter Jerel Dietrich LinkLogic [facility] UNK - Ambulatory Encounter Jerel Dietrich [facility] UNK - Ambulatory Encounter Jerel Chavez [facility] UNK - Ambulatory Encounter Jerel Dietrich [facility] UNK - Ambulatory Encounter Fax Status LinkLogic [facility] UNK - Ambulatory Encounter Arlen Nicholson [facility] UNK - Ambulatory Encounter Fax Status LinkLogic [facility] UNK - Ambulatory Encounter Jerel Coker [facility] UNK - Ambulatory Encounter Bing Ferreira MedAdherence [facility] UNK - Ambulatory Encounter Jerel Smith Bing Ferreira MedAdherence [facility] UNK - Ambulatory Encounter Bing Ferreira MedAdherence [facility] Jenakhil Dietrich [facility] UNK - Ambulatory Encounter Hinduism Preload [facility] UNK - Ambulatory Encounter Hinduism Preload [facility] UNK - Ambulatory Encounter Hinduism Preload [facility] UNK - Ambulatory Encounter Hinduism Preload [facility] UNK - Ambulatory Encounter Hinduism Preload [facility] UNK - Ambulatory Encounter Hinduism Preload [facility] UNK - Ambulatory Encounter Hinduism Preload [facility] UNK - Ambulatory Encounter Hinduism Preload [facility] UNK - Ambulatory Encounter Hinduism Preload [facility] UNK - Ambulatory Encounter Hinduism Preload [facility] UNK - Ambulatory Encounter Hinduism Preload [facility] UNK - Ambulatory Encounter Hinduism Preload [facility] UNK - Ambulatory Encounter Hinduism Preload [facility] UNK - Ambulatory Encounter Hinduism Preload [facility] UNK - Ambulatory Encounter Hinduism Preload [facility] UNK - Ambulatory Encounter Hinduism Preload [facility] UNK - Ambulatory Encounter Hinduism Preload [facility] UNK - Ambulatory Encounter Hinduism Preload [facility] UNK - Ambulatory Encounter Hinduism Preload [facility] UNK - Ambulatory Encounter Hinduism Preload [facility] UNK - Ambulatory Encounter Hinduism Preload [facility] UNK - Ambulatory Encounter Hinduism Preload [facility] UNK - Ambulatory Encounter Hinduism Preload [facility] UNK - Ambulatory Encounter Hinduism Preload [facility] UNK - Ambulatory Encounter Hinduism Preload [facility] UNK - Ambulatory Encounter Hinduism Preload [facility] UNK - Ambulatory Encounter Hinduism Preload [facility] UNK - Ambulatory Encounter Hinduism Preload [facility] UNK - Ambulatory Encounter Hinduism Preload [facility] UNK - Ambulatory Encounter Hinduism Preload [facility] UNK - Ambulatory Encounter Hinduism Preload [facility] UNK - Ambulatory Encounter Hinduism Preload [facility] UNK - Ambulatory Encounter Hinduism Preload [facility] UNK - Ambulatory Encounter Jerel Dietrich [facility] UNK - Ambulatory Encounter Hinduism Preload [facility] UNK - Ambulatory Encounter Hinduism Preload [facility] UNK - Ambulatory Encounter Hinduism Preload [facility] UNK - Ambulatory Encounter Hinduism Preload [facility] UNK - Ambulatory Encounter Hinduism Preload [facility] UNK - Ambulatory Encounter Hinduism Preload [facility] UNK - Ambulatory Encounter Hinduism Preload [facility] UNK - Ambulatory Encounter Hinduism Preload [facility] UNK - Ambulatory Encounter Hinduism Preload [facility] UNK - Ambulatory Encounter Hinduism Preload [facility] UNK - Ambulatory Encounter Hinduism Preload [facility] UNK - Ambulatory Encounter Hinduism Preload [facility] UNK - Ambulatory Encounter Hinduism Preload [facility] UNK - Ambulatory Encounter Hinduism Preload [facility] UNK - Ambulatory Encounter Hinduism Preload [facility] UNK - Ambulatory Encounter Hinduism Preload [facility] UNK - Ambulatory Encounter Hinduism Preload [facility] UNK - Ambulatory Encounter Hinduism Preload [facility] UNK - Ambulatory Encounter Hinduism Preload [facility] UNK - Ambulatory Encounter Hinduism Preload [facility] UNK - Ambulatory Encounter Hinduism Preload [facility] UNK - Ambulatory Encounter Hinduism Preload [facility] UNK - Ambulatory Encounter Hinduism Preload [facility] UNK - Ambulatory Encounter Hinduism Preload [facility] UNK - Ambulatory Encounter Hinduism Preload [facility] UNK - Ambulatory Encounter Hinduism Preload [facility] UNK - Ambulatory Encounter Hinduism Preload [facility] UNK - Ambulatory Encounter Hinduism Preload [facility] UNK - Ambulatory Encounter Hinduism Preload [facility] UNK - Ambulatory Encounter Hinduism Preload [facility] UNK - Ambulatory Encounter Hinduism Preload [facility] UNK - Ambulatory Encounter Hinduism Preload [facility] UNK - Ambulatory Encounter Hinduism Preload [facility] UNK - Ambulatory Encounter Hinduism Preload [facility] UNK - Ambulatory Encounter Hinduism Preload [facility] UNK - Ambulatory Encounter Hinduism Preload [facility] UNK - Ambulatory Encounter Hinduism Preload [facility] UNK - Ambulatory Encounter Hinduism Preload [facility] UNK - Ambulatory Encounter Hinduism Preload [facility] UNK - Ambulatory Encounter Jerel Ferreira [facility] UNK - Ambulatory Encounter Jerel Mikeerman [facility] UNK - Ambulatory Encounter Jerel Sanchez [facility] ANXIETYARTHRALGIAHYPOTHYROIDISM - Ambulatory Encounter Jerel Dietrich [facility] UNK - Ambulatory Encounter Jerel Ferreira [facility] UNK VITAL SIGNS No Information Available Allergies No Known Allergy Information REASON FOR REFERRAL Start Date - End Date Service - Mammogram - Screening - Pain Management - External RESULTS Date Observation Value Provider Reference Range Interpretation Location calcium, serum 9.6 mg/dL [facility] 8.7-10.3 " carbon dioxide, venous blood 29 mmol/L [facility] 20-29 " chloride, serum 94 mmol/L [facility] 96-106 Low " potassium, serum 3.3 mmol/L [facility] 3.5-5.2 Low " sodium, serum 142 mmol/L [facility] 134-144 " urea nitrogen/creatinine ratio, serum 11 [facility] 12- Low " eGFR if 65 mL/min/((173/100).m2) [facility] >59 " Estimated Glomerular Filtration Rate (calc) 56 mL/min/((173/100).m2) [facility] >59 Low " creatinine, serum 1.07 mg/dL [facility] 0.57-1.00 High " urea nitrogen, blood 12 mg/dL [facility] 8-27 " blood glucose, random 130 mg/dL [facility] 65-99 High potassium, serum 3.6 mmol/L [facility] 3.5-5.2 calcium, [...] " urea nitrogen/creatinine ratio, serum 10 [facility] - Low " eGFR if 84 mL/min/((173/100).m2) [facility] [...] MEDICATION USE Medication Instructions Dates Provider Comments POTASSIUM CHLORIDE 20 MEQ/15ML (10%) ORAL SOLUTION 10-15 mL By Mouth Every Day Cecille Bensonome OLOPATADINE HCL 0.1 % OPHTHALMIC SOLUTION 1 drop in eye Twice a Day Cecille Atkins GUAIFENESIN-CODEINE 100-10 MG/5ML ORAL SOLUTION 10 mL Every 6 hrs As Needed for cough and body aches Cecille Bensonome BENZONATATE 100 MG ORAL CAPSULE 1 tab By Mouth Three Times a Day Cecille Bensonome CLARITIN 10 MG ORAL TABLET 1 by [...] EXTENDED RELEASE 1 by mouth every day Eccille Wilbert NORTRIPTYLINE CAPS 50MG TAKE 2 CAPSULES DAILY Cecille Wilbert AUGMENTIN 875-125 MG ORAL TABLET 1 by mouth twice a day Cecille Wilbert HYDROCHLOROTHIAZIDE TAB 25MG TAKE 1 TABLET DAILY [facility] CYCLOBENZAPRINE HCL 10 MG ORAL TABLET 1 By Mouth three times a day as needed for muscle spasm Cecille Wilbert ATORVASTATIN CALCIUM 40 MG ORAL TABLET 1 tab By Mouth qd Cecille Wilbert L-THYROXINE (SYNTHROID) TABS 100MCG TAKE 1 TABLET DAILY Angelita Callahan [facility] FLONASE ALLERGY RELIEF 50 MCG/ACT NASAL [...] as needed for chronic hip pain Jerel Dietrich LORAZEPAM 2 MG ORAL TABLET take one tab daily as needed for anxiety Cecille Atkins HYOSCYAMINE SULFATE 0.125 MG SUBLINGUAL TABLET SUBLINGUAL Take 1 tablet under the tongue before meals. Bing Ferreira [facility] PREMARIN 0.9 MG ORAL TABLET 1 by mouth every other day Bing Ferreira [facility] CELEBREX 100 MG ORAL CAPSULE 1 by mouth Twice a Day Bing ZhangAdherence NEXIUM 40 MG ORAL CAPSULE DELAYED RELEASE [...] Wilbert SOCIAL HISTORY Date Observation Value Provider sex at Female Jessica Carrizales " drug use, illicit Never Jessica Carrizales " alcohol use Currently Jessica Carrizales " social history E&M . Not homeless. City: [place]. State: [place]. 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 Jessica Carrizales " social history reviewed E&M reviewed today Jessica Carrizales " sexual orientation Heterosexual Jessica Carrizales " assessment of health literacy ([employer] [facility] 2014 Standards, 3C10) Adequate Jessica Carrizales " passive cigarette smoke exposure No Jessica Carrizales " smoking status never smoker Jessica Carrizales " Exercise Program Referral T Jessica Carrizales " Weight Management Counseling Provided T Jessica Lagunasdez " Nutrition intervention T Jessica Lagunasdez time of call 05/01/2019 10:15 AM Elizabeth Rodriguez drug use, illicit Never Suma Encarnacion " alcohol use Currently Suma Encarnacion " social history E&M . Not homeless. City: [place]. State: [place]. 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 Suma [...] chance that you could be ? No Theabrian Song " assessment of health literacy ([facility] 2014 Standards, 3C10) Adequate Theabrian Song " drug use, illicit Never Thea Song " alcohol use Currently Thea Song " smoking status never smoker Thea Song " social history E&M . Not homeless. City: [place]. State: [place]. 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 Thea Song " social history reviewed E&M reviewed today Thea Song time of call 01/13/2019 8:19 AM Elizabeth Chavez Exercise Program Referral T Cecille Wilbert " Weight Management Counseling Provided T Cecille Wilbert " Nutrition intervention T Cecille Wilbert " social history E&M . Not homeless. City: [place]. State: [place]. 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 Thea Song " social history reviewed E&M reviewed today Thea Song " drug use, illicit Never Thea Song " alcohol use Currently Thea Duncan " assessment of health literacy ([facility] 2014 Standards, 3C10) Adequate Thea Song " is there any chance that you could be ? No Thea Song " passive cigarette smoke exposure No Thea Song " smoking status never smoker Thea Song drug use, illicit Never Suma Encarnacion " alcohol use Currently Suma Encarnacion " social history E&M . Not homeless. City: [place]. State: [place]. 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 Suma Encarnacion " social history reviewed E&M reviewed today Suma Encarnacion " assessment of health literacy ([facility] 2014 Standards, 3C10) Adequate Suma Encarnacion [...] social history E&M . Not homeless. City: [place]. State: [place]. 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 Suma Encarnacion " social history reviewed E&M reviewed today Suma Encarnacion " assessment of health literacy ([facility] 2014 Standards, 3C10) Adequate Suma Encarnacion [...] social history E&M . Not homeless. City: [place]. State: [place]. 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 Alice Hennessy " social history reviewed E&M reviewed today Alice Hennessy " assessment of health literacy ([facility] 2014 Standards, 3C10) Adequate Alice Hennessy [...] social history E&M . Not homeless. City: [place]. State: [place]. 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 Krystin Thomas " social history reviewed E&M reviewed today Krystin Thomas " assessment of health literacy ([facility] 2014 Standards, 3C10) Adequate Krystin Thomas " passive cigarette smoke exposure No Krystin Thomas " smoking status never smoker Krystni Thomas assessment of health literacy ([facility] 2014 Standards, 3C10) Adequate Perri Mccarty " Exercise Program Referral T Perri Mccarty " Weight Management Counseling Provided T Perri Mccarty " Nutrition intervention T Perri Mccarty " drug use, illicit Never Perri Mccarty " alcohol use Currently Perri Mccarty " social history E&M . Not homeless. City: [place]. State: [place]. 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 Perri Mccarty " social history reviewed E&M reviewed today Perri Mccarty " passive cigarette smoke exposure No Perri Mccarty " smoking status never smoker Perri Mccarty assessment of health literacy ([facility] 2014 Standards, 3C10) Adequate Krystin Thomas " passive cigarette smoke exposure No Krystin Thomas " smoking status never smoker Krystin Thomsa Exercise Program Referral T Cecille Wilbert " Weight Management Counseling Provided T Cecille Wilbert " Nutrition intervention T Cecille Wilbert Exercise Program Referral T Cecille Wilbert " Weight Management Counseling Provided T Cecille Wilbert " Nutrition intervention T Cecille Wilbert assessment of health literacy ([facility] 2014 Standards, 3C10) Adequate Claribel Castillo " is there any chance that you could be ? No Claribel Castillo " passive cigarette smoke exposure No Claribel Castillo " smoking status never smoker Claribel Castillo assessment of health literacy ([facility] 2014 Standards, 3C10) Adequate Claribel Castillo " passive cigarette smoke exposure No Claribel Castillo " smoking status never smoker Claribel Castillo drug use, illicit Never Jahaira Pool " alcohol use Currently Jahaira Pool " social history E&M . Not homeless. City: [place]. State: [place]. 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 Jahaira Pool " social history reviewed E&M reviewed today Jahaira Pool " assessment of health literacy ([facility] 2014 Standards, 3C10) Adequate Jahaira Pool " passive cigarette smoke exposure No Jahaira Pool " smoking status never smoker Jahaira Pool Exercise Program Referral Fe Atkins " Weight Management Counseling Provided Fe Atkins " Nutrition intervention T Cecille Wilbert " drug use, illicit Never Jahaira Pool " alcohol use Currently Jahaira Pool " social history E&M . Not homeless. City: [place]. State: [place]. 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 Jahaira Pool " social history reviewed E&M reviewed today Jahaira Pool " assessment of health literacy ([facility] 2014 Standards, 3C10) Adequate Jahaira Pool [...] social history E&M . Not homeless. City: [place]. State: [place]. 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 Krystin Thomas " social history reviewed E&M reviewed today Krystin Thomas " passive cigarette smoke exposure Yes Krystin Thomas " smoking status never smoker Krystin Thomas " assessment of health literacy ([facility] 2014 Standards, 3C10) Adequate Krystin Schreiberrera Exercise Program Referral T Yojana Ramírez " Weight Management Counseling Provided T Yojana Ramírez " Nutrition intervention T Yojana Ramírez " social history E&M . Not homeless. City: [place]. State: [place]. 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 Yojana Ramírez " social history reviewed E&M reviewed today Yojana Garciavez " passive cigarette smoke exposure Yes Yojana Hooperz " smoking status never smoker Yojana Ramírez " assessment of health literacy ([facility] 2014 Standards, 3C10) Adequate Yojana Ramírez Exercise Program Referral T Cecille Atkins " Weight Management Counseling Provided T Cecille Wilbert " Nutrition intervention T Cecille Wilbert " social history E&M . Not homeless. City: [place]. State: [place]. 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 Terri Wood " social history reviewed E&M reviewed today Terri Wood " passive cigarette smoke exposure Yes Terri Wood " smoking status never smoker Terri Wood " assessment of health literacy ([facility] 2014 Standards, 3C10) Adequate Terri Wood time of call 03/14/2017 12:51 PM Alice Singh time of call 09/27/2016 3:56 PM Doreen Angulo Exercise Program Referral Fe Dietrich " Weight Management Counseling Provided Fe Dietrich " Nutrition intervention Fe Dietrich " drug use, illicit Never Krystin Thomas " alcohol use Currently Krystin Thomas " social history E&M . Not homeless. City: [place]. State: [place]. 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 Krystin Thomas " social history reviewed E&M reviewed today Krystin Thomas " passive cigarette smoke exposure Yes Krystin Thomas " smoking status never smoker Krystin Thomas " assessment of health literacy ([facility] 2014 Standards, 3C10) Adequate Krystin Schreiberrera time of call 07/28/2016 2:59 PM Yojana Minaya drug use, illicit Never Krystin Thomas " alcohol use Currently Krystin Thomas " social history E&M . Not homeless. City: [place]. State: [place]. 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 Krystin Thomas " social history reviewed E&M reviewed today Krystin Thomas " passive cigarette smoke exposure Yes Krystin Thomas " smoking status never smoker Krystin Thomas time of call 09/23/2015 3:50 PM Katie Scott Exercise Program Referral Fe Dietrich " Weight Management Counseling Provided Fe Dietrich " Nutrition intervention Fe Dietrich " passive cigarette smoke exposure Yes Terri Wood " smoking status never smoker Terri Wood time of call 02/05/2015 4:13 PM Bing ZhangAdhernorma Exercise Program Referral Fe Dietrich " Weight Management Counseling Provided Fe Dietrich " Nutrition intervention Fe Dietrich " drug use, illicit Never Perri Mccarty " alcohol use Currently Perri Mccarty " passive cigarette smoke exposure Yes Perri Mccarty " smoking status never smoker Perri Mccarty time of call 12/09/2014 10:02 AM Larissa [...] social history E&M . Not homeless. City: [place]. State: [place] 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 Thea [...] smoker Yojana Coker " Exercise Program Referral T Yojana John Paul " Weight Management Counseling Provided T Yojana Coker " Nutrition intervention Fe Yojana Coker smoking status never [facility] smoking status [...] social history E&M . Not homeless. City: [place]. State: [place]. 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 Lyla Minor " patient considered to be homeless No Lyla Minor " passive cigarette smoke exposure Yes Lyla Minor " smoking status never smoker Lyla Minor FUNCTIONAL STATUS No Information Available MENTAL STATUS Date Observation Value Provider Generalized Anxiety Disorder Questionnaire - Question 2 0 Jessica Carrizales " Generalized Anxiety Disorder Questionnaire - Question 1 0 Jessica Carrizales assessment of judgment and insight E&M intact [...] assessment of judgment and insight E&M intact [facility] " mental status examination: orientation E&M oriented to time, place, and person Cecille [facility] " assessment of mood and affect E&M no depression, anxiety, or agitation Cecille Wilbert Generalized Anxiety Disorder Questionnaire - Question 2 0 Claribel Castillo " Generalized Anxiety Disorder Questionnaire - Question 1 0 Claribel Newmaniroz Generalized Anxiety Disorder Questionnaire - Question 2 0 Claribel Castillo " Generalized Anxiety Disorder Questionnaire - Question 1 0 Claribel Castillo assessment of mood and affect E&M no depression, anxiety, or agitation Cecille [facility] " assessment of judgment and insight E&M intact Cecille Wilbert " Generalized Anxiety Disorder Questionnaire - Question 2 0 Jahaira Pool " Generalized Anxiety Disorder Questionnaire - Question 1 0 Jahaira Pool assessment of mood and affect E&M no depression, anxiety, or agitation [facility] " assessment of judgment and insight E&M intact [facility] " Generalized Anxiety Disorder Questionnaire - Question [...] Disorder Questionnaire - Question 1 0 Krystin Schreiberrera assessment of judgment and [facility] " assessment of mood and affect E&M no depression, anxiety, or agitation Cecille [facility] " Generalized Anxiety Disorder Questionnaire - Question 2 0 Yojana Ramírez " Generalized Anxiety Disorder Questionnaire - Question 1 0 Yojana Ramírez assessment of judgment and insight [facility] " assessment of mood and affect E&M [...] affect E&M no depression, anxiety, or agitation [facility] " Generalized Anxiety Disorder Questionnaire - Question 2 0 Krystin Thomas " Generalized Anxiety Disorder Questionnaire - Question 1 0 Krystin Thomas assessment of judgment and insight E&M intact Jerel Dietrich " assessment of mood and affect E&M no depression, anxiety, or agitation [facility] " Generalized Anxiety Disorder Questionnaire - Question 2 0 Krystin Thomas " Generalized Anxiety Disorder Questionnaire - Question 1 0 Krystin Thomas assessment of judgment and insight E&M intact [facility] " assessment of mood and affect E&M no depression, anxiety, or agitation [facility] " Generalized Anxiety Disorder Questionnaire - Question 2 0 Terri Wood " Generalized Anxiety Disorder Questionnaire - Question 1 0 Terri Wood assessment of judgment and insight E&M intact [facility] " assessment of mood and affect E&M no depression, anxiety, or agitation [facility] " Generalized Anxiety Disorder Questionnaire - Question 2 0 Perri Mccarty " Generalized Anxiety Disorder Questionnaire - Question 1 0 Perri Mccarty assessment of judgment and insight E&M intact [facility] " assessment of mood and affect E&M no depression, anxiety, or agitation [facility] " Generalized Anxiety Disorder Questionnaire - Question 2 0 Perri Mccarty " Generalized Anxiety Disorder Questionnaire - Question 1 0 Perri Mccarty assessment of judgment and insight E&M intact [facility] " assessment of mood and affect E&M no depression, anxiety, or agitation [facility] " Generalized Anxiety Disorder Questionnaire - Question [...] assessment of judgment and insight E&M intact [facility] " assessment of mood and affect E&M no depression, anxiety, or agitation [facility] " mental status examination: orientation E&M oriented to person, place, and time [facility] " Generalized Anxiety Disorder Questionnaire - Question 2 0 Yojana Coker " Generalized Anxiety Disorder Questionnaire - Question 1 0 Yojana Coker MEDICAL EQUIPMENT No Information Available FAMILY HISTORY No Information Available INSURANCE PROVIDERS No Information Available ADVANCE DIRECTIVES No Information Available TREATMENT PLAN Date Name Basic Metabolic Panel (8) Potassium, Serum Basic Metabolic Panel (8) Phosphorus, [...] - - - - - - - Ofc Vst, Est Level III Est Patient Exp Problem - 81796 Est Patient Exp Problem - 36868 Est Patient Detailed - 74750 Est Patient Exp Problem - 39949 Est Patient Detailed - 73753 Injection, ketorolac tromethamine (toradol), per 15 mg Est Patient Detailed - 75182 Est Patient Detailed - 49261 Est Patient Detailed - 49060 IM or SQ Injection Injection, dexamethasone sodium phosphate, 1mg Est Patient Detailed - 84134 Est Patient Detailed - 91130 Est Patient Detailed - 60186 Est Patient Detailed - 90463 Est Patient Exp Problem - 91652 IM or SQ Injection Injection, dexamethasone sodium phosphate, 1mg Est Patient Detailed - 22738 Est Patient Exp Problem - 80995 Est Patient Detailed - 57235 INFLUENZA VACCINE QUADRIVALENT 3 YRS PLUS IM Est Patient Well Exam (40 - 64 Yrs) - 63450 INFLUENZA VACCINE QUADRIVALENT 3 YRS PLUS IM Est Patient Exp Problem - 19430 Est Patient Well Exam (40 - 64 Yrs) - 39669 Est Patient Exp Problem - 58989 Est Patient Detailed - 32945 Est Patient Exp Problem - 36720 EKG - Tracing Only EKG - Interpretation & Report Only Est Patient Exp Problem - 77171 Est Patient Well Exam (40 - 64 Yrs) - 58106 Est Patient Exp Problem - 30462 HISTORY OF PROCEDURES Procedure Date Procedure Name Provider Procedure Notes Status Injection, ketorolac tromethamine (toradol), per 15 mg Cecille Wilbert completed IM or SQ Injection Cecille Wilbert 4mg left deltoid IM completed Injection, dexamethasone sodium phosphate, 1mg Cecille Wilbert completed IM or SQ Injection Cecille Wilbert 4mg/ml dexamethasone IM right gluteus medius completed Injection, dexamethasone sodium phosphate, 1mg Cecille Wilbert [facility] [place]: [id number]. completed EKG - Tracing Only Elisabeth Bourne completed EKG - Interpretation & Report Only Elisabeth Bourne completed GOALS No Information Available HEALTH [employer]CERNS No Information Available
--- OUTSIDE RECORDS SUMMARY | 2019-08-12 11:43 | XMS REPORT ---
Author Author Admin, [place] Organization Unknown Address Unknown Phone Unavailable PROBLEMS [...] Diagnosis - Ambulatory Encounter Cecille Sarah MedAdherence [facility] Services UNK - Ambulatory Encounter Cecille Atknis LinkLogic [facility] UNK - Ambulatory Encounter Cecille Atkins [facility] UNK - Ambulatory Encounter Cecille Wilbert Cecille Chaparro Carrizales [facility] Viral URI - Ambulatory Encounter Cecille Wilbert Atkins Maritza Rodriguez [facility] Adult Medicine UNK - Ambulatory Encounter Cecille Wilbert Atkins [facility] UNK - Ambulatory Encounter Cecille Wilbert Callahan MedAdherence [facility] UNK - Ambulatory Encounter Cecille Wilbert Atkins [facility] UNK - Ambulatory Encounter Cecille Wilbert Mcclelland Thomas [facility] UNK - Ambulatory Encounter Cecille Wilbert Atkins [facility] UNK - Ambulatory Encounter Cecille Wilbert Atkins [facility] UNK - Ambulatory Encounter Cecille Wilbert Atkins [facility] UNK - Ambulatory Encounter Cecille Wilbert Atkins [facility] UNK - Ambulatory Encounter Cecille Wilbert Carrilloendez [facility] Impaired physical mobility - Ambulatory Encounter Cecille Wilbert Atkins [facility] UNK - Ambulatory Encounter Cecille Wilbert Atkins Bing Ferreira MedAdherence [facility] UNK - Ambulatory Encounter Cecille Wilbert Callahan MedAdherence [facility] UNK - Ambulatory Encounter Cecille Wilbert Callahan MedAdherence Jen Navarro [facility] UNK - Ambulatory Encounter Cecille Wilbert Bensonome LinkLogic [facility] UNK - Ambulatory Encounter Cecille Wilbert Atkins Bing Ferreira MedAdherence [facility] UNK - Ambulatory Encounter Cecille Wilbert Cecille Atkins [facility] UNK - Ambulatory Encounter Cecille Wilbert Cecille Atkins [facility] UNK - Ambulatory Encounter Cecille Wilbert Cecille Atkins [facility] UNK - Ambulatory Encounter Cecille Wilbert Cecille Atkins [facility] UNK - Ambulatory Encounter Cecille Wilbert Song [facility] Rash, nonspecific - Ambulatory Encounter Cecille Wilbert [place] UNK - Ambulatory Encounter Cecille Wilbert Cecille Atkins [facility] UNK - Ambulatory Encounter Cecille Wilbetr Mcclelland Thomas [facility] UNK - Ambulatory Encounter Cecille Wilbert Cecille Atkins [facility] UNK - Ambulatory Encounter Eccille Wilbert Hendricks [facility] HYPOKALEMIA - Ambulatory Encounter Cecille Iwlbert Cecille Atkins [facility] UNK - Ambulatory Encounter Cecille Wilbert Atkins Bing Ferreira MedAdherence [facility] UNK - Ambulatory Encounter Cecille Wilbert Atkins [facility] UNK - Ambulatory Encounter Cecille Wilbert Atkins [facility] UNK - Ambulatory Encounter Cecille Wilbert Cecille Atkins Bing Ferreira MedAdherence Krystin Dey [facility] Multiple joint pain - Ambulatory Encounter Cecille Wilbert Clalahan MedAdherence [facility] UNK - Ambulatory Encounter Cecille Wilbert Callahan MedAdherence [facility] UNK - Ambulatory Encounter Cecille Wilbert Atkins [facility] UNK - Ambulatory Encounter Cecille Wilbert Cecille Atkins [facility] UNK - Ambulatory Encounter Cecille Wilbert Atkins [facility] UNK - Ambulatory Encounter Cecille Wilbert Atkins [facility] UNK - Ambulatory Encounter Cecille Wilbert Callahan MedAdherence Perri Greer [facility] Health Services Contact Center UNK - Ambulatory Encounter Cecille Wilbert Atkins [facility] UNK - Ambulatory Encounter Cecille Wilbert Ashby [facility] Health Services Contact Center UNK - Ambulatory Encounter Cecille Wilbert Atkins [facility] UNK - Ambulatory Encounter Cecille Wilbert Atkins [facility] UNK - Ambulatory Encounter Cecille Wilbert Cecille Bensonome [facility] UNK - Ambulatory Encounter Fax Status [facility] UNK - Ambulatory Encounter Fax Status LinkLogic [facility] Health Services UNK - Ambulatory Encounter Fax Status LinkLogic [facility] Health Services UNK - Ambulatory Encounter Fax Status LinkLogic [facility] Services UNK - Ambulatory Encounter Fax Status LinkLogic [facility] Services UNK - Ambulatory Encounter Fax Status [facility] UNK - Ambulatory Encounter Bing Ferreira MedAdherence [facility] UNK - Ambulatory Encounter Cecille Wilbert Cecille Atkins [facility] UNK - Ambulatory Encounter Cecille Wilbert Atkins [facility] UNK - Ambulatory Encounter Cecille Wilbert Atkins [facility] UNK - Ambulatory Encounter Cecille Wilbert Atkins [facility] UNK - Ambulatory Encounter Cecille Wilbert Coe [facility] Ankle swelling - Ambulatory Encounter Cecille Wilbert Callahan MedAdherence [facility] UNK - Ambulatory Encounter Cecille Wilbert Kahn [facility] Services Contact Center UNK - Ambulatory Encounter Cecille Wilbert Atkins [facility] UNK - Ambulatory Encounter Bing Ferreira MedAdherence [facility] UNK - Ambulatory Encounter Cecille Wilbert Atkins [facility] UNK - Ambulatory Encounter Cecille Wilbert Nicholson [facility] UNK - Ambulatory Encounter Cecille Wilbert Hennessy [facility] UNK - Ambulatory Encounter Cecille Wilbert Atkins Bing Ferreira MedAdherence [facility] UNK - Ambulatory Encounter Bing Ferreira MedAdherence [facility] UNK - Ambulatory Encounter Angelita Callahan MedAdherence Maritza Atkins Meir Becerra [facility] UNK - Ambulatory Encounter Cecille Wilbert Cecille Wilbert [facility] UNK - Ambulatory Encounter Cecille Wilbert Cecille Wilbert [facility] UNK - Ambulatory Encounter Cecille Wilbert Cecille Wilbert [facility] UNK - Ambulatory Encounter Cecille Wilbert Oden Wilbert [facility] UNK - Ambulatory Encounter Cecille Wilbert Oden Wilbert [facility] Gastric benign tumor - Ambulatory Encounter Cecille Wilbert Bensonome Angelita Callahan MedAdherence [facility] UNK - Ambulatory Encounter Cecille Wilbert Cecille Wilbert [facility] UNK - Ambulatory Encounter Angelita Callahan MedAdherence [facility] UNK - Ambulatory Encounter Cecille Oden Wilbert [facility] UNK - Ambulatory Encounter Cecille Wilbert Oden Wilbert [facility] UNK - Ambulatory Encounter Angelita Callahan MedAdherence [facility] UNK - Ambulatory Encounter Cecille Wilbert Oden Wilbert [facility] UNK - Ambulatory Encounter Cecille Wilbert Cecille Campo [facility] Pharyngitis, acute - Ambulatory Encounter Cecille Wilbert Cecille Wilbert [facility] UNK - Ambulatory Encounter Cecille Wilbert Atkins [facility] UNK - Ambulatory Encounter Cecille Wilbert Atkins [facility] UNK - Ambulatory Encounter Cecille Wilbert Thomas [facility] UNK - Ambulatory Encounter Cecille Wilbert Atkisn [facility] UNK - Ambulatory Encounter Cecille Wilbert Atkins [facility] UNK - Ambulatory Encounter Cecille Wilbert Atkins [facility] UNK - Ambulatory Encounter Cecille Wilbert Atkins [facility] UNK - Ambulatory Encounter Cecille Wilbert Atkins [facility] UNK - Ambulatory Encounter Cecille Wilbert Atkins [facility] UNK - Ambulatory Encounter Cecille Wilbert Atkins [facility] UNK - Ambulatory Encounter Cecille Wilbert Atkins [facility] UNK - Ambulatory Encounter Cecille Wilbertdaria Atkins Claribel Castillo [facility] UNK - Ambulatory Encounter Cecille Wilbert Atkins [facility] UNK - Ambulatory Encounter Cecille Wilbert Atkins [facility] UNK - Ambulatory Encounter Cecille Wilbert Atkins [facility] UNK - Ambulatory Encounter Angelita Callahan MedAdherence [facility] UNK - Ambulatory Encounter Angelita Callahan MedAdherence [facility] UNK - Ambulatory Encounter Angelita Callahan MedAdherence [facility] UNK - Ambulatory Encounter Angelita Callahan MedAdherence LinkLogic [facility] UNK - Ambulatory Encounter Angelita Callahan [facility] - Ambulatory Encounter Angelita Callahan [facility]herence [facility] UNK - Ambulatory Encounter Cecille Atkins [facility] UNK - Ambulatory Encounter Cecille Wilbert Rosez [facility] UNK - Ambulatory Encounter Fax Status [facility] UNK - Ambulatory Encounter Fax Status LinkLogic [facility] Health Services UNK - Ambulatory Encounter Fax Status LinkLogic [facility] Health Services UNK - Ambulatory Encounter Cecille Atkins [facility] UNK - Ambulatory Encounter Cecille Wilbert [facility]liliana [facility] Chronic painHypertensionAnorectal disorder - Ambulatory Encounter Bing Ferreira [facility] UNK - Ambulatory Encounter Cecille Wilbert Atkins LinkLogic [facility] UNK - Ambulatory Encounter Cecille Atkins [facility] UNK - Ambulatory Encounter Cecille Wilbert Atkins LinkLogic [facility] UNK - Ambulatory Encounter Fax Status [facility] UNK - Ambulatory Encounter Cecille Wilbert Atkins [facility] UNK - Ambulatory Encounter Cecille Bensondaria Atkins Perri Mccarty Jahaira [facility] UNK - Ambulatory Encounter Cecille Bensondaria Atkins [facility] UNK - Ambulatory Encounter Angelita Callahan MedAdherence [facility] UNK - Ambulatory Encounter Angelita Callahan [facility]Adherence [facility] UN[facility] - Ambulatory Encounter Bign Ferreira MedAdherence [facility] UNK - Ambulatory Encounter Angelita Callahan MedAdherence [facility] UNK - Ambulatory Encounter Angelita Callahan MedAdherence [facility] UNK - Ambulatory Encounter Cecille Bensonome Cecille Wilbert [facility] UNK - Ambulatory Encounter Cecille Bensonome Cecille Wilbert [facility] UNK - Ambulatory Encounter Cecille Bensonome Cecille Wilbert Perri Mccarty Cordeliadanuta Olea [facility] Allergic rhinitis - Ambulatory Encounter Cecille Oden Wilbert [facility] UNK - Ambulatory Encounter Cecille Bensonome Cecille Wilbert Krystin Thomas [facility] Acute frontal sinusitis - Ambulatory Encounter Angelita Callahan MedAdherence [facility] UNK - Ambulatory Encounter Angelita Callahan [facility]Adherence [facility] UNK - Ambulatory Encounter Cecille Bensonome Cecille Wilbert LinkLogic [facility] UNK - Ambulatory Encounter Cecille Oden Wilbert [facility] UNK - Ambulatory Encounter Cecille Hooperz [facility] UNK - Ambulatory Encounter Lizzette Szymanski [facility] UNK - Ambulatory Encounter Cecille Szymanski [facility] UNK - Ambulatory Encounter Cecille Atkins [facility] UNK - Ambulatory Encounter Cecille Wilbert Atkins [facility] UNK - Ambulatory Encounter Cecille Wilbert Wood [facility] UNK - Ambulatory Encounter Asmitadavid Singh [facility] UNK - Ambulatory Encounter Asmita Garcia [facility] UNK - Ambulatory Encounter Elisabeth Bourne [facility] UNK - Ambulatory Encounter Angelita Callahan MedAdherence Alice Singh [facility] Services Contact Center UNK - Ambulatory Encounter Jerel Dietrich [facility] UNK - Ambulatory Encounter Jerel Dietrich [facility] UNK - Ambulatory Encounter Jerel Dietrich [facility] UNK - Ambulatory Encounter Angelita Callahan MedAdherence [facility] UNK - Ambulatory Encounter Angelita Callahan MedAdherence [facility] UNK - Ambulatory Encounter Jerel Dietrich [facility] UNK - Amb[facility] - Ambulatory Encounter Bing Ferreira MedAdherence [facility] UNK - Ambulatory Encounter Jerel Dietrich [facility] UNK - Ambulatory Encounter Bing Waldrono MedAdherence Doreen Callahan MedAdherence [facility] Services Contact Center UNK - Ambulatory Encounter Jerel Dietrich [facility] UNK - Ambulatory Encounter Jerel Thomas [facility] UNK - Ambulatory Encounter Bing Ferreira MedAdherence [facility] UNK - Ambulatory Encounter Bing Ferreira MedAdherence [facility] UNK - Ambulatory Encounter Jerel Dietrich [facility] UNK - Ambulatory Encounter Bing Ferreira MedAdherence [facility] UNK - Ambulatory Encounter Bing Ferreira MedAdherence [facility] UNK - Ambulatory Encounter Jerel Dietrich [facility] UNK - Ambulatory Encounter Bing Ferreira MedAdherence [facility] UNK - Ambulatory Encounter Bing Ferreira MedAdherence [facility] UNK - Ambulatory Encounter Angelita Callahan MedAdherence [facility] UNK - Ambulatory Encounter Angelita Callahan MedAdherence [facility] UNK - Ambulatory Encounter Bing Ferreira MedAdherence Yojana Minaya [facility] Services Contact Center UNK - Ambulatory Encounter Jerel Dietrich [facility] UNK - Ambulatory Encounter Jerel Dietrich [facility] UNK - Ambulatory Encounter Jerel Dietrich [facility] UNK - Ambulatory Encounter Jerel Wallace [facility] OverweightBMI 25.0-25.9Flu shot - Ambulatory Encounter Carla Singh [facility] UNK - Ambulatory Encounter Jerel Dietrich [facility] UNK - Ambulatory Encounter Jerel Dietrich [facility] UNK - Ambulatory Encounter Bing Ferreira MedAdherence [facility] UNK - Ambulatory Encounter Bing Ferreira MedAdherence LinkLogic [facility] UNK - Ambulatory Encounter Bing Ferreira MedAdherence [facility] UNK - Ambulatory Encounter Bing Ferreira MedAdherence LinkLogic [facility] UNK - Ambulatory Encounter Bing Ferreira MedAdherence [facility] UNK - Ambulatory Encounter Bing Ferreira MedAdherence Link[facility] UNK - Ambulatory Encounter Angelita Callahan MedAdherence [facility] UNK - Ambulatory Encounter Angelita Callahan MedAdherence [facility]Log[facility] UNK - Ambulatory Encounter Jerel Dietrich [facility] UNK - Ambulatory Encounter Jerel Dietrich [facility] UNK - Ambulatory Encounter Jerel Dietrich [facility] UNK - Ambulatory Encounter Jerel Dietrich [facility] UNK - Ambulatory Encounter Jerel Dietrich [facility] UNK - Ambulatory Encounter Jerel Karlo [facility] UNK - Ambulatory Encounter Jerel Dietrich [facility] UNK - Ambulatory Encounter Jerel Dietrich Jerel Karlo [facility]o [facility] UNK - Ambulatory Encounter Jerel Dietrich [facility] [facility] UNK - Ambulatory Encounter Jerel Dietrich Jerel Karlo [facility] UNK - Ambulatory Encounter Bing Ferreira MedAdherence [facility] UNK - Ambulatory Encounter Katie Chavez [facility] UNK - Ambulatory Encounter Bing Ferreira MedAdherence [facility] UNK - Ambulatory Encounter Jerel Dietrich [facility] [facility] UNK - Ambulatory Encounter Jerel Dietrich Jerel Karlo [facility] UNK - Ambulatory Encounter Jerel Dietrich [facility] [facility] UNK - Ambulatory Encounter Jerel Rubalcava [facility] Screening for malignant neoplasm, colonScreening exam for breast cancer - Ambulatory Encounter Bing Ferreira MedAdherence [facility] [facility] UNK - Ambulatory Encounter Bing Ferreira MedAdherence [facility] [facility] UNK - Ambulatory Encounter Bing Waldrono MedAdherence Link[facility]ic [facility] UNK - Ambulatory Encounter Bing Waldrono MedAdherence [facility] UNK - Ambulatory Encounter Bing Ferreira MedAdherence [facility] UNK - Ambulatory Encounter Bing Ferreira MedAdherence [facility] UNK - Ambulatory Encounter Bing Ferreira MedAdherence [facility] UNK - Ambulatory Encounter Gisselle Wilder [facility] UNK - Ambulatory Encounter Gisselle Wilder [facility] UNK - Ambulatory Encounter Jerel Dietrich Bing Waldrono MedAdherence [facility] UNK - Ambulatory Encounter Jerel Dietrich [facility] UNK - Ambulatory Encounter Jerel Mccarty [facility] UNK - Ambulatory Encounter Jerel Dietrich [facility] UNK - Ambulatory Encounter Jerel Dietrich [facility] UNK - Ambulatory Encounter Jerel Dietrich [facility] UNK - Ambulatory Encounter Jerel Dietrich [facility] UNK - Ambulatory Encounter Fax Status [facility] UNK - Ambulatory Encounter Fax Status [facility] UNK - Ambulatory Encounter Jerel Moses [facility] UNK - Ambulatory Encounter Jerel Ramires [facility] UNK - Ambulatory Encounter Bing Ferreira MedAdherence [facility] UNK - Ambulatory Encounter Bing Ferreira MedAdherence [facility] UNK - Ambulatory Encounter Jerel Dietrich [facility] UNK - Ambulatory Encounter Jerel Dietrich [facility] UNK - Ambulatory Encounter Bing Ferreira MedAdherence [facility] UNK - Ambulatory Encounter Bing Ferreira MedAdherence [facility] UNK - Ambulatory Encounter [facility] - [facility]ulatory Encounter Bing Ferreira MedAdherence [facility] UNK - Ambulatory Encounter Bing Ferreira MedAdherence [facility] UNK - Ambulatory Encounter Jerel Mccarty [facility] HEALTH MAINTENANCE EXAM - Ambulatory Encounter Jerel Dietrich [facility] UNK - Ambulatory Encounter Jerel Dietrich [facility] UNK - Ambulatory Encounter Jerel Dietrich [facility] UNK - Ambulatory Encounter Bing Ferreira MedAdherence [facility] UNK - Ambulatory Encounter Bing Ferreira MedAdherence [facility] UNK - Ambulatory Encounter Bing Ferreira MedAdherence [facility] UNK - Ambulatory Encounter Bing Ferreira MedAdherence [facility] UNK - Ambulatory Encounter Bing Ferreira MedAdherence [facility] UNK - Ambulatory Encounter Bing Ferreiar MedAdherence [facility] UNK - Ambulatory Encounter Bing Ferreira MedAdherence [facility] UNK - Ambulatory Encounter Bing Ferreira MedAdherence [facility] [facility] UNK - Ambulatory Encounter Bing Ferreira MedAdherence [place] [facility] UNK - Ambulatory Encounter Bing Ferreira MedAdherence [place] [facility] UNK - Ambulatory Encounter Bing Ferreira MedAdherence [facility] [facility] UNK - Ambulatory Encounter Bing Ferreira MedAdherence [facility] [facility] UNK - Ambulatory Encounter Bing Ferreira MedAdherence [facility] [facility] UNK - Ambulatory Encounter Bing Ferreira MedAdherence [facility] [facility] UNK - Ambulatory Encounter Jerel Dietrich [facility] UNK - Ambulatory Encounter Jerel Dietrich [facility] [facility] UNK - Ambulatory Encounter Bing Ferreira MedAdherence [facility] [facility] UNK - Ambulatory Encounter Bing Ferreira MedAdherence [facility] [facility] UNK - Ambulatory Encounter Jerel Dietrich [facility] UNK - Ambulatory Encounter Lyla Minor [facility] UNK - Ambulatory Encounter Jerel Sotelo [facility] OSTEOARTHRITIS - Ambulatory Encounter Bing Ferreira MedAdherence [facility] UNK - Ambulatory Encounter Tram Mann Tram Mann [facility] [facility] UNK - Ambulatory Encounter Tram Mann Tram Mann [facility] UNK - Ambulatory Encounter Elisabeth Bourne Tram Mann Tram Mann Thea Wallace Aurelia [facility] HEADACHECHEST PAINHYPERLIPIDEMIA - Ambulatory Encounter Jerel Dietrich LinkLogic [facility] UNK - Ambulatory Encounter Jerel Dietrich LinkLogic [facility] UNK - Ambulatory Encounter Jerel Dietrich [facility] UNK - Ambulatory Encounter Jerel Chavez [facility] UNK - Ambulatory Encounter [facility] - [facility]ulatory Encounter Fax Status [facility]Log[facility] Health Services UNK - Ambulatory Encounter Arlen Nicholson [facility] Services UNK - Ambulatory Encounter Fax Status [facility] Services UNK - Ambulatory Encounter Jerel Coker [facility] UNK - Ambulatory Encounter Bing Ferreira [facility] UNK - Ambulatory Encounter Jerel Smith Bing Ferreira [facility] Adult Medicine UNK - Ambulatory Encounter Bing [facility] Jen[facility]il Dietrich [facility] UNK - Ambulatory Encounter Spiritism Preload [facility]Logic [facility] UNK - Ambulatory Encounter Spiritism Preload [facility] UNK - Ambulatory Encounter Spiritism Preload [facility] UNK - Ambulatory Encounter Spiritism Preload [facility] UNK - Ambulatory Encounter Spiritism Preload [facility] UNK - Ambulatory Encounter Spiritism Preload [facility] UNK - Ambulatory Encounter Spiritism Preload [facility] UNK - Ambulatory Encounter Spiritism Preload [facility] UNK - Ambulatory Encounter Spiritism Preload [facility] UNK - Ambulatory Encounter Spiritism Preload [facility] UNK - Ambulatory Encounter Spiritism Preload [facility] [facility] UNK - Ambulatory Encounter Spiritism Preload [facility] UNK - Ambulatory Encounter Spiritism Preload [facility] UNK - Ambulatory Encounter Spiritism Preload [facility] UNK - Ambulatory Encounter Spiritism Preload [facility] UNK - Ambulatory Encounter Spiritism Preload [facility] UNK - Ambulatory Encounter Spiritism Preload [facility] UNK - Ambulatory Encounter Spiritism Preload [facility] UNK - Ambulatory Encounter Spiritism Preload [facility] UNK - Ambulatory Encounter Spiritism Preload [facility] UNK - Ambulatory Encounter Spiritism Preload [facility] UNK - Ambulatory Encounter Spiritism Preload LinkLogic [facility] Practice UNK - Ambulatory Encounter Spiritism Preload [facility] UNK - Ambulatory Encounter Spiritism Preload [facility] UNK - Ambulatory Encounter Spiritism Preload [facility] UNK - Ambulatory Encounter Spiritism Preload [facility] UNK - Ambulatory Encounter Spiritism Preload [facility] UNK - Ambulatory Encounter Spiritism Preload [facility] UNK - Ambulatory Encounter Spiritism Preload [facility] UNK - Ambulatory Encounter Spiritism Preload [facility] [place] [facility] UNK - Ambulatory Encounter Spiritism Preload [facility] UNK - Ambulatory Encounter Spiritism Preload [facility] UNK - Ambulatory Encounter Spiritism Preload [facility] UNK - Ambulatory Encounter Jerel Dietrich [facility] UNK - Ambulatory Encounter Spiritism Preload [facility] UNK - Ambulatory Encounter Spiritism Preload [facility] UNK - Ambulatory Encounter Spiritism Preload [facility] UNK - Ambulatory Encounter Spiritism Preload [facility] UNK - Ambulatory Encounter Spiritism Preload [facility] UNK - Ambulatory Encounter Spiritism Preload [facility] UNK - Ambulatory Encounter Spiritism Preload [facility] UNK - Ambulatory Encounter Spiritism Preload [facility] UNK - Ambulatory Encounter Spiritism Preload [facility] UNK - Ambulatory Encounter Spiritism Preload [facility] UNK - Ambulatory Encounter Spiritism Preload [facility] UNK - Ambulatory Encounter Spiritism Preload [facility] [facility] UNK - Ambulatory Encounter Spiritism Preload [facility] [place] [facility] UNK - Ambulatory Encounter Spiritism Preload [facility] UNK - Ambulatory Encounter Spiritism Preload [facility] UNK - Ambulatory Encounter Spiritism Preload [facility] UNK - Ambulatory Encounter Spiritism Preload [facility] [facility] UNK - Ambulatory Encounter Spiritism Preload [facility] UNK - Ambulatory Encounter Spiritism Preload [facility] [place] [facility] UNK - Ambulatory Encounter Spiritism Preload [facility] UNK - Ambulatory Encounter Spiritism Preload [facility] UNK - Ambulatory Encounter Spiritism Preload [facility] UNK - Ambulatory Encounter Spiritism Preload [facility] UNK - Ambulatory Encounter Spiritism Preload LinkLog[facility] UNK - Ambulatory Encounter Spiritism Preload [facility] UNK - Ambulatory Encounter Spiritism Preload [facility] UNK - Ambulatory Encounter Spiritism Preload [facility] UNK - Ambulatory Encounter Spiritism Preload LinkLogic [facility] UNK - Ambulatory Encounter Spiritism Preload LinkLogic [facility] UNK - Ambulatory Encounter Spiritism Preload [facility] UNK - Ambulatory Encounter Spiritism Preload LinkLogic [facility] UNK - Ambulatory Encounter Spiritism Preload LinkLogic [facility] UNK - Ambulatory Encounter Spiritism Preload LinkLogic [facility] UNK - Ambulatory Encounter Spiritism Preload LinkLogic [facility] UNK - Ambulatory Encounter Spiritism Preload LinkLogic [facility] UNK - Ambulatory Encounter Spiritism Preload LinkLogic [facility] UNK - Ambulatory Encounter Spiritism Preload LinkLogic [facility] UNK - Ambulatory Encounter Spiritism Preload LinkLogic [facility] UNK - Ambulatory Encounter Spiritism Preload LinkLog[facility] Practice UNK - Ambulatory Encounter Jerel Ferreira [facility] UNK - Ambulatory Encounter Jerel Mikeerman [facility] UNK - Ambulatory Encounter Jerel Sanchez [facility] ANXIETYARTHRALGIAHYPOTHYROIDISM - Ambulatory Encounter Jerel Dietrich [facility] UNK - Ambulatory Encounter Jerel Ferreira [place] [facility] UNK VITAL SIGNS No Information Available Allergies [...] By Mouth Three Times a Day Cecille Bensnoome CLARITIN 10 MG ORAL TABLET 1 by [...] 25MG TAKE 1 TABLET DAILY Bing Ferreira [facility] CYCLOBENZAPRINE HCL 10 MG ORAL TABLET 1 By Mouth three times a day as needed for muscle spasm Cecille Wilbert ATORVASTATIN CALCIUM 40 MG ORAL TABLET 1 tab By Mouth qd Cecille Wilbert L-THYROXINE (SYNTHROID) TABS 100MCG TAKE 1 TABLET DAILY Angelita Callahan [facility] FLONASE ALLERGY RELIEF 50 MCG/ACT NASAL SUSPENSION [...] social history E&M . Not homeless. City: [place]. State: [place]. 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 Jessica Carrizales " social history reviewed E&M reviewed today Jessica Carrizales " sexual orientation Heterosexual Jessica Carrizales " assessment of health literacy ([facility] 2014 Standards, 3C10) Adequate Jessica Carrizales " [...] social history E&M . Not homeless. City: [place]. State: [place]. 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 Suma [...] Theabrian Song " assessment of health literacy ([facility] 2014 Standards, 3C10) Adequate Theabrian Song " drug use, illicit Never Thea Song " alcohol use Currently Thea Song " smoking status never smoker Thea Song " social history E&M . Not homeless. City: [place]. State: [place]. 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 Thea Song " social history reviewed E&M reviewed today Thea Song time of call 01/13/2019 8:19 AM Elizabeth Chavez Exercise Program Referral T Cecille Wilbert " Weight Management Counseling Provided T Cecille Wilbert " Nutrition intervention T Cecille Wilbert " social history E&M . Not homeless. City: [place]. State: [place]. 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 Thea Song " social history reviewed E&M reviewed today Thea Song " drug use, illicit Never Thea Song " alcohol use Currently Thea Duncan " assessment of health literacy ([facility] 2014 Standards, 3C10) Adequate Thea Song " is there any chance that you could be ? No Thea Song " passive cigarette smoke exposure No Thea Song " smoking status never smoker Thea Song drug use, illicit Never Suma Encarnacion " alcohol use Currently Suma Encarnacion " social history E&M . Not homeless. City: [place]. State: [place]. 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 Suma Encarnacion " social history reviewed E&M reviewed today Suma Encarnacion " assessment of health literacy ([facility] 2014 Standards, 3C10) Adequate Suma Encarnacion " [...] social history E&M . Not homeless. City: [place]. State: [place] 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 Suma Encarnacion " social history reviewed E&M reviewed today Suma Encarnacion " assessment of health literacy ([facility] 2014 Standards, 3C10) Adequate Suma Encarnacion " [...] social history E&M . Not homeless. City: [place]. State: [place] 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 Alice Hennessy " social history reviewed E&M reviewed today Alice Hennessy " assessment of health literacy ([facility] 2014 Standards, 3C10) Adequate Alice Hennessy " [...] social history E&M . Not homeless. City: [place]. State: [place]. 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 Krystin Thomas " social history reviewed E&M reviewed today Krystin Thomas " assessment of health literacy ([facility] 2014 Standards, 3C10) Adequate Krystin Thomas " passive cigarette smoke exposure No Krystin Thomas " smoking status never smoker Krystin Thomas assessment of health literacy ([facility] 2014 Standards, 3C10) Adequate Perri Mccarty " Exercise Program Referral T Perri Mccarty " Weight Management Counseling Provided T Perri Mccarty " Nutrition intervention T Perri Mccarty " drug use, illicit Never Perri Mccarty " alcohol use Currently Perri Mccarty " social history E&M . Not homeless. City: [place]. State: [place] 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 Perri Mccarty " social history reviewed E&M reviewed today Perri Mccarty " passive cigarette smoke exposure No Perri Mccarty " smoking status never smoker Perri Mccarty assessment of health literacy ([facility] 2014 Standards, 3C10) Adequate Krystin Thomas " passive cigarette smoke exposure No Krystin Thomas " smoking status never smoker Krystin Thomas Exercise Program Referral T Cecille Wilbert " Weight Management Counseling Provided T Cecille Wilbert " Nutrition intervention T Cecille Wilbert Exercise Program Referral T Cecille Wilbert " Weight Management Counseling Provided T Cecille Wilbert " Nutrition intervention T Cecille Wilbret assessment of health literacy ([facility] 2014 Standards, 3C10) Adequate Claribel Castillo " is there any chance that you could be ? No Claribel Castillo " passive cigarette smoke exposure No Claribel Castillo " smoking status never smoker Claribel Castillo assessment of health literacy ([facility] 2014 Standards, 3C10) Adequate Claribel Castillo " passive cigarette smoke exposure No Claribel Castillo " smoking status never smoker Claribel Castillo drug use, illicit Never Jahaira Pool " alcohol use Currently Jahaira Pool " social history E&M . Not homeless. City: [place]. State: [place] 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 Jahaira Pool " social history reviewed E&M reviewed today Jahaira Pool " assessment of health literacy ([facility] 2014 Standards, 3C10) Adequate Jahaira Pool " passive cigarette smoke exposure No Jahaira Pool " smoking status never smoker Jahaira Pool Exercise Program Referral Fe Atkins " Weight Management Counseling Provided Fe Atkins " Nutrition intervention T Cecille Wilbert " drug use, illicit Never Jahaira Pool " alcohol use Currently Jahaira Pool " social history E&M . Not homeless. City: [place]. State: [place]. 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 Jahaira Pool " social history reviewed E&M reviewed today Jahaira Pool " assessment of health literacy ([facility] 2014 Standards, 3C10) Adequate Jahaira Pool " passive cigarette smoke exposure No Jahaira Pool " smoking status never smoker Jahaira Pool drug use, illicit Never Cordelia Olae " alcohol use Currently Cordelia Olea " passive cigarette smoke exposure Yes Cordelia Olea " smoking status never smoker Cordelia Olea drug use, illicit Never Krystin Thomas " alcohol use Currently Krystin Thomas " social history E&M . Not homeless. City: [place]. State: [place] 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 Krystin Thomas " social history reviewed E&M reviewed today Krystin Thomas " passive cigarette smoke exposure Yes Krystin Thomas " smoking status never smoker Krystin Thomas " assessment of health literacy ([facility] 2014 Standards, 3C10) Adequate Krystin Schreiberrera Exercise Program Referral T Yojana Ramírez " Weight Management Counseling Provided T Yojana Ramírez " Nutrition intervention T Yojana Ramírez " social history E&M . Not homeless. City: [place]. State: [place]. 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 Yojana Ramírez " social history reviewed E&M reviewed today Yojana Garciavez " passive cigarette smoke exposure Yes Yojana Hooperz " smoking status never smoker Yojana Ramírez " assessment of health literacy ([facility] 2014 Standards, 3C10) Adequate Yojana Ramírez Exercise Program Referral T Cecille Atkins " Weight Management Counseling Provided T Cecille Wilbert " Nutrition intervention T Cecille Wilbert " social history E&M . Not homeless. City: [place]. State: [place] 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 Terri Wood " social history reviewed E&M reviewed today Terri Wood " passive cigarette smoke exposure Yes Terri Wood " smoking status never smoker Terri Wood " assessment of health literacy ([facility] 2014 Standards, 3C10) Adequate Terri Wood time of call 03/14/2017 12:51 PM Alice Singh time of call 09/27/2016 3:56 PM Doreen Angulo Exercise Program Referral Fe Dietrich " Weight Management Counseling Provided Fe Dietrich " Nutrition intervention Fe Dietrich " drug use, illicit Never Krystin Thomas " alcohol use Currently Krystin Thomas " social history E&M . Not homeless. City: [place]. State: [place]. 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 Krystin Thomas " social history reviewed E&M reviewed today Krystin Thomas " passive cigarette smoke exposure Yes Krystin Thomas " smoking status never smoker Krystin Thomas " assessment of health literacy ([facility] 2014 Standards, 3C10) Adequate Krystin Schreiberrera time of call 07/28/2016 2:59 PM Yojana Minaya drug use, illicit Never Krystin Thomas " alcohol use Currently Krystin Thomas " social history E&M . Not homeless. City: [place]. State: [place]. 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 Krystin [...] social history E&M . Not homeless. City: [place]. State: [place] 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 Thea [...] social history E&M . Not homeless. City: [place]. State: [place]. 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 [employer] Ylla Minor " patient considered to be homeless [...] assessment of judgment and insight E&M intact [facility] " mental status examination: orientation E&M oriented to time, place, and person [facility]ille [facility] " assessment of mood and affect E&M [...] E&M no depression, anxiety, or agitation Cecille [facility]ek [facility] " assessment of judgment and insight E&M intact Cecille Wilbert " Generalized Anxiety Disorder Questionnaire - Question 2 0 Jahaira Pool " Generalized Anxiety Disorder Questionnaire - Question 1 0 Jahaira Pool assessment of mood and affect E&M no depression, anxiety, or agitation [facility] " assessment of judgment and insight E&M intact [facility] " Generalized Anxiety Disorder Questionnaire - Question [...] assessment [facility] judgment [facility] " assessment of mood and affect E&M no depression, anxiety, or agitation Cecille [facility]ek [facility] " Generalized Anxiety Disorder Questionnaire - Question 2 0 Yojana Ramírez " Generalized Anxiety Disorder Questionnaire - Question 1 0 Yojana Ramírez assessment of judgment and insight [facility] " assessment of mood and affect E&M [...] affect E&M no depression, anxiety, or agitation [facility] " Generalized Anxiety Disorder Questionnaire - Question 2 0 Krystin Thomas " Generalized Anxiety Disorder Questionnaire - Question 1 0 Krystin Thomas assessment of judgment and insight E&M intact Jerel Dietrich " assessment of mood and affect E&M no depression, anxiety, or agitation [facility] " Generalized Anxiety Disorder Questionnaire - Question 2 0 Krystin Thomas " Generalized Anxiety Disorder Questionnaire - Question 1 0 Krystin Thomas assessment of judgment and insight E&M intact [facility] " assessment of mood and affect E&M no depression, anxiety, or agitation [facility] " Generalized Anxiety Disorder Questionnaire - Question 2 0 Terri Wood " Generalized Anxiety Disorder Questionnaire - Question 1 0 Terri Wood assessment of judgment and insight E&M intact [facility] " assessment of mood and affect E&M no depression, anxiety, or agitation [facility] " Generalized Anxiety Disorder Questionnaire - Question 2 0 Perri Mccarty " Generalized Anxiety Disorder Questionnaire - Question 1 0 Perri Mccarty assessment of judgment and insight E&M intact [facility] " assessment of mood and affect E&M no depression, anxiety, or agitation [facility] " Generalized Anxiety Disorder Questionnaire - Question 2 0 Perri Mccarty " Generalized Anxiety Disorder Questionnaire - Question 1 0 Perri Mccarty assessment of judgment and insight E&M intact [facility] " assessment of mood and affect E&M no depression, anxiety, or agitation [facility] " Generalized Anxiety Disorder Questionnaire - [...] assessment of judgment and insight E&M intact [facility] " assessment of mood and affect E&M no depression, anxiety, or agitation [facility] " mental status examination: orientation E&M oriented to person, place, and time [facility] " Generalized Anxiety Disorder Questionnaire - [...] Level III Est Patient Exp Problem - 85514 Est Patient Exp Problem - 87140 Est Patient Detailed - 47445 Est Patient Exp Problem - 70364 Est Patient Detailed - 78965 Injection, ketorolac tromethamine (toradol), per 15 mg Est Patient Detailed - 67608 Est Patient Detailed - 80445 Est Patient Detailed - 74958 IM or SQ Injection Injection, dexamethasone sodium phosphate, 1mg Est Patient Detailed - 22014 Est Patient Detailed - 29819 Est Patient Detailed - 78200 Est Patient Detailed - 35586 Est Patient Exp Problem - 99239 IM or SQ Injection Injection, dexamethasone sodium phosphate, 1mg Est Patient Detailed - 89183 Est Patient Exp Problem - 92140 Est Patient Detailed - 19895 INFLUENZA VACCINE QUADRIVALENT 3 YRS PLUS IM Est Patient Well Exam (40 - 64 Yrs) - 57895 INFLUENZA VACCINE QUADRIVALENT 3 YRS PLUS IM Est Patient Exp Problem - 66110 Est Patient Well Exam (40 - 64 Yrs) - 05299 Est Patient Exp Problem - 62081 Est Patient Detailed - 34286 Est Patient Exp Problem - 53698 EKG - Tracing Only EKG - Interpretation & Report Only Est Patient Exp Problem - 12669 Est Patient Well Exam (40 - 64 Yrs) - 38707 Est Patient Exp Problem - 89990 HISTORY OF PROCEDURES Procedure Date Procedure Name Provider Procedure Notes Status Injection, ketorolac tromethamine (toradol), per 15 mg Cecille Wilbert completed IM or SQ Injection Cecille Wilbert 4mg left deltoid IM completed Injection, dexamethasone sodium phosphate, 1mg Cecille Wilbert completed IM or SQ Injection Cecille Wilbert 4mg/ml dexamethasone IM right gluteus medius completed Injection, dexamethasone sodium phosphate, 1mg Cecille Wilbert [facility]: [id number]. completed EKG - Tracing Only Elisabeth Bourne completed EKG - Interpretation & Report Only Elisabeth Bourne completed GOALS No Information Available [facility] No Information Available
--- OUTSIDE RECORDS SUMMARY | 2019-08-12 11:44 | XMS REPORT ---
Author Author Admin, Hood Organization Unknown Address Unknown Phone Unavailable PROBLEMS Condition Status Date Provider Notes Viral URI completed - Cecille Wilbert Impaired physical mobility active [...] Location Encounter Diagnosis - Ambulatory Encounter Cecille Macario [facility] UNK - [facility]K - Ambulatory Encounter Cecille Wilbert Atkins [facility] UNK - Ambulatory Encounter Cecille Wilbert Chaparro Carrizales [facility] Viral URI - Ambulatory Encounter Cecille Wilbert Rodriguez [facility] Adult Medicine UNK - Ambulatory Encounter Cecille Wilbert Atkins LinkLogic [facility] UNK - Ambulatory Encounter Cecille Wilbert Callahan MedAdherence [facility] UNK - Ambulatory Encounter Cecille Wilbert Atkins [facility] UNK - Ambulatory Encounter Cecille Wilbert Thomas [facility] UNK - Ambulatory Encounter Cecille Wilbert Atkins LinkLogdestiney [facility] UNK - Ambulatory Encounter Cecille Wilbert Atkins [facility] UNK - Ambulatory Encounter Cecille Wilbert Atkins LinkLogic [facility] UNK - Ambulatory Encounter Cecille Wilbert Atkins [facility] UNK - Ambulatory Encounter Cecille Wilbert Carrilloendez [facility] Impaired physical mobility - Ambulatory Encounter Cecille Wilbert Atkins LinkMorales [facility] UNK - Ambulatory Encounter Cecille Wilbert Atkins Bing Ferreira MedAdherence [facility] UNK - Ambulatory Encounter Cecille Wilbert Callahan MedAdherence [facility] UNK - Ambulatory Encounter Cecille Wilbert Callahan MedAdherence Jen Ramon [facility] Center UNK - Ambulatory Encounter Cecille Wilbert Hulldestiney [facility] UNK - Ambulatory Encounter Cecille Wilbert Cecille Atkins Bing Ferreira MedAdherence [facility] UNK - Ambulatory Encounter Ceclile Wilbert Cecille Atkins LinkLogic [facility] UNK - Ambulatory Encounter Cecille Wilbert Cecille Atkins [facility] UNK - Ambulatory Encounter Cecille Wilbert Atkins LinkLogic [facility] UNK - Ambulatory Encounter Cecille Wilbert Cecille Atkins [facility] UNK - Ambulatory Encounter Cecille Wilbert Cecille Song [facility] Rash, nonspecific - Ambulatory Encounter Cecille Wilbert Cecille Ryanasquez [place] UNK - Ambulatory Encounter Cecille Wilbert Hullic [facility] UNK - Ambulatory Encounter Cecille Wilbert Cecille Mcclelland Thomas [facility] UNK - Ambulatory Encounter Cecille Wilbert Cecille Atkins LinkLogic [facility] UNK - Ambulatory Encounter Cecille Wilbert Cecille Mullinsa [facility] HYPOKALEMIA - Ambulatory Encounter Cecille Wilbert Atkins [facility] UNK - Ambulatory Encounter Cecille Wilbert Atkins Bing Ferreira MedAdherence [facility] UNK - Ambulatory Encounter Cecille Wilbert Cecille Atkins LinkLogic [facility] UNK - Ambulatory Encounter Cecille Wilbert Cecille Casanova [facility] UNK - Ambulatory Encounter Cecille Wilbert Cecille Bensondaria Ferreira MedAdherence Krystin Dey [facility] Multiple joint pain - Ambulatory Encounter Cecille Wilbert Cecille Wilbert Angelita London MedAdherence [facility] UNK - Ambulatory Encounter Cecille Wilbert Cecille Wilbert Angelita London MedAdherence [facility] UNK - Ambulatory Encounter Cecille Wilbert [facility]ille Wilbert [facility] - [facility] Encounter Cecille Wilbert Cecille Wilbert LinkLogic [facility] UNK - Ambulatory Encounter Cecille Wilbert Cecille Wilbert [facility] UNK - Ambulatory Encounter Cecille Wilbert Cecille Wilbert Carrilloendez [facility] UNK - Ambulatory Encounter Cecille Wilbert Cecille Bensonome Angelita Callahan MedAdherence Perri Greer [facility] Contact Center UNK - Ambulatory Encounter Cecille Wilbert Cecille Wilbert [facility] UNK - Ambulatory Encounter Cecille Wilbert Cecille Bensonome Marie Ashby [facility] Contact Center UNK - Ambulatory Encounter Cecille Wilbert Cecille Wilbert LinkLogic [facility] UNK - Ambulatory Encounter Cecille Wilbert Cecille Wilbert LinkLogic [facility] UNK - Ambulatory Encounter Cecille Wilbert Cecille Wilbert LinkLogic [facility] UNK - Ambulatory Encounter F[facility] UN[facility] - Ambulatory Encounter Fax Status LinkLogic [facility] UNK - Ambulatory Encounter Fax Status [facility] - Ambulatory Encounter Fax Status Link[facility]ic [facility] UNK - Ambulatory Encounter Fax Status [facility]Logic [facility] UNK - Ambulatory Encounter Fax Status [facility] UNK - Ambulatory Encounter Bing Ferreira MedAdherence [facility] UNK - Ambulatory Encounter Cecille Wilbert Cecille Atkins LinkLogic [facility] UNK - Ambulatory Encounter Cecille Wilbert Cecille Atkins [facility] UNK - Ambulatory Encounter Cecille Wilbert Atkins LinkLogic [facility] UNK - Ambulatory Encounter Cecille Wilbert Cecille Atkins [facility] UNK - Ambulatory Encounter Cecille Wilbert Cecille Coe [facility] Ankle swelling - Ambulatory Encounter Cecille Wilbert Callahan MedAdherence [facility] UNK - Ambulatory Encounter Cecille Wilbert Cecille Kahn [facility] Contact Center UNK - Ambulatory Encounter Cecille Wilbert Cecille Atkins LinkLogic [facility] UNK - Ambulatory Encounter Bing Ferreira MedAdherence [facility] UNK - Ambulatory Encounter Cecille Wilbert Atkins [facility] UNK - Ambulatory Encounter Cecille Wilbert Cecille Nicholson [facility] UNK - Ambulatory Encounter Cecille Wilbert Cecille Hennessy [facility] UNK - Ambulatory Encounter Cecille Wilbert Cecille Wilbert Ferreira [facility] - Ambulatory Encounter Bing [facility] UNK - Ambulatory Encounter Angelita Callahan MedAdherence Maritza Bensonome Cecille Roblesmargaret [facility] Center UNK - Ambulatory Encounter Cecille Wilbert Cecille Wilbert [facility] UNK - Ambulatory Encounter Cecille Wilbert Cecille Wilbert [facility] UNK - Ambulatory Encounter Cecille Wilbert Oden Wilbert [facility] UNK - Ambulatory Encounter Cecille Wilbert Oden Wilbert [facility] UNK - Ambulatory Encounter Cecille Wilbert Oden Wilbert Katie Mcclelland [facility] Gastric benign tumor - Ambulatory Encounter Cecille Bensonome Angelita Callahan MedAdherence [facility] UNK - Ambulatory Encounter Cecille Wilbert Cecille Wilbert LinkLogic [facility] UNK - Ambulatory Encounter Angelita Callahan MedAdherence [facility] UNK - Ambulatory Encounter Cecille Wilbert Oden Wilbert [facility] UNK - Ambulatory Encounter Cecille Wilbert Oden Wilbert LinkLogic [facility] UNK - Ambulatory Encounter Angelita Callahan [facility] UNK - Ambulatory Encounter Cecille Wilbert Oden Wilbert [facility] UNK - Ambulatory Encounter Cecille Wilbert Campo Pool [facility] Pharyngitis, acute - Ambulatory Encounter Cecille Wilbert Atkins LinkLogic [facility] UNK - Ambulatory Encounter Cecille Wilbert Atkins LinkLogic [facility] UNK - Ambulatory Encounter Cecille Wilbert Atkins [facility] UNK - Ambulatory Encounter Cecille Wilbert Nguyenra [facility] UNK - Ambulatory Encounter Cecille Wilbert Atkins LinkLogic [facility] UNK - Ambulatory Encounter Cecille Wilbert Atkins LinkLogic [facility] UNK - Ambulatory Encounter Cecille Wilbert Atkins LinkLogic [facility] UNK - Ambulatory Encounter Cecille Wilbert Atkins LinkLogic [facility] UNK - Ambulatory Encounter Cecille Wilbert Atkins LinkLogic [facility] UNK - Ambulatory Encounter Cecille Wilbert Atkins LinkLogic [facility] UNK - Ambulatory Encounter Cecille Wilbert Atkins LinkLogic [facility] UNK - Ambulatory Encounter Cecille Wilbert Atkins [facility] UNK - Ambulatory Encounter Cecille Wilbert Mcnairacacia Castillo [facility] UNK - Ambulatory Encounter Cecille Wilbert Atkins LinkLogic [facility] UNK - Ambulatory Encounter Cecille Wilbert Atkins LinkLogic [facility] UNK - Ambulatory Encounter Cecille Wilbert Atkins LinkLogic [facility] UNK - Ambulatory Encounter [facility] - Ambulatory Encounter Angelita London MedAdherence [facility] Practice UNK - Ambulatory Encounter Angelita London MedAdherence [facility] UNK - Ambulatory Encounter Angelita London MedAdherence LinkLogic [facility] UNK - Ambulatory Encounter Angelita London MedAdherence LinkLogic [facility] UNK - Ambulatory Encounter Angelita London MedAdherence LinkLogic [facility] UNK - Ambulatory Encounter Cecille Bensondaria Oden Wilbert [facility] UNK - Ambulatory Encounter Cecille Bensondaria Mcnairacacia Castillo [facility] UNK - Ambulatory Encounter Fax Status LinkLogic [facility] UNK - Ambulatory Encounter Fax Status LinkLogic [facility] UNK - Ambulatory Encounter Fax Status LinkLogic [facility] UNK - Ambulatory Encounter Cecille Bensonome Cecille Wilbert [facility] UNK - Ambulatory Encounter Cecille Bensonome Cecille Wilbert Narcisa [facility] Chronic painHypertensionAnorectal disorder - Ambulatory Encounter Bing Ferreira MedAdherence [facility] Practice UNK - Ambulatory Encounter Cecille Bensondaria Atkins LinkLogic [facility] UNK - Ambulatory Encounter Cecille Bensondaria Atkins [facility] UNK - Ambulatory Encounter Cecille Bensondaria Atkins LinkLogic [facility] UNK - Ambulatory Encounter Fax Status LinkLogic [facility] UNK - Ambulatory Encounter Cecille Atkins [facility] UNK - Ambulatory Encounter Cecille Bensondaria Coteashely Mccarty Jahaira gR [facility] UNK - Ambulatory Encounter Cecille Bensondaria Atkins [facility] UNK - Ambulatory Encounter Angelita Callahan MedAdherence [facility] UNK - Ambulatory Encounter Angelita Callahan [facility]Adherence [facility] UNK - Ambulatory Encounter Bing Ferreira [facility] UNK - Ambulatory Encounter Angelita Callahan MedAdherence [facility] UNK - Ambulatory Encounter Angelita Callahan MedAdherence [facility] UN[facility] - Ambulatory Encounter Cecille Wilbert Atkins [facility] UNK - Ambulatory Encounter Cecille Bensonome Cecille Wilbert [facility] UNK - Ambulatory Encounter Cecille Bensonome Cecille Wilbert Rayo Lul Cordelia Olea [facility] Allergic rhinitis - Ambulatory Encounter Cecille Bensonome Cecille Wilbert [facility] UNK - Ambulatory Encounter Cecille Bensonome Cecille Wilbert Krystin Schreiberrera [facility] Acute frontal sinusitis - Ambulatory Encounter Angelita Callahan MedAdherence [facility] Practice UNK - Ambulatory Encounter Angelita Callahan [facility]Adherence [facility] UNK - Ambulatory Encounter Cecille Bensonome Cecille Wilbert [facility] UNK - Ambulatory Encounter Cecille Atkins [facility] UNK - Ambulatory Encounter Cecille Ramírez [facility] UNK - Ambulatory Encounter [facility] - Ambulatory Encounter Cecille Szymanski [facility] UNK - Ambulatory Encounter Cecille Atkins [facility] UNK - Ambulatory Encounter Cecille Atkins [facility] UNK - Ambulatory Encounter Cecille Wood [facility] UNK - Ambulatory Encounter Asmita Singh [facility] UNK - Ambulatory Encounter Asmita Francisco [facility] UNK - Ambulatory Encounter [facility]is[facility] Ambulatory Encounter Angelita Singh [facility] Center UNK - Ambulatory Encounter Jerel Dietrich [facility] UNK - Ambulatory Encounter [facility]rich [facility] - Ambulatory Encounter Jerel Dietrich [facility] UNK - Ambulatory Encounter Angelita [facility]Ad[facility]More[facility] Hospital[facility] UNK - Ambulatory Encounter Angelita Mcbride [facility] - Ambulatory Encounter Jerel Dietrich [facility] UNK - Ambulatory Encounter Jerel Dietrich LinkLogic [facility] UNK - Ambulatory Encounter Bing Ferreira MedAdherence [facility] UNK - Ambulatory Encounter Jerel Dietrich LinkLogic [facility] UNK - Ambulatory Encounter Bing Ferreira MedAdherence Doreen Callahan MedAdherence [facility] UNK - Ambulatory Encounter Jerel Dietrich [facility] UNK - Ambulatory Encounter Jerel Thomas [facility] UNK - Ambulatory Encounter Bing Ferreira MedAdherence [facility] UNK - Ambulatory Encounter Bing Ferreira MedAdherence LinkLogic [facility] UNK - Ambulatory Encounter Jerel Dietrich [facility] UNK - Ambulatory Encounter Bing Ferreira MedAdherence [facility] UNK - Ambulatory Encounter Bing Ferreira MedAdherence LinkLogic [facility] UNK - Ambulatory Encounter Jerel KahnLogdestiney [facility] UNK - Ambulatory Encounter Bing Ferreira MedAdherence [facility] UNK - Ambulatory Encounter Bing Ferreira MedAdherence LinkLogic [facility] UNK - Ambulatory Encounter Angelita Callahan MedAdherence [facility] UNK - Ambulatory Encounter Angelita Callahan MedAdherence LinkLogic [facility] UNK - Ambulatory Encounter Bing Ferreira MedAdherence Yojana Minaya [facility] UNK - Ambulatory Encounter Jerel [facility] UNK - Ambulatory Encounter Jerel Beltrán Dietrich [facility] UNK - Ambulatory Encounter Jerel Beltrán Karlo [facility] UNK - Ambulatory Encounter Jerel Wallace [facility] OverweightBMI 25.0-25.9Flu shot - Ambulatory Encounter Carla Singh [facility] UNK - Ambulatory Encounter Jerel Beltrán Dietrich [facility] UNK - Ambulatory Encounter Jerel Beltrán Karlo [facility] UNK - Ambulatory Encounter Bing Ferreira MedAdherence Evang[facility] UNK - Ambulatory Encounter Bing Ferreira MedAdherence LinkLogic [facility] Practice UNK - Ambulatory Encounter Bing Ferreira MedAdherence Evangeline [facility] Practice UNK - Ambulatory Encounter Bing Ferreira MedAdherence LinkLogic [facility] UNK - Ambulatory Encounter Bing Ferreira MedAdherence [facility] UNK - Ambulatory Encounter Bing Ferreira MedAdherence LinkLogic Evang[facility] Practice UNK - Ambulatory Encounter Angelita Callahan MedAdherence Evangeline [facility] Practice UNK - Ambulatory Encounter Angelita Callahan MedAdherence LinkLogic [facility] Practice UNK - Ambulatory Encounter Jerel Dietrich [facility] UNK - Ambulatory Encounter Jerel Dietrich [facility] UNK - Ambulatory Encounter Jerel Dietrich LinkLogic [facility] UNK - Ambulatory Encounter Jerel Karlo Jerel Karlo [facility] UNK - Ambulatory Encounter Jerel Karlo Jerel Karlo [facility] UNK - Ambulatory Encounter Jerel Karlo Jerel Karlo [facility] UNK - Ambulatory Encounter Jerel Karlo Jerel Karlo [facility] UNK - Ambulatory Encounter Jerel Karlo Jerel Karlo [facility] UNK - Ambulatory Encounter Jerel Dietrich Jerel Karlo [facility] UNK - Ambulatory Encounter Jerel Karlo Jerel Karlo [facility] UNK - Ambulatory Encounter Bing Ferreira MedAdherence [facility] UNK - Ambulatory Encounter Katie Chavez [facility] UNK - Ambulatory Encounter Bing Ferreira MedAdherence [facility] UNK - Ambulatory Encounter Jerel Dietrich Jerel Karlo [facility] Practice UNK - Ambulatory Encounter Jerel Dietrich Jerel Karlo [facility] Practice UNK - Ambulatory Encounter Jerel Beltrán Dietrich [facility] UNK - Ambulatory Encounter Jerel Rubalcava [facility] Screening for malignant neoplasm, colonScreening exam for breast cancer - Ambulatory Encounter Bing Ferreira MedAdherence [facility] UNK - Ambulatory Encounter Bing Ferreira MedAdherence [facility] UNK - Ambulatory Encounter Bing Waldrono MedAdherence LinkLogic [facility] UNK - Ambulatory Encounter Bing Ferreira MedAdherence [facility] UNK - Ambulatory Encounter Bing Ferreira MedAdherence LinkLogic [facility] UNK - Ambulatory Encounter Bing Ferreira MedAdherence [facility] UNK - Ambulatory Encounter Bing Ferreira MedAdherence LinkLogic [facility] UNK - Ambulatory Encounter Gisselle Wilder [facility] UNK - Ambulatory Encounter Gisselle Wilder LinkLogic [facility] UNK - Ambulatory Encounter Jerel Dietrich Bing Ferreira MedAdherence [facility] UNK - Ambulatory Encounter Jerel Dietrich [facility] UNK - Ambulatory Encounter Jerel Mccarty [facility] UNK - Ambulatory Encounter Jerel Dietrich LinkLogic [facility] UNK - Ambulatory Encounter Jerel Dietrich LinkLogic [facility] UNK - Ambulatory Encounter Jerel Dietrich [facility] UNK - Ambulatory Encounter Jerel Dietrich LinkLogic [facility] UNK - Ambulatory Encounter Fax Status LinkLogic [facility] UNK - Ambulatory Encounter Fax Status LinkLogic [facility] UNK - Ambulatory Encounter Jerel Moses [facility] UNK - Ambulatory Encounter Jerel Ramires [facility] Contact Center UNK - Ambulatory Encounter Bing Ferreira MedAdherence [facility] UNK - Ambulatory Encounter Bing Ferreira MedAdherence LinkLogic [facility] UNK - Ambulatory Encounter Jerel Dietrich [facility] UNK - Ambulatory Encounter Jerel Dietrich LinkLogic [facility] UNK - Ambulatory Encounter Bing Ferreira MedAdherence [facility] UNK - Ambulatory Encounter Bing Ferreira MedAdherence LinkLogic [facility] UNK - Ambulatory Encounter Fax Status [facility] UNK - Ambulatory Encounter Bing Ferreira MedAdherence [facility] UNK - Ambulatory Encounter Bing Ferreira MedAdherence [facility] UNK - Ambulatory Encounter Jerel Mccarty [facility] HEALTH MAINTENANCE EXAM - Ambulatory Encounter Jerel Dietrich [facility] UNK - Ambulatory Encounter Jerel KahnLogic [facility] UNK - Ambulatory Encounter Jerel KahnLogdestiney [facility] UNK - Ambulatory Encounter Bing Ferreira MedAdherence [facility] UNK - Ambulatory Encounter Bing Ferreira MedAdherence [facility] UNK - Ambulatory Encounter Bing Ferreira MedAdherence LinkLogic [facility] UNK - Ambulatory Encounter Bing Ferreira MedAdherence LinkLogic [facility] UNK - Ambulatory Encounter Bing Ferreira MedAdherence [facility] UNK - Ambulatory Encounter Bing Ferreira MedAdherence LinkLogic [facility] UNK - Ambulatory Encounter Bing aHnna MedAdherence [facility] UNK - Ambulatory Encounter Bing Ferreira MedAdherence LinkLogic [facility] UNK - Ambulatory Encounter Bing Ferreira MedAdherence [facility] UNK - Ambulatory Encounter Bing Ferreira MedAdherence [facility] UNK - Ambulatory Encounter Bing Ferreira MedAdherence LinkLogic [facility] UNK - Ambulatory Encounter Bing Ferreira MedAdherence LinkLogic [facility] UNK - Ambulatory Encounter Bing Ferreira MedAdherence [facility] UNK - Ambulatory Encounter Bing Ferreira MedAdherence LinkLogic [facility] UNK - Ambulatory Encounter Jerel Dietrich LinkLogic [facility] UNK - Ambulatory Encounter Jerel Dietrich [facility] UNK - Ambulatory Encounter Bing Ferreira MedAdherence [facility] UNK - Ambulatory Encounter Bing Ferreira MedAdherence LinkLogic [facility] UNK - Ambulatory Encounter Jerel Dietrich LinkLogic [facility] UNK - Ambulatory Encounter Lyla Daniel [facility] UNK - Ambulatory Encounter [facility]rel Sotelo [facility] OSTEOARTHRITIS - Ambulatory Encounter Bing Ferreira MedAdherence Kirk [place] [facility] Center UNK - Ambulatory Encounter Tram Mann Tram Mann [facility] UNK - Ambulatory Encounter Tram Mann Tram Mann [facility] UNK - Ambulatory Encounter Elisabeth Bourne Tram Mann Tram Mann Thea Wallace [facility] HEADACHECHEST PAINHYPERLIPIDEMIA - Ambulatory Encounter Jerel Dietrich [facility] UNK - Ambulatory [facility] - [facility] Jerel Dietrich [facility] UNK - Ambulatory Encounter Jerel Chavez [facility] UNK - Ambulatory Encounter [facility] - [facility] - Ambulatory Encounter Arlen Nicholson [facility] UNK - Ambulatory [facility] - Ambulatory Encounter Jerel Coker [facility] UNK - Ambulatory Encounter Bing Ferreira Med[facility] UNK - Ambulatory Encounter Jerel Ferreira MedAdherence [facility] Adult Medicine UNK - Ambulatory Encounter [facility] UNK - Ambulatory Encounter Lutheran Preload LinkLogic [facility] UNK - Ambulatory Encounter Lutheran Preload LinkLogic [facility] UNK - Ambulatory Encounter Lutheran Preload LinkLogic Ev[facility] UNK - Ambulatory Encounter Lutheran Preload LinkLogic [facility] UNK - Ambulatory Encounter Lutheran Preload LinkLogic [facility] UNK - Ambulatory Encounter Lutheran Preload [facility]Log[facility] UNK - Ambulatory Encounter Lutheran Preload [facility]Log[facility] UNK - Ambulatory Encounter Lutheran Preload LinkLog[facility] UNK - Ambulatory Encounter Lutheran Preload [facility]Log[facility] UNK - Ambulatory Encounter Lutheran Preload LinkLogic [facility] UNK - Ambulatory Encounter Lutheran Preload LinkLogic [facility] UNK - Ambulatory Encounter Lutheran Preload LinkLogic [facility] UNK - Ambulatory Encounter Lutheran Preload LinkLogic [facility] UNK - Ambulatory Encounter Lutheran Preload LinkLogic [facility] UNK - Ambulatory Encounter Lutheran Preload [facility]Logic [facility] UNK - Ambulatory Encounter Lutheran Preload [facility]Logic [facility] UNK - Ambulatory Encounter Lutheran Preload [facility]Log[facility] UNK - Ambulatory Encounter Lutheran Preload [facility]Logic [facility] UNK - Ambulatory Encounter Lutheran Preload [facility]Logic [facility] UNK - Ambulatory Encounter Lutheran Preload LinkLogic [facility] UNK - Ambulatory Encounter Lutheran Preload LinkLogic [facility] UNK - Ambulatory Encounter Lutheran Preload LinkLogic [facility] UNK - Ambulatory Encounter Lutheran Preload [facility]Logic [facility] UNK - Ambulatory Encounter Lutheran Preload [facility] UNK - Ambulatory Encounter Lutheran Preload [facility]Log[facility] UNK - Ambulatory Encounter Lutheran Preload [facility]Log[facility] UNK - Ambulatory Encounter Lutheran Preload LinkLogic [facility] UNK - Ambulatory Encounter Lutheran Preload LinkLogic [facility] UNK - Ambulatory Encounter Lutheran Preload [facility]Logic [facility] UNK - Ambulatory Encounter Lutheran Preload [facility]Logic [facility] UNK - Ambulatory Encounter Lutheran Preload [facility]Logic [facility] UNK - Ambulatory Encounter Lutheran Preload LinkLogic [facility] UNK - Ambulatory Encounter Lutheran Preload [facility]ic [facility] UNK - Ambulatory Encounter Jerel Dietrich Link[facility] UNK - Ambulatory Encounter Lutheran Preload LinkLogic [facility] UNK - Ambulatory Encounter Lutheran Preload LinkLogic [facility] UNK - Ambulatory Encounter Lutheran Preload LinkLogic [facility] UNK - Ambulatory Encounter Lutheran Preload LinkLogic [facility] UNK - Ambulatory Encounter Lutheran Preload LinkLogic [facility] UNK - Ambulatory Encounter Lutheran Preload LinkLogic [facility] UNK - Ambulatory Encounter Lutheran Preload LinkLogic [facility] UNK - Ambulatory Encounter Lutheran Preload LinkLogic [facility] UNK - Ambulatory Encounter Lutheran Preload LinkLogic [facility] UNK - Ambulatory Encounter Lutheran Preload LinkLogic [facility] UNK - Ambulatory Encounter Lutheran Preload LinkLogic [facility] UNK - Ambulatory Encounter Lutheran Preload LinkLogic Evang[facility] UNK - Ambulatory Encounter Lutheran Preload LinkLogic [facility] UNK - Ambulatory Encounter Lutheran Preload LinkLogic [facility] UNK - Ambulatory Encounter Lutheran Preload LinkLogic [facility] UNK - Ambulatory Encounter Lutheran Preload LinkLogic [facility] UNK - Ambulatory Encounter Lutheran Preload LinkLogic [facility] UNK - Ambulatory Encounter Lutheran Preload LinkLogic [facility] UNK - Ambulatory Encounter Lutheran Preload LinkLogic [facility] UNK - Ambulatory Encounter Lutheran Preload LinkLogic [facility] UNK - Ambulatory Encounter Lutheran Preload LinkLogic [facility] UNK - Ambulatory Encounter Lutheran Preload LinkLogic [facility] UNK - Ambulatory Encounter Lutheran Preload LinkLog[facility] UNK - Ambulatory Encounter Lutheran Preload [facility] UNK - Ambulatory Encounter Lutheran Preload [facility] UNK - Ambulatory Encounter Lutheran Preload [facility] UNK - Ambulatory Encounter Lutheran Preload LinkLogic [facility] UNK - Ambulatory Encounter Lutheran Preload LinkLogic [facility] UNK - Ambulatory Encounter Lutheran Preload LinkLogic [facility] UNK - Ambulatory Encounter Lutheran Preload LinkLogic [facility] UNK - Ambulatory Encounter Lutheran Preload LinkLogic [facility] UNK - Ambulatory Encounter Lutheran Preload LinkLogic [facility] UNK - Ambulatory Encounter Lutheran Preload LinkLogic [facility] UNK - Ambulatory Encounter Lutheran Preload LinkLogic [facility] UNK - Ambulatory Encounter Lutheran Preload LinkLogic [facility] UNK - Ambulatory Encounter Lutheran Preload LinkLogic [facility] UNK - Ambulatory Encounter Lutheran Preload LinkLogic [facility] UNK - Ambulatory Encounter Lutheran Preload LinkLogic [facility] UNK - Ambulatory Encounter Lutheran Preload LinkLogic [facility] UNK - Ambulatory Encounter Jerel Ferreira Med[facility]herence [facility] UNK - Ambulatory Encounter Jerel Pederson Alderman [facility] UNK - Ambulatory Encounter Jerel Arita Minor [facility] ANXIETYARTHRALGIAHYPOTHYROIDISM - Ambulatory Encounter Jerel Dietrich [facility] UNK - Ambulatory Encounter Jerel Ferreira [facility] UNK VITAL SIGNS No Information Available [...] " urea nitrogen/creatinine ratio, serum 10 LinkLogic 12- Low " eGFR if 84 mL/min/((173/100).m2) LinkLogic [...] POTASSIUM CHLORIDE 20 MEQ/15ML (10%) ORAL SOLUTION 10 mL By Mouth Every Day Cecille Bensonome OLOPATADINE HCL 0.1 % OPHTHALMIC SOLUTION 1 drop in eye Twice a Day Cecille Atkins GUAIFENESIN-CODEINE 100-10 MG/5ML ORAL SOLUTION 10 mL Every 6 hrs As Needed for cough and body aches Cecille Atkins BENZONATATE 100 MG ORAL CAPSULE 1 tab By Mouth Three Times a Day Cecille Atkins CLARITIN 10 MG ORAL TABLET 1 by mouth every day Cecille Atkins TRIAMCINOLONE ACETONIDE 0.1 % EXTERNAL OINTMENT apply to affected area twice a day for a week Cecille Atkins K-PHOS 500 MG ORAL TABLET 1 tab By Mouth Every Day wf Cecille Wilbert FUROSEMIDE 20 MG ORAL TABLET 1 tab By Mouth Every Day Cecille Wilbert NORCO 5-325 MG ORAL TABLET Cecille Atkins LASIX 20 MG ORAL TABLET 1 by [...] day as needed for muscle spasm Cecille Atkins ATORVASTATIN CALCIUM 40 MG ORAL TABLET 1 [...] CAPSULE take one every night - Cecille Atkins CRESTOR 20 MG ORAL TABLET 1 tab by mouth daily Jerel Dietrich LEVOTHYROXINE SODIUM 125 MCG ORAL TABLET One tab by mouth daily - Bing Waldrono Med[facility]hern[facility] HYDROCODONE-ACETAMINOPHEN 10-325 MG ORAL TABLET takde one daily as needed for chronic hip pain Jerel Dietrich LORAZEPAM 2 MG ORAL TABLET take one tab daily as needed for anxiety Cecille Wilbert HYOSCYAMINE SULFATE 0.125 MG SUBLINGUAL TABLET SUBLINGUAL Take 1 tablet under the tongue before meals. Bing Waldrono [facility] PREMARIN 0.9 MG ORAL TABLET 1 by mouth every other day Bing Waldrono [facility] CELEBREX 100 MG ORAL CAPSULE 1 by mouth Twice a Day Bing Ferreira Karenaence NEXIUM 40 MG ORAL CAPSULE DELAYED RELEASE 1 by mouth daily Jerel Dietrich TRAMADOL HCL 50 MG TABS TAKE 1 TABLET BY MOUTH 2 TO 3 TIMES A DAY NEEDED FOR PAIN Ceiclle Wilbert HYDROCODONE-ACETAMINOPHEN 10-650 MG ORAL TABLET take one daily for pain Jerel Dietrich LORAZEPAM 2 MG ORAL TABLET take one daily Jerel Dietrich LEVOTHYROXINE SODIUM 125 MCG ORAL TABLET take 1 tablet By Mouth Every Day Bing Waldrono [facility] AMITRIPTYLINE HCL 50 MG ORAL TABLET take 1 tablet By Mouth Every Day at bedtime - Cecille Wilbert SOCIAL HISTORY Date Observation Value Provider sex at Female Jessica Carrizales " drug use, illicit Never Jessica Carrizales " alcohol use Currently Jessica Carrizales " social history E&M . Not homeless. City: [place]. State: [place]. 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 Jessica Carrizales " social history reviewed E&M reviewed today Jessica Carrizales " sexual orientation Heterosexual Jessica Carrizales " assessment of health literacy ([facility] 2014 Standards, 3C10) Adequate Jessica S Carrizales " passive cigarette smoke exposure No Jessica S Carrizales " smoking status never smoker Jessica S Carrizales " Exercise Program Referral T Jessica S Carrizales " Weight Management Counseling Provided T Jessica S Carrizales " Nutrition intervention T Jessica S Carrizales time of call 05/01/2019 10:15 AM Elizabeth Rodriguez drug use, illicit Never Suma Encarnacion " alcohol use Currently Suma Encarnacion " social history E&M . Not homeless. City: [place]. State: [place]. 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 Suma [...] Thea Song " assessment of health literacy ([facility] 2014 Standards, 3C10) Adequate Thea Song " drug use, illicit Never Thea Song " alcohol use Currently Thea Song " smoking status never smoker Thea Song " social history E&M . Not homeless. City: [place]. State: [place] 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 Thea Song " social history reviewed E&M reviewed today Thea Song time of call 01/13/2019 8:19 AM Elizabeth Chavez Exercise Program Referral T Cecille Wilbert " Weight Management Counseling Provided T Cecille Wilbert " Nutrition intervention T Cecille Wilbert " social history E&M . Not homeless. City: [place]. State: [place]. 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 Thea Song " social history reviewed E&M reviewed today Thea Song " drug use, illicit Never Thea Song " alcohol use Currently Thea Song " assessment of health literacy ([facility] 2014 Standards, 3C10) Adequate Theabrian Song " is there any chance that you could be ? No Thea Song " passive cigarette smoke exposure No Thea Song " smoking status never smoker Thea Song drug use, illicit Never Suma Encarnacion " alcohol use Currently Suma Encarnacion " social history E&M . Not homeless. City: [place]. State: [place]. 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 Suma Encarnacion " social history reviewed E&M reviewed today Suma Encarnacion " assessment of health literacy ([facility] 2014 Standards, 3C10) Adequate Smua Encarnacion " passive cigarette smoke exposure No [...] social history E&M . Not homeless. City: [place]. State: [place]. 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 Suma Encarnacion " social history reviewed E&M reviewed today Suma Encarnacion " assessment of health literacy ([facility] 2014 Standards, 3C10) Adequate Suma Encarnacion [...] social history E&M . Not homeless. City: [place]. State: [place]. 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 Alice Hennessy " social history reviewed E&M reviewed today Alice Hennessy " assessment of health literacy ([facility] 2014 Standards, 3C10) Adequate Alice Hennessy " passive cigarette smoke exposure No Alice Hennessy " smoking status never smoker Alice Hennessy time of call 07/19/2018 3:26 PM Keymargaret Foster Exercise Program Referral T Cecille Wilbert " Weight Management Counseling Provided T Cecille Wilbert " Nutrition intervention T Cecille Wlibert drug use, illicit Never Krystin Thomas " alcohol use Currently Krystin Thomas " social history E&M . Not homeless. City: [place]. State: [place] 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 Krystin Thomas " social history reviewed E&M reviewed today Krystin Thomas " assessment of health literacy ([facility] 2014 Standards, 3C10) Adequate Krystin Thomas " passive cigarette smoke exposure No Krystin Thomas " smoking status never smoker Krystin Thomas assessment of health literacy ([facility] 2014 Standards, 3C10) Adequate Perri Mccarty " Exercise Program Referral T Perri Mccarty " Weight Management Counseling Provided T Perri Mccarty " Nutrition intervention T Perri Mccarty " drug use, illicit Never Perri Mccarty " alcohol use Currently Perri Mccarty " social history E&M . Not homeless. City: [place]. State: [place]. 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 Perri Mccarty " social history reviewed E&M reviewed today Perri Mccarty " passive cigarette smoke exposure No Perri Mccarty " smoking status never smoker Perri Mccarty assessment of health literacy ([facility] 2014 Standards, 3C10) Adequate Krystin Thomas [...] T Cecille Wilbert assessment of health literacy ([facility] 2014 Standards, 3C10) Adequate Claribel Castillo " is there any chance that you could be ? No Claribel Castillo " passive cigarette smoke exposure No Claribel Castillo " smoking status never smoker Claribel Castillo assessment of health literacy ([facility] 2014 Standards, 3C10) Adequate Claribel Castillo " passive cigarette smoke exposure No Claribel Castillo " smoking status never smoker Claribel Castillo drug use, illicit Never Jahaira Pool " alcohol use Currently Jahaira Pool " social history E&M . Not homeless. City: [place]. State: [place]. 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 Jahaira Pool " social history reviewed E&M reviewed today Jahaira Pool " assessment of health literacy ([facility] 2014 Standards, 3C10) Adequate Jahaira Pool " passive cigarette smoke exposure No Jahaira Pool " smoking status never smoker Jahaira Pool Exercise Program Referral T Cecille Wilbert " Weight Management Counseling Provided T Cecille Wilbert " Nutrition intervention T Cecille Wilbert " drug use, illicit Never Jahaira Pool " alcohol use Currently Jahaira Pool " social history E&M . Not homeless. City: [place]. State: [place]. 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 Jahaira Pool " social history reviewed E&M reviewed today Jahaira Pool " assessment of health literacy ([facility] 2014 Standards, 3C10) Adequate Jahaira Pool [...] social history E&M . Not homeless. City: [place]. State: [place]. 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 Krystin Thomas " social history reviewed E&M reviewed today Krystin Thomas " passive cigarette smoke exposure Yes Krystin Thomas " smoking status never smoker Krystin Thomas " assessment of health literacy ([facility] 2014 Standards, 3C10) Adequate Krystin Thomas Exercise Program Referral T Yojana Darrell " Weight Management Counseling Provided T Yojana Ramírez " Nutrition intervention T Yojana Ramírez " social history E&M . Not homeless. City: [place]. State: [place] 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 Yojana Ramírez " social history reviewed E&M reviewed today Yojana Garciavez " passive cigarette smoke exposure Yes Yojana Garciavez " smoking status never smoker Yojana Ramírez " assessment of health literacy ([facility] 2014 Standards, 3C10) Adequate Yojana Garciavez Exercise Program Referral T Cecille Wilbert " Weight Management Counseling Provided T Cecille Wilbert " Nutrition intervention T Cecille Wilbert " social history E&M . Not homeless. City: [place]. State: [place] 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 Terri Wood " social history reviewed E&M reviewed today Terri Wood " passive cigarette smoke exposure Yes Terri Wood " smoking status never smoker Terri Wood " assessment of health literacy ([facility] 2014 Standards, 3C10) Adequate Terri Wood time of call 03/14/2017 12:51 PM Alice Singh time of call 09/27/2016 3:56 PM Doreen Angulo Exercise Program Referral Fe Dietrich " Weight Management Counseling Provided Fe Dietrich " Nutrition intervention Fe Dietrich " drug use, illicit Never Krystin Thomas " alcohol use Currently Krystin Thomas " social history E&M . Not homeless. City: [place]. State: [place] 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 Krystin Thomas " social history reviewed E&M reviewed today Krystin Thomas " passive cigarette smoke exposure Yes Krystin Thomas " smoking status never smoker Krystin Thomas " assessment of health literacy ([facility] 2014 Standards, 3C10) Adequate Krystin Thomas time of call 07/28/2016 2:59 PM Yojana Minaya drug use, illicit Never Krystin Thomas " alcohol use Currently Krystin Thomas " social history E&M . Not homeless. City: [place]. State: [place]. 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 Krystin Thomas " social history reviewed E&M reviewed today Krystinus Nguyenra " passive cigarette smoke exposure Yes Krystin [...] social history E&M . Not homeless. City: [place]. State: [place]. 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 Thea [...] Coker " Exercise Program Referral T Yojana Coker " Weight Management Counseling Provided T Yojana Coker " Nutrition intervention T Yojana Coker smoking status never LinkLogic smoking [...] social history E&M . Not homeless. City: [place]. State: [place] 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 Lyla Minor " patient considered to be [...] E&M oriented to time, place, and person [facility] " assessment of mood and affect E&M no depression, anxiety, or agitation Cecille Wilbert assessment of judgment and insight E&M intact [facility] " mental status examination: orientation E&M oriented to time, place, and person Cecille [facility] " assessment of mood and affect [...] E&M no depression, anxiety, or agitation Cecille [facility] " assessment of judgment and insight E&M intact Cecille [facility] " Generalized Anxiety Disorder Questionnaire - Question 2 0 Jahaira Pool " Generalized Anxiety Disorder Questionnaire - Question 1 0 Jahaira Pool assessment of mood and affect E&M no depression, anxiety, or agitation [facility] " assessment of judgment and insight E&M intact [facility] " Generalized Anxiety Disorder Questionnaire - [...] E&M no depression, anxiety, or agitation Cecille [facility] " Generalized Anxiety Disorder Questionnaire - [...] assessment of judgment and insight E&M intact [facility] " mental status examination: orientation E&M [...] affect E&M no depression, anxiety, or agitation [facility] " Generalized Anxiety Disorder Questionnaire - [...] affect E&M no depression, anxiety, or agitation [facility] " Generalized Anxiety Disorder Questionnaire - Question 2 0 Perri Mccarty " Generalized Anxiety Disorder Questionnaire - Question 1 0 Perri Mccarty assessment of judgment and insight E&M intact Jerel Dietrich " assessment of mood and affect E&M no depression, anxiety, or agitation [facility] " Generalized Anxiety Disorder Questionnaire - Question 2 0 Perri Mccarty " Generalized Anxiety Disorder Questionnaire - Question 1 0 Perri Mccarty assessment of judgment and insight E&M intact Jerel Dietrich " assessment of mood and affect E&M no depression, anxiety, or agitation [facility] " Generalized Anxiety Disorder Questionnaire - [...] Level III Est Patient Exp Problem - 31456 Est Patient Exp Problem - 77635 Est Patient Detailed - 32859 Est Patient Exp Problem - 57179 Est Patient Detailed - 09554 Injection, ketorolac tromethamine (toradol), per 15 mg Est Patient Detailed - 29776 Est Patient Detailed - 52883 Est Patient Detailed - 50126 IM or SQ Injection Injection, dexamethasone sodium phosphate, 1mg Est Patient Detailed - 02111 Est Patient Detailed - 99289 Est Patient Detailed - 02612 Est Patient Detailed - 74627 Est Patient Exp Problem - 25122 IM or SQ Injection Injection, dexamethasone sodium phosphate, 1mg Est Patient Detailed - 59841 Est Patient Exp Problem - 68961 Est Patient Detailed - 57057 INFLUENZA VACCINE QUADRIVALENT 3 YRS PLUS IM Est Patient Well Exam (40 - 64 Yrs) - 37316 INFLUENZA VACCINE QUADRIVALENT 3 YRS PLUS IM Est Patient Exp Problem - 27484 Est Patient Well Exam (40 - 64 Yrs) - 47671 Est Patient Exp Problem - 25633 Est Patient Detailed - 17564 Est Patient Exp Problem - 98498 EKG - Tracing Only EKG - Interpretation & Report Only Est Patient Exp Problem - 24207 Est Patient Well Exam (40 - 64 Yrs) - 11325 Est Patient Exp Problem - 16262 HISTORY OF PROCEDURES Procedure Date Procedure Name Provider Procedure Notes Status Injection, ketorolac tromethamine (toradol), per 15 mg Cecille Wilbert completed IM or SQ Injection Cecille Wilbert 4mg left deltoid IM completed Injection, dexamethasone sodium phosphate, 1mg Cecille Wilbert completed IM or SQ Injection Cecille Wilbert 4mg/ml dexamethasone IM right gluteus medius completed Injection, dexamethasone sodium phosphate, 1mg Cecille Wilbert [facility]: [id number]. completed EKG - Tracing Only Elisabeth Bourne completed EKG - Interpretation & Report Only Elisabeth Bourne completed GOALS No Information Available HEALTH CONCERNS No Information Available
--- OUTSIDE RECORDS SUMMARY | 2019-08-12 11:45 | XMS REPORT ---
Author Author Admin, [place] Organization Unknown Address Unknown Phone Unavailable PROBLEMS [...] Location Encounter Diagnosis - Ambulatory Encounter Cecille Aleman MedAdherence [facility] UNK - Ambulatory Encounter Cecille Mathew MedAdherence [facility] UNK - Ambulatory Encounter Cecille Atkins LinkLogic [facility] UNK - Ambulatory Encounter Cecille Wilbert Atkins LinkLogic [facility] UNK - Ambulatory Encounter Cecille Wilbert Atkins [facility] - Ambulatory Encounter Cecille Wilbert Odenviv Sarah [facility] - Ambulatory Encounter Cecille Wilbert Aktins LinkLogic [facility] UNK - Ambulatory Encounter Cecille Wilbert Atkins [facility] UNK - Ambulatory Encounter Cecille Carrizales [facility] Viral URI - Ambulatory Encounter Cecille Rodriguez [facility] UNK - Ambulatory Encounter Cecille Atkins LinkLogdestiney [facility] UNK - Ambulatory Encounter Cecille Callahan MedAdherence [facility] UNK - Ambulatory Encounter Cecille Atkins [facility] UNK - Ambulatory Encounter Cecille Thomas [facility] UNK - Ambulatory Encounter Cecille Wilbert Atkins LinkLogdestiney [facility] UNK - Ambulatory Encounter Cecille Atkins [facility] UNK - Ambulatory Encounter Cecille Wilbert Atkins LinkLogic [facility] UNK - Ambulatory Encounter Cecille Atkins [facility] UNK - Ambulatory Encounter Cecille Wilbert Stormez [facility] Impaired physical mobility - Ambulatory Encounter Cecille Wilbert Atkins LinkLogic [facility] UNK - Ambulatory Encounter Cecille Wilbert Atkins Bing Ferreira MedAdherence [facility] UNK - Ambulatory Encounter Cecille Wilbert Miguelyn London MedAdherence [facility] UNK - Ambulatory Encounter Cecille Wilbert Callahan MedAdherence [facility] UNK - Ambulatory Encounter Cecille Wilbert Atkins LinkLogic [facility] UNK - Ambulatory Encounter Cecille Atkins Bing Ferreira MedAdherence [facility] UNK - Ambulatory Encounter Cecille Wilbert Atkins LinkLogic [facility] UNK - Ambulatory Encounter Cecille Wilbert Atkins [facility] UNK - Ambulatory Encounter Cecille Wilbert Atkins LinkLogic [facility] UNK - Ambulatory Encounter Cecille Wilbert Atkins [facility] UNK - Ambulatory Encounter Cecille Wilbert Song [facility] Rash, nonspecific - Ambulatory Encounter Cecille Wilbert Ramirez UNK - Ambulatory Encounter Cecille Wilbert Atkins LinkLogic [facility] UNK - Ambulatory Encounter Cecille Wilbert Thomas [facility] UNK - Ambulatory Encounter Cecille Wilbert Atkins LinkLogic [facility] UNK - Ambulatory Encounter Cecille Wilbert Cecille Atkins Christian Hendricks [facility] HYPOKALEMIA - Ambulatory Encounter Cecille Wilbert Cecille Wilbert [facility] UNK - Ambulatory Encounter Cecille Wilbert Cecille Atkins Bing Ferreira MedAdherence [facility] UNK - Ambulatory Encounter Cecille Wilbert Cecille Atkins LinkLogic [facility] UNK - Ambulatory Encounter Cecille Wilbert Cecille Wilbert [facility] UNK - Ambulatory Encounter Cecille Wilbert Atkins Bing Ferreira MedAdherence Krystin Dey [facility] Multiple joint pain - Ambulatory Encounter Cecille Wilbert Callahan MedAdherence [facility] UNK - Ambulatory Encounter Cecille Wilbert Cecille Callahan MedAdherence [facility] UNK - Ambulatory Encounter Cecille Wilbert Atkins [facility] - Ambulatory Encounter Cecille Wilbert Cecille Atkins LinkLogic [facility] UNK - Ambulatory Encounter Cecille Wilbert Atkins [facility] UNK - Ambulatory Encounter Cecille Wilbert Cecille Encarnacion [facility] UNK - Ambulatory Encounter Cecille Wilbert Cecille Callahan MedAdherence Perri Greer [facility] Contact Center UNK - Ambulatory Encounter Cecille Wilbert Cecille Bensonome [facility] UNK - Ambulatory Encounter Cecille Wilbert Cecille Ashby [facility] Contact Center UNK - Ambulatory Encounter Cecille Wilbert Cecille Wilbert LinkLogic [facility] UNK - Ambulatory Encounter Cecille Wilbert Cecille Wilbert LinkLogic [facility] UNK - Ambulatory Encounter Cecille Wilbert Cecille Wilbert LinkLogic [facility] UNK - Ambulatory Encounter Fax Status [facility] UN[facility] - Ambulatory Encounter Fax Status [facility] UNK - Ambulatory Encounter Fax Status LinkLogic [facility] UNK - Ambulatory Encounter Fax Status LinkLogic [facility] UNK - Ambulatory Encounter Fax Status [facility] UNK - Ambulatory Encounter Fax Status [facility] UNK - Ambulatory Encounter Bing Ferreira MedAdherence [facility] UNK - Ambulatory Encounter Cecille Wilbert Cecille Bensonome LinkLogic [facility] UNK - Ambulatory Encounter Cecille Wilbert Bensonome [facility] UNK - Ambulatory Encounter Cecille Wilbert Cecille Bensonome LinkLogic [facility] UNK - Ambulatory Encounter Cecille Wilbert Atkins [facility] UNK - Ambulatory Encounter Cecille Wilbert Cecille Bensonome Krystin Coe [facility] Ankle swelling - Ambulatory Encounter Cecille Wilbert Callahan MedAdherence [facility] UNK - Ambulatory Encounter Cecille Wilbert Kahn [facility] UNK - Ambulatory Encounter Cecille Wilbert Atkins LinkLogdestiney [facility] UNK - Ambulatory Encounter Bing Ferreira MedAdherence [facility] UNK - Ambulatory Encounter Cecille Wilbert Oden Wilbert [facility] UNK - Ambulatory Encounter Cecille Wilbert Atkins Tiarra Nicholson [facility] UNK - Ambulatory Encounter Cecille Wilbert Atkins Alice Hennessy [facility] UNK - Ambulatory Encounter Cecille Wilbert Atkins Bing Ferreira MedAdherence [facility] UNK - Ambulatory Encounter Bing Ferreira MedAdherence [facility] UNK - Ambulatory Encounter Angelita Callahan MedAdherence Mar[facility] UNK - Ambulatory Encounter Cecille Wilbert Atkins LinkLogic [facility] UNK - Ambulatory Encounter Cecille Atkins [facility] UNK - Ambulatory Encounter Cecille Wilbert Atkins LinkLogic [facility] UNK - Ambulatory Encounter Cecille Atkins [facility] UNK - Ambulatory Encounter Cecille Thomas [facility] Gastric benign tumor - Ambulatory Encounter Cecille Callahan MedAdherence [facility] UNK - Ambulatory Encounter Cecille Atkins LinkLogic [facility] UNK - Ambulatory Encounter Angelita Callahan MedAdherence [facility] UNK - Ambulatory Encounter Cecille Wilbert Atkins [facility] UNK - Ambulatory Encounter Cecille Wilbertdaria Atkins LinkLogic [facility] UNK - Ambulatory Encounter [facility] - Ambulatory Encounter Cecille Wilbert Cecille Wilbert [facility] UNK - Ambulatory Encounter Cecille Wilbert Cecille Wilbert Perri [facility] Pharyngitis, acute - Ambulatory Encounter Cecille Wilbert Cecille Wilbert LinkLogic [facility] UNK - Ambulatory Encounter Cecille Wilbert Cecille Wilbert LinkLogic [facility] UNK - Ambulatory Encounter Cecille Wilbert Cecille Wilbert [facility] UNK - Ambulatory Encounter Cecille Wilbert Cecille Wilbert Krystin Thomas [facility] UNK - Ambulatory Encounter Cecille Wilbert Cecille Wilbert LinkLogic [facility] UNK - Ambulatory Encounter Cecille Wilbertdaria Atkins LinkLogic [facility] UNK - Ambulatory Encounter Cecille Wilbert Cecille Wilbert LinkLogic [facility] UNK - Ambulatory Encounter Cecille Wilbert Cecille Wilbert LinkLogic [facility] UNK - Ambulatory Encounter Cecille Wilbert Cecille Wilbert LinkLogic [facility] UNK - Ambulatory Encounter Cecille Wilbert Cecille Wilbert LinkLogic [facility] UNK - Ambulatory Encounter Cecille Wilbert Cecille Wilbert LinkLogic [facility] UNK - Ambulatory Encounter Cecille Wilbert Cecille Wilbert [facility] UNK - Ambulatory Encounter Ceiclle Newmaniroz [facility] UNK - Ambulatory Encounter Cecille Atkins LinkLogic [facility] UNK - Ambulatory Encounter Cecille Atkins LinkLogic [facility] UNK - Ambulatory Encounter Cecille Atkins LinkLogic [facility] UNK - Ambulatory Encounter Angelita Callahan MedAdherence [facility] UNK - Ambulatory Encounter Angelita Callahan MedAdherence [facility] UNK - Ambulatory Encounter Angelita Callahan MedAdherence [facility] UNK - Ambulatory Encounter Angelita Callahan [facility] - Ambulatory Encounter Angelita Callahan [facility]herence [facility] UN[facility] - Ambulatory Encounter Angelita Callahan MedAdherence LinkLogic [facility] UNK - Ambulatory Encounter Cecille Atkins [facility] UNK - Ambulatory Encounter Cecille Mcnairgail Castillo [facility] UNK - Ambulatory Encounter Fax Status [facility] UNK - Ambulatory Encounter Fax Status [facility] UNK - Ambulatory Encounter Fax Status [facility] UNK - Ambulatory Encounter Cecille Atkins [facility] UNK - Ambulatory Encounter Cecille Atkins Narcisa Camp[facility] Chronic painHypertensionAnorectal disorder - Ambulatory Encounter Bing Ferreira MedAdherence [facility] UNK - Ambulatory Encounter Cecille Atkins [facility] UNK - Ambulatory Encounter Cecille Atkins [facility] UNK - Ambulatory Encounter Cecille Atkins [facility] UNK - Ambulatory Encounter Fax Status [facility] UNK - Ambulatory Encounter Cecille Atkins [facility] UNK - Ambulatory Encounter Cecille Atkins Perriashely Campo [facility] UNK - Ambulatory Encounter Cecille Atkins [facility] UNK - Ambulatory Encounter Angelita Callahan MedAdherence [facility] UNK - Ambulatory Encounter Angelita Callahan MedAdherence LinkLogic [facility] UNK - Ambulatory Encounter Bing Ferreira MedAdherence [facility] UNK - Ambulatory Encounter Angelita Callahan MedAdherence [facility] UNK - Ambulatory Encounter Angelita Callahan [facility]Adherence [facility] UNK - Ambulatory Encounter Cecille Atkins [facility] UNK - Ambulatory Encounter Cecille Wilbert Atkins [facility] UNK - Ambulatory Encounter Cecille Wilbert Atkins Perriashely Olea [facility] Allergic rhinitis - Ambulatory Encounter Cecille Wilbert Atkins [facility] UNK - Ambulatory Encounter Cecille Thomas [facility] Acute frontal sinusitis - Ambulatory Encounter Angelita Callahan [facility] UNK - Ambulatory Encounter Angelita Callahan [facility]Flagstaff [facility] Cent[facility] UNK - Ambulatory Encounter Cecille Wilbert Atkins [facility] UNK - Ambulatory Encounter Cecille Atkins [facility] UNK - Ambulatory Encounter Cecille Wilbert Hooperz [facility] UNK - Ambulatory Encounter Lizzette Shankar Szymanski [facility] UNK - Ambulatory Encounter Cecille Wilbert Cecille Wilbert Chaparro Szymanski [facility] UNK - Ambulatory Encounter Cecille Atkins [facility] UNK - Ambulatory Encounter Cecille Wilbert Atkins [facility] UNK - Ambulatory Encounter Cecille Wilbert Chaparro Szymanski Terri Fiorez [facility] UNK - Ambulatory Encounter Asmitadavid Singh [facility] UNK - Ambulatory Encounter Asmita Garcia [facility] UNK - Ambulatory Encounter Elisabeth Bourne [facility] UNK - Ambulatory Encounter Angelita Singh [facility] Contact Center UNK - Ambulatory Encounter Jerel Dietrich [facility] UNK - Ambulatory Encounter Jerel Dietrich [facility] UNK - Ambulatory Encounter Jerel Dietrich [facility] UNK - Ambulatory Encounter Angelita Callahan MedAdherence [facility] UNK - Ambulatory Encounter Angelita Callahan MedAdherence LinkLogic [facility] UNK - Ambulatory Encounter Jerel Dietrich [facility] UNK - Ambulatory Encounter Jerel Dietrich LinkLogic [facility] UNK - Ambulatory Encounter Bing Ferreira MedAdherence [facility] UNK - Ambulatory Encounter Jerel Dietrich LinkLog [facility] UNK - Ambulatory Encounter Bing Ferreira MedAdherence Doreen Callahan MedAdherence [facility] UNK - Ambulatory Encounter Jerel Dietrich [facility] UNK - Ambulatory Encounter Jreel Thomas [facility] UNK - Ambulatory Encounter Bing Ferreira MedAdherence [facility] UNK - Ambulatory Encounter Bing Ferreira MedAdherence LinkLogic [facility] UNK - Ambulatory Encounter Jerel Dietrich [facility] UNK - Ambulatory Encounter Bing Ferreira MedAdherence [facility] UNK - Ambulatory Encounter Bing Ferreira MedAdherence LinkLogic [facility] UNK - Ambulatory Encounter Jerel Dietrich LinkLog [facility] UNK - Ambulatory Encounter Bing Ferreira MedAdherence [facility] UNK - Ambulatory Encounter Bing Ferreira MedAdherence LinkLogic [facility] UNK - Ambulatory Encounter Angelita Callahan MedAdherence [facility] UNK - Ambulatory Encounter Angelita Callahan MedAdherence LinkLogic [facility] UNK - Ambulatory Encounter Bing Ferreira MedAdherence Yojana Minaya [facility] UNK - Ambulatory Encounter [facility] UNK - Ambulatory Encounter Jerel Diet[facility] UN[facility] - Ambulatory Encounter Jerel Dietrich [facility] UNK - Ambulatory Encounter Jerel Mcclelland [facility] OverweightBMI 25.0-25.9Flu shot - Ambulatory Encounter Carla Singh [facility] UNK - Ambulatory Encounter Jerel Dietrich [facility] UNK - Ambulatory Encounter Jerel Dietrich [facility] UNK - Ambulatory Encounter Bing Ferreira MedAdherence [facility] UNK - Ambulatory Encounter Bing Ferreira MedAdherence LinkLogic [facility] UNK - Ambulatory Encounter Bing Ferreira MedAdherence [facility] UNK - Ambulatory Encounter Bing Ferreira MedAdherence LinkLogic [facility] UNK - Ambulatory Encounter Bing Ferreira MedAdherence [facility] UNK - Ambulatory Encounter Bing Ferreira MedAdherence LinkLogic [facility] UNK - Ambulatory Encounter Angelita Callahan MedAdherence [facility] UNK - Ambulatory Encounter Angelita Callahan MedAdherence LinkLogic [facility] UNK - Ambulatory Encounter Jerel Dietrich LinkLogic [facility] UNK - Ambulatory Encounter Jerel Dietrich LinkLogic [facility] UNK - Ambulatory Encounter Jerel Dietrich LinkLogic [facility] UNK - Ambulatory Encounter Jerel Dietrich [facility] UNK - Ambulatory Encounter Jerel Dietrich LinkLogic [facility] UNK - Ambulatory Encounter Jerel Dietrich LinkLogic [facility] UNK - Ambulatory Encounter Jerel Dietrich [facility] UNK - Ambulatory Encounter Jerel Dietrich LinkLogic [facility] UNK - Ambulatory Encounter Jerel Dietrich [facility] UNK - Ambulatory Encounter Jerel Dietrich LinkLogic [facility] UNK - Ambulatory Encounter Bing Ferreira MedAdherence [facility] UNK - Ambulatory Encounter Katietoro Chavez [facility] UNK - Ambulatory Encounter Bing Waldrono MedAdherence [facility] UNK - Ambulatory Encounter Jerel Dietrich [facility] UNK - Ambulatory Encounter Jerel KahnLogic [facility] UNK - Ambulatory Encounter Jerel Dietrich [facility] UNK - Ambulatory Encounter Jerel Rubalcava [facility] Screening for malignant neoplasm, colonScreening exam for breast cancer - Ambulatory Encounter Bing Ferreira MedAdherence [facility] UNK - Ambulatory Encounter Bing Hanna MedAdherence [facility] UNK - Ambulatory Encounter Bing Ferreira MedAdherence LinkLogic [facility] UNK - Ambulatory Encounter Bing Ferreira MedAdherence [facility] UNK - Ambulatory Encounter Bing Ferreira MedAdherence [facility] UNK - Ambulatory Encounter Bing Ferreira MedAdherence [facility] UNK - Ambulatory Encounter Bing Ferreira MedAdherence LinkLogic [facility] UNK - Ambulatory Encounter Gisselle Wilder [facility] UNK - Ambulatory Encounter Gisselle Wilder [facility] UNK - Ambulatory Encounter Jerel Smart Hanna MedAdherence [facility] UNK - Ambulatory Encounter Jerel Dietrich [facility] UNK - Ambulatory Encounter Jerel Mccarty [facility] UNK - Ambulatory Encounter Jerel [facility] UNK - Ambulatory Encounter Jerel [facility] UNK - Ambulatory Encounter Jerel Dietrich [facility] UNK - Ambulatory Encounter Jerel KahnLogic [facility] UNK - Ambulatory Encounter Fax [facility] - Ambulatory Encounter Fax Status [facility] UNK - Ambulatory Encounter Jerel Wallace Aurelia [facility] UNK - Ambulatory Encounter Jerel Dias Ina [facility] Contact Center UNK - Ambulatory Encounter Bing Ferreira MedAdherence [facility] UNK - Ambulatory Encounter Bing Ferreira MedAdherence LinkLogic [facility] UNK - Ambulatory Encounter Jerel Dietrich [facility] UNK - Ambulatory Encounter Jerel Dietrich LinkLogic [facility] UNK - Ambulatory Encounter Bing Ferreira MedAdherence [facility] UNK - Ambulatory Encounter Bing Ferreira MedAdherence LinkLogic [facility] UNK - Ambulatory Encounter Fax Status [facility] UNK - Ambulatory Encounter Bing Ferreira MedAdherence [facility] UNK - Ambulatory Encounter Bing Ferreira MedAdherence [facility] UNK - Ambulatory Encounter Jerel Mccarty [facility] HEALTH MAINTENANCE EXAM - Ambulatory Encounter Jerel Dietrich [facility] UNK - Ambulatory Encounter Jerel KahnLogic [facility] UNK - Ambulatory Encounter Jerel Dietrich LinkLogic [facility] UNK - Ambulatory Encounter Bing Ferreira MedAdherence [facility] UNK - Ambulatory Encounter Bing Ferreira MedAdherence [facility] UNK - Ambulatory Encounter Bing Ferreira MedAdherence LinkLogic [facility] UNK - Ambulatory Encounter Bing Ferreira MedAdherence LinkLogic [facility] UNK - Ambulatory Encounter Bing Ferreira MedAdherence [facility] UNK - Ambulatory Encounter Bing Ferreira MedAdherence LinkLogic [facility] UNK - Ambulatory Encounter Bing Ferreira MedAdherence [facility] UNK - Ambulatory Encounter Bing Ferreira MedAdherence LinkLogic [facility] UNK - Ambulatory Encounter Bing Ferreira MedAdherence [facility] UNK - Ambulatory Encounter Bing Ferreira MedAdherence [facility] UNK - Ambulatory Encounter Bing Ferreira MedAdherence LinkLogic [facility] UNK - Ambulatory Encounter Bing Ferreira MedAdherence LinkLog[facility] UNK - Ambulatory Encounter Bing Ferreira MedAdherence [facility] UNK - Ambulatory Encounter Bing Ferreira MedAdherence LinkLogic [facility] UNK - Ambulatory Encounter Jerel Dietrich LinkLogic [facility] UNK - Ambulatory Encounter Jerel Dietrich [facility] UNK - Ambulatory Encounter Bing Ferreira MedAdherence [facility] UNK - Ambulatory Encounter Bing Ferreira MedAdherence LinkLogic [facility] UNK - Ambulatory Encounter Jerel Dietrich LinkLogic [facility] UNK - Ambulatory Encounter Lyla Sanchez [facility] UNK - Ambulatory Encounter Jerel Verdeice Ellsworth [facility] OSTEOARTHRITIS - Ambulatory Encounter Bing Ferreira MedAdherence Kirk Viramontes [facility] Services Contact Center UNK - Ambulatory Encounter Tram Mann Tram Mann LinkLogic [facility] UNK - Ambulatory Encounter Tram Mann Tram [facility] UNK - Ambulatory Encounter Elisabeth Bourne Tram Mann Tram Mann Thea Moses [facility] HEADACHECHEST PAINHYPERLIPIDEMIA - Ambulatory Encounter Jerel Dietrich LinkLogic [facility] UNK - Ambulatory Encounter Jerel Dietrich LinkLogic [facility] UNK - Ambulatory Encounter Jerel Dietrich [facility] UNK - Ambulatory Encounter Jerel Chavez [facility] UNK - Ambulatory Encounter [facility]rel Dietrich [facility] UNK - Ambulatory Encounter Fax [facility] - Ambulatory Encounter Arlen Nicholson [facility] UNK - Ambulatory Encounter Fax Status [facility] UNK - Ambulatory Encounter Jerel Coker [facility] UNK - Ambulatory Encounter Bing Ferreira MedAdherence [facility] UNK - Ambulatory Encounter Jerel Smith Bing Ferreira MedAdherence [facility] UNK - Ambulatory Encounter Bing Ferreira MedAdherence LinkLogic Jen Sarah Jerel Beltrán Karlo [facility] UNK - Ambulatory Encounter Christianity Preload LinkLogic [facility] UNK - Ambulatory Encounter Christianity Preload [facility] UNK - Ambulatory Encounter Christianity Preload [facility] UNK - Ambulatory Encounter Christianity Preload [facility] UNK - Ambulatory Encounter Christianity Preload [facility] UNK - Ambulatory Encounter Christianity Preload [facility] UNK - Ambulatory Encounter Christianity Preload [facility] UNK - Ambulatory Encounter Christianity Preload [facility] UNK - Ambulatory Encounter Christianity Preload [facility] UNK - Ambulatory Encounter Christianity Preload [facility] UNK - Ambulatory Encounter Christianity Preload [facility] UNK - Ambulatory Encounter Christianity Preload [facility] UNK - Ambulatory Encounter Christianity Preload [facility] UNK - Ambulatory Encounter Christianity Preload [facility] UNK - Ambulatory Encounter Christianity Preload [facility] UNK - Ambulatory Encounter Christianity Preload [facility] UNK - Ambulatory Encounter Christianity Preload [facility] UNK - Ambulatory Encounter Christianity Preload [facility] UNK - Ambulatory Encounter Christianity Preload [facility] UNK - Ambulatory Encounter Christianity Preload [facility] UNK - Ambulatory Encounter Christianity Preload [facility] UNK - Ambulatory Encounter Christianity Preload [facility] UNK - Ambulatory Encounter Christianity Preload [facility] UNK - Ambulatory Encounter Christianity Preload [facility] UNK - Ambulatory Encounter Christianity Preload [facility] UNK - Ambulatory Encounter Christianity Preload [facility] UNK - Ambulatory Encounter Christianity Preload [facility] UNK - Ambulatory Encounter Christianity Preload [facility] UNK - Ambulatory Encounter Christianity Preload [facility] UNK - Ambulatory Encounter Christianity Preload [facility] UNK - Ambulatory Encounter Christianity Preload [facility] UNK - Ambulatory Encounter Christianity Preload [facility] UNK - Ambulatory Encounter Christianity Preload [facility] UNK - Ambulatory Encounter Jerel Dietrich [facility] UNK - Ambulatory Encounter Christianity Preload [facility] UNK - Ambulatory Encounter Christianity Preload [facility] UNK - Ambulatory Encounter Christianity Preload [facility] UNK - Ambulatory Encounter Christianity Preload [facility] UNK - Ambulatory Encounter Christianity Preload [facility] UNK - Ambulatory Encounter Christianity Preload [facility] UNK - Ambulatory Encounter Christianity Preload [facility] UNK - Ambulatory Encounter Christianity Preload [facility] UNK - Ambulatory Encounter Christianity Preload [facility] UNK - Ambulatory Encounter Christianity Preload [facility] UNK - Ambulatory Encounter Christianity Preload [facility] UNK - Ambulatory Encounter Christianity Preload [facility] UNK - Ambulatory Encounter Christianity Preload [facility] UNK - Ambulatory Encounter Christianity Preload [facility] UNK - Ambulatory Encounter Christianity Preload [facility] UNK - Ambulatory Encounter Christianity Preload [facility] UNK - Ambulatory Encounter Christianity Preload [facility] UNK - Ambulatory Encounter Christianity Preload [facility] UNK - Ambulatory Encounter Christianity Preload [facility] UNK - Ambulatory Encounter Christianity Preload [facility] UNK - Ambulatory Encounter Christianity Preload [facility] UNK - Ambulatory Encounter Christianity Preload [facility] UNK - Ambulatory Encounter Christianity Preload [facility] UNK - Ambulatory Encounter Christianity Preload [facility] UNK - Ambulatory Encounter Christianity Preload [facility] UNK - Ambulatory Encounter Christianity Preload [facility] UNK - Ambulatory Encounter Christianity Preload [facility] UNK - Ambulatory Encounter Christianity Preload [facility] UNK - Ambulatory Encounter Christianity Preload [facility] UNK - Ambulatory Encounter Christianity Preload [facility] UNK - Ambulatory Encounter Christianity Preload [facility] UNK - Ambulatory Encounter Christianity Preload [facility] UNK - Ambulatory Encounter Christianity Preload [facility] UNK - Ambulatory Encounter Christianity Preload [facility] UNK - Ambulatory Encounter Christianity Preload [facility] UNK - Ambulatory Encounter Christianity Preload [facility] UNK - Ambulatory Encounter Christianity Preload [facility] UNK - Ambulatory Encounter Christianity Preload [facility] UNK - Ambulatory Encounter Christianity [facility]reload [facility] UNK - Ambulatory Encounter Jerel Ferreira [facility] UNK - Ambulatory Encounter Jerel Dietrich Jerel Dietrich Dacia Alderman [facility] UNK - Ambulatory Encounter Jerel Dietrich Lyla Minor [facility] ANXIETYARTHRALGIAHYPOTHYROIDISM - Ambulatory Encounter Jerel Dietrich [facility] UNK - Ambulatory Encounter [facility]rel Dietrich [facility] No Information Available Allergies No Known Allergy Information REASON FOR REFERRAL Start Date - End Date Service - Mammogram - Screening RESULTS Date Observation Value Provider Reference Range Interpretation Location calcium, serum 9.6 mg/dL [facility] 8.7-10.3 " carbon dioxide, venous blood 29 mmol/L [facility] 20-29 " chloride, serum 94 mmol/L [facility] 96-106 Low " potassium, serum 3.3 mmol/L [facility] 3.5-5.2 Low " sodium, serum 142 mmol/L [facility] 134-144 " urea nitrogen/creatinine ratio, serum 11 [facility] 12-28 Low " eGFR if 65 mL/min/((173/100).m2) [facility] [...] drop in eye Twice a Day Cecille Bensonome GUAIFENESIN-CODEINE 100-10 MG/5ML ORAL SOLUTION 10 mL Every 6 hrs As Needed for cough and body aches Cecille Wilbert BENZONATATE 100 MG ORAL CAPSULE 1 tab By Mouth Three Times a Day Cecille Bensonome CLARITIN 10 MG ORAL TABLET 1 by mouth every day Cecille Wilbert TRIAMCINOLONE ACETONIDE 0.1 % EXTERNAL OINTMENT apply to affected area twice a day for a week Cecille Wilbert K-PHOS 500 MG ORAL TABLET 1 tab By Mouth Every Day wf Cecille Wilbert FUROSEMIDE 20 MG ORAL TABLET 1 tab By Mouth Every Day Cecille Wilbert NORCO 5-325 MG ORAL TABLET Cecille Wilbert LASIX 20 MG ORAL TABLET 1 by mouth every am - Cecille Wilbert POTASSIUM CL 20MEQ ER TABLETS TAKE 1 TABLET BY MOUTH EVERY DAY Liz Mathew [facility] NORTRIPTYLINE CAPS 50MG TAKE 2 CAPSULES DAILY Cecille Wilbert AUGMENTIN 875-125 MG ORAL TABLET 1 by mouth twice a day Cecille Wilbert HYDROCHLOROTHIAZIDE TAB 25MG TAKE 1 TABLET DAILY Bing Ferreira [facility] CYCLOBENZAPRINE HCL 10 MG ORAL TABLET 1 By Mouth three times a day as needed for muscle spasm Cecille Wilbert ATORVASTATIN TABS 40MG TAKE 1 TABLET DAILY Tank Aleman [facility] L-THYROXINE (SYNTHROID) TABS 100MCG TAKE 1 TABLET [...] (12 hours on, 12 hours off) Bing Mcbride ATORVASTATIN CALCIUM 20 MG ORAL TABLET take one daily for cholesterol control Jerel Dietrich NORTRIPTYLINE HCL 50 MG ORAL CAPSULE take one every night - Cecille Atkins CRESTOR 20 MG ORAL TABLET 1 tab by mouth daily Jerel Dietrich LEVOTHYROXINE SODIUM 125 MCG ORAL TABLET One tab by mouth daily - Bing Mcbride HYDROCODONE-ACETAMINOPHEN 10-325 MG ORAL TABLET takde one daily as needed for chronic hip pain Jerel Dietrich LORAZEPAM 2 MG ORAL TABLET take one tab daily as needed for anxiety Cecille Atkins HYOSCYAMINE SULFATE 0.125 MG SUBLINGUAL TABLET SUBLINGUAL Take 1 tablet under the tongue before meals. Bing Thurstonence PREMARIN 0.9 MG ORAL TABLET 1 by mouth every other day Bing Thurstonence CELEBREX 100 MG ORAL CAPSULE 1 by mouth Twice a Day Bing Thurstonence NEXIUM 40 MG ORAL CAPSULE DELAYED RELEASE [...] 1 tablet By Mouth Every Day Bing ZhangAdherence AMITRIPTYLINE HCL 50 MG ORAL TABLET take 1 tablet By Mouth Every Day at bedtime - Cecille Atkins SOCIAL HISTORY Date Observation Value Provider sex at Female Jessica Carrizales " drug use, illicit Never Jessica S Carrizales " alcohol use Currently Jessica S Carrizales " social history E&M . Not homeless. City: [place]. State: [place]. 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 Jessica S Carrizales " social history reviewed E&M reviewed today Jessica S Carrizales " sexual orientation Heterosexual Jessica S Carrizales " assessment of health literacy ([facility] 2014 Standards, 3C10) Adequate Jessica S [...] social history E&M . Not homeless. City: [place]. State: [place]. 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 [...] Thea Song " assessment of health literacy ([facility] 2014 Standards, 3C10) Adequate Thea Song " drug use, illicit Never Thea Song " alcohol use Currently Thea Song " smoking status never smoker Thea Song " social history E&M . Not homeless. City: [place]. State: [place]. 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 Thea Song " social history reviewed E&M reviewed today Thea Song time of call 01/13/2019 8:19 AM Elizabeth Chavez Exercise Program Referral T Cecille Wilbert " Weight Management Counseling Provided T Cecille Wilbert " Nutrition intervention T Cecille Wilbert " social history E&M . Not homeless. City: [place]. State: [place]. 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 Thea Song " social history reviewed E&M reviewed today Thea Song " drug use, illicit Never Thea Song " alcohol use Currently Thea Song " assessment of health literacy ([facility] 2014 Standards, 3C10) Adequate Thea Song " is there any chance that you could be ? No Thea Song " passive cigarette smoke exposure No Thea Song " smoking status never smoker Thea Song drug use, illicit Never Suma Encarnacion " alcohol use Currently Suma Encarnacion " social history E&M . Not homeless. City: [place]. State: [place]. 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 Suma Encarnacion " social history reviewed E&M reviewed today Suma Encarnacion " assessment of health literacy ([facility] 2014 Standards, 3C10) Adequate Suma Encarnacion [...] social history E&M . Not homeless. City: [place]. State: [place]. 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 Suma Encarnacion " social history reviewed E&M reviewed today Suma Encarnacion " assessment of health literacy ([facility] 2014 Standards, 3C10) Adequate Suma Encarnacion " passive cigarette smoke exposure No Suma Encarnacion " smoking status never smoker Suma Encarnacion " Exercise Program Referral T Suma Encarnacion " Weight Management Counseling Provided T Suma Encarnacion " Nutrition intervention T Suma Encarnacion time of call 09/11/2018 3:28 PM Thao Schreibernandez Exercise Program Referral T Cecille Wilbert " Weight Management Counseling Provided T Cecille Wilbert " Nutrition intervention T Cecille Wilbert " drug use, illicit Never Alice Hennessy " alcohol use Currently Alice Hennessy " social history E&M . Not homeless. City: [place]. State: [place]. 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 Alice Hennessy " social history reviewed E&M reviewed today Alice Hennessy " assessment of health literacy ([facility] 2014 Standards, 3C10) Adequate Alice Hennessy " passive cigarette smoke exposure No Alice Hennessy " smoking status never smoker Alice Hennessy time of call 07/19/2018 3:26 PM Meir Becerra Exercise Program Referral T Cecille Wilbert " Weight Management Counseling Provided T Cecille Wilbert " Nutrition intervention T Cecille Wilbetr drug use, illicit Never Krystin Thomas " alcohol use Currently Krystin Thomas " social history E&M . Not homeless. City: [place]. State: [place]. 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 Krystin Thomas " social history reviewed E&M reviewed today Krystin Thomas " assessment of health literacy ([facility] 2014 Standards, 3C10) Adequate Krystin Thomas " passive cigarette smoke exposure No Krystin Thomas " smoking status never smoker Krystin Thomas assessment of health literacy ([facility] 2014 Standards, 3C10) Adequate Perri Mccarty " Exercise Program Referral T Perri Mccarty " Weight Management Counseling Provided T Perri Mccarty " Nutrition intervention T Perri Mccarty " drug use, illicit Never Perri Mccarty " alcohol use Currently Perri Mccarty " social history E&M . Not homeless. City: [place]. State: [place]. 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 Perri Mccarty " social history reviewed E&M reviewed today Perri Valenzuelarez " passive cigarette smoke exposure No Perri Mccarty " smoking status never smoker Perri Quinnierrez assessment of health literacy ([facility] 2014 Standards, 3C10) Adequate Krystin Thomas [...] T Cecille Wilbert assessment of health literacy ([facility] 2014 Standards, 3C10) Adequate Claribel Castillo " is there any chance that you could be ? No Claribel Castillo " passive cigarette smoke exposure No Claribel Castillo " smoking status never smoker Claribel Castillo assessment of health literacy ([facility] 2014 Standards, 3C10) Adequate Claribel Castillo " passive cigarette smoke exposure No Claribel Castillo " smoking status never smoker Claribel Castillo drug use, illicit Never Jahaira Pool " alcohol use Currently Jahaira Pool " social history E&M . Not homeless. City: [place]. State: [place]. 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 Jahaira Pool " social history reviewed E&M reviewed today Jahaira Pool " assessment of health literacy ([facility] 2014 Standards, 3C10) Adequate Jahaira Pool " passive cigarette smoke exposure No Jahaira Pool " smoking status never smoker Jahaira Pool Exercise Program Referral T Cecille Wilbert " Weight Management Counseling Provided T Cecille Wilbert " Nutrition intervention T Cecille Wilbert " drug use, illicit Never Jahaira Pool " alcohol use Currently Jahaira Pool " social history E&M . Not homeless. City: [place]. State: [place]. 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 Jahaira Pool " social history reviewed E&M reviewed today Jahaira Pool " assessment of health literacy ([facility] 2014 Standards, 3C10) Adequate Jahaira Pool " passive cigarette smoke exposure No Jahaira Pool " smoking status never smoker Jahaira Pool drug use, illicit Never Cordelia Olea " alcohol use Currently Cordelia Olea " passive cigarette smoke exposure Yes Cordelia Olea " smoking status never smoker Cordelia Olae drug use, illicit Never Krystin Thomas " alcohol use Currently Krystin Thomas " social history E&M . Not homeless. City: [place]. State: [place]. 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 Krystin Thomas " social history reviewed E&M reviewed today Krystin Thomas " passive cigarette smoke exposure Yes Krystin Thomas " smoking status never smoker Krystin Thomas " assessment of health literacy ([facility] 2014 Standards, 3C10) Adequate Krystin Thomas Exercise Program Referral T Yojana Ramírez " Weight Management Counseling Provided T Yojana Ramírez " Nutrition intervention T Yojana Ramírez " social history E&M . Not homeless. City: [place]. State: [place]. 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 Yojana Ramírez " social history reviewed E&M reviewed today Yojana Garciavez " passive cigarette smoke exposure Yes Yojana Garciavez " smoking status never smoker Yojana Ramírez " assessment of health literacy ([facility] 2014 Standards, 3C10) Adequate Yojana Ramírez Exercise Program Referral T Cecille Wilbert " Weight Management Counseling Provided T Cecille Wilbert " Nutrition intervention T Cecille Wilbert " social history E&M . Not homeless. City: [place]. State: [place]. 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 Terri Israel " social history reviewed E&M reviewed today Terri Wood " passive cigarette smoke exposure Yes Terri Wood " smoking status never smoker Terri Wood " assessment of health literacy ([facility] 2014 Standards, 3C10) Adequate Terri Wood time of call 03/14/2017 12:51 PM Alice Singh time of call 09/27/2016 3:56 PM Doreen Angulo Exercise Program Referral Fe Dietrich " Weight Management Counseling Provided Fe Dietrich " Nutrition intervention Fe Dietrich " drug use, illicit Never Krystin Thomas " alcohol use Currently Krystin Thomas " social history E&M . Not homeless. City: [place]. State: [place]. 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 Krystin Thomas " social history reviewed E&M reviewed today Krystin Thomas " passive cigarette smoke exposure Yes Krystin Thomas " smoking status never smoker Krystin Thomas " assessment of health literacy ([facility] 2014 Standards, 3C10) Adequate Krystin Thomas time of call 07/28/2016 2:59 PM Yojana Minaya drug use, illicit Never Krystin Thomas " alcohol use Currently Krystin Thomas " social history E&M . Not homeless. City: [place]. State: [place]. 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 [...] time of call 12/09/2014 10:02 AM Cicpipe Buckley drug use, illicit Never Perri Mccarty [...] social history E&M . Not homeless. City: [place]. State: [place]. 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 Thea Maradiaga " social history reviewed E&M reviewed today Thea Maradiaga " passive cigarette smoke exposure No Theabrian Maradiaga " smoking status never smoker Thea Maradiaga drug use, illicit Never Yojana John Paul " alcohol use, frequency holidays/special occasions only Yojana John Paul " alcohol use Currently Yojana Coker " passive cigarette smoke exposure No Yojana Coker " smoking status never smoker Yojana Coker " Exercise Program Referral Fe Coker " Weight Management Counseling Provided T Yojana Coker " Nutrition intervention Fe Coker smoking [...] social history E&M . Not homeless. City: [place]. State: [place]. 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 Lyla Minor " patient considered to [...] E&M no depression, anxiety, or agitation [facility] " Generalized Anxiety Disorder Questionnaire - [...] oriented to time, place, and person [facility] " assessment of mood and affect E&M no depression, anxiety, [facility] and [facility] " mental status examination: orientation E&M oriented to time, place, and person [facility] " assessment of mood and affect [...] affect E&M no depression, anxiety, or agitation [facility] " assessment of judgment and insight E&M intact [facility] " Generalized Anxiety Disorder Questionnaire - Question 2 0 Jahaira Pool " Generalized Anxiety Disorder Questionnaire - Question 1 0 Jahaira Arcenio assessment of mood and affect E&M no depression, anxiety, or agitation [facility] " assessment of judgment and insight [...] affect E&M no depression, anxiety, or agitation [facility] " Generalized Anxiety Disorder Questionnaire - Question 2 0 Krystin Thomas " Generalized Anxiety Disorder Questionnaire - Question 1 0 Krystin Thomas assessment of judgment and insight E&M intact [facility] " assessment of mood and affect E&M no depression, anxiety, or agitation [facility] " Generalized Anxiety Disorder Questionnaire - Question 2 0 Krystin Thomas " Generalized Anxiety Disorder Questionnaire - Question 1 0 Krystin Thomas assessment of judgment and insight E&M intact [facility] " assessment of mood and affect E&M no depression, anxiety, or agitation [facility] " Generalized Anxiety Disorder Questionnaire - Question 2 0 Terri Wood " Generalized Anxiety Disorder Questionnaire - Question 1 0 Terri Wood assessment of judgment and insight E&M intact [facility] " assessment of mood and affect E&M no depression, anxiety, or agitation [facility] " Generalized Anxiety Disorder Questionnaire - Question 2 0 Perri Mccarty " Generalized Anxiety Disorder Questionnaire - Question 1 0 Perri Mccarty assessment of judgment and insight E&M intact [facility] " assessment of mood and affect E&M no depression, anxiety, or agitation [facility] " Generalized Anxiety Disorder Questionnaire - Question 2 0 Perri Mccarty " Generalized Anxiety Disorder Questionnaire - Question 1 0 Perri Mccarty assessment of judgment and insight E&M intact [facility] " assessment of mood and affect E&M no depression, anxiety, or agitation [facility] " Generalized Anxiety Disorder Questionnaire - Question 2 0 Ashleigh Ellsworth " Generalized Anxiety Disorder Questionnaire - Question 1 0 Ashleigh Jodee assessment of judgment and insight E&M intact [...] Level III Est Patient Exp Problem - 36190 Est Patient Exp Problem - 24982 Est Patient Detailed - 38847 Est Patient Exp Problem - 61086 Est Patient Detailed - 33507 Injection, ketorolac tromethamine (toradol), per 15 mg Est Patient Detailed - 66439 Est Patient Detailed - 93169 Est Patient Detailed - 95504 IM or SQ Injection Injection, dexamethasone sodium phosphate, 1mg Est Patient Detailed - 71084 Est Patient Detailed - 96947 Est Patient Detailed - 21766 Est Patient Detailed - 68271 Est Patient Exp Problem - 37907 IM or SQ Injection Injection, dexamethasone sodium phosphate, 1mg Est Patient Detailed - 74132 Est Patient Exp Problem - 66827 Est Patient Detailed - 51256 INFLUENZA VACCINE QUADRIVALENT 3 YRS PLUS IM Est Patient Well Exam (40 - 64 Yrs) - 61675 INFLUENZA VACCINE QUADRIVALENT 3 YRS PLUS IM Est Patient Exp Problem - 99701 Est Patient Well Exam (40 - 64 Yrs) - 90700 Est Patient Exp Problem - 67008 Est Patient Detailed - 35606 Est Patient Exp Problem - 12014 EKG - Tracing Only EKG - Interpretation & Report Only Est Patient Exp Problem - 63903 Est Patient Well Exam (40 - 64 Yrs) - 55146 Est Patient Exp Problem - 17405 HISTORY OF PROCEDURES Procedure Date Procedure Name Provider Procedure Notes Status Injection, ketorolac tromethamine (toradol), per 15 mg Cecille Wilbert completed IM or SQ Injection Cecille Wilbert 4mg left deltoid IM completed Injection, dexamethasone sodium phosphate, 1mg Cecille Wilbert completed IM or SQ Injection Cecille Wilbert 4mg/ml dexamethasone IM right gluteus medius completed Injection, dexamethasone sodium phosphate, 1mg Cecille Wilbert [facility]: [id number]. completed EKG - Tracing Only Elisabeth Bourne completed EKG - Interpretation & Report Only Elisabeth Bourne completed GOALS No Information Available HEALTH CONCERNS No Information Available
--- OUTSIDE RECORDS SUMMARY | 2019-08-12 11:46 | XMS REPORT ---
Author Author Admin, [place] Organization Unknown Address Unknown Phone Unavailable PROBLEMS Condition Status Date Provider Notes Abdominal cramps active Cecille Wilbert Viral URI completed - Cecille Wilbert Impaired [...] OSTEOARTHRITIS active Jerel Dietrich HYPERLIPIDEMIA active Elisabeth Gabler CHEST PAIN active Tram Mann HEADACHE active Tram Mann HYPOTHYROIDISM active Jerel Dietrich ARTHRALGIA active Jerel Dietrich ANXIETY active Jerel Dietrich ENCOUNTERS Date Type Provider Location Encounter Diagnosis - Ambulatory Encounter [facility] Support Desktop [facility] UNK - Ambulatory Encounter Cecille Wilbert Cecille Bensonome [facility] UNK - Ambulatory Encounter Cecille Nicholson [facility] Abdominal cramps - Ambulatory Encounter Cecille Wilbert Macario MedAdherence [facility] UNK - Ambulatory Encounter Cecille Wilbert Macario MedAdherence [facility] UNK - Ambulatory Encounter Cecille Wilbert Atkins [facility] UNK - Ambulatory Encounter Cecille Wilbert Fu Love MedAdherence [facility] UNK - Ambulatory Encounter Cecille Wilbert Mathew [facility] UNK - Ambulatory Encounter Cecille Wilbert Atkins [facility] UNK - Ambulatory Encounter Cecille Wilbert Atkins [facility] UNK - Ambulatory Encounter Cecille Wilbert Macario MedAdherence [facility] UNK - Ambulatory Encounter Cecille Wilbert Sarah MedAdherence [facility] UNK - Ambulatory Encounter Cecille Wilbert Atkins [facility]Log[facility] UNK - Ambulatory Encounter Cecille Wilbert Atkins [facility] UNK - Ambulatory Encounter Cecille Wilbert Carrizales [facility] Viral URI - Ambulatory Encounter Cecille Wilbert Rodriguez [facility] Adult Medicine UNK - Ambulatory Encounter Cecille Wilbert Atkins [facility] UNK - Ambulatory Encounter Cecille Wilbert Callahan MedAdherence [facility] UNK - Ambulatory Encounter Cecille Wilbert Atkins [facility] UNK - Ambulatory Encounter Cecille Wilbert Atkins Krystin Thomas [facility] UNK - Ambulatory Encounter Cecille Wilbert Atkins [facility] UNK - Ambulatory Encounter Cecille Wilbert Atkins [facility] UNK - Ambulatory Encounter Cecille Wilbert Atkins [facility] UNK - Ambulatory Encounter Cecille Wilbert Atkins [facility] UNK - Ambulatory Encounter Cecille Wilbert Mcclelland Thomas Suma Carrilloendez [facility] Impaired physical mobility - Ambulatory Encounter Cecille Wilbert Atkins [facility] UNK - Ambulatory Encounter Cecille Wilbert Atkins Bing Ferreira MedAdherence [facility] UNK - Ambulatory Encounter Cecille Wilbert Callahan MedAdherence [facility] UNK - Ambulatory Encounter Cecille Wilbert Callahan MedAdherence [facility] UNK - Ambulatory Encounter Cecille Wilbert Atkins [facility] UNK - Ambulatory Encounter Cecille Wilbert Atkins Bing Ferreira MedAdherence [facility] UNK - Ambulatory Encounter Cecille Wilbert Atkins [facility] UNK - Ambulatory Encounter Cecille Wilbert Atkins [facility] UNK - Ambulatory Encounter Cecille Wilbert Atkins [facility]Log[facility] UNK - Ambulatory Encounter Cecille Wilbert Atkins [facility] UNK - Ambulatory Encounter Cecille Wilbert Song [facility] Rash, nonspecific - Ambulatory Encounter Cecille Wilbert Cecille Sidhu Hiren Ramirez UNK - Ambulatory Encounter Cecille Wilbert [facility] UNK - Ambulatory Encounter Cecille Wilbert Thomas [facility] UNK - Ambulatory Encounter Cecille Wilbert Rowley [facility] UNK - Ambulatory Encounter Cecille Wilbert Hendricks [facility] HYPOKALEMIA - Ambulatory Encounter Cecille Wilbert Atkins [facility] UNK - Ambulatory Encounter Cecille Wilbert Atkins Bing Ferreira MedAdherence [facility] UNK - Ambulatory Encounter Cecille Wilbert Rowley [facility] UNK - Ambulatory Encounter Cecille Wilbert Atkins [facility] UNK - Ambulatory Encounter Cecille Wilbert Smart Hanna MedAdherence Krystin Dey [facility] Multiple joint pain - Ambulatory Encounter Cecille Wilbert Callahan MedAdherence [facility] UNK - Ambulatory Encounter Cecille Wilbert Callahan MedAdherence [facility] UNK - Ambulatory Encounter Cecille Wilbert KahnLogic [facility] UNK - Ambulatory Encounter Cecille Wilbert Atkins [facility] UNK - Ambulatory Encounter Cecille Wilbert Atkins [facility] UNK - Ambulatory Encounter Cecille Wilbert Cecille Wilbert Encarnacion [facility] UNK - Ambulatory Encounter Cecille Wilbert Cecille Wilbert Angelita Callahan MedAdherence Per[facility] Contact Center UNK - Ambulatory Encounter Cecille Wilbert Cecille Wilbert [facility] UNK - Ambulatory Encounter Cecille Wilbert Cecille Wilbert Marie Ashby [facility] Contact Center UNK - Ambulatory Encounter Cecille Wilbert Cecille Wilbert LinkLogic [facility] UNK - Ambulatory Encounter Cecille Wilbert Cecille Wilbert [facility]Logic [facility] UNK - Ambulatory Encounter Cecille Wilbert Atkins [facility]Log[facility] UNK - Ambulatory Encounter Fax Status [facility] UNK - Ambulatory Encounter Fax Status [facility] UNK - Ambulatory Encounter Fax Status [facility] UNK - Ambulatory Encounter Fax Status [facility] UNK - Ambulatory Encounter Fax Status [facility] UNK - Ambulatory Encounter Fax Status [facility] UNK - Ambulatory Encounter Bing Ferreira MedAdherence [facility] UNK - Ambulatory Encounter Cecille Wilbert Cecille Wilbert LinkLogic [facility] UNK - Ambulatory Encounter Cecille Wilbert Atkins [facility] UNK - Ambulatory Encounter Cecille Wilbert Atkins [facility]Log[facility] UNK - Ambulatory Encounter Cecille Wilbert Cecille Bensonome [facility] UNK - Ambulatory Encounter Cecille Wilbert Coe [facility] Ankle swelling - Ambulatory Encounter Cecille Wilbert Callahan MedAdherence [facility] UNK - Ambulatory Encounter Cecille Wilbert Kahn [facility] Services Contact Center UNK - Ambulatory Encounter Cecille Wilbert Atkins [facility]Log[facility] UNK - Ambulatory Encounter Bing Ferreira MedAdherence [facility] UNK - Ambulatory Encounter Cecille Wilbert Atkins [facility] UNK - Ambulatory Encounter Cecille Wilbert Atkins Tiarra Nicholson [facility] UNK - Ambulatory Encounter Cecille Wilbert Atkins Alice Hennessy [facility] UNK - Ambulatory Encounter Cecille Wilbert Atkins Bing Ferreira MedAdherence [facility] UNK - Ambulatory Encounter Bing Ferreira MedAdherence [facility] UNK - Ambulatory Encounter Angelita Becerra [facility] Services Contact Center UNK - Ambulatory Encounter Cecille Atkins [facility]Log[facility] UNK - Ambulatory Encounter Cecille Wilbert Atkins [facility] UNK - Ambulatory Encounter Cecille Wilbert Oden Wilbert LinkLogic [facility] UNK - Ambulatory Encounter Cecille Wilbert Oden Wilbert [facility] UNK - Ambulatory Encounter Cecille Wilbert Oden Wilbert Katie Chavezmanuel [facility] benign tumor - Ambulatory Encounter Cecille Wilbert Bensondaria Callahan [facility] UNK - Ambulatory Encounter Cecille Wilbert Oden Wilbert [facility]Logic [facility] UNK - Ambulatory Encounter Angelita Callahan [facility] Practice UNK - Ambulatory Encounter Cecille Wilbert Oden Wilbert [facility] Practice UNK - Ambulatory Encounter Cecille Wilbert Oden Wilbert [facility]Logic [facility] UNK - Ambulatory Encounter Angelita Callahan [facility] UNK - Ambulatory Encounter Cecille Wilbert Oden Wilbert [facility] UNK - Ambulatory Encounter Cecille Wilbert [facility] Ph[facility]itis, acute - Ambulatory Encounter Cecille Wilbert Oden Wilbert [facility]Logic [facility] UNK - Ambulatory Encounter Cecille Wilbert Oden Wilbert LinkLogic [facility] UNK - Ambulatory Encounter Cecille Wilbert Oden Wilbert [facility] UNK - Ambulatory Encounter Cecille Wilbert Bensonome Krystinus Nguyenra [facility] UNK - Ambulatory Encounter Cecille Wilbert Oden Wilbert [facility]Logic [facility] UNK - Ambulatory Encounter Cecille Wilbert Atkins [facility] UNK - Ambulatory Encounter Cecille Wilbert Atkins [facility] UNK - Ambulatory Encounter Cecille Wilbert Atkins [facility] UNK - Ambulatory Encounter Cecille Wilbert Atkins [facility] UNK - Ambulatory Encounter Cecille Wilbert Atkins [facility] UNK - Ambulatory Encounter Cecille Wilbert Atkins [facility] UNK - Ambulatory Encounter Cecille Wilbert Atkins [facility] UNK - Ambulatory Encounter Cecille Mcnairacacia [facility] - Ambulatory Encounter Cecille Wilbert Atkins [facility] - Ambulatory Encounter Cecille Wilbert Atkins [facility] UNK - Ambulatory Encounter Cecille Wilbert Atkins [facility] UNK - Ambulatory Encounter Angelita Callahan MedAdherence [facility] UNK - Ambulatory Encounter Angelita Callahan MedAdherence [facility] UNK - Ambulatory Encounter Angelita Callahan MedAdherence [facility] UNK - Ambulatory Encounter Angelita Callahan MedAdherence [facility] UNK - Ambulatory Encounter Angelita Callahan MedAdherence [facility] UNK - Ambulatory Encounter Angelita Callahan MedAdherence [facility] UNK - Ambulatory Encounter [facility]kins [facility] UNK - Ambulatory Encounter Cecille Castillo [facility] UNK - Ambulatory Encounter Fax Status [facility] UNK - Ambulatory Encounter Fax Status [facility] UNK - Ambulatory Encounter Fax Status [facility] UNK - Ambulatory Encounter Cecille Atkins [facility] UNK - Ambulatory Encounter Cecille Jamesontanilla Jahaira Pool [facility] Chronic painHypertensionAnorectal disorder - Ambulatory Encounter [facility] - Ambulatory Encounter Cecille Atkins [facility] UNK - Ambulatory Encounter Cecille Oden Wilbert [facility] UNK - Ambulatory Encounter Cecille Atkins [facility] UNK - Ambulatory Encounter Fax Status [facility] UNK - Ambulatory Encounter Cecille Atkins [facility] UNK - Ambulatory Encounter Cecille Quinnierrez Jahaira Pool [facility] UNK - Ambulatory Encounter Cecille Wilbert Oden Wilbert [facility]Logic [facility] UNK - Ambulatory Encounter Angelita Callahan MedAdherence [facility] UNK - Ambulatory Encounter Angelita Callahan [facility] - Ambulatory Encounter Bing Ferreira MedAdherence [facility] UNK - Ambulatory Encounter Angelita Callahan MedAdherence [facility] UNK - Ambulatory Encounter Angelita Callahan [facility]herence [facility] UNK - Ambulatory Encounter Cecille Bensonome Cecille Wilbert [facility] UNK - Ambulatory Encounter Cecille Bensonome Cecille Wilbert [facility] UNK - Ambulatory Encounter Cecille Oden Wilbert Perri [facility] Allergic rhinitis - Ambulatory Encounter Cecille Bensonome Cecille Wilbert [facility] UNK - Ambulatory Encounter Cecille Oden Wilbert Krystin Thomas [facility] Acute frontal sinusitis - Ambulatory Encounter Angelita Callahan MedAdherence [facility] UNK - Ambulatory Encounter Angelita Callahan MedAdherence [facility] UNK - Ambulatory Encounter Cecille Bensonome Cecille Wilbert [facility]Logic [facility] UNK - Ambulatory Encounter Cecille Bensonome Cecille Wilbert [facility] UNK - Ambulatory Encounter Cecille Bensonome Cecille Wilbert Yojana Garciavez [facility] UNK - Ambulatory Encounter Lizzette Szymanski [facility] UNK - Ambulatory Encounter Cecille Oden Wilbertdaria Szymanski [facility] UNK - Ambulatory Encounter Cecille Oden Wilbert [facility] UNK - Ambulatory Encounter Cecille Bensonome Cecille Wilbert [facility] UNK - Ambulatory Encounter Cecille Manenanci Wood [facility] UNK - Ambulatory Encounter Asmita Garcia [facility] UNK - Ambulatory Encounter Asmita Garcia [facility] UNK - Ambulatory Encounter Elisabeth Bourne [facility] UNK - Ambulatory Encounter Angelita Callahan MedAdherence Alice Singh [facility] Contact Center UNK - Ambulatory Encounter Jerel Dietrich [facility] UNK - Ambulatory Encounter Jerel Dietrich [facility] UNK - Ambulatory Encounter Jerel Dietrich [facility] UNK - Ambulatory Encounter Angelita Callahan MedAdherence [facility] UNK - Ambulatory Encounter Angelita Callahan MedAdherence [facility] UNK - Ambulatory Encounter Jerel Dietrich [facility] UNK - Ambulatory Encounter Jerel KahnLog[facility] - Ambulatory Encounter Bing Ferreira MedAdherence [facility] UNK - Ambulatory Encounter Jerel Dietrich [facility] UNK - Ambulatory Encounter Bing Ferreira MedAdherence Doreen Callahan MedAdherence [facility] Contact Center UNK - Ambulatory Encounter Jerel Dietrich [facility] UNK - Ambulatory Encounter Jerel Thomas [facility] UNK - Ambulatory Encounter Bing Ferreira MedAdherence [facility] UNK - Ambulatory Encounter Bing Ferreira MedAdherence [facility] UNK - Ambulatory Encounter Jerel Dietrich [facility] UNK - Ambulatory Encounter Bing Ferreira MedAdherence [facility] UNK - Ambulatory Encounter Bing Ferreira MedAdherence [facility] UNK - Ambulatory Encounter Jerel Dietrich [facility]Log[facility] UNK - Ambulatory Encounter Bing Ferreira MedAdherence [facility] UNK - Ambulatory Encounter Bing Ferreira MedAdherence [facility] UNK - Ambulatory Encounter Angelita Callahan MedAdherence [facility] UNK - Ambulatory Encounter Angelita Callahan MedAdherence [facility] UNK - Ambulatory Encounter Bing Ferreira MedAdherence Yojana Minaya [facility] Center UNK - Ambulatory Encounter Jerel Dietrich LinkLogic [facility] UNK - Ambulatory Encounter Jerel Dietrich [facility] UNK - Ambulatory Encounter Jerel Dietrich [facility] UNK - Ambulatory Encounter [facility] OverweightBMI 25.0-25.9Flu shot - Ambulatory Encounter Carla Singh [facility] UNK - Ambulatory Encounter Jerel Dietrich [facility] UNK - Ambulatory Encounter Jerel Dietrich LinkLog[facility] UNK - Ambulatory Encounter Bing Ferreira MedAdherence [facility] UNK - Ambulatory Encounter Bing Ferreira MedAdherence [facility] UNK - Ambulatory Encounter Bing Ferreira MedAdherence [facility] UNK - Ambulatory Encounter Bing Ferreira MedAdherence [facility] UNK - Ambulatory Encounter Bing Ferreira MedAdherence [facility] UNK - Ambulatory Encounter Bing Ferreira MedAdherence [facility] UNK - Ambulatory Encounter Angelita London MedAdherence [facility] UNK - Ambulatory Encounter Angelita Callahan MedAdherence [facility] UNK - Ambulatory Encounter Jerel Dietrich [facility]Log[facility] UNK - Ambulatory Encounter Jerel KahnLogic [facility] UNK - Ambulatory Encounter Jerel Dietrich [facility]Log[facility] UNK - Ambulatory Encounter Jerel Dietrich [facility] UNK - Ambulatory Encounter Jerel Dietrich [facility]Log[facility] UNK - Ambulatory Encounter Jerel Dietrich [facility]Log[facility] UNK - Ambulatory Encounter Jerel Dietrich [facility] UNK - Ambulatory Encounter Jerel Dietrich [facility]Log[facility] UNK - Ambulatory Encounter Jerel Dietrich [facility] UNK - Ambulatory Encounter Jerel Dietrich [facility]Log[facility] UNK - Ambulatory Encounter Bing Ferreira MedAdherence [facility] UNK - Ambulatory Encounter Katie Chavez [facility] UNK - Ambulatory Encounter Bing Ferreira MedAdherence [facility] UNK - Ambulatory Encounter Jerel Dietrich [facility] UNK - Ambulatory Encounter Jerel Dietrich [facility] UNK - Ambulatory Encounter Jerel Dietrich [facility] UNK - Ambulatory Encounter Jerel Rubalcava [facility] Screening for malignant neoplasm, colonScreening exam for breast cancer - Ambulatory Encounter Bing Ferreira MedAdherence [facility] UNK - Ambulatory Encounter Bing Ferreira MedAdherence [facility] UNK - Ambulatory Encounter Bing Ferreira MedAdherence [facility] UNK - Ambulatory Encounter Bing Ferreira MedAdherence [facility] UNK - Ambulatory Encounter Bing Ferreira MedAdherence [facility] UNK - Ambulatory Encounter Bing Ferreira MedAdherence [facility] UNK - Ambulatory Encounter Bing Ferreira MedAdherence [facility] UNK - Ambulatory Encounter Gisselle Wilder [facility] UNK - Ambulatory Encounter Gisselle Wilder [facility] UNK - Ambulatory Encounter Jerel Dietrich Bing Ferreira MedAdherence [facility] UNK - Ambulatory Encounter Jerel Beltrán Karlo [facility] UNK - Ambulatory Encounter Jerel Dietrich Perri Quinnierrez [facility] UNK - Ambulatory Encounter Jerel Dietrich [facility] UNK - Ambulatory Encounter Jerel Dietrich [facility] UNK - Ambulatory Encounter Jerel Dietrich [facility] UNK - Ambulatory Encounter Jerel Dietrich [facility]Log[facility] UNK - Ambulatory Encounter F[facility] - Ambulatory Encounter Fax Status [facility] UNK - Ambulatory Encounter Jerel Wallace Aurelia [facility] UNK - Ambulatory Encounter Jerel Christensen [facility] Contact Center UNK - Ambulatory Encounter Bign Ferreira MedAdherence [facility] UNK - Ambulatory Encounter Bing Ferreira MedAdherence [facility] UNK - Ambulatory Encounter Jerel Dietrich [facility] UNK - Ambulatory Encounter Jerel Dietrich LinkLog[facility] UNK - Ambulatory Encounter Bing Ferreira MedAdherence [facility] UNK - Ambulatory Encounter Bing Ferreira MedAdherence [facility] UNK - Ambulatory Encounter Fax Status [facility]ic [facility] Services UNK - Ambulatory Encounter Bing Ferreira MedAdherence [facility] UNK - Ambulatory Encounter Bing Ferreira MedAdherence [facility] UNK - Ambulatory Encounter Jerel Mccarty [facility] HEALTH MAINTENANCE EXAM - Ambulatory Encounter Jerel Dietrich [facility] UNK - Ambulatory Encounter Jerel Dietrich LinkLog[facility] UNK - Ambulatory Encounter Jerel Dietrich [facility]LogCr[facility] UNK - Ambulatory Encounter Bing Ferreira MedAdherence [facility] UNK - Ambulatory Encounter Bing Ferreira MedAdherence [facility] UNK - Ambulatory Encounter Bing Ferreira MedAdherence [facility] UNK - Ambulatory Encounter Bing Ferreira MedAdherence [facility] UNK - Ambulatory Encounter Bing Ferreira MedAdherence [facility] UNK - Ambulatory Encounter Bing Ferreira MedAdherence [facility] UNK - Ambulatory Encounter Bing Ferreira MedAdherence [facility] UNK - Ambulatory Encounter Bing Ferreira MedAdherence [facility] UNK - Ambulatory Encounter Bing Ferreira MedAdherence [facility] UNK - Ambulatory Encounter Bing Ferreira MedAdherence [facility] UNK - Ambulatory Encounter Bing Ferreira MedAdherence [facility] UNK - Ambulatory Encounter Bing Ferreira MedAdherence [facility] UNK - Ambulatory Encounter Bing Ferreira MedAdherence [facility] UNK - Ambulatory Encounter Bing Ferreira MedAdherence [facility] UNK - Ambulatory Encounter [facility] UNK - Ambulatory Encounter Jerel Dietrich [facility] UNK - Ambulatory Encounter Bing Ferreira [facility] [place] [facility] UNK - Ambulatory Encounter Bing Ferreira MedAdherence [facility] [place] [facility] UNK - [facility] UN[facility] - Ambulatory Encounter Lyla Sanchez [facility] UNK - Amb[facility] En[facility] En[facility] Bing Thurstonence Kirk Viramontes [facility] UNK - Ambulatory Encounter Tram Mann Tram Mann [facility] [place] [facility] UNK - Ambulatory Encounter Tram Mann Tram Mann [facility] UNK - Ambulatory Encounter Elisabeth Bourne Tram Mann Tram Mann [facility] HEADACHECHEST PAINHYPERLIPIDEMIA - Ambulatory Encounter Jerel Dietrich [facility] UNK - Ambulatory Encounter Jerel Dietrich [facility] UNK - Ambulatory Encounter Jerel Dietrich [facility] UNK - Ambulatory Encounter Jerel Dietrich Katie Kilgorel [facility] UNK - Ambulatory Encounter Jerel Dietrich [facility] UNK - Ambulatory Encounter Fax Status [facility]Log[facility] UNK - Ambulatory Encounter Arlen Nicholson [facility] UNK - Ambulatory Encounter Fax Status LinkLog[facility] UNK - Ambulatory Encounter Jerel Dietrich Yojana [facility] UNK - Ambulatory Encounter Bing Ferreira [facility]Ad[facility] UNK - Ambulatory Encounter Jerel Smith Bing Ferreira MedAdherence [facility] Adult [facility] UNK - Ambulatory Encounter Bing [facility] UNK - Ambulatory Encounter Zoroastrian Preload [facility] UNK - Ambulatory Encounter Zoroastrian Preload [facility] UNK - Ambulatory Encounter Zoroastrian Preload [facility] UNK - Ambulatory Encounter Zoroastrian Preload [facility] UNK - Ambulatory Encounter Zoroastrian Preload [facility] UNK - Ambulatory Encounter Zoroastrian Preload [facility] UNK - Ambulatory Encounter Zoroastrian Preload [facility] UNK - Ambulatory Encounter Zoroastrian Preload [facility] UNK - Ambulatory Encounter Zoroastrian Preload [facility] UNK - Ambulatory Encounter Zoroastrian Preload [facility] UNK - Ambulatory Encounter Zoroastrian Preload [facility] UNK - Ambulatory Encounter Zoroastrian Preload [facility] [place] [facility] UNK - Ambulatory Encounter Zoroastrian Preload [facility] UNK - Ambulatory Encounter Zoroastrian Preload [facility] UNK - Ambulatory Encounter Zoroastrian Preload [facility] UNK - Ambulatory Encounter Zoroastrian Preload [facility] UNK - Ambulatory Encounter Zoroastrian Preload [facility] UNK - Ambulatory Encounter Zoroastrian Preload [facility] UNK - Ambulatory Encounter Zoroastrian Preload [facility] UNK - Ambulatory Encounter Zoroastrian Preload [facility] UNK - Ambulatory Encounter Zoroastrian Preload [facility] UNK - Ambulatory Encounter Zoroastrian Preload [facility] UNK - Ambulatory Encounter Zoroastrian Preload [facility] UNK - Ambulatory Encounter Zoroastrian Preload [facility] UNK - Ambulatory Encounter Zoroastrian Preload [facility] UNK - Ambulatory Encounter Zoroastrian Preload [facility] UNK - Ambulatory Encounter Zoroastrian Preload [facility] UNK - Ambulatory Encounter Zoroastrian Preload [facility] UNK - Ambulatory Encounter Zoroastrian Preload [facility] [facility] UNK - Ambulatory Encounter Zoroastrian Preload [facility] UNK - Ambulatory Encounter Zoroastrian Preload [facility] UNK - Ambulatory Encounter Zoroastrian Preload [facility] [facility] UNK - Ambulatory Encounter Zoroastrian Preload [facility] UNK - Ambulatory Encounter [facility]rich [facility] UNK - Ambulatory Encounter Zoroastrian Preload [facility] [place] [facility] UNK - Ambulatory Encounter Zoroastrian Preload [facility] UNK - Ambulatory Encounter Zoroastrian Preload [facility] UNK - Ambulatory Encounter Zoroastrian Preload [facility] UNK - Ambulatory Encounter Zoroastrian Preload [facility] UNK - Ambulatory Encounter Zoroastrian Preload [facility] UNK - Ambulatory Encounter Zoroastrian Preload [facility] UNK - Ambulatory Encounter Zoroastrian Preload [facility] UNK - Ambulatory Encounter Zoroastrian Preload [facility] UNK - Ambulatory Encounter Zoroastrian Preload [facility] UNK - Ambulatory Encounter Zoroastrian Preload [facility] UNK - Ambulatory Encounter Zoroastrian Preload [facility] UNK - Ambulatory Encounter Zoroastrian Preload [facility] UNK - Ambulatory Encounter Zoroastrian Preload [facility] UNK - Ambulatory Encounter Zoroastrian Preload [facility] UNK - Ambulatory Encounter Zoroastrian Preload [facility] UNK - Ambulatory Encounter Zoroastrian Preload [facility] UNK - Ambulatory Encounter Zoroastrian Preload [facility] UNK - Ambulatory Encounter Zoroastrian Preload [facility] [facility] UNK - Ambulatory Encounter Zoroastrian Preload [facility] [place] [facility] UNK - Ambulatory Encounter Zoroastrian Preload [facility] UNK - Ambulatory Encounter Zoroastrian Preload [facility] UNK - Ambulatory Encounter Zoroastrian Preload [facility] UNK - Ambulatory Encounter Zoroastrian Preload [facility] UNK - Ambulatory Encounter Zoroastrian Preload [facility] [facility] UNK - Ambulatory Encounter Zoroastrian Preload [facility] UNK - Ambulatory Encounter Zoroastrian Preload [facility] UNK - Ambulatory Encounter Zoroastrian Preload [facility] UNK - Ambulatory Encounter Zoroastrian Preload [facility] UNK - Ambulatory Encounter Zoroastrian Preload [facility] UNK - Ambulatory Encounter Zoroastrian Preload [facility] UNK - Ambulatory Encounter Zoroastrian Preload [facility] UNK - Ambulatory Encounter Zoroastrian Preload [facility] UNK - Ambulatory Encounter Zoroastrian Preload [facility] UNK - Ambulatory Encounter Zoroastrian Preload [facility] UNK - Ambulatory Encounter Zoroastrian Preload [facility] UNK - Ambulatory Encounter Zoroastrian Preload [facility] UNK - Ambulatory Encounter Zoroastrian Preload [facility] UNK - Ambulatory Encounter Zoroastrian Preload [facility] UNK - Ambulatory Encounter Jerel Smart Ferreira [facility] UNK - [facility] - [facility] En[facility] Jerel Sanchez [facility] ANXIETYARTHRALGIAHYPOTHYROIDISM - Ambulatory Encounter Jerel Dietrich [facility] UNK - Ambulatory Encounter Jerel Smart [facility] UNK VITAL SIGNS Date Observation Value Provider oxygen saturation, oximetry 99 % Tiarra Nicholson " method used to obtain blood pressure automatic Tiarra Nicholson " Blood Pressure Position 01 sitting Tiarra Nicholson " blood pressure, site #1 left arm Tiarra Nicholson " blood pressure, diastolic 71 mm[Hg] Tiarra Nicholson " blood pressure, systolic 104 mm[Hg] Tiarra Nicholson " respiratory rate E&M 16 /min Tiarra Nicholson " pulse rate E&M 92 /min Tiarra Nicholson " temperature site oral Tiarra Nicholson " temperature E&M 98.9 [degF] Tiarra Nicholson " weight E&M 135.13 lbs. Tiarra Nicholson " weight in kilograms E&M 61.42 kg Tiarra Nicholson " height E&M 67 [in_i] Tiarra Nicholson " height in centimeters E&M 170.18 cm Tiarra Nicholson blood pressure, diastolic 79 mm[Hg] Jessica S Carrizales " blood pressure, systolic 119 mm[Hg] Jessica S Carrizales " respiratory rate E&M 18 /min Jessica S Carrizales " pulse rate E&M 102 /min Jessica S Carrizales " temperature E&M 98.5 [degF] Jessica S Carrizales " oxygen saturation, oximetry 96 % Jessica S Carrizales " weight E&M 144 lbs. Jessica S Carrizales " weight in kilograms E&M 65.45 kg Jessica S Carrizales " blood pressure, site #1 right arm Jessica S Carrizales " Blood Pressure Position 01 sitting Jessica S Carrizales " method used to obtain blood pressure automatic Jessica S Carrizales " temperature site oral Jessica S Carrizales " height E&M 67 [in_i] Jessica S Carrizales " height in centimeters E&M 170.18 cm Jessica S Carrizales oxygen saturation, oximetry 100 % Suma Encarnacion " blood pressure, diastolic 78 mm[Hg] Suma Encarnacion " blood pressure, systolic 115 mm[Hg] Suma Encarnacion " respiratory rate E&M 16 /min Suma Encarnacion " pulse rate E&M 94 /min Suma Encarnacion " temperature E&M 98.9 [degF] Suma Encarnacion " weight E&M 150.38 lbs. Suma Encarnacion " weight in kilograms E&M 68.35 kg Suma Encarnacion " method used to obtain blood pressure automatic Suma Encarnacion " Blood Pressure Position 01 sitting Suma Encarnacion " blood pressure, site #1 left arm Suma Encarnacion " temperature site oral Suma Encarnacion " height E&M 67 [in_i] Suma Encarnacion " height in centimeters E&M 170.18 cm Suma Encarnacion oxygen saturation, oximetry 97 % Thea Song " blood pressure, diastolic 74 mm[Hg] Thea Song " blood pressure, systolic 112 mm[Hg] Thea Song " respiratory rate E&M 18 /min Thea Song " pulse rate E&M 88 /min Thea Song " temperature E&M 98.2 [degF] Thea Song " weight E&M 160 lbs. Thea Song " weight in kilograms E&M 72.73 kg Thea Song " method used to obtain blood pressure automatic Thea Song " Blood Pressure Position 01 sitting Thea Song " blood pressure, site #1 left arm Thea Song " temperature site oral Thea Song " height E&M 67 [in_i] Thea Duncan " height in centimeters E&M 170.18 cm Thea Song oxygen saturation, oximetry 99 % Thea Song " method used to obtain blood pressure automatic Thea Song " Blood Pressure Position 01 sitting Thea Song " blood pressure, site #1 left arm Thea Song " blood pressure, diastolic 82 mm[Hg] Thea Song " blood pressure, systolic 133 mm[Hg] Thea Song " respiratory rate E&M 18 /min Thea Song " pulse rate E&M 83 /min Thea Song " temperature E&M 98.5 [degF] Thea Song " weight E&M 153.20 lbs. Thea Song " weight in kilograms E&M 69.64 kg Thea Song " height E&M 67 [in_i] Thea Song " height in centimeters E&M 170.18 cm Thea Song oxygen saturation, oximetry 98 % Suma Encarnacion " method used to obtain blood pressure automatic Suma Encarnacion " Blood Pressure Position 01 sitting Suma Encarnacion " blood pressure, site #1 left arm Suma Encarnacion " blood pressure, diastolic 78 mm[Hg] Suma Encarnacion " blood pressure, systolic 118 mm[Hg] Suma Encarnacion " respiratory rate E&M 25 /min Suma Encarnacion " pulse rate E&M 101 /min Suma Encarnacion " temperature site oral Suma Encarnacion " temperature E&M 99.3 [degF] Suma Encarnacion " weight E&M 165.50 lbs. Suma Encarnacion " weight in kilograms E&M 75.23 kg Suma Encarnacion " height E&M 67 [in_i] Suma Encarnacion " height in centimeters E&M 170.18 cm Suma Encarnacion oxygen saturation, oximetry 99 % Suma Encarnacion " method used to obtain blood pressure automatic Suma Encarnacion " Blood Pressure Position 01 sitting Suma Encarnacion " blood pressure, site #1 left arm Suma Encarnacion " blood pressure, diastolic 80 mm[Hg] Suma Encarnacion " blood pressure, systolic 129 mm[Hg] Suma Encarnacion " respiratory rate E&M 18 /min Suma Encarnacion " pulse rate E&M 96 /min Suma Encarnacion " temperature site oral Suma Encarnacion " temperature E&M 99.0 [degF] Suma Encarnacion " weight E&M 169 lbs. Suma Encarnacion " weight in kilograms E&M 76.82 kg Suma Encarnacion " height E&M 67 [in_i] Suma Encarnacion " height in centimeters E&M 170.18 cm Suma Encarnacion oxygen saturation, oximetry 97 % Alice Hennessy " method used to obtain blood pressure automatic Alice Hennessy " Blood Pressure Position 01 sitting Alice Hennessy " blood pressure, site #1 right arm Alice Hennessy " blood pressure, diastolic 85 mm[Hg] Alice Hennessy " blood pressure, systolic 127 mm[Hg] Alice Hennessy " respiratory rate E&M 17 /min Alice Hennessy " pulse rate E&M 96 /min Alice Hennessy " temperature site oral Alice Hennessy " temperature E&M 98.4 [degF] Alice Hennessy " weight E&M 170 lbs. Alice Hennessy " weight in kilograms E&M 77.27 kg Alice Hennessy " height E&M 67 [in_i] Alice Hennessy " height in centimeters E&M 170.18 cm Alice Hennessy oxygen saturation, oximetry 98 % Krystin Thomas " method used to obtain blood pressure automatic Krystin Thomas " Blood Pressure Position 01 sitting Krystin Thomas " blood pressure, site #1 right arm Krystin Thomas " blood pressure, diastolic 72 mm[Hg] Krystin Thomas " blood pressure, systolic 118 mm[Hg] Krystin Thomas " respiratory rate E&M 20 /min Krystin Thomas " pulse rate E&M 82 /min Krystin Thomas " temperature site oral Krystin Thomas " temperature E&M 98.7 [degF] Krystin Thomas " weight E&M 168 lbs. Krystin Thomas " weight in kilograms E&M 76.36 kg Krystin Thomas " height E&M 67 [in_i] Krystin Thomas " height in centimeters E&M 170.18 cm Krystin Thomas temperature site oral Perri Mccarty " method used to obtain blood pressure automatic Perri Mccarty " Blood Pressure Position 01 sitting Perri Mccarty " blood pressure, site #1 right arm Perri Mccarty " oxygen saturation, oximetry 98 % Perri Mccarty " blood pressure, diastolic 78 mm[Hg] Perri Mccarty " blood pressure, systolic 108 mm[Hg] Perri Mccarty " respiratory rate E&M 16 /min Perri Mccarty " pulse rate E&M 98 /min Perri Mccarty " temperature E&M 98.9 [degF] Perri Mccarty " weight E&M 166.60 lbs. Perri Mccarty " weight in kilograms E&M 75.73 kg Perri Mccarty " height E&M 67 [in_i] Perri Mccarty " height in centimeters E&M 170.18 cm Perri Mccarty oxygen saturation, oximetry 98 % Krystin Thomas " method used to obtain blood pressure automatic Krystin Thomas " Blood Pressure Position 01 sitting Krystin Thomas " blood pressure, site #1 right arm Krystin Thomas " blood pressure, diastolic 78 mm[Hg] Krystin Thomas " blood pressure, systolic 112 mm[Hg] Krystin Thomas " respiratory rate E&M 17 /min Krystin Schreiberrera " pulse rate E&M 99 /min Krystin Thomas " temperature site oral Krystin Thomas " temperature E&M 98.6 [degF] Krystin Thomas " weight E&M 170 lbs. Krystin Thomas " weight in kilograms E&M 77.27 kg Krystin Thomas " height E&M 67 [in_i] Krystin Thomas " height in centimeters E&M 170.18 cm Krystin Thomas oxygen saturation, oximetry 96 % Claribel Castillo " method used to obtain blood pressure automatic Claribel Castillo " Blood Pressure Position 01 sitting Claribel Castillo " blood pressure, site #1 left arm Claribel Castillo " blood pressure, diastolic 79 mm[Hg] Claribel Castillo " blood pressure, systolic 113 mm[Hg] Claribel Castillo " respiratory rate E&M 18 /min Claribel Castillo " pulse rate E&M 92 /min Claribel Castillo " temperature site oral Claribel Castillo " temperature E&M 98.7 [degF] Claribel Castillo " weight E&M 168.60 lbs. Claribel Castillo " weight in kilograms E&M 76.64 kg Claribel Castillo " height E&M 67 [in_i] Claribel Castillo " height in centimeters E&M 170.18 cm Claribel Castillo oxygen saturation, oximetry 97 % Claribel Castillo " method used to obtain blood pressure automatic Claribel Castillo " Blood Pressure Position 01 sitting Claribel Castillo " blood pressure, site #1 left arm Claribel Castillo " blood pressure, diastolic 86 mm[Hg] Claribel Castillo " blood pressure, systolic 119 mm[Hg] Claribel Castillo " respiratory rate E&M 18 /min Claribel Castillo " pulse rate E&M 90 /min Claribel Castillo " temperature site oral Claribel Castillo " temperature E&M 98.7 [degF] Claribel Castillo " weight E&M 171.80 lbs. Claribel Newmaniroz " weight in kilograms E&M 78.09 kg Claribel Newmaniroz " height E&M 67 [in_i] Claribel Castillo " height in centimeters E&M 170.18 cm Claribel Castillo oxygen saturation, oximetry 98 % Jahaira Pool " method used to obtain blood pressure automatic Jahaira Pool " Blood Pressure Position 01 sitting Jahaira Pool " blood pressure, site #1 right arm Jahaira Pool " blood pressure, diastolic 107 mm[Hg] Jahaira Pool " blood pressure, systolic 161 mm[Hg] Jahaira Pool " respiratory rate E&M 22 /min Jahaira Pool " pulse rate E&M 85 /min Jahaira Pool " temperature site oral Jahaira Pool " temperature E&M 98.4 [degF] Jahaira Pool " weight E&M 173 lbs. Jahaira Pool " weight in kilograms E&M 78.64 kg Jahaira Pool " height E&M 67 [in_i] Jahaira Pool " height in centimeters E&M 170.18 cm Jahaira Pool oxygen saturation, oximetry 97 % Jahaira Pool " method used to obtain blood pressure automatic Jahaira Pool " Blood Pressure Position 01 sitting Jahaira Pool " blood pressure, site #1 right arm Jahaira Pool " blood pressure, diastolic 101 mm[Hg] Jahaira Pool " blood pressure, systolic 146 mm[Hg] Jahaira Pool " respiratory rate E&M 21 /min Jahaira Pool " pulse rate E&M 89 /min Jahaira Pool " temperature site oral Jahaira Pool " temperature E&M 98.3 [degF] Jahaira Pool " weight E&M 165 lbs. Jahaira Pool " weight in kilograms E&M 75 kg Jahaira Pool " height E&M 67 [in_i] Jahaira Pool " height in centimeters E&M 170.18 cm Jahaira Pool oxygen saturation, oximetry 98 % Cordelia Olea " method used to obtain blood pressure automatic Cordelia Olea " Blood Pressure Position 01 sitting Cordelia Olea " blood pressure, site #1 left arm Cordelia Olea " blood pressure, diastolic 87 mm[Hg] Cordelia Olea " blood pressure, systolic 146 mm[Hg] Cordelia Olea " respiratory rate E&M 22 /min Cordelia Olea " pulse rate E&M 93 /min Cordelia Olea " temperature E&M 98.6 [degF] Cordelia Olea " weight E&M 169.80 lbs. Cordelia Olea " weight in kilograms E&M 77.18 kg Cordelia Olea " height E&M 67 [in_i] Cordelia Olea " height in centimeters E&M 170.18 cm Cordelia Olea blood pressure, site #1 right arm Krystin Thomas " oxygen saturation, oximetry 98 % Krystin Thomas " method used to obtain blood pressure automatic Krystin Thomas " Blood Pressure Position 01 sitting Krystin Thomas " blood pressure, diastolic 84 mm[Hg] Krystin Thomas " blood pressure, systolic 125 mm[Hg] Krystin Thomas " respiratory rate E&M 17 /min Krystin Thomas " pulse rate E&M 98 /min Krystin Thomas " temperature site oral Krystin Thomas " temperature E&M 98.3 [degF] Krystin Thomas " weight E&M 168 lbs. Krystin Thomas " weight in kilograms E&M 76.36 kg Krystin Thomas " height E&M 67 [in_i] Krystin Thomas " height in centimeters E&M 170.18 cm Krystin Thomas blood pressure, diastolic, second observation 94 mm[Hg] Yojana Ramírez " blood pressure, systolic, second observation 149 mm[Hg] Yojana Ramírez " oxygen saturation, oximetry 97 % Yojana Ramírez " method used to obtain blood pressure automatic Yojana Ramírez " Blood Pressure Position 01 sitting Yojana Ramírez " blood pressure, site #1 left arm Yojana Ramírez " blood pressure, diastolic 93 mm[Hg] Yojana Garciavez " blood pressure, systolic 147 mm[Hg] Yojana Garciavez " respiratory rate E&M 16 /min Yojana Garciavez " pulse rate E&M 92 /min Yojana Garciavez " temperature site oral Yojana Ramírez " temperature E&M 98.3 [degF] Yojana Ramírez " weight E&M 166.40 lbs. Yojana Ramírez " weight in kilograms E&M 75.64 kg Yojana Ramírez " height E&M 67 [in_i] Yojana Ramírez " height in centimeters E&M 170.18 cm Yojana Ramírez BP diastolic #1 94 mm[Hg] Cecille Wilbert " BP systolic #1 151 mm[Hg] Cecille Wilbert " blood pressure, diastolic, second observation 81 mm[Hg] Cecille Wilbert " blood pressure, systolic, second observation 145 mm[Hg] Cecille Wilbert " oxygen saturation, oximetry 98 % Terri Wood " method used to obtain blood pressure automatic Terri Wood " Blood Pressure Position 01 sitting Terri Wood " blood pressure, site #1 right arm Terri Wood " blood pressure, diastolic 81 mm[Hg] Cecille Wilbert " blood pressure, systolic 145 mm[Hg] Cecille Wilbert " respiratory rate E&M 18 /min Terri Wood " pulse rate E&M 95 /min Terri Wood " temperature site tympanic Terri Wood " temperature E&M 98.5 [degF] Terri Wood " weight E&M 163.40 lbs. Terri Wood " weight in kilograms E&M 74.27 kg Terri Wood " height E&M 67 [in_i] Terri Wood " height in centimeters E&M 170.18 cm Terrisa Wood oxygen saturation, oximetry 98 % Krystin Thomas " method used to obtain blood pressure automatic Krystin Thomas " Blood Pressure Position 01 sitting Krystin Thomas " blood pressure, site #1 right arm Krystin Thomas " blood pressure, diastolic 86 mm[Hg] Krystin Thomas " blood pressure, systolic 130 mm[Hg] Krystin Thomas " respiratory rate E&M 17 /min Krystin Thomas " pulse rate E&M 91 /min Krystin Thomas " temperature site oral Krystin Thoams " temperature E&M 98.0 [degF] Krystin Thomas " weight E&M 160.40 lbs. Krystin Thomas " weight in kilograms E&M 72.91 kg Krystin Thomas " height E&M 67 [in_i] Krystin Thomas " height in centimeters E&M 170.18 cm Krystin Thomas blood pressure, site #1 right arm Krystinus Thomas " oxygen saturation, oximetry 98 % Krystin Thomas " method used to obtain blood pressure automatic Krystin Thomas " Blood Pressure Position 01 sitting Krystinus Thomas " blood pressure, diastolic 88 mm[Hg] Krystin Thomas " blood pressure, systolic 133 mm[Hg] Krystin Thomas " respiratory rate E&M 17 /min Krystin Thomas " pulse rate E&M 92 /min Krystin Thomas " temperature site oral Krystinus Thomas " temperature E&M 97.4 [degF] Krystinus Thomas " weight E&M 161 lbs. Krystin Thomas " weight in kilograms E&M 73.18 kg Krystin Thomas " height E&M 67 [in_i] Krystin Thomas " height in centimeters E&M 170.18 cm Krystin Thomas oxygen saturation, oximetry 98 % Terri Wood " method used to obtain blood pressure automatic Terri Wood " Blood Pressure Position 01 sitting Terri Wood " blood pressure, site #1 right arm Terri Wood " blood pressure, diastolic 88 mm[Hg] Terri Wood " blood pressure, systolic 129 mm[Hg] Terri Wood " respiratory rate E&M 20 /min Terri Wood " pulse rate E&M 82 /min Terri Wood " temperature site oral Terri Wood " temperature E&M 98.1 [degF] Terri Wood " weight E&M 164.20 lbs. Terri Wood " weight in kilograms E&M 74.64 kg Terri Wood " height E&M 67 [in_i] Terri Wood " height in centimeters E&M 170.18 cm Terri Wood oxygen saturation, oximetry 96 % Perri Mccarty " blood pressure, diastolic 86 mm[Hg] Perri Mccarty " blood pressure, systolic 138 mm[Hg] Perri Mccarty " respiratory rate E&M 15 /min Perri Mccarty " pulse rate E&M 92 /min Perri Mccarty " temperature E&M 98.0 [degF] Perri Mccarty " weight E&M 166.50 lbs. Perri Mccarty " weight in kilograms E&M 75.68 kg Perri Mccarty " blood pressure, site #1 right arm Perri Mccarty " Blood Pressure Position 01 sitting Perri Mccarty " method used to obtain blood pressure automatic Perri Mccarty " temperature site oral Perri Mccarty " height E&M 67 [in_i] Perri Mccarty " height in centimeters E&M 170.18 cm Perri Mccarty temperature site oral Perri Mccarty " method used to obtain blood pressure automatic Perri Mccarty " Blood Pressure Position 01 sitting Perri Mccarty " blood pressure, site #1 right arm Perri Mccarty " oxygen saturation, oximetry 98 % Perri Mccarty " blood pressure, diastolic 89 mm[Hg] Perri Mccarty " blood pressure, systolic 146 mm[Hg] Perri Mccarty " respiratory rate E&M 19 /min Perri Mccarty " pulse rate E&M 100 /min Perri Mccarty " temperature E&M 98.4 [degF] Perri Mccarty " weight E&M 163 lbs. Perri Mccarty " weight in kilograms E&M 74.09 kg Perri Mccarty " height E&M 67 [in_i] Perri Mccarty " height in centimeters E&M 170.18 cm Perri Mccarty oxygen saturation, oximetry 98 % Ashleigh Ellsworth " method used to obtain blood pressure manual Ashleigh Ellsworth " Blood Pressure Position 01 sitting Ashleigh Ellsworth " blood pressure, site #1 right arm Ashleigh Ellsworth " blood pressure, diastolic 80 mm[Hg] Ashleigh Ellsworth " blood pressure, systolic 122 mm[Hg] Ashleigh Ellsworth " respiratory rate E&M 16 /min Ashleigh Ellsworth " pulse rate E&M 72 /min Ashleigh Ellsworth " temperature site oral Ashleigh Ellsworth " temperature E&M 98.8 [degF] Ashleigh Ellsworth " weight E&M 166.13 lbs. Ashleigh Ellsworth " weight in kilograms E&M 75.51 kg Ashleigh Ellsworth " height E&M 67 [in_i] Ashleigh Ellsworth " height in centimeters E&M 170.18 cm Ashleigh Junioro blood pressure, diastolic, second observation 85 mm[Hg] Tram Mann " blood pressure, systolic, second observation 135 mm[Hg] Tram Mann " oxygen saturation, oximetry 99 % Thea Maradiaga " method used to obtain blood pressure manual Thea Maradiaga " Blood Pressure Position 01 sitting Thea Maradiaga " blood pressure, site #1 left arm Thae Maradiaga " blood pressure, diastolic 90 mm[Hg] Thea Maradiaga " blood pressure, systolic 144 mm[Hg] Thea Maradiaga " respiratory rate E&M 16 /min Thea Maradiaga " pulse rate E&M 80 /min Thea Maradiaga " temperature site oral Thea Maradiaga " temperature E&M 97.9 [degF] Thea Maradiaga " height E&M 67 [in_i] Thea Maradiaga " height in centimeters E&M 170.18 cm Thea Maradiaga " weight E&M 163 lbs. Thea Maradiaga " weight in kilograms E&M 74.09 kg Thea Maradiaga oxygen saturation, oximetry 98 % Yojana Coker " method used to obtain blood pressure automatic Yojana Coker " Blood Pressure Position 01 sitting Yojana Coker " blood pressure, site #1 left arm Yojana Coker " blood pressure, diastolic 85 mm[Hg] Yojana Coker " blood pressure, systolic 124 mm[Hg] Yojana Coker " pulse rate E&M 86 /min Yojana Coker " temperature site oral Yojana Coker " temperature E&M 98.2 [degF] Yojana Coker " weight E&M 162.38 lbs. Yojana Coker " weight in kilograms E&M 73.81 kg Yojana Coker " height E&M 67 [in_i] Yojana Coker " height in centimeters E&M 170.18 cm Yojana Coker pulse rate E&M 80 /min [facility] " respiratory rate E&M 20 /min [facility] " height E&M 67.00 [in_i] [facility] " weight E&M 168.00 lbs. [facility] " blood pressure, diastolic 80 mm[Hg] [facility] " blood pressure, systolic 120 mm[Hg] [facility] pulse rate E&M 70 /min [facility] " respiratory rate E&M 20 /min [facility] " weight E&M 163.40 lbs. [facility] " height E&M 67.00 [in_i] [facility] " blood pressure, diastolic 70 mm[Hg] [facility] " blood pressure, systolic 110 mm[Hg] [facility] blood pressure, systolic 128 mm[Hg] [facility] " blood pressure, diastolic 76 mm[Hg] [facility] " height E&M 67.00 [in_i] [facility] " pulse rate E&M 70 /min [facility] " weight E&M 166.00 lbs. [facility] " temperature E&M 99.5 [degF] [facility] " respiratory rate E&M 20 /min [facility] blood pressure, systolic 104 mm[Hg] [facility] " respiratory rate E&M 18 /min [facility] " blood pressure, diastolic 76 mm[Hg] [facility] " weight E&M 167.00 lbs. [facility] " pulse rate E&M 82 /min [facility] height E&M 67.00 [in_i] [facility] " weight E&M 170.00 lbs. [facility] " blood pressure, diastolic 80 mm[Hg] [facility] " blood pressure, systolic 110 mm[Hg] [facility] " pulse rate E&M 80 /min [facility] " respiratory rate E&M 18 /min [facility] respiratory rate E&M 20 /min [facility] " pulse rate E&M 60 /min [facility] " blood pressure, diastolic 90 mm[Hg] [facility] " blood pressure, systolic 132 mm[Hg] [facility] " weight E&M 180.00 lbs. [facility] respiratory rate E&M 16 /min [facility] " pulse rate E&M 76 /min [facility] " blood pressure, diastolic 100 mm[Hg] [facility] " weight E&M 180.00 lbs. [facility] " blood pressure, systolic 130 mm[Hg] [facility] respiratory rate E&M 20 /min [facility] " pulse rate E&M 76 /min [facility] " height E&M 67.00 [in_i] [facility] " blood pressure, systolic 122 mm[Hg] [facility] " blood pressure, diastolic 80 mm[Hg] [facility] " temperature E&M 97.3 [degF] [facility] " weight E&M 180.00 lbs. [facility] method used to obtain blood pressure manual Lyla Sanchez " Blood Pressure Position 01 sitting Lyla Sanchez " blood pressure, site #1 right arm Lyla Sanchez " blood pressure, diastolic 98 mm[Hg] Lyla Sanchez " blood pressure, systolic 134 mm[Hg] Lyla Sanchez " respiratory rate E&M 14 /min Lyla Sanchez " oxygen saturation, oximetry 97 % Lyla Sanchez " pulse rate E&M 71 /min Lyla Sanchez " temperature site oral Lyla Sanchez " temperature E&M 98.2 [degF] Lyla Sanchez " weight E&M 173 lbs. Lyla Sanchez " weight in kilograms E&M 78.64 kg Lyla Sanchez " height E&M 67 [in_i] Lyla Sanchez " height in centimeters E&M 170.18 cm Lyla Sanchez Allergies No Known Allergy Information REASON FOR REFERRAL Start Date - End Date Service - Mammogram - Screening RESULTS Date Observation Value Provider Reference Range Interpretation Location magnesium, serum 2.1 mg/dL [facility] 1.6-2.3 " phosphate, serum 2.6 mg/dL [facility] 3.0-4.3 Low " alanine aminotransferase (SGPT), serum 14 1/L [facility] 0-32 " aspartate aminotransferase (SGOT), serum 19 1/L [facility] 0-40 " alkaline phosphatase, serum 61 1/L [facility] 39-117 " bilirubin, serum, total 0.3 mg/dL [facility] 0.0-1.2 " albumin/globulin ratio, serum 2.4 [facility] 1.2-2.2 High " globulin, serum 2.0 [facility] 1.5-4.5 " albumin, serum 4.8 g/dL [facility] 3.8-4.8 " protein, total, serum 6.8 g/dL [facility] 6.0-8.5 " calcium, serum 9.5 mg/dL [facility] 8.7-10.3 " carbon dioxide, venous blood 24 mmol/L [facility] 20-29 " chloride, serum 96 mmol/L [facility] 96-106 " potassium, serum 3.9 mmol/L [facility] 3.5-5.2 " sodium, serum 137 mmol/L [facility] 134-144 " urea nitrogen/creatinine ratio, serum 15 [facility] 12-28 " eGFR if 61 mL/min/((173/100).m2) [facility] >59 " Estimated Glomerular Filtration Rate (calc) 53 mL/min/((173/100).m2) [facility] >59 Low " creatinine, serum 1.12 mg/dL [facility] 0.57-1.00 High " urea nitrogen, blood 17 mg/dL [facility] 8-27 " blood glucose, random 99 mg/dL [facility] 65-99 calcium, serum 9.6 mg/dL [facility] 8.7-10.3 " [...] 11 [facility] 12- Low " eGFR if 69 mL/min/((173/100).m2) [facility] [...] MEDICATION USE Medication Instructions Dates Provider Comments REGLAN 10 MG ORAL TABLET 1 by mouth ac and nightly at bedtime Cecille Wilbert POTASSIUM CHLORIDE 20 MEQ/15ML (10%) ORAL SOLUTION 10 mL By Mouth Every Day Cecille Wilbert OLOPATADINE HCL 0.1 % OPHTHALMIC SOLUTION 1 drop in eye Twice a Day Cecille Wilbert GUAIFENESIN-CODEINE 100-10 MG/5ML ORAL SOLUTION 10 mL Every 6 hrs As Needed for cough and body aches Cecille Wilbert BENZONATATE 100 MG ORAL CAPSULE 1 tab By Mouth Three Times a Day Cecille Wilbert CLARITIN 10 MG ORAL TABLET 1 by mouth every day Eccille Wilbert TRIAMCINOLONE ACETONIDE 0.1 % EXTERNAL OINTMENT [...] (12 hours on, 12 hours off) Bing Thurstonence ATORVASTATIN CALCIUM 20 MG ORAL TABLET take one daily for cholesterol control Jerel Dietrich NORTRIPTYLINE HCL 50 MG ORAL CAPSULE take one every night - Cecille Bensonome CRESTOR 20 MG ORAL TABLET 1 tab by mouth daily Jerel Dietrich LEVOTHYROXINE SODIUM 125 MCG ORAL TABLET One tab by mouth daily - Bing Ferreira [facility] HYDROCODONE-ACETAMINOPHEN 10-325 MG ORAL TABLET takde one daily as needed for chronic hip pain Jerel Dietrich LORAZEPAM 2 MG ORAL TABLET take one tab daily as needed for anxiety Cecille Bensonome HYOSCYAMINE SULFATE 0.125 MG SUBLINGUAL TABLET SUBLINGUAL Take 1 tablet under the tongue before meals. Bing ZhangAdherence PREMARIN 0.9 MG ORAL TABLET 1 by mouth every other day Bing ZhangAdherence CELEBREX 100 MG ORAL CAPSULE 1 by [...] Atkins SOCIAL HISTORY Date Observation Value Provider Exercise Program Referral T Cecille Atkins " Weight Management Counseling Provided T Cecille Bensonome " Nutrition intervention T Cecille Bensonome sexual orientation Heterosexual Tiarra Nicholson " assessment of health literacy ([facility] 2014 Standards, 3C10) Adequate Tiarra Nicholson " drug use, illicit Never Tiarra Nicholson " alcohol use Currently Tiarra Nicholson " smoking status never smoker Tiarra Nicholson sex at Female Jessica Carrizales " drug use, illicit Never Jessica S Carrizales " alcohol use Currently Jessica S Carrizales " social history E&M . Not homeless. City: [place]. State: [place]. 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 Jessica S Carrizales " social history reviewed E&M reviewed today Jessica S Carrizales " sexual orientation Heterosexual Jessica S Carrizales " assessment of health literacy ([facility] 2014 Standards, 3C10) Adequate Jessica S [...] social history E&M . Not homeless. City: [place]. State: [place]. 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 Suma [...] Jen Navarro Exercise Program Referral T Cecille Atkins " Weight Management Counseling Provided T Cecille Wilbert " Nutrition intervention T Cecille Wilbert " is there any chance that you could be ? No Thea Blakelyales " assessment of health literacy ([facility] 2014 Standards, 3C10) Adequate Theabrian Song " drug use, illicit Never Thea Song " alcohol use Currently hTea Blakelyales " smoking status never smoker Theabrian Song " social history E&M . Not homeless. City: [place]. State: [place]. 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 Thea Song " social history reviewed E&M reviewed today Thea Blakelyales time of call 01/13/2019 8:19 AM Elizabeth Chavez Exercise Program Referral T Cecille Wilbert " Weight Management Counseling Provided T Cecille Wilbert " Nutrition intervention T Cecille Wilbert " social history E&M . Not homeless. City: [place]. State: [place]. 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 Thea Song " social history reviewed E&M reviewed today Thea Song " drug use, illicit Never Thea Blakelyales " alcohol use Currently Theabrian Song " assessment of health literacy ([facility] 2014 Standards, 3C10) Adequate Thea Song " is there any chance that you could be ? No Thea Song " passive cigarette smoke exposure No Thea Song " smoking status never smoker Thea Blakelyales drug use, illicit Never Suma Encarnacion " alcohol use Currently Suma Encarnacion " social history E&M . Not homeless. City: [place]. State: [place]. 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 Suma Encarnacion " social history reviewed E&M reviewed today Suma Encarnacion " assessment of health literacy ([facility] 2014 Standards, 3C10) Adequate Suma Encarnacion [...] social history E&M . Not homeless. City: [place]. [place]: [place] 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 Suma Encarnacion " social history reviewed E&M reviewed today Suma Encarnacion " assessment of health literacy ([facility] 2014 Standards, 3C10) Adequate Suma Encarnacion [...] social history E&M . Not homeless. City: [place]. [place]: [place] 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 Alice Hennessy " social history reviewed E&M reviewed today Alice Hennessy " assessment of health literacy ([facility] 2014 Standards, 3C10) Adequate Alice Hennessy [...] social history E&M . Not homeless. City: [place]. State: [place]. 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 Krystin Thomas " social history reviewed E&M reviewed today Krystin Thomas " assessment of health literacy ([facility] 2014 Standards, 3C10) Adequate Krystin Thomas " passive cigarette smoke exposure No Krystin Thomas " smoking status never smoker Krystin Thomas assessment of health literacy ([facility] 2014 Standards, 3C10) Adequate Perri Mccarty " Exercise Program Referral T Perri Quinnierrez " Weight Management Counseling Provided T Perri Quinnierrez " Nutrition intervention T Perri Valenzuelarez " drug use, illicit Never Perri Mccarty " alcohol use Currently Perri Mccarty " social history E&M . Not homeless. City: [place]. State: [place]. 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 Perri Quinnierrez " social history reviewed E&M reviewed today Perri Quinnierrez " passive cigarette smoke exposure No Perri Mccarty " smoking status never smoker Perri Quinnierrez assessment of health literacy ([facility] 2014 Standards, 3C10) Adequate Krystin Thomas [...] T Cecille Wilbert assessment of health literacy ([facility] 2014 Standards, 3C10) Adequate Claribel Castillo " is there any chance that you could be ? No Claribel Castillo " passive cigarette smoke exposure No Claribel Castillo " smoking status never smoker Claribel Castillo assessment of health literacy ([facility] 2014 Standards, 3C10) Adequate Claribel Castillo " passive cigarette smoke exposure No Claribel Castillo " smoking status never smoker Claribel Castillo drug use, illicit Never Jahaira Pool " alcohol use Currently Jahaira Pool " social history E&M . Not homeless. City: [place]. State: [place]. 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 Jahaira Pool " social history reviewed E&M reviewed today Jahaira Pool " assessment of health literacy ([facility] 2014 Standards, 3C10) Adequate Jahaira Pool " passive cigarette smoke exposure No Jahaira Pool " smoking status never smoker Jahaira Pool Exercise Program Referral T Cecille Wilbert " Weight Management Counseling Provided T Cecille Wilbert " Nutrition intervention T Cecille Wilbert " drug use, illicit Never Jahaira Pool " alcohol use Currently Jahaira Pool " social history E&M . Not homeless. City: [place]. [place]: [place] 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 Jahaira Pool " social history reviewed E&M reviewed today Jahaira Pool " assessment of health literacy ([facility] 2014 Standards, 3C10) Adequate Jahaira Pool [...] social history E&M . Not homeless. City: [place]. [place]: [place] 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 Krystin Thomas " social history reviewed E&M reviewed today Krystin Thomas " passive cigarette smoke exposure Yes Krystin Thomas " smoking status never smoker Krystin Thomas " assessment of health literacy ([facility] 2014 Standards, 3C10) Adequate Krystin Thomas Exercise Program Referral T Yojana Garciavez " Weight Management Counseling Provided T Yojana Garciavez " Nutrition intervention T Yojana Ramírez " social history E&M . Not homeless. City: [place]. State: [place]. 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 Yojana Garciavez " social history reviewed E&M reviewed today Yojana Ramírez " passive cigarette smoke exposure Yes Yojana Ramírez " smoking status never smoker Yojana Ramírez " assessment of health literacy ([facility] 2014 Standards, 3C10) Adequate Yojana Ramírez Exercise Program Referral T Cecille Wilbert " Weight Management Counseling Provided T Cecille Wilbert " Nutrition intervention T Cecille Wilbert " social history E&M . Not homeless. City: [place]. State: [place]. 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 Terri Wood " social history reviewed E&M reviewed today Terri Wood " passive cigarette smoke exposure Yes Terri Wood " smoking status never smoker Terri Wood " assessment of health literacy ([facility] 2014 Standards, 3C10) Adequate Terri Wood time of call 03/14/2017 12:51 PM Alice Singh time of call 09/27/2016 3:56 PM Doreen Adele Exercise Program Referral Fe Dietrich " Weight Management Counseling Provided Fe Dietrich " Nutrition intervention Fe Dietrich " drug use, illicit Never Krystin Thomas " alcohol use Currently Krystin Thomas " social history E&M . Not homeless. City: [place]. [place]: [place] 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 Krystin Thomas " social history reviewed E&M reviewed today Krystin Thomas " passive cigarette smoke exposure Yes Krystin Thomas " smoking status never smoker Krystin Thomas " assessment of health literacy ([facility] 2014 Standards, 3C10) Adequate Krystin Thomas time of call 07/28/2016 2:59 PM Yojana Johnsonillo drug use, illicit Never Krystin Thomas " alcohol use Currently Krystin Thomas " social history E&M . Not homeless. City: [place]. [place]: [place] 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 Krystin [...] Larissa Buckley drug use, illicit Never Perri Valenzuelarez " alcohol use Currently Perri Valenzuelarez " passive cigarette smoke exposure No Perri Quinnierrez " smoking status never smoker Perri Mccarty drug use, illicit Never Ashleigh Ellsworth " alcohol use Currently Ashleigh Ellsworth " passive cigarette smoke exposure No Ashleigh Ellsworth " smoking status never smoker Ashleigh Ellsworth time of call 01/07/2014 8:04 AM Kirk Viramontes drug use, illicit Never Thea Maradiaga " alcohol use Currently Thea Maradiaga " social history E&M . Not homeless. City: [place]. [place]: [place] 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 Thea Maradaiga " social history reviewed E&M reviewed today [...] social history E&M . Not homeless. City: [place]. State: [place] 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 Lyla Minor " patient considered to be homeless No Lyla Minor " passive cigarette smoke exposure Yes Lyla Minor " smoking status never smoker Lyla Minor FUNCTIONAL STATUS No Information Available MENTAL STATUS Date Observation Value Provider mental status examination: orientation E&M oriented to time, place, and person Cecille Wilbert " Generalized Anxiety Disorder Questionnaire - Question 2 0 Tiarra Nicholson " Generalized Anxiety Disorder Questionnaire - Question 1 0 Tiarra Nicholson Generalized Anxiety Disorder Questionnaire - Question 2 [...] E&M no depression, anxiety, or agitation [facility] " Generalized Anxiety Disorder Questionnaire - Question 2 0 Krystinus Thomas " Generalized Anxiety Disorder Questionnaire - Question 1 0 Krystin Thomas assessment of judgment and insight E&M intact [facility] " assessment of mood and affect E&M no depression, anxiety, or agitation [facility] " Generalized Anxiety Disorder Questionnaire - Question 2 0 Krystin Thomas " Generalized Anxiety Disorder Questionnaire - Question 1 0 Krystin Thomas assessment of judgment and insight E&M intact [facility] " assessment of mood and affect E&M no depression, anxiety, or agitation [facility] " Generalized Anxiety Disorder Questionnaire - [...] Anxiety Disorder Questionnaire - Question 2 0 Yojnaa Coker " Generalized Anxiety Disorder Questionnaire - Question 1 0 Yojana Coker MEDICAL EQUIPMENT No Information Available FAMILY HISTORY No Information Available INSURANCE PROVIDERS No Information Available ADVANCE DIRECTIVES No Information Available TREATMENT PLAN Date Name Magnesium, Serum Phosphorus, Serum Comp. Metabolic Panel (14) Basic Metabolic Panel (8) Potassium, Serum Basic [...] - - Est Patient Exp Problem - 66801 Ofc Vst, Est Level III Est Patient Exp Problem - 05991 Est Patient Exp Problem - 67090 Est Patient Detailed - 75807 Est Patient Exp Problem - 00211 Est Patient Detailed - 47270 Injection, ketorolac tromethamine (toradol), per 15 mg Est Patient Detailed - 76092 Est Patient Detailed - 68248 Est Patient Detailed - 24129 IM or SQ Injection Injection, dexamethasone sodium phosphate, 1mg Est Patient Detailed - 07081 Est Patient Detailed - 56252 Est Patient Detailed - 04867 Est Patient Detailed - 38472 Est Patient Exp Problem - 88994 IM or SQ Injection Injection, dexamethasone sodium phosphate, 1mg Est Patient Detailed - 34726 Est Patient Exp Problem - 08390 Est Patient Detailed - 69852 INFLUENZA VACCINE QUADRIVALENT 3 YRS PLUS IM Est Patient Well Exam (40 - 64 Yrs) - 03880 INFLUENZA VACCINE QUADRIVALENT 3 YRS PLUS IM Est Patient Exp Problem - 23057 Est Patient Well Exam (40 - 64 Yrs) - 76689 Est Patient Exp Problem - 46847 Est Patient Detailed - 99043 Est Patient Exp Problem - 80249 EKG - Tracing Only EKG - Interpretation & Report Only Est Patient Exp Problem - 36295 Est Patient Well Exam (40 - 64 Yrs) - 25759 Est Patient Exp Problem - 64444 HISTORY OF PROCEDURES Procedure Date Procedure Name Provider Procedure Notes Status Injection, ketorolac tromethamine (toradol), per 15 mg Cecille Wilbert completed IM or SQ Injection Cecille Wilbert 4mg left deltoid IM completed Injection, dexamethasone sodium phosphate, 1mg Cecille Wilbert completed IM or SQ Injection Cecille Wilbert 4mg/ml dexamethasone IM right gluteus medius completed Injection, dexamethasone sodium phosphate, 1mg Cecille Wilbert [facility]: [id number]. completed EKG - Tracing Only Elisabeth Bourne completed EKG - Interpretation & Report Only Elisabeth Bourne completed GOALS No Information Available HEALTH CONCERNS No Information Available
--- OUTSIDE RECORDS SUMMARY | 2019-08-12 11:48 | XMS REPORT ---
Author Author Admin, Leander Organization Unknown Address Unknown Phone Unavailable PROBLEMS [...] Ambulatory Encounter LSJ Lab Support Desktop LinkLogic [facility] UNK - Ambulatory Encounter Cecille Wilbert Cecille Bensonome [facility] UNK - Ambulatory Encounter Cecille Nicholson [facility] Abdominal cramps - Ambulatory Encounter Cecille Wilbert Macario MedAdherence [facility] UNK - Ambulatory Encounter Cecille Wilbert Macario MedAdherence [facility] UNK - Ambulatory Encounter Cecille Wilbert Atkins LinkLogic [facility] UNK - Ambulatory Encounter Cecille Wilbert Fu Love MedAdherence [facility] UNK - Ambulatory Encounter Cecille Wilbert Mathew MedAdherence [facility] Practice UNK - Ambulatory Encounter Cecille Wilbert Atkins LinkLogic [facility] Practice UNK - Ambulatory Encounter Cecille Wilbert Atknis LinkLogic [facility] Practice UNK - Ambulatory Encounter Cecille Wilbert Macario MedAdherence [facility] UNK - Ambulatory Encounter Cecille Wilbert Sarah MedAdherence [facility] UNK - Ambulatory Encounter Cecille Wilbert Atkins LinkLogic [facility] UNK - Ambulatory Encounter Cecille Wilbert Atkins [facility] UNK - Ambulatory Encounter Cecille Wilbert Carrizales [facility] Viral URI - Ambulatory Encounter Cecille Wilbert Rodriguez [facility] UNK - Ambulatory Encounter Cecille Wilbert Atkins LinkLogic [facility] UNK - Ambulatory Encounter Cecille Wilbert Callahan MedAdherence [facility] UNK - Ambulatory Encounter Cecille Wilbert Atkins [facility] UNK - Ambulatory Encounter Cecille Wilbert Atkins Krystin Thomas [facility] UNK - Ambulatory Encounter Cecille Wilbert Atkins LinkLogic [facility] UNK - Ambulatory Encounter Cecille Wilbert Atkins [facility] UNK - Ambulatory Encounter Cecille Wilbert Atkins LinkLogic [facility] UNK - Ambulatory Encounter Cecille Wilbert Atkins [facility] UNK - Ambulatory Encounter Cecille Wilbert Mcclelland Thoams Suma Carrilloendez [facility] Impaired physical mobility - Ambulatory Encounter Cecille Wilbert Atkins LinkLogic [facility] UNK - Ambulatory Encounter Cecille Wilbert Atkins Bing Ferreira MedAdherence [facility] UNK - Ambulatory Encounter Cecille Wilbert Callahan MedAdherence [facility] UNK - Ambulatory Encounter Cecille Wilbert Callahan MedAdherence [facility] UNK - Ambulatory Encounter Cecille Wilbert Atkins LinkLogic [facility] UNK - Ambulatory Encounter Cecille Wilbert Atkins Bing Ferreira MedAdherence [facility] UNK - Ambulatory Encounter Cecille Wilbert Atkins LinkLogic [facility] UNK - Ambulatory Encounter Cecille Wilbert Atkins [facility] UNK - Ambulatory Encounter Cecille Wilbert Atkins LinkLogic [facility] UNK - Ambulatory Encounter Cecille Wilbert Atkins [facility] UNK - Ambulatory Encounter Cecille Wilbert Song [facility] Rash, nonspecific - Ambulatory Encounter Cecille Wilbert Cecille Sidhu Hiren Ramirez UNK - Ambulatory Encounter Cecille Wilbert [facility] UNK - Ambulatory Encounter Cecille Wilbert Thomas [facility] UNK - Ambulatory Encounter Cecille Wilbert Rowley [facility] UNK - Ambulatory Encounter Cecille Wilbert Hendricks [facility] HYPOKALEMIA - Ambulatory Encounter Cecille Wilbert Atkins [facility] UNK - Ambulatory Encounter Cecille Wilbert Atkins Bing Ferreira MedAdherence [facility] UNK - Ambulatory Encounter Cecille Wilbert Rowley [facility] UNK - Ambulatory Encounter Cecille Wilbert Atkins [facility] UNK - Ambulatory Encounter Cecille Wilbert Smart Hanna MedAdherence Krystin Dey [facility] Multiple joint pain - Ambulatory Encounter Cecille Wilbert Callahan MedAdherence [facility] UNK - Ambulatory Encounter Cecille Wilbert Callahan MedAdherence [facility] UNK - Ambulatory Encounter Cecille Wilbert KahnLogic [facility] UNK - Ambulatory Encounter Cecille Wilbert Atkins LinkLogic [facility] UNK - Ambulatory Encounter Cecille Wilbert Atkins [facility] UNK - Ambulatory Encounter Cecille Wilbert Cecille Wilbert Encarnacion [facility] UNK - Ambulatory Encounter Cecille Wilbert Cecille Wilbert Angelita Callahan MedAdherence Per[facility] UNK - Ambulatory Encounter Cecille Wilbert Cecille Wilbert [facility] UNK - Ambulatory Encounter Cecille Wilbert Cecille Wilbert Marie Ashby [facility] UNK - Ambulatory Encounter Cecille Wilbert Ceiclle Wilbert LinkLogic [facility] UNK - Ambulatory Encounter Cecille Wilbert Cecille Wilbert LinkLogic [facility] UNK - Ambulatory Encounter Cecille Wilbert Atkins LinkLogic [facility] UNK - Ambulatory Encounter Fax Status [facility] UNK - Ambulatory Encounter Fax Status [facility] UNK - Ambulatory Encounter Fax Status [facility] UNK - Ambulatory Encounter Fax Status [facility] UNK - Ambulatory Encounter Fax Status [facility] UNK - Ambulatory Encounter Fax Status [facility] UNK - Ambulatory Encounter Bing Ferreira MedAdherence [facility] UNK - Ambulatory Encounter Cecille Wilbert Cecille Wilbert LinkLogic [facility] UNK - Ambulatory Encounter Cecille Wilbert Atkins [facility] UNK - Ambulatory Encounter Cecille Wilbert Atkins LinkLogic [facility] UNK - Ambulatory Encounter Cecille Wilbert Cecille Bensonome [facility] UNK - Ambulatory Encounter Cecille Wilbert Coe [facility] Ankle swelling - Ambulatory Encounter Cecille Wilbert Callahan MedAdherence [facility] UNK - Ambulatory Encounter Cecille Wilbert Kahn [facility] Services Contact Center UNK - Ambulatory Encounter Cecille Wilbert Atkins LinkLogic [facility] UNK - Ambulatory Encounter Bing Ferreira MedAdherence [facility] UNK - Ambulatory Encounter Cecille Wilbert Atkins [facility] UNK - Ambulatory Encounter Cecille Wilbert Atkins Tiarra Nicholson [facility] UNK - Ambulatory Encounter Cecille Wilbert Atkins Alice Hennessy [facility] UNK - Ambulatory Encounter Cecille Wilbert Atkins Bing Ferreira MedAdherence [facility] UNK - Ambulatory Encounter Bing Ferreira MedAdherence [facility] UNK - Ambulatory Encounter Angelita Becerra [facility] Services Contact Center UNK - Ambulatory Encounter Cecille Atkins LinkLogic [facility] UNK - Ambulatory Encounter Cecille Wilbert Atkins [facility] UNK - Ambulatory Encounter Cecille Wilbert Oden Wilbert LinkLogic [facility] UNK - Ambulatory Encounter Cecille Wilbert Oden Wilbert [facility] UNK - Ambulatory Encounter Cecille Wilbert Oden Wilbert Katie Chavezmanuel [facility] G[facility] benign tumor - Ambulatory Encounter Cecille Wilbert Bensondaria Callahan [facility] UNK - Ambulatory Encounter Cecille Wilbert Oden Wilbert LinkLogic [facility] UNK - Ambulatory Encounter Angelita Callahan [facility] Practice UNK - Ambulatory Encounter Cecille Wilbert Oden Wilbert [facility] UNK - Ambulatory Encounter Cecille Wilbert Oden Wilbert LinkLogic [facility] UNK - Ambulatory Encounter Angelita Callahan [facility] UNK - Ambulatory Encounter Cecille Wilbert Oden Wilbert [facility] UNK - Ambulatory Encounter Cecille Wilbert Bensonome [facility], acute - Ambulatory Encounter Cecille Wilbert Oden Wilbert LinkLogic [facility] UNK - Ambulatory Encounter Cecille Wilbert Oden Wilbert LinkLogic [facility] UNK - Ambulatory Encounter Cecille Wilbert Oden Wilbert [facility] UNK - Ambulatory Encounter Cecille Wilbert Bensonome Krystinus Nguyenra [facility] UNK - Ambulatory Encounter Cecille Wilbert Oden Wilbert LinkLogic [facility] UNK - Ambulatory Encounter Cecille Wilbert Atkins LinkLogic [facility] UNK - Ambulatory Encounter Cecille Wilbert Atkins LinkLogic [facility] UNK - Ambulatory Encounter Cecille Wilbert Atkins LinkLogic [facility] UNK - Ambulatory Encounter Cecille Wilbert Atkins LinkLogic [facility] UNK - Ambulatory Encounter Cecille Wilbert Atkins LinkLogic [facility] UNK - Ambulatory Encounter Cecille Wilbert Atkins LinkLogic [facility] UNK - Ambulatory Encounter Cecille Wilbert Atkins [facility] UNK - Ambulatory Encounter Cecille Mcnairacacia [facility] - Ambulatory Encounter Cecille Wilbert Atkins [facility] UNK - Ambulatory Encounter Cecille Wilbert Atkins LinkLogic [facility] UNK - Ambulatory Encounter Cecille Wilbert Atkins [facility] UNK - Ambulatory Encounter Angelita Callahan MedAdherence [facility] UNK - Ambulatory Encounter Angelita Callahan MedAdherence [facility] UNK - Ambulatory Encounter Angelita Callahan MedAdherence [facility] UNK - Ambulatory Encounter Angelita Callahan MedAdherence LinkLogic [facility] UNK - Ambulatory Encounter Angelita Callahan MedAdherence LinkLogic [facility] UNK - Ambulatory Encounter Angelita Callahan MedAdherence LinkLogic [facility] UNK - Ambulatory Encounter Cecille Atkins [facility] UNK - Ambulatory Encounter Cecille Castillo [facility] UNK - Ambulatory Encounter Fax Status [facility] - Ambulatory Encounter Fax Status [facility] UNK - Ambulatory Encounter Fax Status [facility] UNK - Ambulatory Encounter Cecille Atkins [facility] UNK - Ambulatory Encounter Cecille Jamesontanilla Jahaira Pool [facility] Chronic painHypertensionAnorectal disorder - Ambulatory Encounter [facility] - Ambulatory Encounter Cecille Atkins LinkLogic [facility] UNK - Ambulatory Encounter Cecille Oden Wilbert [facility] UNK - Ambulatory Encounter Cecille Atkins LinkLogic [facility] UNK - Ambulatory Encounter Fax Status [facility] UNK - Ambulatory Encounter Cecille Atkins [facility] UNK - Ambulatory Encounter Cecille Quinnierrez Jahaira Pool [facility] UNK - Ambulatory Encounter Cecille Wilbert Oden Wilbert LinkLogic [facility] UNK - Ambulatory Encounter Angelita Callahan MedAdherence [facility] UNK - Ambulatory Encounter Angelita Callahan [facility] UNK - Ambulatory Encounter Bing Ferreira MedAdherence [facility] UNK - Ambulatory Encounter Angelita Callahan MedAdherence [facility] UNK - Ambulatory Encounter Angelita Callahan MedAdherence [facility] UNK - Ambulatory Encounter Cecille Bensonome Cecille Wilbert [facility] UNK - Ambulatory Encounter Cecille Bensonome Cecille Wilbert [facility] UNK - Ambulatory Encounter Cecille Oden Wilbert Perri Olea [facility] Allergic rhinitis - Ambulatory Encounter Cecille Bensonome Cecille Wilbert [facility] UNK - Ambulatory Encounter Cecille Oden Wilbert Krystin Thomas [facility] Acute frontal sinusitis - Ambulatory Encounter Angelita Callahan MedAdherence [facility] UNK - Ambulatory Encounter Angelita Callahan MedAdherence LinkLogic [facility] UNK - Ambulatory Encounter Cecille Bensonome Cecille Wilbert LinkLogic [facility] UNK - Ambulatory Encounter Cecille Bensonome Cecille Wilbert [facility] UNK - Ambulatory Encounter Cecille Bensonome Cecille Wilbert Yojana Garciavez [facility] UNK - Ambulatory Encounter Lizzette Szymanski [facility] UNK - Ambulatory Encounter Cecille Oden Wilbertdaria Szymanski [facility] UNK - Ambulatory Encounter Cecille Oden Wilbert [facility] UNK - Ambulatory Encounter Cecille Bensonome Cecille Wilbert [facility] UNK - Ambulatory Encounter Cecille Manenanci Wood [facility] UNK - Ambulatory Encounter Asmita Garcia [facility] UNK - Ambulatory Encounter Asmita Garcia [facility] UNK - Ambulatory Encounter Elisabeth Bourne [facility] UNK - Ambulatory Encounter Angelita Callahan MedAdherence Alice Singh [facility] Services Contact Center UNK - Ambulatory Encounter Jerel Dietrich [facility] UNK - Ambulatory Encounter Jerel Dietrich [facility] UNK - Ambulatory Encounter Jerel Dietrich [facility] UNK - Ambulatory Encounter Angelita Callahan MedAdherence [facility] UNK - Ambulatory Encounter Angelita Callahan MedAdherence [facility] UNK - Ambulatory Encounter Jerel Dietrich [facility] UNK - Ambulatory Encounter Jerel [facility] UNK - Ambulatory Encounter Bing Ferreira MedAdherence [facility] UNK - Ambulatory Encounter Jerel Dietrich [facility] UNK - Ambulatory Encounter Bing Ferreira MedAdherence Doreen Callahan MedAdherence [facility] Services Contact Center UNK - Ambulatory Encounter Jerel Dietrich [facility] UNK - Ambulatory Encounter Jerel Thomas [facility] UNK - Ambulatory Encounter Bing Ferreira MedAdherence [facility] UNK - Ambulatory Encounter Bing Ferreira MedAdherence LinkLogic [facility] UNK - Ambulatory Encounter Jerel Dietrich [facility] UNK - Ambulatory Encounter Bing Ferreira MedAdherence [facility] UNK - Ambulatory Encounter Bing Ferreira MedAdherence LinkLogic [facility] UNK - Ambulatory Encounter Jerel Dietrich LinkLogic [facility] UNK - Ambulatory Encounter Bing Ferreira MedAdherence [facility] UNK - Ambulatory Encounter Bing Ferreira MedAdherence LinkLogic [facility] UNK - Ambulatory Encounter Angelita Callahan MedAdherence [facility] UNK - Ambulatory Encounter Angelita Callahan MedAdherence LinkLogic [facility] UNK - Ambulatory Encounter Bing Ferreira MedAdherence Yojana Minaya [facility] Services [facility] UNK - Ambulatory Encounter Jerel Dietrich LinkLogic [facility] UNK - Ambulatory Encounter Jerel Dietrich [facility] UNK - Ambulatory Encounter Jerel Dietrich [facility] UNK - Ambulatory Encounter [facility] OverweightBMI 25.0-25.9Flu shot - Ambulatory Encounter Carla Singh [facility] UNK - Ambulatory Encounter Jerel Dietrich [facility] UNK - Ambulatory Encounter Jerel Dietrich LinkLogic [facility] UNK - Ambulatory Encounter Bing Ferreira MedAdherence [facility] UNK - Ambulatory Encounter Bing Ferreira MedAdherence LinkLogic [facility] UNK - Ambulatory Encounter Bing Ferreira MedAdherence [facility] UNK - Ambulatory Encounter Bing Ferreira MedAdherence LinkLogic [facility] UNK - Ambulatory Encounter Bing Ferreira MedAdherence [facility] UNK - Ambulatory Encounter Bing Ferreira MedAdherence LinkLogic [facility] UNK - Ambulatory Encounter Angelita London MedAdherence [facility] UNK - Ambulatory Encounter Angelita Callahan MedAdherence LinkLogic [facility] UNK - Ambulatory Encounter Jerel Dietrich LinkLogic [facility] UNK - Ambulatory Encounter Jerel KahnLogic [facility] UNK - Ambulatory Encounter Jerel Dietrich LinkLogic [facility] UNK - Ambulatory Encounter Jerel Dietrich [facility] UNK - Ambulatory Encounter Jerel Dietrich LinkLogic [facility] UNK - Ambulatory Encounter Jerel Dietrich LinkLogic [facility] UNK - Ambulatory Encounter Jerel Dietrich [facility] UNK - Ambulatory Encounter Jerel Dietrich LinkLogic [facility] UNK - Ambulatory Encounter Jerel Dietrich [facility] UNK - Ambulatory Encounter Jerel Dietrich LinkLogic [facility] UNK - Ambulatory Encounter Bing Ferreira MedAdherence [facility] UNK - Ambulatory Encounter Katie Chavez [facility] UNK - Ambulatory Encounter Bing Ferreira MedAdherence [place] UNK - Ambulatory Encounter Jerel Dietrich [facility] UNK - Ambulatory Encounter Jerel Dietrich LinkLogic [facility] UNK - Ambulatory Encounter Jerel Dietrich [facility] UNK - Ambulatory Encounter Jerel Rubalcava [facility] Screening for malignant neoplasm, colonScreening exam for breast cancer - Ambulatory Encounter Bing Ferreira MedAdherence [facility] UNK - Ambulatory Encounter Bing Ferreira MedAdherence [place] [facility] UNK - Ambulatory Encounter Bing Ferreira MedAdherence LinkLogic [place] [facility] UNK - Ambulatory Encounter Bing Ferreira MedAdherence [place] [facility] UNK - Ambulatory Encounter Bing Ferreira MedAdherence LinkLogic [place] [facility] UNK - Ambulatory Encounter Bing Ferreira MedAdherence [place] [facility] UNK - Ambulatory Encounter Bing Ferreira MedAdherence LinkLogic [place] [facility] UNK - Ambulatory Encounter Gisselle Wilder [facility] UNK - Ambulatory Encounter Gisselle Wilder LinkLogic [facility] UNK - Ambulatory Encounter Jerel Dietrich Bing Ferreira MedAdherence [facility] UNK - Ambulatory Encounter Jerel Beltrán Karlo [facility] UNK - Ambulatory Encounter Jerel Dietrich Perri Quinnierrez [facility] UNK - Ambulatory Encounter Jerel Dietrich LinkLogic [facility] UNK - Ambulatory Encounter Jerel Dietrich LinkLogic [facility] UNK - Ambulatory Encounter Jerel Dietrich [facility] UNK - Ambulatory Encounter Jerel Dietrich LinkLogic [facility] UNK - Ambulatory Encounter Fax [facility]K - Ambulatory Encounter Fax Status [facility] UNK - Ambulatory Encounter Jerel Wallace Aurelia [facility] UNK - Ambulatory Encounter Jerel Christensen [facility] Contact Center UNK - Ambulatory Encounter Bing Ferreira MedAdherence [facility] UNK - Ambulatory Encounter Bing Ferreira MedAdherence LinkLogic [facility] UNK - Ambulatory Encounter Jerel Dietrich [facility] UNK - Ambulatory Encounter Jerel Dietrich LinkLogic [facility] UNK - Ambulatory Encounter Bing Ferreira MedAdherence [facility] UNK - Ambulatory Encounter Bing Ferreira MedAdherence LinkLogic [facility] UNK - Ambulatory Encounter Fax Status LinkLogic [facility] Services UNK - Ambulatory Encounter Bing Ferreira MedAdherence [facility] UNK - Ambulatory Encounter Bing Ferreira MedAdherence [facility] UNK - Ambulatory Encounter Jerel Mccarty [facility] HEALTH MAINTENANCE EXAM - Ambulatory Encounter Jerel Dietrich [facility] UNK - Ambulatory Encounter Jerel Dietrich LinkLogic [facility] UNK - Ambulatory Encounter Jerel Dietrich [facility] UNK - Ambulatory Encounter Bing Ferreira MedAdherence [facility] UNK - Ambulatory Encounter Bing Ferreira MedAdherence [facility] UNK - Ambulatory Encounter Bing Ferreira MedAdherence LinkLogic [facility] UNK - Ambulatory Encounter Bing Ferreira MedAdherence LinkLogic [facility] UNK - Ambulatory Encounter Bing Ferreira MedAdherence [facility] UNK - Ambulatory Encounter Bing Ferreira MedAdherence LinkLogic [facility] UNK - Ambulatory Encounter Bing Ferreira MedAdherence [facility] UNK - Ambulatory Encounter Bing Ferreira MedAdherence LinkLogic [facility] UNK - Ambulatory Encounter Bing Ferreira MedAdherence [facility] UNK - Ambulatory Encounter Bing Ferreira MedAdherence [facility] UNK - Ambulatory Encounter Bing Ferreira MedAdherence LinkLogic [place] [facility] UNK - Ambulatory Encounter Bing Ferreira MedAdherence LinkLogic [place] [facility] UNK - Ambulatory Encounter Bing Ferreira MedAdherence [place] [facility] UNK - Ambulatory Encounter Bing Ferreira MedAdherence LinkLogic [place] [facility] UNK - Ambulatory Encounter Jerel Dietrich [facility] UNK - Ambulatory Encounter Jerel Dietrich [facility] UNK - Ambulatory Encounter Bing Ferreira MedAdherence [place] [facility] UNK - Ambulatory Encounter Bing Ferreira MedAdherence LinkLogic [place] [facility] UNK - Ambulatory Encounter [facility] UNK - Ambulatory Encounter Lyla Sanchez [facility] UNK - Ambulatory Encounter [facility] Sotelo [facility] O[facility] - Ambulatory Encounter Bing Thurstonence Kirk Viramontes [facility] Services Contact Center UNK - Ambulatory Encounter Tram Mann Tram Mann [facility] UNK - Ambulatory Encounter Tram Mann Tram Mann [facility] UNK - Ambulatory Encounter Elisabeth Bourne Tram Mann Tram Mann Thea Moses [facility] HEADACHECHEST PAINHYPERLIPIDEMIA - Ambulatory Encounter Jerel Dietrich [facility] UNK - Ambulatory Encounter Jerel Dietrich [facility] UNK - Ambulatory Encounter Jerel Dietrich [facility] UNK - Ambulatory Encounter Jerel Dietrich Katie Kilgorel [facility] UNK - Ambulatory Encounter Jerel Dietrich [facility] UNK - Ambulatory Encounter Fax Status [facility] UNK - Ambulatory Encounter Arlen Nicholson [facility] Services UNK - Ambulatory Encounter Fax Status [facility] Services UNK - Ambulatory Encounter Jerel Dietrich Yojana John Paul [facility] UNK - Ambulatory Encounter Bing Ferreira [facility] UNK - Ambulatory Encounter Jerel Smith Bing Ferreira [facility] UNK - Ambulatory Encounter [facility] UNK - Ambulatory Encounter Mormon Preload [facility] UNK - Ambulatory Encounter Mormon Preload [facility] UNK - Ambulatory Encounter Mormon Preload [facility] UNK - Ambulatory Encounter Mormon Preload [facility] UNK - Ambulatory Encounter Mormon Preload [facility] UNK - Ambulatory Encounter Mormon Preload [facility] UNK - Ambulatory Encounter Mormon Preload [facility] UNK - Ambulatory Encounter Mormon Preload [facility] UNK - Ambulatory Encounter Mormon Preload [facility] UNK - Ambulatory Encounter Mormon Preload [facility] UNK - Ambulatory Encounter Mormon Preload [facility] UNK - Ambulatory Encounter Mormon Preload [facility] UNK - Ambulatory Encounter Mormon Preload [facility] UNK - Ambulatory Encounter Mormon Preload [facility] UNK - Ambulatory Encounter Mormon Preload [facility] UNK - Ambulatory Encounter Mormon Preload [facility] UNK - Ambulatory Encounter Mormon Preload [facility] UNK - Ambulatory Encounter Mormon Preload [facility] UNK - Ambulatory Encounter Mormon Preload [facility] UNK - Ambulatory Encounter Mormon Preload [facility] UNK - Ambulatory Encounter Mormon Preload [facility] UNK - Ambulatory Encounter Mormon Preload [facility] UNK - Ambulatory Encounter Mormon Preload [facility] UNK - Ambulatory Encounter Mormon Preload [facility] UNK - Ambulatory Encounter Mormon Preload [facility] UNK - Ambulatory Encounter Mormon Preload [facility] UNK - Ambulatory Encounter Mormon Preload [facility] UNK - Ambulatory Encounter Mormon Preload [facility] UNK - Ambulatory Encounter Mormon Preload [facility] UNK - Ambulatory Encounter Mormon Preload [facility] UNK - Ambulatory Encounter Mormon Preload [facility] UNK - Ambulatory Encounter Mormon Preload [facility] UNK - Ambulatory Encounter Mormon Preload [facility] UNK - [facility] UNK - Ambulatory Encounter Mormon Preload [facility] UNK - Ambulatory Encounter Mormon Preload [facility] UNK - Ambulatory Encounter Mormon Preload [facility] UNK - Ambulatory Encounter Mormon Preload [facility] UNK - Ambulatory Encounter Mormon Preload [facility] UNK - Ambulatory Encounter Mormon Preload [facility] UNK - Ambulatory Encounter Mormon Preload [facility] UNK - Ambulatory Encounter Mormon Preload [facility] UNK - Ambulatory Encounter Mormon Preload [facility] UNK - Ambulatory Encounter Mormon Preload [facility] UNK - Ambulatory Encounter Mormon Preload [facility] UNK - Ambulatory Encounter Mormon Preload [facility] UNK - Ambulatory Encounter Mormon Preload [facility] UNK - Ambulatory Encounter Mormon Preload [facility] UNK - Ambulatory Encounter Mormon Preload [facility] UNK - Ambulatory Encounter Mormon Preload [facility] UNK - Ambulatory Encounter Mormon Preload [facility] UNK - Ambulatory Encounter Mormon Preload [facility] UNK - Ambulatory Encounter Mormon Preload [facility] UNK - Ambulatory Encounter Mormon Preload [facility] UNK - Ambulatory Encounter Mormon Preload [facility] UNK - Ambulatory Encounter Mormon Preload [facility] UNK - Ambulatory Encounter Mormon Preload [facility] UNK - Ambulatory Encounter Mormon Preload [facility] UNK - Ambulatory Encounter Mormon Preload [facility] UNK - Ambulatory Encounter Mormon Preload [facility] UNK - Ambulatory Encounter Mormon Preload [facility] UNK - Ambulatory Encounter Mormon Preload [facility] UNK - Ambulatory Encounter Mormon Preload [facility] UNK - Ambulatory Encounter Mormon Preload [facility] UNK - Ambulatory Encounter Mormon Preload [facility] UNK - Ambulatory Encounter Mormon Preload [facility] UNK - Ambulatory Encounter [facility] UNK - Ambulatory Encounter Mormon Preload [facility] UNK - Ambulatory Encounter Mormon Preload [facility] UNK - Ambulatory Encounter [facility] UNK - Ambulatory Encounter [facility] UNK - Ambulatory Encounter [facility] UNK - Ambulatory Encounter Mormon [facility] UNK - Ambulatory Encounter Jerel Smart Ferreira [facility] UNK [facility] - [facility] Jerel Sanchez [facility] ANXIETYARTHRALGIAHYPOTHYROIDISM - Ambulatory Encounter Jerel Dietrich [facility] UNK - Ambulatory Encounter Jerel Smart [facility] UNK VITAL SIGNS Date Observation Value Provider [...] " blood pressure, diastolic 84 mm[Hg] Krystin Thoams " blood pressure, systolic 125 mm[Hg] Krystin [...] /min Yojana Garciavez " temperature site oral oYjana Ramírez " temperature E&M 98.3 [degF] Yojana [...] site oral Krystin Thomas " temperature E&M 98.0 [degF] Krystin Thomas [...] blood pressure, site #1 left arm Thea Maradiaga " blood pressure, diastolic 90 mm[Hg] [...] used to obtain blood pressure manual Lyla Sacnhez " Blood Pressure Position 01 sitting Lyla Sanchez " blood pressure, site #1 right arm Lyla Sanchez " blood pressure, diastolic 98 mm[Hg] Lyla Sanchez " blood pressure, systolic 134 mm[Hg] Lyla Sanchez " respiratory rate E&M 14 /min Lyla Sanhcez " oxygen saturation, oximetry 97 % Lyla [...] TABLET take one daily for cholesterol control Jreel Dietrich NORTRIPTYLINE HCL 50 MG ORAL CAPSULE [...] Tiarra Nicholson " assessment of health literacy ([facility] 2014 Standards, 3C10) Adequate Tiarra Nicholson " drug use, illicit Never Tiarra Nicholson " alcohol use Currently Tiarra Nicholson " smoking status never smoker Tiarra Nicholson sex at Female Jessica Carrizales " drug use, illicit Never Jessica S Carrizales " alcohol use Currently Jessica S Carrizales " social history E&M . Not homeless. City: [place]. State: [place]. 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 [employer]. 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 Jessica S Carrizales " social history reviewed E&M reviewed today Jessica S Carrizales " sexual orientation Heterosexual Jessica S Carrizales " assessment of health literacy ([facility] 2014 Standards, 3C10) Adequate Jessica S [...] social history E&M . Not homeless. City: [place]. State: [place]. 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 [employer]. 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 Suma [...] Thea Blakelyales " assessment of health literacy ([facility] 2014 Standards, 3C10) Adequate Theabrian Song " drug use, illicit Never Thea Song " alcohol use Currently Thea Blakelyales " smoking status never smoker Theabrian Song " social history E&M . Not homeless. City: [place]. State: [place]. 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 [employer]. 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 Thea Song " social history reviewed E&M reviewed today Thea Blakelyales time of call 01/13/2019 8:19 AM Elizabeth Chavez Exercise Program Referral T Cecille Wilbert " Weight Management Counseling Provided T Cecille Wilbert " Nutrition intervention T Cecille Wilbert " social history E&M . Not homeless. City: [place]. State: [place]. 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 [employer]. 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 Thea Song " social history reviewed E&M reviewed today Thea Song " drug use, illicit Never Thea Blakelyales " alcohol use Currently Theabrian Song " assessment of health literacy ([facility] 2014 Standards, 3C10) Adequate Thea Song " is there any chance that you could be ? No Thea Song " passive cigarette smoke exposure No Thea Song " smoking status never smoker Thea Blakelyales drug use, illicit Never Suma Encarnacion " alcohol use Currently Suma Encarnacion " social history E&M . Not homeless. City: [place]. State: [place]. 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 [employer]. 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 Suma Encarnacion " social history reviewed E&M reviewed today Suma Encarnacion " assessment of health literacy ([facility] 2014 Standards, 3C10) Adequate Suma Encarnacion [...] social history E&M . Not homeless. City: [place]. State: [place] 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 [employer]. 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 Suma Encarnacion " social history reviewed E&M reviewed today Suma Encarnacion " assessment of health literacy ([facility] 2014 Standards, 3C10) Adequate Suma Encarnacion [...] social history E&M . Not homeless. City: [place]. [place]: [place] 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 [employer]. 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 Alice Hennessy " social history reviewed E&M reviewed today Alice Hennessy " assessment of health literacy ([facility] 2014 Standards, 3C10) Adequate Alice Hennessy [...] social history E&M . Not homeless. City: [place]. State: [place]. 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 [employer]. 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 Krystin Thomas " social history reviewed E&M reviewed today Krystin Thomas " assessment of health literacy ([facility] 2014 Standards, 3C10) Adequate Krystin Thomas " passive cigarette smoke exposure No Krystin Thomas " smoking status never smoker Krystin Thomas assessment of health literacy ([facility] 2014 Standards, 3C10) Adequate Perri Mccarty " Exercise Program Referral T Perri Quinnierrez " Weight Management Counseling Provided T Perri Quinnierrez " Nutrition intervention T Perri Valenzuelarez " drug use, illicit Never Perri Mccarty " alcohol use Currently Perri Mccarty " social history E&M . Not homeless. City: [place]. State: [place]. 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 [employer]. 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 Perri Quinnierrez " social history reviewed E&M reviewed today Perri Quinnierrez " passive cigarette smoke exposure No Perri Mccarty " smoking status never smoker Perri Quinnierrez assessment of health literacy ([facility] 2014 Standards, 3C10) Adequate Krystin Thomas [...] T Cecille Wilbert assessment of health literacy ([facility] 2014 Standards, 3C10) Adequate Claribel Castillo " is there any chance that you could be ? No Claribel Castillo " passive cigarette smoke exposure No Claribel Castillo " smoking status never smoker Claribel Castillo assessment of health literacy ([facility] 2014 Standards, 3C10) Adequate Claribel Castillo " passive cigarette smoke exposure No Claribel Castillo " smoking status never smoker Claribel Castillo drug use, illicit Never Jahaira Pool " alcohol use Currently Jahaira Pool " social history E&M . Not homeless. City: [place]. State: [place]. 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 [employer]. 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 Jahaira Pool " social history reviewed E&M reviewed today Jahaira Pool " assessment of health literacy ([facility] 2014 Standards, 3C10) Adequate Jahaira Pool " passive cigarette smoke exposure No Jahaira Pool " smoking status never smoker Jahaira Pool Exercise Program Referral T Cecille Wilbert " Weight Management Counseling Provided T Cecille Wilbert " Nutrition intervention T Cecille Wilbert " drug use, illicit Never Jahaira Pool " alcohol use Currently Jahaira Pool " social history E&M . Not homeless. City: [place]. State: [place] 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 [employer]. 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 Jahaira Pool " social history reviewed E&M reviewed today Jahaira Pool " assessment of health literacy ([facility] 2014 Standards, 3C10) Adequate Jahaira Pool [...] social history E&M . Not homeless. City: [place]. State: [place] 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 [employer]. 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 Krystin Thomas " social history reviewed E&M reviewed today Krystin Thomas " passive cigarette smoke exposure Yes Krystin Thomas " smoking status never smoker Krystin Thomas " assessment of health literacy ([facility] 2014 Standards, 3C10) Adequate Krystin Thomas Exercise Program Referral T Yojana Garciavez " Weight Management Counseling Provided T Yojana Garciavez " Nutrition intervention T Yojana Ramírez " social history E&M . Not homeless. City: [place]. State: [place]. 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 [employer]. 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 Yojana Garciavez " social history reviewed E&M reviewed today Yojana Ramírez " passive cigarette smoke exposure Yes Yojana Ramírez " smoking status never smoker Yojana Ramírez " assessment of health literacy ([facility] 2014 Standards, 3C10) Adequate Yojana Ramírez Exercise Program Referral T Cecille Wilbert " Weight Management Counseling Provided T Cecille Wilbert " Nutrition intervention T Cecille Wilebrt " social history E&M . Not homeless. City: [place]. State: [place]. 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 [employer]. 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 Terri Wood " social history reviewed E&M reviewed today Terri Wood " passive cigarette smoke exposure Yes Terri Wood " smoking status never smoker Terri Wood " assessment of health literacy ([facility] 2014 Standards, 3C10) Adequate Terri Wood time of call 03/14/2017 12:51 PM Alice Singh time of call 09/27/2016 3:56 PM Doreen Adele Exercise Program Referral Fe Dietrich " Weight Management Counseling Provided Fe Dietrich " Nutrition intervention Fe Dietrich " drug use, illicit Never Krystin Thomas " alcohol use Currently Krystin Thomas " social history E&M . Not homeless. City: [place]. State: [place] 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 [employer]. 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 Krystin Thomas " social history reviewed E&M reviewed today Krystin Thomas " passive cigarette smoke exposure Yes Krystin Thomas " smoking status never smoker Krystin Thomas " assessment of health literacy ([facility] 2014 Standards, 3C10) Adequate Krystin Thomas time of call 07/28/2016 2:59 PM Yojana Johnsonillo drug use, illicit Never Krystin Thomas " alcohol use Currently Krystin Thomas " social history E&M . Not homeless. City: [place]. State: [place] 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 [employer]. 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 Krystin [...] Kirk Viramontes drug use, illicit Never Thea Mraadiaga " alcohol use Currently Thea Maradiaga " social history E&M . Not homeless. City: [place]. State: [place] 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 [employer]. 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 Thea [...] social history E&M . Not homeless. City: [place]. State: [place] 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 [employer]. 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 Lyla Minor " Occupation #1 [employer] Work[employer] Lyla Minor " patient considered to be [...] Anxiety Disorder Questionnaire - Question 1 0 rKystin Thomas assessment of judgment and insight E&M [...] E&M no depression, anxiety, or agitation Jerel Weare " Generalized Anxiety Disorder Questionnaire - Question 2 0 Krystinus Thomas " Generalized Anxiety Disorder Questionnaire - Question 1 0 Krystin Thomas assessment of judgment and insight E&M intact Jerel Weare " assessment of mood and affect E&M no depression, anxiety, or agitation Jerel Weare " Generalized Anxiety Disorder Questionnaire - Question 2 0 Krystin Thomas " Generalized Anxiety Disorder Questionnaire - Question 1 0 Krystin Thomas assessment of judgment and insight E&M intact Jerel Weare " assessment of mood and affect E&M no depression, anxiety, or agitation Jerel Weare " Generalized Anxiety Disorder Questionnaire - Question [...] - - Est Patient Exp Problem - 76665 Ofc Vst, Est Level III Est Patient Exp Problem - 90546 Est Patient Exp Problem - 05545 Est Patient Detailed - 36621 Est Patient Exp Problem - 47108 Est Patient Detailed - 56031 Injection, ketorolac tromethamine (toradol), per 15 mg Est Patient Detailed - 24445 Est Patient Detailed - 44784 Est Patient Detailed - 07251 IM or SQ Injection Injection, dexamethasone sodium phosphate, 1mg Est Patient Detailed - 58137 Est Patient Detailed - 11167 Est Patient Detailed - 97119 Est Patient Detailed - 37630 Est Patient Exp Problem - 87123 IM or SQ Injection Injection, dexamethasone sodium phosphate, 1mg Est Patient Detailed - 00795 Est Patient Exp Problem - 68753 Est Patient Detailed - 75629 INFLUENZA VACCINE QUADRIVALENT 3 YRS PLUS IM Est Patient Well Exam (40 - 64 Yrs) - 60373 INFLUENZA VACCINE QUADRIVALENT 3 YRS PLUS IM Est Patient Exp Problem - 46117 Est Patient Well Exam (40 - 64 Yrs) - 60918 Est Patient Exp Problem - 05890 Est Patient Detailed - 49089 Est Patient Exp Problem - 40045 EKG - Tracing Only EKG - Interpretation & Report Only Est Patient Exp Problem - 11899 Est Patient Well Exam (40 - 64 Yrs) - 35260 Est Patient Exp Problem - 94658 HISTORY OF PROCEDURES Procedure Date Procedure Name Provider Procedure Notes Status Injection, ketorolac tromethamine (toradol), per 15 mg Cecille Wilbert completed IM or SQ Injection Cecille Wilbert 4mg left deltoid IM completed Injection, dexamethasone sodium phosphate, 1mg Cecille Wilbert completed IM or SQ Injection Cecille Wilbert 4mg/ml dexamethasone IM right gluteus medius completed Injection, dexamethasone sodium phosphate, 1mg Cecille Wilbert [facility]: [id number]. completed EKG - Tracing Only Elisabeth Bourne completed EKG - Interpretation & Report Only Elisabeth Bourne completed GOALS No Information Available HEALTH CONCERNS No Information Available
[2019-08-12 15:56] VITALS: BP 107/71
== END | disposition home or self-care (01) ==
LOC: OR 11:35
PROVIDERS: ATTEND Internal Medicine Gastroenterology
DX: K21.0 Gastro-esophageal reflux disease with esophagitis (principal); C49.A2 Gastrointestinal stromal tumor of stomach; K31.7 Polyp of stomach and duodenum; K29.50 Unspecified chronic gastritis without bleeding; K29.80 Duodenitis without bleeding; D64.9 Anemia, unspecified; K44.9 Diaphragmatic hernia without obstruction or gangrene; K59.09 Other constipation; R63.4 Abnormal weight loss; E87.6 Hypokalemia; I10 Essential (primary) hypertension; E78.5 Hyperlipidemia, unspecified; K58.9 Irritable bowel syndrome, unspecified; F95.8 Other tic disorders; M19.90 Unspecified osteoarthritis, unspecified site; Z01.810 Encounter for preprocedural cardiovascular examination
CPT/HCPCS: 43239; 93005; J2250; J2704

== ENCOUNTER → 2021-08-02 | Day surgery (SDC) | payer BC ==
[~2021-08-02] MED LIST changes: +FENTANYL CITRATE/PF 100MCG/2 ML INJ ONE; +LIDOCAINE HCL 2% LOCAL INJ 5 ML SDV VIAL INJ ONE; +LINZESS72 MCG PO; +PAMELOR25 MG PO; +PROPOFOL IV EMULSION 10 MG/ML 20 ML VIAL ONE; -PROPOFOL IV EMULSION 10 MG/ML 50 ML VIAL ONE
[2021-08-02 10:15] VITALS: BP 111/76
== END | disposition home or self-care (01) ==
LOC: OR 07:08
PROVIDERS: ATTEND Internal Medicine Gastroenterology
DX: K31.7 Polyp of stomach and duodenum (principal); K29.70 Gastritis, unspecified, without bleeding; K21.9 Gastro-esophageal reflux disease without esophagitis; K44.9 Diaphragmatic hernia without obstruction or gangrene; K59.09 Other constipation; K64.8 Other hemorrhoids; Z85.09 Personal history of malignant neoplasm of other digestive organs; K76.89 Other specified diseases of liver; D64.9 Anemia, unspecified; E03.9 Hypothyroidism, unspecified; E78.5 Hyperlipidemia, unspecified; I10 Essential (primary) hypertension; F41.9 Anxiety disorder, unspecified; Z01.810 Encounter for preprocedural cardiovascular examination; Z01.812 Encounter for preprocedural laboratory examination; Z20.822 Contact with and (suspected) exposure to COVID-19; Z79.899 Other long term (current) drug therapy
CPT/HCPCS: 43239; 93005; J2001; J2250; J2704; J3010; U0002